=== PATIENT | female | born 1935 | race Caucasian/White ===

== ENCOUNTER → 2016-11-04 | Outpatient (CLI) | payer OTHER, BC ==
[~2016-11-04] MED LIST: ACET-749 PO; ACET325T96 PO; ASCO250T4 PO; ASTN NAE; CALC250T8 PO; CALC500T83 PO; CHOL1000 PO; CHOL20007 PO; CHOLTAB3 PO; DIPH-437 PO; DIPH25CA65 PO; EPP3 IM; EPP3/2 IM; FLUT0.15 NAE; GLUCTAB7 PO; HYDR12.56 PO; KETOCONAZOLE SHAMPOO TOP; LORA10CA2 PO; NYSTCRE11 TOP; OXYC-57 PO; POLY335019 PO; PRED20TA PO; PSYL48.59 PO; PSYL55.43 PO; TIMO0.05 OPB; VERA1CAP5 PO; VERA1TAB PO; WARF2TAB PO; [UNRECOGNIZED DRUG - CODE] TOP; [UNRECOGNIZED DRUG - OTHER] OPB
--- NOTE | 2016-11-04 12:58 | DIAGNOSTIC IMAGING REPORT ---
LUMBAR SPINE 5 VIEWS HISTORY: Pain M16.10 Hip muscxxtqsA60.0 [id number] Lower back [id number] COMPARISON: None. FINDINGS: There is no fracture. No subluxation. Moderate degenerative disc changes throughout. Mild to moderate osteopenia. IMPRESSION: Degenerative change. Osteopenia. No acute process. Electronically signed by: John Villanueva M.D. 11/04/2016 12:56 PM Dictated Date/Time: 11/04/2016 12:56 PM
--- NOTE | 2016-11-04 13:02 | DIAGNOSTIC IMAGING REPORT ---
PELVIS/BILATERAL HIP 2 VIEWS CLINICAL HISTORY: ARTHRITIS, HIP ARTHRITIS pain COMPARISON STUDY: None FINDINGS: Severe degenerative change of both hips. No evidence for acetabular protrusion. Sclerosis and subchondral cyst formation of the hips bilaterally. IMPRESSION: Severe degenerative change of both hips Electronically signed by: John Villanueva M.D. 11/04/2016 1:01 PM Dictated Date/Time: 11/04/2016 1:00 PM
[2016-11-04 13:35] LABS: BLOOD UREA NITROGEN 10 mg/dl (7-18); BUN/CREATININE RATIO 13.1 (10-20); CALCIUM 9.7 mg/dl (8.5-10.1); CARBON DIOXIDE 29 mmol/L (21-32); CHLORIDE 95 mmol/L (98-107); CREATININE 0.78 mg/dl (0.60-1.20); GLUCOSE 90 mg/dl (70-99); POTASSIUM 4.3 mmol/L (3.5-5.1); SODIUM 133 mmol/L (136-145)
== END | disposition home or self-care (01) ==
LOC: C.RADBC 11:49
PROVIDERS: ATTEND Internal Medicine
DX: Z00.00 Encounter for general adult medical examination without abnormal findings (principal); M16.10 Unilateral primary osteoarthritis, unspecified hip; M81.0 Age-related osteoporosis without current pathological fracture; M54.5 Low back pain

== ENCOUNTER → 2016-12-27 | Outpatient (CLI) | payer OTHER, BC ==
[~2016-12-27] MED LIST changes: +CLOT1CRE20 TOP; +CLR10 PO; +GUAI1TAB55 PO; +KETO2SHA TOP; +LPR25 PO; +PSEU30TA64 PO; +TRMO115 TOP; +VERA180T PO; +VITACAP26 PO; +WHEACHW PO; +[UNRECOGNIZED DRUG - CODE] OPB
--- NOTE | 2016-12-27 13:17 | MAMMOGRAPHY REPORT ---
BILATERAL DIGITAL SCREENING MAMMOGRAM TOMOSYNTHESIS WITH CAD: 12/27/2016 CLINICAL HISTORY: Asymptomatic. Personal history of breast cancer. TECHNIQUE: Breast tomosynthesis in addition to standard 2D mammography was performed. Current study was also evaluated with a Computer Aided Detection (CAD) system. COMPARISON: Comparison is made to exams dated: 10/20/2015 mammogram, 12/18/2014 mammogram, 10/27/2014 ma mmogram, 10/29/2013 mammogram, 02/12/2013 mammogram, and 02/20/2012 mammogram - [facility] nter. BREAST COMPOSITION: There are scattered areas of fibroglandular density in both breasts. FINDINGS: No suspicious masses, calcifications, or areas of architectural distortion are noted in e ither breast. There has been no significant interval change compared to prior exams. There are stab le postsurgical changes in the left upper outer quadrant from prior lumpectomy, including stable den sity, architectural distortion, and surgical clips at the lumpectomy bed. A linear scar marker melo jose angel a scar on the left upper outer breast. Scattered bilateral benign-appearing calcifications are not significantly changed. IMPRESSION: ACR BI-RADS CATEGORY 2: BENIGN There is no mammographic evidence of malignancy. A 1 year screening mammogram is recommended. The p atient will receive written notification of the results. Approximately 10% of breast cancers are not detected with mammography. A negative mammographic repor t should not delay biopsy if a clinically suggestive mass is present. Ida Sheehan M.D. /:12/27/2016 12:31:34 Attending Technologist: Poonam Suh RT(R)(M), [facility] Pot Runner: Briana Card RT(R)(M), [facility] letter sent: Normal 1/2 BI-RADS Code: ACR BI-RADS Category 2: Benign
== END | disposition home or self-care (01) ==
LOC: C.MAMM 11:16
PROVIDERS: ATTEND Surgery
DX: Z12.31 Encounter for screening mammogram for malignant neoplasm of breast (principal); Z85.3 Personal history of malignant neoplasm of breast

== ENCOUNTER → 2017-01-25 | Outpatient (CLI) | payer OTHER, BC | END | disposition home or self-care (01) | LOC: C.LAB1850 10:48 | PROVIDERS: ATTEND Internal Medicine | DX: M81.0 Age-related osteoporosis without current pathological fracture (principal) ==

== ENCOUNTER 2017-02-15 01:12 | Emergency (ER) | payer OTHER, BC ==
[~2017-02-15] VITALS: Ht 167.6 cm; Wt 76.0 kg
[~2017-02-15 01:12] MED LIST changes: -ACET-749 PO; -ACET325T96 PO; -ASTN NAE; -CALC250T8 PO; -CALC500T83 PO; -CHOL1000 PO; -CHOL20007 PO; -CLOT1CRE20 TOP; -CLR10 PO; -DIPH25CA65 PO; -EPP3/2 IM; -FLUT0.15 NAE; -GLUCTAB7 PO; -GUAI1TAB55 PO; -HYDR12.56 PO; -KETO2SHA TOP; -KETOCONAZOLE SHAMPOO TOP; -LORA10CA2 PO; -LPR25 PO; -NYSTCRE11 TOP; -OXYC-57 PO; -POLY335019 PO; -PRED20TA PO; -PSEU30TA64 PO; -PSYL48.59 PO; -TIMO0.05 OPB; -TRMO115 TOP; -VERA180T PO; -VERA1CAP5 PO; -VITACAP26 PO; -WARF2TAB PO; -WHEACHW PO; -[UNRECOGNIZED DRUG - CODE] OPB; -[UNRECOGNIZED DRUG - CODE] TOP; -[UNRECOGNIZED DRUG - OTHER] OPB
[2017-02-15 01:16] VITALS: BP 144/85; TEMP 36.8; O2SAT 99; Ht 167.6 cm; Wt 76.0 kg
[2017-02-15] MEDS ORDERED: PRED20TA PO (01:52)
--- NOTE | 2017-02-15 21:21 | EMERGENCY ROOM VISIT NOTE ---
History First contact with patient: 01:36 Chief Complaint: ALLERGIC REACTION Stated Complaint: ALLERGIC REACTION Nursing Triage Summary: patient states prior to arrival her lower lip became swollen and numb and believed she was having an allergic reaction. patient states she had already taken children's benadryl as a part of her normal nighttime medication and patient states symptoms resolved priro to arrival. denies any respiratoy complaints at this time and respirations wnl . 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 History of Present Illness The patient is a 82 year old female who presents to the Emergency Room with complaints of lip swelling that has now resolved. She had a sudden onset of symptoms prior to arrival then took benadryl. The patient noted using an oral moisturizer just prior to the event. She has had allergic reactions and angioedema in the past for the 30 yrs. She is currently feeling better only noting minimal left lower lip edema. She denies pain. Pt denies LOC, headache , fevers, chills, diaphoresis, visual changes, neck pain, chest pain, breathing difficulties, nausea, vomiting, abdominal pain, back pain, melena, hematochezia , urinary symptoms, numbness, weakness, lymphadenopathy, rash, or other complaints. Review of Systems See HPI for pertinent positives and negatives. A total of ten systems were reviewed and were otherwise negative. 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 (5) Sleep apnea Social History Smoking Status: Never Smoker Marital Status: single Housing Status: lives alone Current/Historical Medications Scheduled Acetaminophen/Diphenhydramine (Tylenol Pm), 2 TABS PO HS Ascorbic Acid (Vitamin C), 250 MG PO DAILY Epinephrine (Epipen *), 0.3 MG IM UD Ergocalciferol (Vitamin D), 1 CAP PO DAILY Hydrochlorothiazide (Hctz), 12.5 MG PO DAILY Loratadine (Claritin), 10 MG PO DAILY Prednisone (Prednisone), 40 MG PO DAILY Psyllium (Metamucil Powder), 1 PACK PO PRN UD Verapamil (Calan), 80 MG PO TID PRN Scheduled PRN Acetaminophen Tab (Tylenol), 650 MG PO TID PRN Allergies Coded Allergies: Aspirin (Verified Allergy, Severe, TONGUE AND THROAT SWELLS, 06/14/16) Cephalexin (Verified Allergy, Severe, swelling tongue and throat, 06/14/16 ) Magnesium Salicylate (Verified Allergy, Severe, ANAPHYLAXIS, 06/14/16) Omeprazole (Verified Allergy, Severe, ANAPHYLAXIS, 06/14/16) Tramadol (Verified Allergy, Severe, ANAPHYLAXIS, 06/14/16) Erythromycin (Verified Allergy, Unknown, SWELLING AND RASH, 06/14/16) Oxycodone (Verified Allergy, Unknown, UNKNOWN, 06/14/16) Tetracycline (Verified Allergy, Unknown, SWELLING AND RASH, 06/14/16) Alendronate (Verified Adverse Reaction, Unknown, very upset stomach, 06/14) Uncoded Allergies: perfumes (Allergy, Unknown, can't breathe, 05/20/12) Physical Exam Vital Signs Date Time Temp Pulse Resp B/P (MAP) Pulse Ox O2 Delivery O2 Flow Rate FiO2 02/15/17 01:16 Room Air 02/15/17 01:16 36.8 20 144/85 99 Room Air Physical Exam GENERAL: Awake, alert, well-appearing, in no distress HENT: Normocephalic, atraumatic. Oropharynx unremarkable. No edema or swelling. Voice normal. EYES: Normal conjunctiva. Sclera non-icteric. NECK: Supple. No nuchal rigidity. FROM. No JVD. No stridor. RESPIRATORY: Clear to auscultation. CARDIAC: Regular rate, normal rhythm. Extremities warm and well perfused. Pulses equal. ABDOMEN: Soft, non-distended. No tenderness to palpation. No rebound or guarding. No masses. RECTAL: Deferred. MUSCULOSKELETAL: Chest examination reveals no tenderness. The back is symmetrical on inspection without obvious abnormality. There is no CVA tenderness to palpation. No joint edema. LOWER EXTREMITIES: Calves are equal size bilaterally and non-tender. No edema. No discoloration. NEURO: Normal sensorium. No sensory or motor deficits noted. SKIN: No rash or jaundice noted. Medical Decision & Procedures Medications Administered Medications (Trade) Dose Ordered Sig/Foster Route Start Time Stop Time Status Last Admin Dose Admin Prednisone (PredniSONE TAB) 40 mg NOW STAT PO 02/15/17 01:43 02/15/17 01:45 DC 02/15/17 01:49 40 MG Medical Decision Prior records/ancillary studies reviewed. Triage Nursing notes reviewed and agree them. The patient's history was concerning for possible allergic reaction. Differential diagnosis: Etiologies such as allergic reaction, anaphylaxis, urticaria, Martinez-Dank syndrome, toxic epidermal necrolysis, angioedema, cellulitis, as well as others were entertained. Physical examination: As above. ER treatment provided: Continuous cardiac monitoring Oral prednisone On reassessment the patient felt normal. Diagnostic interpretation by me: None ordered It appears the patient had a Very mild allergic reaction. The above treatment did well. After prolonged monitoring and frequent reassessments the patient did very well and symptoms did not return. By the evaluation outlined above emergent etiologies such as airway compromise, Martinez-Dank syndrome, toxic epidermal necrolysis, erythema multiforme, cellulitis, as well as others were deemed relatively unlikely. The patient was informed about the findings as listed above. All questions were answered and she was pleased with the treatment. Return instructions were outlined and the patient was discharged in stable condition. Outpatient prescription management: The patient has an EpiPen prednisone Referral: The patient was referred back to her primary care physician for follow-up in 2- 3 days for a recheck of the current condition. Impression Primary Impression: Allergic reaction Departure Information Dispostion Home / Self-Care Prescriptions Prednisone (Prednisone) 20 Mg Tab 40 MG PO DAILY for 2 Days, #4 TAB Prov: David Lauren MD 02/15/17 Referrals Julio Springer M.D. (PCP) Patient Instructions My [facility]
[2017-03-16] MEDS ORDERED: ACET325T96 PO (13:45)
[2017-03-16] MEDS ORDERED: HYDR12.56 PO (13:54)
[2017-03-16] MEDS ORDERED: LORA10CA2 PO (13:54)
[2017-04-02] MEDS ORDERED: TIMO0.05 OPB (14:35)
[2017-04-02] MEDS ORDERED: PSYL48.59 PO (14:35)
[2017-04-02] MEDS ORDERED: VERA1CAP5 PO (14:35)
[2017-04-02] MEDS ORDERED: NYSTCRE11 TOP (14:35)
[2017-04-02] MEDS ORDERED: FLUT0.15 NAE (14:35)
[2017-04-02] MEDS ORDERED: KETOCONAZOLE SHAMPOO TOP (14:35)
[2017-04-02] MEDS ORDERED: VERA1TAB PO (14:35)
[2017-04-02] MEDS ORDERED: POLY335019 PO (14:35)
[2017-04-02] MEDS ORDERED: CHOL1000 PO (14:35)
[2017-04-02] MEDS ORDERED: CALC250T8 PO (14:35)
[2017-04-02] MEDS ORDERED: DIPH-437 PO (14:35)
[2017-04-02] MEDS ORDERED: DIPH25CA65 PO (14:35)
[2017-04-02] MEDS ORDERED: [UNRECOGNIZED DRUG - CODE] TOP (14:56)
== END 2017-02-15 02:30 | disposition home or self-care (01) ==
LOC: EDBD 01:12 → C.EDA 01:14
DX: T78.40XA Allergy, unspecified, initial encounter (principal); X58.XXXA Exposure to other specified factors, initial encounter; I10 Essential (primary) hypertension; Z85.3 Personal history of malignant neoplasm of breast; G47.30 Sleep apnea, unspecified; Z96.659 Presence of unspecified artificial knee joint

== ENCOUNTER 2017-03-16 20:46 | Inpatient (IN) | payer OTHER, BC ==
[~2017-03-16] VITALS: Ht 167.6 cm; Wt 77.1 kg
[~2017-03-16 20:46] MED LIST changes: +ACET325T96 PO; +HYDR12.56 PO; +LORA10CA2 PO
[2017-03-16 21:23] LABS: BASO % 0.3 %; BASO ABS # 0.02 K/uL (0-0.2); COMPLETE YES; EOS % 1.5 %; HEMATOCRIT 38.6 % (37-47); IG% 0.2 %; LYMPH % 36.9 %; LYMPH ABS # 2.26 K/uL (1.2-3.4); MEAN CELL VOLUME 90.6 fL (80-100); MEAN CORPUSCULAR HEMOGLOBIN 31.7 pg (25-34); MEAN PLATELET VOLUME 9.1 fL (7.4-10.4); MONO % 9.1 %; PLATELET COUNT 272 K/uL (130-400); RED BLOOD COUNT 4.26 M/uL (4.2-5.4); WHITE BLOOD COUNT 6.13 K/uL (4.8-10.8)
--- NOTE | 2017-03-16 21:31 | DIAGNOSTIC IMAGING REPORT ---
CHEST ONE VIEW PORTABLE CLINICAL HISTORY: Stroke mental status change COMPARISON STUDY: 06/30/2012 FINDINGS: The bones soft tissues and hemidiaphragms are normal. The cardiomediastinal silhouette is normal. The lungs are clear. The pulmonary vasculature is normal. IMPRESSION: Negative chest. The above report was generated using voice recognition software. It may contain grammatical, syntax or spelling errors. Electronically signed by: John Villanueva M.D. 03/16/2017 9:30 PM Dictated Date/Time: 03/16/2017 9:30 PM
[2017-03-16 21:32] LABS: ALT/SGPT 16 U/L (12-78); BLOOD UREA NITROGEN 12 mg/dl (7-18); BUN/CREATININE RATIO 13.8 (10-20); CALCIUM 9.2 mg/dl (8.5-10.1); CARBON DIOXIDE 28 mmol/L (21-32); CHLORIDE 94 mmol/L (98-107); CREATININE 0.86 mg/dl (0.60-1.20); GLUCOSE 114 mg/dl (70-99); POTASSIUM 4.1 mmol/L (3.5-5.1); SODIUM 130 mmol/L (136-145)
[2017-03-16 21:34] LABS: PARTIAL THROMBOPLASTIN RATIO 1.3; PROTHROMBIN TIME (PATIENT) 10.7 SECONDS (9.0-12.0)
[2017-03-16] MEDS: SODIUM CHLORIDE 0.9% 1000ML 1,000 ML IV SCH (21:34)
[2017-03-16 21:38] LABS: ALKALINE PHOSPHATASE 94 U/L (45-117); AST/SGOT 13 U/L (15-37); CKMB/CK RATIO 2.3 (0-3.0)
[2017-03-16] MEDS ORDERED: [UNRECOGNIZED DRUG - OTHER] OPB (21:46)
[2017-03-16] MEDS ORDERED: ASTN NAE (21:46)
[2017-03-16] MEDS ORDERED: EPP3/2 IM (21:46)
[2017-03-16] MEDS ORDERED: CALC500T83 PO (21:46)
[2017-03-16] MEDS ORDERED: GLUCTAB7 PO (21:46)
[2017-03-16] MEDS ORDERED: CHOL20007 PO (21:46)
--- NOTE | 2017-03-16 21:55 | DIAGNOSTIC IMAGING REPORT ---
HEAD WITHOUT CONTRAST (CT) CT DOSE: 638.56 mGycm HISTORY: Mental status change Stroke TECHNIQUE: Multiaxial CT images of the head were performed without the use of intravenous contrast. A dose lowering technique was utilized adhering to the principles of ALARA. Comparison: None. Findings: The paranasal sinuses and mastoid air cells are clear. Mild chronic small vessel change of aging. Ventricular system is midline. No evidence for acute intracranial hemorrhage. Impression: Age-related change. No acute process. The above report was generated using voice recognition software. It may contain grammatical, syntax or spelling errors. Electronically signed by: John Villanueva M.D. 03/16/2017 9:54 PM Dictated Date/Time: 03/16/2017 9:52 PM
[2017-03-16 22:20] LABS: URINE APPEARANCE CLEAR (CLEAR); URINE BILIRUBIN NEG (NEG); URINE COLOR YELLOW; URINE NITRITE NEG (NEG); URINE PH 8.5 (4.5-7.5); UROBILINOGEN NEG (NEG); ZZUR CULT IF INDIC CLEAN CATCH NO
[2017-03-16 22:21] LABS: MANUAL MICROSCOPIC REQUIRED? NO; REVIEW REQ? NO
--- NOTE | 2017-03-16 22:51 | EMERGENCY ROOM VISIT NOTE ---
History Report prepared by Jade: Evelyn Ward Under the Supervision of: Dr. Richie Ding D.O. First contact with patient: 21:03 Chief Complaint: TIA Stated Complaint: TIA SYMPTOMS History of Present Illness The patient is an 82 year old female who presents to the Emergency Room with complaints of improving left sided weakness which started at 1900 today. The patient started having difficulty walking at 1900. Her left leg seemed to be dragging behind her. She waited to see if the symptoms would resolve, but they did not so she called EMS. Her symptoms had begun to improve by the time EMS arrived. She reports some stiffness in her left hand, numbness in her left lip, dizziness, lightheadedness, and headache. She reports feeling "fuzzy" in the head. She always has some pain in her left leg because of her knee replacement. She denies any swelling in her legs. She has difficulty with her right hip and will have a hip replacement in the future. She has a history of aortic aneurysm , high cholesterol, and sleep apnea. She denies any history of stroke. She wore a heart monitor a couple months ago which was normal. She is not on any blood thinners. Source of History: patient Onset: 1900 today Position: other (left sided) Quality: other (weakness) Timing: other (improving) Associated Symptoms: + numbness (left lip) Note: Pt reports trouble walking, left leg dragging, stiffness in left hand, dizziness , lightheadedness, fuzzy in the head. Pt denies leg swelling. Review of Systems See HPI for pertinent positives & negatives. A total of 10 systems reviewed and were otherwise negative. 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 Social History Smoking Status: Former Smoker Marital Status: Housing Status: lives alone Current/Historical Medications Scheduled Azelastine Hcl (Astelin Nasal [place]), 2 SPRAYS CASSIA BID Calcium (Calcium), 1 TAB PO DAILY Cholecalciferol (Vitamin D3), 2,000 INTER.UNIT PO DAILY Fctffpzjgmn-Ywrdmfquusm-Vjx C- (Glucosamine Chondroitin), 1 TAB PO DAILY Hydrochlorothiazide (Hctz), 12.5 MG PO DAILY Loratadine (Claritin), 10 MG PO DAILY Timolol Maleate (Timolol Maleate), 1 DROP OPB QAM Scheduled PRN Acetaminophen Tab (Tylenol), 650 MG PO TID PRN for Pain Epinephrine (Epipen), 0.3 MG IM UD PRN for ALLERGIC REACTION Allergies Coded Allergies: Aspirin (Verified Allergy, Severe, TONGUE AND THROAT SWELLS, 06/14/16) Cephalexin (Verified Allergy, Severe, swelling tongue and throat, 06/14/16 ) Magnesium Salicylate (Verified Allergy, Severe, ANAPHYLAXIS, 06/14/16) Omeprazole (Verified Allergy, Severe, ANAPHYLAXIS, 06/14/16) Tramadol (Verified Allergy, Severe, ANAPHYLAXIS, 06/14/16) Erythromycin (Verified Allergy, Unknown, SWELLING AND RASH, 06/14/16) Oxycodone (Verified Allergy, Unknown, UNKNOWN, 06/14/16) Tetracycline (Verified Allergy, Unknown, SWELLING AND RASH, 06/14/16) Alendronate (Verified Adverse Reaction, Unknown, very upset stomach, 06/14) Uncoded Allergies: perfumes (Allergy, Unknown, can't breathe, 05/20/12) Physical Exam Vital Signs Date Time Temp Pulse Resp B/P (MAP) Pulse Ox O2 Delivery O2 Flow Rate FiO2 03/16/17 22:56 64 20 171/89 98 Room Air 03/16/17 21:21 Room Air 03/16/17 20:55 86 03/16/17 20:48 37.1 65 18 149/71 97 Room Air Physical Exam GENERAL: Patient is awake, alert, and in no acute distress. Patient is resting comfortably and showing no signs of anxiety EYES: The conjunctivae are clear. The pupils are round and reactive. EARS, NOSE, MOUTH AND THROAT: The nose is without any evidence of any deformity. Mucous membranes are moist tongue is midline NECK: The neck is nontender and supple. RESPIRATORY: Normal respiratory effort is noted there is no evidence of wheezing rhonchi or rales CARDIOVASCULAR: Regular rate and rhythm noted there no murmurs rubs or gallops normal S1 normal S2 GASTROINTESTINAL: The abdomen is soft. Bowel sounds are present in all quadrants. Abdomen is nontender MUSCULOSKELETAL/EXTREMITIES: There is no evidence of gross deformity full range of motion is noted in the hips and shoulders SKIN: There is pedal edema bilaterally. 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 Medical Decision & Procedures ER Provider Diagnostic Interpretation: X-ray results as stated below per interpretation by me and the radiologist. Radiology results as stated below per my review and radiologist interpretation: CHEST ONE VIEW PORTABLE CLINICAL HISTORY: Stroke mental status change COMPARISON STUDY: 06/30/2012 FINDINGS: The bones soft tissues and hemidiaphragms are normal. The cardiomediastinal silhouette is normal. The lungs are clear. The pulmonary vasculature is normal. IMPRESSION: Negative chest. The above report was generated using voice recognition software. It may contain grammatical, syntax or spelling errors. Electronically signed by: John Villanueva M.D. 03/16/2017 9:30 PM Dictated Date/Time: 03/16/2017 9:30 PM HEAD WITHOUT CONTRAST (CT) CT DOSE: 638.56 mGycm HISTORY: Mental status change Stroke TECHNIQUE: Multiaxial CT images of the head were performed without the use of intravenous contrast. A dose lowering technique was utilized adhering to the principles of ALARA. Comparison: None. Findings: The paranasal sinuses and mastoid air cells are clear. Mild chronic small vessel change of aging. Ventricular system is midline. No evidence for acute intracranial hemorrhage. Impression: Age-related change. No acute process. The above report was generated using voice recognition software. It may contain grammatical, syntax or spelling errors. Electronically signed by: John Villanueva M.D. 03/16/2017 9:54 PM Dictated Date/Time: 03/16/2017 9:52 PM Laboratory Results Test 03/16/17 20:45 03/16/17 21:34 03/16/17 22:00 Prothrombin Time 10.7 SECONDS (9.0-12.0) Prothromb Time International Ratio 1.0 (0.9-1.1) Activated Partial Thromboplast Time 32.5 SECONDS (21.0-31.0) Partial Thromboplastin Ratio 1.3 Estimated Average Glucose 114 mg/dl Hemoglobin A1c 5.6 % (4.5-5.6) Total Bilirubin 0.6 mg/dl (0.2-1) Direct Bilirubin 0.1 mg/dl (0-0.2) Aspartate Amino Transf (AST/SGOT) 13 U/L (15-37) Alanine Aminotransferase (ALT/SGPT) 16 U/L (12-78) Alkaline Phosphatase 94 U/L (45-117) Total Protein 7.5 gm/dl (6.4-8.2) Albumin 3.7 gm/dl (3.4-5.0) Bedside Prothrombin Time INR 1.0 (0.9-1.1) Urine Color YELLOW Urine Appearance CLEAR (CLEAR) Urine pH 8.5 (4.5-7.5) Urine Specific [place] 1.010 (1.000-1.030) Urine Protein NEG (NEG) Urine Glucose (UA) NEG (NEG) Urine Ketones NEG (NEG) Urine Occult Blood NEG (NEG) Urine Nitrite NEG (NEG) Urine Bilirubin NEG (NEG) Urine Urobilinogen NEG (NEG) Urine Leukocyte Esterase SMALL (NEG) Urine WBC (Auto) 1-5 /hpf (0-5) Urine RBC (Auto) 0-4 /hpf (0-4) Urine Hyaline Casts (Auto) 0 /lpf (0-5) Urine Epithelial Cells (Auto) 10-20 /lpf (0-5) Urine Bacteria (Auto) NEG (NEG) Laboratory results per my review. Medications Administered Medications (Trade) Dose Ordered Sig/Foster Route Start Time Stop Time Status Last Admin Dose Admin Sodium Chloride 1,000 ml @ 50 mls/hr Q20H IV 03/16/17 21:14 03/17/17 18:13 DC 03/17/17 17:42 50 MLS/HR ECG Indication: weakness Rate (beats per minute): 70 Rhythm: normal sinus Findings: no ectopy, other (no acute ST segment abnormalities) Comparison ECG Date: 02-Jul-2012 Change: no significant change ED Course 2112: The patient was evaluated in room A11B. A complete history and physical examination were performed. 2113: NSS 1000 ml @ 50 mls/hr IV. 2213: Upon reevaluation, the patient is resting comfortably. I discussed results and treatment plan with her. She verbalizes agreement and understanding. The patient will be evaluated for further management and care. 2242: I discussed the patient's case with Dr. Kline, [facility] hospitalist. The patient will be evaluated for further management. Medical Decision Prior records/ancillary studies reviewed and summarized above. Nursing notes reviewed. The patient's history was concerning for weakness. Differential diagnosis: Etiologies such as metabolic, infection, hypo/hyperglycemia, electrolyte abnormalities, cardiac sources, intracerebral event, toxicologic, neurologic, as well as others were entertained. The patient is an 82-year-old female who presented to the emergency department for an evaluation of left-sided weakness. The patient had significant improvement of her symptoms. I discussed the patient's laboratory and radiographic studies with her. The patient does not appear to be a candidate for TPA at this time. I discussed the patient's condition with the on-call [facility] hospitalist group. She may require further evaluation as an inpatient to determine the cause of her symptoms. The patient was agreeable to this plan. Medication Reconcilliation Current Medication List: was personally reviewed by me Blood Pressure Screening Patient's blood pressure: Elevated blood pressure Blood pressure disposition: Elevated BP felt to be situational Consults Time Called: [phone] Consulting Physician: Dr. Kline, [facility] hospitalist Returned Call: [phone] I discussed the patient's case with him. The patient will be evaluated for further management. Impression Primary Impression: Left-sided weakness Additional Impression: Hyponatremia Scribe Attestation The scribe's documentation has been prepared under my direction and personally reviewed by me in its entirety. I confirm that the note above accurately reflects all work, treatment, procedures, and medical decision making performed by me. Departure Information Dispostion Being Evaluated By Hospitalist Referrals Julio Springer M.D. (PCP) Patient Instructions My [facility] Problem Qualifiers
[2017-03-16] MEDS ORDERED: PHARMACIST DISCHARGE MED REC CONSULT PRN (23:45)
[2017-03-17] VITALS (10 sets, daily range): BP systolic 117–185; BP diastolic 57–95; PULSE 54–77; TEMP 36.4–36.9; O2SAT 96–98; Ht 167.6 cm; Wt 77.1 kg
[2017-03-17] MEDS: ACETAMINOPHEN 325 MG TAB PO PRN ×5 (02:04→20:35)
--- NOTE | 2017-03-17 02:44 | History and Physical ---
History & Physical Date & Time of Service: Mar 17, 2017 at 02:32. The patient was examined on 03/16/2017. Chief Complaint: Hyponatremia, Left Sided Weakness Primary Care Physician: Julio Springer M.D. History of Present Illness Source: patient The patient is an 82-year-old female who presents to the emergency department with complaint of left-sided weakness that began at 1900 hrs. today, where her left leg felt heavy and was dragging behind her, and left arm felt weak. She called EMS after symptoms did not resolve, and was brought to the emergency department for assessment. She also reports that her head felt fuzzy, and had some numbness in her left lip, dizziness, lightheadedness and a headache. While in the emergency department, her symptoms did significantly improve, but did have persistent left leg heaviness. She is scheduled to undergo a right hip arthroplasty at the end of March. She has not had any history of stroke, but does have a history of an aortic aneurysm, hypercholesterolemia and sleep apnea. She reports having worn a heart monitor a few months ago due to palpitations which was normal. She does not take aspirin due to sensitivity or related products. She has not had any recent travel or sick exposures Past Medical/Surgical History Medical Problems: (1) Benign hypertension Status: Chronic (2) breast cancer Status: Chronic (3) idiopathic angioedema Status: Chronic (4) Replacement of total knee joint Status: Resolved (5) Sleep apnea Status: Chronic Family History Noncontributory Social History Smoking Status: Former Smoker Smokeless Tobacco Use: No Alcohol Use: none Drug Use: none Marital Status: Housing status: lives alone Occupational Status: retired Immunizations History of Influenza Vaccine: Yes History of Tetanus Vaccine?: Unknown History of Pneumococcal: Yes History of Hepatitis B Vaccine: Unknown Multi-Drug Resistant Organisms History of MDRO: No Allergies Coded Allergies: Aspirin (Verified Allergy, Severe, TONGUE AND THROAT SWELLS, 06/14/16) Cephalexin (Verified Allergy, Severe, swelling tongue and throat, 06/14/16 ) Magnesium Salicylate (Verified Allergy, Severe, ANAPHYLAXIS, 06/14/16) Omeprazole (Verified Allergy, Severe, ANAPHYLAXIS, 06/14/16) Tramadol (Verified Allergy, Severe, ANAPHYLAXIS, 06/14/16) Erythromycin (Verified Allergy, Unknown, SWELLING AND RASH, 06/14/16) Oxycodone (Verified Allergy, Unknown, UNKNOWN, 06/14/16) Tetracycline (Verified Allergy, Unknown, SWELLING AND RASH, 06/14/16) Alendronate (Verified Adverse Reaction, Unknown, very upset stomach, 06/14) Uncoded Allergies: perfumes (Allergy, Unknown, can't breathe, 05/20/12) Home Medications Scheduled Azelastine Hcl (Astelin Nasal [place]), 2 SPRAYS CASSIA BID Calcium (Calcium), 1 TAB PO DAILY Cholecalciferol (Vitamin D3), 2,000 INTER.UNIT PO DAILY Puqbxlkqzdl-Yeolpsqjuae-Wvv C- (Glucosamine Chondroitin), 1 TAB PO DAILY Hydrochlorothiazide (Hctz), 12.5 MG PO DAILY Loratadine (Claritin), 10 MG PO DAILY Timolol Maleate (Timolol Maleate), 1 DROP OPB QAM Scheduled PRN Acetaminophen Tab (Tylenol), 650 MG PO TID PRN for Pain Epinephrine (Epipen), 0.3 MG IM UD PRN for ALLERGIC REACTION Review of Systems The patient denies chest pain, palpitations, shortness of breath, cough, lower extremity swelling, vision change, hearing change, sore throat, fevers, chills, sweats, weight change, fatigue, nausea, vomiting, abdominal pain, pelvic pain, blood in urine or stool, dysuria, urinary frequency or urgency, memory loss, rash, abnormal bruising or bleeding, generalized weakness, arthralgias or myalgias, back or neck pain, night sweats, or allergy symptoms. The review of systems is otherwise negative other than for that already noted above, and at least 10 systems have been reviewed. Physical Exam Vital Signs Date Time Temp Pulse Resp B/P (MAP) Pulse Ox O2 Delivery O2 Flow Rate FiO2 03/17/17 01:40 36.7 72 20 185/95 97 Room Air 03/16/17 23:57 70 18 152/92 97 Room Air 03/16/17 22:56 64 20 171/89 98 Room Air 03/16/17 21:21 Room Air 03/16/17 20:55 86 03/16/17 20:48 37.1 65 18 149/71 97 Room Air The patient is awake, well-developed and adequately nourished, alert and oriented 3, normocephalic and atraumatic, lying in bed and in no acute distress. HEENT--PERRL, EOMI, mucous membranes and oropharynx dry. Neck--supple, no JVD or bruits, thyroid normal, trachea midline, no adenopathy. Heart--normal S1 and S2, no extra beats, no murmurs, rubs or gallops. Lungs--clear bilaterally with good air movement, no respiratory distress, no accessory muscle use. Abdomen--normal bowel sounds and soft, nontender and nondistended, no hernias or masses, no organomegaly. Extremities--no cyanosis, clubbing or edema. There are good distal pulses b/l. Dermatologic--normal skin turgor, normal color, warm and dry, no abnormal lymph nodes, no rash. Neurologic--cranial nerves II through XII grossly intact. Left upper extremity 4+/5 strength, left lower extremity with 4/5 strength. Right upper lobe extremity strength normal. Sensation normal bilaterally upper and lower extremities. Rheumatologic--limited exam due to weak left side. Psychiatric--normal affect. Diagnostics Laboratory Results Results Past 24 Hours Test 03/16/17 20:45 03/16/17 21:34 03/16/17 22:00 Range/Units White Blood Count 6.13 4.8-10.8 K/uL Red Blood Count 4.26 4.2-5.4 M/uL Hemoglobin 13.5 12.0-16.0 g/dL Hematocrit 38.6 37-47 % Mean Corpuscular Volume 90.6 80-100 fL Mean Corpuscular Hemoglobin 31.7 25-34 pg Mean Corpuscular Hemoglobin Concent 35.0 32-36 g/dl Platelet Count 272 130-400 K/uL Mean Platelet Volume 9.1 7.4-10.4 fL Neutrophils (%) (Auto) 52.0 % Lymphocytes (%) (Auto) 36.9 % Monocytes (%) (Auto) 9.1 % Eosinophils (%) (Auto) 1.5 % Basophils (%) (Auto) 0.3 % Neutrophils # (Auto) 3.19 1.4-6.5 K/uL Lymphocytes # (Auto) 2.26 1.2-3.4 K/uL Monocytes # (Auto) 0.56 0.11-0.59 K/uL Eosinophils # (Auto) 0.09 0-0.5 K/uL Basophils # (Auto) 0.02 0-0.2 K/uL RDW Standard Deviation 42.2 36.4-46.3 fL RDW Coefficient of Variation 12.7 11.5-14.5 % Immature Granulocyte % (Auto) 0.2 % Immature Granulocyte # (Auto) 0.01 0.00-0.02 K/uL Prothrombin Time 10.7 9.0-12.0 SECONDS Prothromb Time International Ratio 1.0 0.9-1.1 Activated Partial Thromboplast Time 32.5 21.0-31.0 SECONDS Partial Thromboplastin Ratio 1.3 Sodium Level 130 136-145 mmol/L Potassium Level 4.1 3.5-5.1 mmol/L Chloride Level 94 98-107 mmol/L Carbon Dioxide Level 28 21-32 mmol/L Anion Gap 8.0 3-11 mmol/L Blood Urea Nitrogen 12 7-18 mg/dl Creatinine 0.86 0.60-1.20 mg/dl Est Creatinine Clear Calc Drug Dose 55.3 ml/min Estimated GFR () 73.4 Estimated GFR (Non- 63.4 BUN/Creatinine Ratio 13.8 10-20 Random Glucose 114 70-99 mg/dl Calcium Level 9.2 8.5-10.1 mg/dl Total Bilirubin 0.6 0.2-1 mg/dl Direct Bilirubin 0.1 0-0.2 mg/dl Aspartate Amino Transf (AST/SGOT) 13 15-37 U/L Alanine Aminotransferase (ALT/SGPT) 16 12-78 U/L Alkaline Phosphatase 94 45-117 U/L Total Creatine Kinase 52 26-192 U/L Creatine Kinase MB 1.2 0.5-3.6 ng/ml Creatine Kinase MB Ratio 2.3 0-3.0 Troponin I < 0.015 0-0.045 ng/ml Total Protein 7.5 6.4-8.2 gm/dl Albumin 3.7 3.4-5.0 gm/dl Bedside Prothrombin Time INR 1.0 0.9-1.1 Urine Color YELLOW Urine Appearance CLEAR CLEAR Urine pH 8.5 4.5-7.5 Urine Specific [place] 1.010 1.000-1.030 Urine Protein NEG NEG Urine Glucose (UA) NEG NEG Urine Ketones NEG NEG Urine Occult Blood NEG NEG Urine Nitrite NEG NEG Urine Bilirubin NEG NEG Urine Urobilinogen NEG NEG Urine Leukocyte Esterase SMALL NEG Urine WBC (Auto) 1-5 0-5 /hpf Urine RBC (Auto) 0-4 0-4 /hpf Urine Hyaline Casts (Auto) 0 0-5 /lpf Urine Epithelial Cells (Auto) 10-20 0-5 /lpf Urine Bacteria (Auto) NEG NEG Diagnostic Radiology Patient Name: MACK SCHMIDT Unit Number: [id number] Dictated: 03/16/172151 Transcribed: 03/16/172151 MS Printed Date/Time: [~ rep prt dt]/[~ rep prt tm] [~ rep ct labl] - [~ rep ct ivnm] [facility] Radiology Department [place] [id number] Dictated: 03/16/172151 Transcribed: 03/16/172151 MS Printed Date/Time: [~ rep prt dt]/[~ rep prt tm] [~ rep ct labl] - [~ rep ct ivnm] HEAD WITHOUT CONTRAST (CT) CT DOSE: 638.56 mGycm HISTORY: Mental status change Stroke TECHNIQUE: Multiaxial CT images of the head were performed without the use of intravenous contrast. A dose lowering technique was utilized adhering to the principles of ALARA. Comparison: None. Findings: The paranasal sinuses and mastoid air cells are clear. Mild chronic small vessel change of aging. Ventricular system is midline. No evidence for acute intracranial hemorrhage. Impression: Age-related change. No acute process. The above report was generated using voice recognition software. It may contain grammatical, syntax or spelling errors. Electronically signed by: John Villanueva M.D. 03/16/2017 9:54 PM Dictated Date/Time: 03/16/2017 9:52 PM The status of this report is Signed. Draft = Not yet reviewed or approved by Radiologist. Signed = Reviewed and approved by Radiologist. <AttendingPhy></AttendingPhy> <FamilyPhy>Julio Springer M.D.</FamilyPhy> < PrimaryPhy>Julio Springer M.D.</PrimaryPhy> <UnitNumber>[id number]</UnitNumber> <VisitNumber>[id number]</VisitNumber> <PatientName>MACK SCHMIDT</ PatientName> <DateOfBirth>1935</DateOfBirth> <Location>[facility]</Location> < ServiceDate>03/16/17</ServiceDate> <MNE>ESINDI</MNE> <OrderingPhy>Richie Ding D.O.</OrderingPhy> <OrderingPhyMNE>f rep ord dr pennington</OrderingPhyMNE> <DictatingPhyMNE>f rep dict dr [place]</DictatingPhyMNE> <CCListMNE>f rep ct mne</ CCListMNE> <AdmittingPhyMNE>f pt admit dr pennington</AdmittingPhyMNE> <AttendingPhyMNE >f pt attend dr pennington</AttendingPhyMNE> <ConsultingPhyMNE>f pt consult dr pennington</ConsultingPhyMNE> <FamilyPhyMNE>f pt fam dr pennington</FamilyPhyMNE> <OtherPhyMNE>f pt other dr pennington</OtherPhyMNE> < PrimaryPhyMNE>f pt prim care dr pennington</PrimaryPhyMNE> <ReferringPhyMNE>f pt referring dr pennington</ReferringPhyMNE> Patient Name: MACK SCHMIDT Unit Number: [id number] Dictated: 03/16/172129 Transcribed: 03/16/172129 MS Printed Date/Time: [~ rep prt dt]/[~ rep prt tm] [~ rep ct labl] - [~ rep ct ivnm] [facility] [place] [address] Dictated: 03/16/172129 Transcribed: 03/16/172129 MS Printed Date/Time: [~ rep prt dt]/[~ rep prt tm] [~ rep ct labl] - [~ rep ct ivnm] [~ rep ct add3]] CHEST ONE VIEW PORTABLE CLINICAL HISTORY: Stroke mental status change COMPARISON STUDY: 06/30/2012 FINDINGS: The bones soft tissues and hemidiaphragms are normal. The cardiomediastinal silhouette is normal. The lungs are clear. The pulmonary vasculature is normal. IMPRESSION: Negative chest. The above report was generated using voice recognition software. It may contain grammatical, syntax or spelling errors. Electronically signed by: John Villanueva M.D. 03/16/2017 9:30 PM Dictated Date/Time: 03/16/2017 9:30 PM The status of this report is Signed. Draft = Not yet reviewed or approved by Radiologist. Signed = Reviewed and approved by Radiologist. <AttendingPhy></AttendingPhy> <FamilyPhy>Julio Springer M.D.</FamilyPhy> < PrimaryPhy>Julio Springer M.D.</PrimaryPhy> <UnitNumber>[id number]</UnitNumber> <VisitNumber>[id number]</VisitNumber> <PatientName>BRAYANMACK Drake</ PatientName> <DateOfBirth>1935</DateOfBirth> <Location>[facility]</Location> < ServiceDate>03/16/17</ServiceDate> <MNE>ESINDI</MNE> <OrderingPhy>Richie Ding D.O.</OrderingPhy> <OrderingPhyMNE>f rep ord dr pennington</OrderingPhyMNE> <DictatingPhyMNE>f rep dict dr pennington</DictatingPhyMNE> <CCListMNE>f rep ct mne</ CCListMNE> <AdmittingPhyMNE>f pt admit dr pennington</AdmittingPhyMNE> <AttendingPhyMNE >f pt attend dr pennington</AttendingPhyMNE> <ConsultingPhyMNE>f pt consult dr pennington</ConsultingPhyMNE> <FamilyPhyMNE>f pt fam dr pennington</FamilyPhyMNE> <OtherPhyMNE>f pt other dr pennington</OtherPhyMNE> < PrimaryPhyMNE>f pt prim care dr pennington</PrimaryPhyMNE> <ReferringPhyMNE>f pt referring dr pennington</ReferringPhyMNE> EKG EKG shows normal sinus rhythm at 70 bpm, no acute ST-T changes, and no change since 07/02/2012. Impression Assessment and Plan Left arm and left leg weakness persistent but improving/resolved headache, lightheadedness, dizziness--The patient will be admitted to telemetry for serial cardiac enzymes, cardiac rhythm monitoring and a 2-D echocardiogram with Dopplers. We will order an MRI of the brain combo, MRA of the neck combo, and MRA of head without contrast. Patient is unable to take aspirin. We'll check a fasting lipid profile and hemoglobin A1c. Hyponatremia/hypertension/migraine--hold HCTZ 12.5 mg by mouth daily. Continue verapamil 80 mg by mouth 3 times a day when necessary headache. Gen. allergy--continue loratadine 10 mg by mouth daily. Insomnia--continue acetaminophen/diphenhydramine 2 tablets by mouth at bedtime when necessary. Level of Care Telemetry Advanced Directives Existing Advance Directive: No Existing Living Will: No Existing Power of Pleater Hand: No Resuscitation Status FULL RESUSCITATION VTE Prophylaxis VTE Risk Assessment Done? Y/N: Yes Risk Level: Moderate Given or contraindicated: SCD's
[2017-03-17] MEDS ORDERED: COUGH DROP (SUGAR FREE) LOZ 24 LOZ/1 BOX ONE (04:35)
[2017-03-17 05:41] LABS: BASO % 0.4 %; BASO ABS # 0.02 K/uL (0-0.2); COMPLETE YES; EOS % 1.7 %; HEMATOCRIT 39.4 % (37-47); IG% 0.2 %; LYMPH % 34.3 %; LYMPH ABS # 1.87 K/uL (1.2-3.4); MEAN CELL VOLUME 90.8 fL (80-100); MEAN CORPUSCULAR HEMOGLOBIN 31.1 pg (25-34); MEAN CORPUSCULAR HGB CONC 34.3 g/dl (32-36); MONO % 9.5 %; NEUT % 53.9 %; PLATELET COUNT 232 K/uL (130-400); RED BLOOD COUNT 4.34 M/uL (4.2-5.4); WHITE BLOOD COUNT 5.45 K/uL (4.8-10.8)
[2017-03-17 06:11] LABS: BLOOD UREA NITROGEN 8 mg/dl (7-18); CALCIUM 9.3 mg/dl (8.5-10.1); CARBON DIOXIDE 32 mmol/L (21-32); CHLORIDE 102 mmol/L (98-107); CREATININE 0.72 mg/dl (0.60-1.20); GLUCOSE 98 mg/dl (70-99); POTASSIUM 3.8 mmol/L (3.5-5.1); SODIUM 137 mmol/L (136-145); TRIGLYCERIDES 149 mg/dl (0-150); VERY LOW DENSITY LIPOPROT CALC 30 mg/dl
[2017-03-17 06:16] LABS: ESTIMATED AVERAGE GLUCOSE 114 mg/dl; HA1C FLAG Normal (Normal)
[2017-03-17 06:25] LABS: CHOLESTEROL 234 mg/dl (0-200); CHOLESTEROL/HDL RATIO 4.5; CKMB/CK RATIO 2.5 (0-3.0); HDL CHOLESTEROL 52 mg/dl; LDL CHOLESTEROL CALCULATED 152 mg/dl
[2017-03-17] MEDS: CALCIUM 600MG + VIT D 400 IU TAB PO SCH ×2 (07:57→16:15)
[2017-03-17] MEDS: CHOLECALCIFEROL 1000 INTER.UNIT TAB PO SCH (07:58)
[2017-03-17] MEDS: LORATADINE 10 MG TAB PO SCH (07:58)
[2017-03-17] MEDS: TIMOLOL MALEATE 0.5% OP SOLN 5 ML BTL OPB SCH (07:58)
[2017-03-17] MEDS ORDERED: AZELASTINE HCL NAE SCH (09:00)
[2017-03-17] MEDS ORDERED: LIDODERM (LIDOCAINE) PATCH 5% TD SCH (09:00)
--- NOTE | 2017-03-17 09:04 | Neurology Consultation ---
Neurology Consultation Date of Consultation: Mar 17, 2017. Attending Physician: Danielito Santos M.D. Primary Care Physician: Julio Springer M.D. Reason for Consultation: Stroke History of Present Illness Source: patient, hospital records The patient is an 82 year old female with a chief complaint of left-sided weakness that began suddenly, about 2 hours prior to arrival in the emergency department. She reports that she had difficulty walking and noticed that her left leg was dragging. She reports a feeling of heaviness in the left leg and also had some mild weakness of the left hand. She reports a vague feeling of lightheadedness and mild headache as well although these particular symptoms have resolved. Her symptoms have markedly improved by the time she was evaluated in the emergency department although she was observed to have a subtle left upper extremity pronator drift at that time. The patient denies experiencing any associated disturbance of vision, hearing loss, vertigo, or change in speech. She does endorse a long-standing history of palpitations but denies chest pain or shortness of breath. He denies any recent falls or injuries although her past medical history is notable for degenerative joint disease, especially the hips and knees she is status post left total knee arthroplasty in the past and indicates that she will need a right hip arthroplasty in the near future. This patient's past medical history is also notable for aortic aneurysm, hyperlipidemia, hypertension, and sleep apnea. She is prescribed medications for her hypertension. She has refused statin therapy. She experienced an allergic reaction to aspirin in the past and is currently not prescribed any type of blood thinner. Although she has a history of palpitations she denies a history of atrial fibrillation. I reviewed the images and radiologist's interpretation of the CT of the head obtained upon presentation. The study is negative for hemorrhage or changes suggestive of acute or subacute infarct. There is evidence of chronic small vessel ischemic change related to age with patchy periventricular white matter ischemic disease. Electrocardiogram revealed a normal sinus rhythm with a heart rate of 70 bpm. A CBC was unremarkable. A comprehensive metabolic panel revealed mild hyponatremia with a sodium of 130. A lipid panel revealed a mildly elevated total cholesterol of 234. Past Medical/Surgical History Medical Problems: (1) Hyponatremia Status: Acute (2) Left-sided weakness Status: Acute Family History There is no pertinent family history that would affect this patient's management in light of her advanced age and nature of her present illness. Social History Smoking Status: Former smoker Smokeless Tobacco Use: No Alcohol Use: none Drug Use: none Marital Status: Housing Status: lives alone Occupation Status: retired Allergies Coded Allergies: Aspirin (Verified Allergy, Severe, TONGUE AND THROAT SWELLS, 06/14/16) Cephalexin (Verified Allergy, Severe, swelling tongue and throat, 06/14/16 ) Magnesium Salicylate (Verified Allergy, Severe, ANAPHYLAXIS, 06/14/16) Omeprazole (Verified Allergy, Severe, ANAPHYLAXIS, 06/14/16) Tramadol (Verified Allergy, Severe, ANAPHYLAXIS, 06/14/16) Erythromycin (Verified Allergy, Unknown, SWELLING AND RASH, 06/14/16) Oxycodone (Verified Allergy, Unknown, UNKNOWN, 06/14/16) Tetracycline (Verified Allergy, Unknown, SWELLING AND RASH, 06/14/16) Alendronate (Verified Adverse Reaction, Unknown, very upset stomach, 06/14) Uncoded Allergies: perfumes (Allergy, Unknown, can't breathe, 05/20/12) Current Inpatient Medications Current Inpatient Medications Medications (Trade) Dose Ordered Sig/Foster Route Start Time Stop Time Status Last Admin Dose Admin Sodium Chloride 1,000 ml @ 50 mls/hr Q20H IV 03/16/17 21:14 04/15/17 21:13 03/16/17 21:34 50 MLS/HR Miscellaneous Information (Pharmacist Discharge Med Rec Consult) 1 ea UD PRN N/A 03/16/17 23:45 04/15/17 23:44 Loratadine (Claritin Tab) 10 mg DAILY PO 03/17/17 09:00 04/16/17 08:59 03/17/17 07:58 10 MG Timolol Maleate (Timoptic 0.5% Oph Soln) 1 drops QAM OPB 03/17/17 09:00 04/16/17 08:59 03/17/17 07:58 1 DROPS Calcium/Vitamin D (Caltrate Plus Tab) 1 tab BIDM PO 03/17/17 07:30 04/16/17 07:59 03/17/17 07:57 1 TAB Cholecalciferol (Vitamin D Tab) 2,000 inter.unit QAM PO 03/17/17 09:00 04/16/17 08:59 03/17/17 07:58 2,000 INTER.UNIT Miscellaneous Information (Order Awaiting Action) 1 ea QS N/A 03/17/17 08:00 04/16/17 07:59 Acetaminophen (Tylenol Tab) 650 mg Q4H PRN PO 03/17/17 01:30 04/16/17 01:29 03/17/17 06:26 650 MG Diphenhydramine HCl (Benadryl Cap) 25 mg HSZ PRN PO 03/17/17 04:15 04/16/17 04:14 03/17/17 04:39 25 MG Lidocaine (Lidoderm Patch 5%) 1 patch QAM TD 03/17/17 09:00 04/16/17 08:59 03/17/17 07:57 1 PATCH Miscellaneous (Remove Lidoderm Patch) 1 ea DAILY@21 N/A 03/17/17 21:00 04/16/17 20:59 Review of Systems A full 10 point review of systems was obtained from this patient with pertinent positives and negatives described in the history of present illness. All other systems reviewed and are negative. Physical Exam Vital Signs (Past 24 Hrs): Date Time Temp Pulse Resp B/P (MAP) Pulse Ox O2 Delivery O2 Flow Rate FiO2 03/17/17 07:50 36.9 58 18 143/86 (105) 96 Room Air 03/17/17 04:00 98 Room Air 03/17/17 03:34 36.6 64 18 117/77 (90) 98 Room Air 03/17/17 01:40 36.7 72 20 185/95 97 Room Air 03/16/17 23:57 70 18 152/92 97 Room Air 03/16/17 22:56 64 20 171/89 98 Room Air 03/16/17 21:21 Room Air 03/16/17 20:55 86 03/16/17 20:48 37.1 65 18 149/71 97 Room Air The patient is a well-developed, well-nourished elderly female, no acute distress. She is alert and oriented to person place and time. Recent and remote memory intact. She is attentive with normal concentration. Patient exhibits a normal spontaneous speech pattern as well as an age-appropriate fund of knowledge and normal vocabulary. Visual mederos full to confrontation. Visual acuity normal. Pupils equal round reactive to light and accommodation. Eye movements normal. Facial sensation intact. There is no facial droop. Normal facial symmetry and strength. Hearing intact. Palate elevates to midline. Shoulder shrug intact. Tongue protrudes to midline. Sensation intact to light touch, temperature, vibration, and proprioception for all 4 limbs. Deep tendon reflexes are 1+ for the upper and lower limbs bilaterally. The left plantar responses upgoing. The right plantar response is downgoing. There is slight dysmetria with finger to nose and heel to lorenzo on the left. However, lower extremity movements are confounded by bilateral hip pain. Ophthalmoscopic examination reveals normal-appearing optic disks and posterior segments, no papilledema or hemorrhages. Cardiovascular assessment reveals normal carotid pulses bilaterally, no bruits. Gait and station not tested due to safety concerns. Muscle strength appears to be normal for all 4 limbs although there is a subtle left upper extremity pronator drift. Muscle tone normal throughout. No atrophy. No abnormal movements appreciated. Laboratory Results Past 24 Hours: 03/17/17 05:31 Red Blood Count 4.34, Mean Corpuscular Volume 90.8, Mean Corpuscular Hemoglobin 31.1, Mean Corpuscular Hemoglobin Concent 34.3, Mean Platelet Volume 9.0, Neutrophils (%) (Auto) 53.9, Lymphocytes (%) (Auto) 34.3, Monocytes (%) (Auto) 9.5, Eosinophils (%) (Auto) 1.7, Basophils (%) (Auto) 0.4, Neutrophils # (Auto) 2.94, Lymphocytes # (Auto) 1.87, Monocytes # (Auto) 0.52, Eosinophils # (Auto) 0.09, Basophils # (Auto) 0.02 03/17/17 05:31 Test 03/16/17 20:45 03/16/17 21:34 03/16/17 22:00 03/17/17 05:31 Prothrombin Time 10.7 SECONDS (9.0-12.0) Prothromb Time International Ratio 1.0 (0.9-1.1) Activated Partial Thromboplast Time 32.5 SECONDS (21.0-31.0) Partial Thromboplastin Ratio 1.3 Estimated Average Glucose 114 mg/dl Hemoglobin A1c 5.6 % (4.5-5.6) Total Bilirubin 0.6 mg/dl (0.2-1) Direct Bilirubin 0.1 mg/dl (0-0.2) Aspartate Amino Transf (AST/SGOT) 13 U/L (15-37) Alanine Aminotransferase (ALT/SGPT) 16 U/L (12-78) Alkaline Phosphatase 94 U/L (45-117) Total Protein 7.5 gm/dl (6.4-8.2) Albumin 3.7 gm/dl (3.4-5.0) Bedside Prothrombin Time INR 1.0 (0.9-1.1) Urine Color YELLOW Urine Appearance CLEAR (CLEAR) Urine pH 8.5 (4.5-7.5) Urine Specific [place] 1.010 (1.000-1.030) Urine Protein NEG (NEG) Urine Glucose (UA) NEG (NEG) Urine Ketones NEG (NEG) Urine Occult Blood NEG (NEG) Urine Nitrite NEG (NEG) Urine Bilirubin NEG (NEG) Urine Urobilinogen NEG (NEG) Urine Leukocyte Esterase SMALL (NEG) Urine WBC (Auto) 1-5 /hpf (0-5) Urine RBC (Auto) 0-4 /hpf (0-4) Urine Hyaline Casts (Auto) 0 /lpf (0-5) Urine Epithelial Cells (Auto) 10-20 /lpf (0-5) Urine Bacteria (Auto) NEG (NEG) White Blood Count 5.45 K/uL (4.8-10.8) Red Blood Count 4.34 M/uL (4.2-5.4) Hemoglobin 13.5 g/dL (12.0-16.0) Hematocrit 39.4 % (37-47) Mean Corpuscular Volume 90.8 fL (80-100) Mean Corpuscular Hemoglobin 31.1 pg (25-34) Mean Corpuscular Hemoglobin Concent 34.3 g/dl (32-36) Platelet Count 232 K/uL (130-400) Mean Platelet Volume 9.0 fL (7.4-10.4) Neutrophils (%) (Auto) 53.9 % Lymphocytes (%) (Auto) 34.3 % Monocytes (%) (Auto) 9.5 % Eosinophils (%) (Auto) 1.7 % Basophils (%) (Auto) 0.4 % Neutrophils # (Auto) 2.94 K/uL (1.4-6.5) Lymphocytes # (Auto) 1.87 K/uL (1.2-3.4) Monocytes # (Auto) 0.52 K/uL (0.11-0.59) Eosinophils # (Auto) 0.09 K/uL (0-0.5) Basophils # (Auto) 0.02 K/uL (0-0.2) RDW Standard Deviation 42.2 fL (36.4-46.3) RDW Coefficient of Variation 12.5 % (11.5-14.5) Immature Granulocyte % (Auto) 0.2 % Immature Granulocyte # (Auto) 0.01 K/uL (0.00-0.02) Anion Gap 3.0 mmol/L (3-11) Est Creatinine Clear Calc Drug Dose 64.6 ml/min Estimated GFR () 91.0 Estimated GFR (Non- 78.5 BUN/Creatinine Ratio 11.0 (10-20) Calcium Level 9.3 mg/dl (8.5-10.1) Total Creatine Kinase 51 U/L (26-192) Creatine Kinase MB 1.3 ng/ml (0.5-3.6) Creatine Kinase MB Ratio 2.5 (0-3.0) Troponin I < 0.015 ng/ml (0-0.045) Triglycerides Level 149 mg/dl (0-150) Cholesterol Level 234 mg/dl (0-200) HDL Cholesterol 52 mg/dl LDL Cholesterol, Calculated 152 mg/dl VLDL Cholesterol, Calculated 30 mg/dl Cholesterol/HDL Ratio 4.5 Imaging I personally reviewed the recently completed CT head images as described in the history of present illness. Impression I suspect this patient has experienced a small, right hemispheric stroke potentially localizing to either the right anterior cerebral artery territory or possibly the right MCA. Her neurological examination this morning reveals only minimal left-sided weakness with an associated left Babinski response. This patient's CT of the head does reveal chronic small vessel ischemic change which could also explain her current examination findings. Therefore, a TIA localizing to the right cerebral hemisphere is also possible. A specific stroke or TIA etiology has not been determined although considerations would include stenosis of the right internal carotid artery, small vessel thromboischemic disease, or atrial fibrillation. Plan Agree with obtaining MRI of the brain as well as MRA of the head and neck as ordered. I also agree with obtaining a carotid ultrasound to potentially corroborate any angiography findings. Transthoracic echocardiogram as ordered. As this patient has an allergy to aspirin I would recommend that she start taking Plavix 75 mg per day. Continue to monitor patient's blood pressure. A systolic blood pressure of 140- 160 mmHg is appropriate at this time. If the above imaging reveals evidence of significant stenosis of either internal carotid artery then a consultation with vascular surgery should be obtained. If this patient is found to have atrial fibrillation then anticoagulation should be recommended with the choice of medication to be made at the discretion of the attending hospitalist physician. Consultation with rehabilitation services including physical therapy, occupational therapy, and speech therapy as ordered. Please contact me if I may be of further assistance.
--- NOTE | 2017-03-17 10:43 | DIAGNOSTIC IMAGING REPORT ---
CAROTID ARTERY ULTRASOUND CLINICAL HISTORY: Transient ischemic attack. COMPARISON STUDY: None. TECHNIQUE: Real-time, grayscale, and color Doppler sonography of the carotid and vertebral arteries was performed. Images were viewed in the transverse and longitudinal planes. FINDINGS: There is moderate atherosclerotic plaque. Velocity measurements are listed below. COMMON CAROTID PEAK SYSTOLIC VELOCITY (CM/S): RIGHT 68 LEFT 61 ICA PEAK SYSTOLIC VELOCITY (CM/S): RIGHT 94 LEFT 62 The systolic ratios between the internal to common carotid arteries were normal. Antegrade flow is seen in the vertebral arteries. The external carotid arteries are patent. IMPRESSION: Moderate atherosclerotic plaque without evidence of a hemodynamically significant stenosis. Electronically signed by: David Brady M.D. 03/17/2017 10:42 AM Dictated Date/Time: 03/17/2017 10:40 AM
[2017-03-17 14:44] LABS: CKMB/CK RATIO 1.9 (0-3.0)
--- NOTE | 2017-03-17 15:31 | ECHOCARDIOGRAM REPORT ---
*NOTICE TO RECEIVING LIBERTARIAN AGENCY This information is strictly Confidential and protected under [place] law. [place] law prohibits you from making any further disclosure of this information unless further disclosure is expressly permitted by the written consent of the person to whom it pertains or is authorized by law. A general authorization for the release of medical or other information is not sufficient for this purpose. Hospital accepts no responsibility if the information is made available to any other person, INCLUDING THE PATIENT. Interpretation Summary * Name: MACK SCHMIDT Study Date: 03/17/2017 01:40 PM BP: 117/77 mmHg * Patient Location: 216 HR: 61 * : 1935 (M/d/yyyy) Gender: Female Height: 66 in * Age: 82 yrs Ethnicity: [place] Weight: 180 lb * Ordering Physician: Danielito Santos * Referring Physician: Self, Referred * Performed By: Perico Parisi RDCS * * Reason For Study: Cerebral ischemia/Embolus? * BSA: 1.9 m2 * -- Conclusions -- * Left ventricular systolic function is normal. * Grade I diastolic dysfunction, (abnormal relaxation pattern). 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 Procedure Details * A complete two-dimensional transthoracic echocardiogram was performed (2D, M-mode, Doppler and color flow Doppler). * The study was technically adequate. Left Ventricle * The left ventricle is normal in size. * There is no thrombus. * There is normal left ventricular wall thickness. * Left ventricular systolic function is normal. * Grade I diastolic dysfunction, (abnormal relaxation pattern). Right Ventricle * The right ventricle is normal in size and function. Atria * The left atrial size is normal. * Right atrial size is normal. Mitral Valve * The mitral valve anatomy is normal. * There is no mitral regurgitation noted. Tricuspid Valve * The tricuspid valve is not well visualized, but is grossly normal. * Significant tricuspid regurgitation is absent. 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 * No aortic regurgitation is present. Great Vessels * The aortic root is normal size. Pericardium/Pleural * There is no pericardial effusion. MMode 2D Measurements and Calculations IVSd 0.85 cm IVSs 1.4 cm LVIDd 4.6 cm LVIDs 2.9 cm LVPWd 0.83 cm LVPWs 1.3 cm IVS/LVPW 1.0 FS 36.6 % EDV(Teich) 97.6 ml ESV(Teich) 32.8 ml EF(Teich) 66.4 % EDV(cubed) 97.7 ml ESV(cubed) 24.9 ml EF(cubed) 74.5 % % IVS thick 60.9 % % LVPW thick 56.8 % LV mass(C)d 126.3 grams LV mass(C)dI 66.0 grams/m\S\2 LV mass(C)s 125.6 grams LV mass(C)sI 65.7 grams/m\S\2 SV(Teich) 64.9 ml SI(Teich) 33.9 ml/m\S\2 SV(cubed) 72.8 ml SI(cubed) 38.1 ml/m\S\2 Ao root diam 2.9 cm Ao root area 6.8 cm\S\2 ACS 1.8 cm LA dimension 3.5 cm asc Aorta Diam 3.5 cm LA/Ao 1.2 LVOT diam 2.0 cm LVOT area 3.1 cm\S\2 LVAd ap4 21.8 cm\S\2 LVLd ap4 6.7 cm EDV(MOD-sp4) 56.9 ml LVAs ap4 10.6 cm\S\2 LVLs ap4 5.4 cm ESV(MOD-sp4) 18.4 ml EF(MOD-sp4) 67.7 % LVAd ap2 19.2 cm\S\2 LVLd ap2 6.7 cm EDV(MOD-sp2) 45.6 ml LVAs ap2 9.2 cm\S\2 LVLs ap2 5.2 cm ESV(MOD-sp2) 14.8 ml EF(MOD-sp2) 67.5 % SV(MOD-sp4) 38.5 ml SI(MOD-sp4) 20.1 ml/m\S\2 SV(MOD-sp2) 30.8 ml SI(MOD-sp2) 16.1 ml/m\S\2 Doppler Measurements and Calculations MV E max chapin 67.9 cm/sec MV A max chapin 96.7 cm/sec MV E/A 0.70 MV dec time 0.41 sec Ao V2 max 221.0 cm/sec Ao max PG 19.5 mmHg Ao max PG (full) 13.7 mmHg Ao V2 mean 141.3 cm/sec Ao mean PG 9.3 mmHg Ao mean PG (full) 6.6 mmHg Ao V2 VTI 44.6 cm THOMAS(I,A) 1.8 cm\S\2 THOMAS(I,D) 1.8 cm\S\2 THOMAS(V,A) 1.7 cm\S\2 THOMAS(V,D) 1.7 cm\S\2 LV V1 max PG 5.8 mmHg LV V1 mean PG 2.7 mmHg LV V1 max 120.4 cm/sec LV V1 mean 75.7 cm/sec LV V1 VTI 25.6 cm SV(Ao) 302.5 ml SI(Ao) 158.1 ml/m\S\2 SV(LVOT) 78.6 ml SI(LVOT) 41.1 ml/m\S\2 PA V2 max 118.1 cm/sec PA max PG 5.6 mmHg
[2017-03-17] MEDS: SODIUM CHLORIDE 0.9% 1000ML 1,000 ML IV SCH (17:42)
--- NOTE | 2017-03-17 18:08 | Progress Note ---
Subjective Date of Service: Mar 17, 2017. Subjective Pt evaluation today including: conversation w/ patient, physical exam, chart review, lab review, review of inpatient medication list feeling better. notes no other new numbness/weakness. notes shes pretty sure it was her hip all along - notes hip pain then foot/leg dragging, then thinks the trouble typingwasn't from weakness/numbness, just from anxiety about what might be going on. lip tingling b/l but no unilateral numbness. discussed at length discusssed lipids, +/- statin, discussed possible TIA vs hip issues followed by anxiety and +/- plavix (since asa allergy) awaiting MRI Problem List Medical Problems: (1) Hyponatremia Status: Acute (2) Left-sided weakness Status: Acute Review of Systems all other ROS otherwise negative except for as above Objective Vital Signs Date Time Temp Pulse Resp B/P (MAP) Pulse Ox O2 Delivery O2 Flow Rate FiO2 03/17/17 14:50 36.8 58 20 144/57 (86) 97 Room Air 03/17/17 11:53 36.4 54 19 122/69 (86) 97 Room Air 03/17/17 07:50 36.9 58 18 143/86 (105) 96 Room Air 03/17/17 04:00 98 Room Air 03/17/17 03:34 36.6 64 18 117/77 (90) 98 Room Air 03/17/17 01:40 36.7 72 20 185/95 97 Room Air 03/16/17 23:57 70 18 152/92 97 Room Air 03/16/17 22:56 64 20 171/89 98 Room Air 03/16/17 21:21 Room Air 03/16/17 20:55 86 03/16/17 20:48 37.1 65 18 149/71 97 Room Air Physical Exam General Appearance: no apparent distress Eyes: EOMI ENT: hearing grossly normal Neck: trachea midline Respiratory/Chest: no respiratory distress, no accessory muscle use Neurologic/Psychiatric: manager storage II-XII nml as tested, no motor/sensory deficits, alert, normal mood/affect Skin: normal color, warm/dry Laboratory Results Last 24 Hours Test 03/16/17 20:45 03/16/17 21:34 03/16/17 22:00 03/17/17 05:31 White Blood Count 6.13 K/uL 5.45 K/uL Red Blood Count 4.26 M/uL 4.34 M/uL Hemoglobin 13.5 g/dL 13.5 g/dL Hematocrit 38.6 % 39.4 % Mean Corpuscular Volume 90.6 fL 90.8 fL Mean Corpuscular Hemoglobin 31.7 pg 31.1 pg Mean Corpuscular Hemoglobin Concent 35.0 g/dl 34.3 g/dl Platelet Count 272 K/uL 232 K/uL Mean Platelet Volume 9.1 fL 9.0 fL Neutrophils (%) (Auto) 52.0 % 53.9 % Lymphocytes (%) (Auto) 36.9 % 34.3 % Monocytes (%) (Auto) 9.1 % 9.5 % Eosinophils (%) (Auto) 1.5 % 1.7 % Basophils (%) (Auto) 0.3 % 0.4 % Neutrophils # (Auto) 3.19 K/uL 2.94 K/uL Lymphocytes # (Auto) 2.26 K/uL 1.87 K/uL Monocytes # (Auto) 0.56 K/uL 0.52 K/uL Eosinophils # (Auto) 0.09 K/uL 0.09 K/uL Basophils # (Auto) 0.02 K/uL 0.02 K/uL RDW Standard Deviation 42.2 fL 42.2 fL RDW Coefficient of Variation 12.7 % 12.5 % Immature Granulocyte % (Auto) 0.2 % 0.2 % Immature Granulocyte # (Auto) 0.01 K/uL 0.01 K/uL Prothrombin Time 10.7 SECONDS Prothromb Time International Ratio 1.0 Activated Partial Thromboplast Time 32.5 SECONDS Partial Thromboplastin Ratio 1.3 Sodium Level 130 mmol/L 137 mmol/L Potassium Level 4.1 mmol/L 3.8 mmol/L Chloride Level 94 mmol/L 102 mmol/L Carbon Dioxide Level 28 mmol/L 32 mmol/L Anion Gap 8.0 mmol/L 3.0 mmol/L Blood Urea Nitrogen 12 mg/dl 8 mg/dl Creatinine 0.86 mg/dl 0.72 mg/dl Est Creatinine Clear Calc Drug Dose 55.3 ml/min 64.6 ml/min Estimated GFR () 73.4 91.0 Estimated GFR (Non- 63.4 78.5 BUN/Creatinine Ratio 13.8 11.0 Random Glucose 114 mg/dl 98 mg/dl Estimated Average Glucose 114 mg/dl Hemoglobin A1c 5.6 % Calcium Level 9.2 mg/dl 9.3 mg/dl Total Bilirubin 0.6 mg/dl Direct Bilirubin 0.1 mg/dl Aspartate Amino Transf (AST/SGOT) 13 U/L Alanine Aminotransferase (ALT/SGPT) 16 U/L Alkaline Phosphatase 94 U/L Total Creatine Kinase 52 U/L 51 U/L Creatine Kinase MB 1.2 ng/ml 1.3 ng/ml Creatine Kinase MB Ratio 2.3 2.5 Troponin I < 0.015 ng/ml < 0.015 ng/ml Total Protein 7.5 gm/dl Albumin 3.7 gm/dl Bedside Prothrombin Time INR 1.0 Urine Color YELLOW Urine Appearance CLEAR Urine pH 8.5 Urine Specific [place] 1.010 Urine Protein NEG Urine Glucose (UA) NEG Urine Ketones NEG Urine Occult Blood NEG Urine Nitrite NEG Urine Bilirubin NEG Urine Urobilinogen NEG Urine Leukocyte Esterase SMALL Urine WBC (Auto) 1-5 /hpf Urine RBC (Auto) 0-4 /hpf Urine Hyaline Casts (Auto) 0 /lpf Urine Epithelial Cells (Auto) 10-20 /lpf Urine Bacteria (Auto) NEG Triglycerides Level 149 mg/dl Cholesterol Level 234 mg/dl HDL Cholesterol 52 mg/dl LDL Cholesterol, Calculated 152 mg/dl VLDL Cholesterol, Calculated 30 mg/dl Cholesterol/HDL Ratio 4.5 Test 03/17/17 14:04 Total Creatine Kinase 43 U/L Creatine Kinase MB 0.8 ng/ml Creatine Kinase MB Ratio 1.9 Troponin I < 0.015 ng/ml Assessment and Plan unilateral weakness -TIA vs hip pain and anxiety -she's reticent to start statin or plavix at this time -if MRI (+) will start meds, if negative she wishes to wait to discuss w PCP hyperlipidemia -as above HTN -continue home meds -outpatient follow up to titrate to goal//outpatient monitoring hip pain / DJD -for BALJIT soon DVT proph -heparin SQ
[2017-03-17] MEDS: HEPARIN SOD 5000 UNIT/0.5 ML CARP SQ SCH (21:00)
--- NOTE | 2017-03-17 21:26 | DIAGNOSTIC IMAGING REPORT ---
MRI OF THE BRAIN WITHOUT CONTRAST CLINICAL HISTORY: Stroke. COMPARISON STUDY: Head CT March 16, 2017. TECHNIQUE: Utilizing a 1.5 Nasreen magnet and dedicated coil, multiplanar, multiecho imaging of the brain was performed without IV contrast. FINDINGS: There are no areas of restricted diffusion. No acute intracranial hemorrhage, midline shift or mass effect is present. There is mild atrophy. Ventricular system is unremarkable for age. The basilar cisterns are patent. There are no extra-axial collections. Flow-voids for the major intracranial vessels are present. Numerous subcortical and periventricular white matter T2 hyperintense foci suggest small vessel disease. No intracranial masses are identified on this unenhanced exam. Orbits and sinuses are unremarkable. There is no fluid within the mastoid air cells. IMPRESSION: 1. No acute intracranial findings. 2. Moderate atrophy and small vessel disease. Electronically signed by: David Brady M.D. 03/17/2017 9:25 PM Dictated Date/Time: 03/17/2017 9:22 PM
[2017-03-18] MEDS: ACETAMINOPHEN 325 MG TAB PO PRN ×3 (00:15→09:20)
[2017-03-18 02:38] VITALS: BP 150/80; PULSE 67; TEMP 36.6; O2SAT 97
[2017-03-18 06:04] LABS: BASO % 0.5 %; BASO ABS # 0.03 K/uL (0-0.2); COMPLETE YES; EOS % 1.6 %; HEMATOCRIT 37.8 % (37-47); IG% 0.2 %; LYMPH % 32.6 %; LYMPH ABS # 2.01 K/uL (1.2-3.4); MEAN CELL VOLUME 91.5 fL (80-100); MEAN CORPUSCULAR HGB CONC 33.9 g/dl (32-36); MONO % 10.2 %; NEUT % 54.9 %; PLATELET COUNT 228 K/uL (130-400); RED BLOOD COUNT 4.13 M/uL (4.2-5.4); WHITE BLOOD COUNT 6.17 K/uL (4.8-10.8)
[2017-03-18 06:40] LABS: BUN/CREATININE RATIO 20.3 (10-20); CREATININE 0.77 mg/dl (0.60-1.20); POTASSIUM 3.8 mmol/L (3.5-5.1)
[2017-03-18 07:35] VITALS: BP 127/86; PULSE 58; TEMP 36.3; O2SAT 95
[2017-03-18] MEDS: LORATADINE 10 MG TAB PO SCH (09:05)
[2017-03-18] MEDS: CALCIUM 600MG + VIT D 400 IU TAB PO SCH (09:05)
[2017-03-18] MEDS: CHOLECALCIFEROL 1000 INTER.UNIT TAB PO SCH (09:05)
[2017-03-18] MEDS: TIMOLOL MALEATE 0.5% OP SOLN 5 ML BTL OPB SCH (09:06)
[2017-03-18] MEDS: HEPARIN SOD 5000 UNIT/0.5 ML CARP SQ SCH (09:18)
--- NOTE | 2017-03-18 10:02 | Discharge Instructions ---
Discharge Instructions Date of Service Mar 18, 2017. Admission Reason for Admission: Hyponatremia, Left Sided Weakness Discharge Discharge Diagnosis / Problem: weakness most likely from hip, can't definitively rule out TIA (see below) Discharge Goals Goal(s): Diagnostic testing Activity Recommendations Activity Limitations: resume your previous activity . Instructions / Follow-Up Instructions / Follow-Up as we discussed, since the weakness was predominantly leg (and was leg first) and then the upper body symptoms were far less specific (and not really just left sided) - it's more likely that this was hip mediated problems followed by anxiety (as you suspected) - but it's nearly impossible to truly rule out a TIA given the overall situation. your risk factors (age + hypertension + cholesterol) does make you risky for a vascular endpoint (heart attack or stroke ) regardless - so talking primary prevention (the mindset that this wasn't a TIA but you're at risk) would favor starting a statin and plavix, talking secondary prevention (the less likely event that this was a TIA) would pretty much mandate a statin and plavix. discuss further with Dr Springer since there' s not an emergent nature to your particular situation, but also keep in mind that typically med related side effects for statins and antiplatelets almost always reverse with cessation of the meds, and vascular endpoints (heart attacks /strokes) almost always leave you with /damaged tissue that we can't fix. -talk more with Dr Springer about this in follow up Risk Factors for Stroke: You can reduce your chances of stroke by working with your medical provider to adopt a healthy lifestyle. Some specific ways to lower your chance of stroke are: * If you are a smoker, now is the time to stop smoking cigarettes * If you are diabetic, improve the control of your blood sugars * Avoid excessive amounts of alcohol * Control high blood pressure * Lose weight if you are overweight * Be sure to lead an active lifestyle * Eat a healthy diet low in salt, cholesterol and fat You should know about other risk factors for stroke that you are unable to control. These include: * Age 55 years or older * Male gender * Certain racial groups: , or / * Family History of Stroke, Mini stroke or Heart Attack * Sickle Cell Disease Follow Up: It is important for you to keep your follow up appointments with your medical provider. Current Hospital Diet Patient's current hospital diet: AHA Diet (Heart Healthy) Discharge Diet Recommended Diet: AHA Diet (Heart Healthy) Pending Studies Studies pending at discharge: no Laboratory Results Hemoglobin A1c Test 03/16/17 20:45 Range/Units Estimated Average Glucose 114 mg/dl Hemoglobin A1c 5.6 4.5-5.6 % Lipid Panel Test 03/17/17 05:31 Range/Units Triglycerides Level 149 0-150 mg/dl Cholesterol Level 234 H 0-200 mg/dl HDL Cholesterol 52 mg/dl Cholesterol/HDL Ratio 4.5 LDL Cholesterol, Calculated 152 mg/dl Medical Emergencies . Who to Call and When: Medical Emergencies: Call 911 immediately if you experience any of the following warning signs and symptoms of Stroke: * Sudden numbness or weakness of the face, arm or leg, especially on one side of the body * Sudden confusion, trouble speaking or understanding * Sudden trouble seeing in one or both eyes * Sudden trouble walking, dizziness, loss of balance or coordination * Sudden severe headache with no cause Do not delay calling 911 if you experience any warning signs or symptoms of a stroke. Delay in seeking medical attention may affect what treatments can be given to you. . Non-Emergent Contact Non-Emergency issues call your: Primary Care Provider . . "Provider Documentation" section prepared by Ced An. . Stroke Core Measures Reason no t-PA for Stroke: Treatment provided - N/A Reason no antithrom by day 2: Treatment not indicated (see above, see discharge summary - debatable situation) Reason no antithrom at D/C: Treatment not indicated (see above) Reason no statin at D/C: Treatment not indicated (see above) Reason no anticoag w/a fib: Treatment not indicated (see above) VTE Core Measure Inpt VTE Proph given/why not?: SCD's
[2017-03-18 11:37] VITALS: BP 155/83; PULSE 52; TEMP 36.4; O2SAT 97
--- NOTE | 2017-03-18 16:35 | Discharge Summary ---
Discharge Summary Date of Service Mar 18, 2017. Discharge Summary Admission Date: Mar 16, 2017 at 23:49 Discharge Date: Mar 18, 2017 Principal Diagnosis: hip/leg heaviness, possible TIA Immunizations: Have You Had Influenza Vaccine: Yes History of Tetanus Vaccine?: Unknown History of Pneumococcal: Yes History of Hepatitis B Vaccine: Unknown Procedures: echo: Interpretation Summary Name: MACK SCHMIDT Study Date: 03/17/2017 01:40 PM BP: 117/77 mmHg Patient Location: 216 HR: 61 : 1935 (M/d/yyyy) Gender: Female Height: 66 in Age: 82 yrs Ethnicity: [place] Weight: 180 lb Ordering Physician: Danielito Santos Referring Physician: Self, Referred Performed By: Perico Parisi RDCS Reason For Study: Cerebral ischemia/Embolus? BSA: 1.9 m2 -- Conclusions -- Left ventricular systolic function is normal. Grade I diastolic dysfunction, (abnormal relaxation pattern). 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 Procedure Details A complete two-dimensional transthoracic echocardiogram was performed (2D, M- mode, Doppler and color flow Doppler). The study was technically adequate. Left Ventricle The left ventricle is normal in size. There is no thrombus. There is normal left ventricular wall thickness. Left ventricular systolic function is normal. Grade I diastolic dysfunction, (abnormal relaxation pattern). Right Ventricle The right ventricle is normal in size and function. Atria The left atrial size is normal. Right atrial size is normal. Mitral Valve The mitral valve anatomy is normal. There is no mitral regurgitation noted. Tricuspid Valve The tricuspid valve is not well visualized, but is grossly normal. Significant tricuspid regurgitation is absent. 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 No aortic regurgitation is present. Great Vessels The aortic root is normal size. Pericardium/Pleural There is no pericardial effusion. MRI BRAIN: [~ rep ct add3]] MRI OF THE BRAIN WITHOUT CONTRAST CLINICAL HISTORY: Stroke. COMPARISON STUDY: Head CT March 16, 2017. TECHNIQUE: Utilizing a 1.5 Nasreen magnet and dedicated coil, multiplanar, multiecho imaging of the brain was performed without IV contrast. FINDINGS: There are no areas of restricted diffusion. No acute intracranial hemorrhage, midline shift or mass effect is present. There is mild atrophy. Ventricular system is unremarkable for age. The basilar cisterns are patent. There are no extra-axial collections. Flow-voids for the major intracranial vessels are present. Numerous subcortical and periventricular white matter T2 hyperintense foci suggest small vessel disease. No intracranial masses are identified on this unenhanced exam. Orbits and sinuses are unremarkable. There is no fluid within the mastoid air cells. IMPRESSION: 1. No acute intracranial findings. 2. Moderate atrophy and small vessel disease. Electronically signed by: David Brady M.D. 03/17/2017 9:25 PM CAROTID US: CAROTID ARTERY ULTRASOUND CLINICAL HISTORY: Transient ischemic attack. COMPARISON STUDY: None. TECHNIQUE: Real-time, grayscale, and color Doppler sonography of the carotid and vertebral arteries was performed. Images were viewed in the transverse and longitudinal planes. FINDINGS: There is moderate atherosclerotic plaque. Velocity measurements are listed below. COMMON CAROTID PEAK SYSTOLIC VELOCITY (CM/S): RIGHT 68 LEFT 61 ICA PEAK SYSTOLIC VELOCITY (CM/S): RIGHT 94 LEFT 62 The systolic ratios between the internal to common carotid arteries were normal. Antegrade flow is seen in the vertebral arteries. The external carotid arteries are patent. IMPRESSION: Moderate atherosclerotic plaque without evidence of a hemodynamically significant stenosis. Electronically signed by: David Brady M.D. 03/17/2017 10:42 AM Dictated Date/Time: 03/17/2017 10:[address] HEAD: [~ rep ct add3]] HEAD WITHOUT CONTRAST (CT) CT DOSE: 638.56 mGycm HISTORY: Mental status change Stroke TECHNIQUE: Multiaxial CT images of the head were performed without the use of intravenous contrast. A dose lowering technique was utilized adhering to the principles of ALARA. Comparison: None. Findings: The paranasal sinuses and mastoid air cells are clear. Mild chronic small vessel change of aging. Ventricular system is midline. No evidence for acute intracranial hemorrhage. Impression: Age-related change. No acute process. The above report was generated using voice recognition software. It may contain grammatical, syntax or spelling errors. Electronically signed by: John Villanueva M.D. 03/16/2017 9:54 PM Dictated Date/Time: 03/16/2017 9:52 PM CXR: CHEST ONE VIEW PORTABLE CLINICAL HISTORY: Stroke mental status change COMPARISON STUDY: 06/30/2012 FINDINGS: The bones soft tissues and hemidiaphragms are normal. The cardiomediastinal silhouette is normal. The lungs are clear. The pulmonary vasculature is normal. IMPRESSION: Negative chest. The above report was generated using voice recognition software. It may contain grammatical, syntax or spelling errors. Electronically signed by: John Villanueva M.D. 03/16/2017 9:30 PM Dictated Date/Time: 03/16/2017 9:30 PM Last 24 Hours Test 03/18/17 05:47 White Blood Count 6.17 K/uL Red Blood Count 4.13 M/uL Hemoglobin 12.8 g/dL Hematocrit 37.8 % Mean Corpuscular Volume 91.5 fL Mean Corpuscular Hemoglobin 31.0 pg Mean Corpuscular Hemoglobin Concent 33.9 g/dl Platelet Count 228 K/uL Mean Platelet Volume 9.0 fL Neutrophils (%) (Auto) 54.9 % Lymphocytes (%) (Auto) 32.6 % Monocytes (%) (Auto) 10.2 % Eosinophils (%) (Auto) 1.6 % Basophils (%) (Auto) 0.5 % Neutrophils # (Auto) 3.39 K/uL Lymphocytes # (Auto) 2.01 K/uL Monocytes # (Auto) 0.63 K/uL Eosinophils # (Auto) 0.10 K/uL Basophils # (Auto) 0.03 K/uL RDW Standard Deviation 42.7 fL RDW Coefficient of Variation 12.8 % Immature Granulocyte % (Auto) 0.2 % Immature Granulocyte # (Auto) 0.01 K/uL Sodium Level 135 mmol/L Potassium Level 3.8 mmol/L Chloride Level 101 mmol/L Carbon Dioxide Level 31 mmol/L Anion Gap 3.0 mmol/L Blood Urea Nitrogen 16 mg/dl Creatinine 0.77 mg/dl Est Creatinine Clear Calc Drug Dose 60.1 ml/min Estimated GFR () 83.9 Estimated GFR (Non- 72.4 BUN/Creatinine Ratio 20.3 Random Glucose 108 mg/dl Calcium Level 9.0 mg/dl Hemoglobin A1c Test 03/16/17 20:45 Range/Units Estimated Average Glucose 114 mg/dl Hemoglobin A1c 5.6 4.5-5.6 % Lipid Panel Test 03/17/17 05:31 Range/Units Triglycerides Level 149 0-150 mg/dl Cholesterol Level 234 H 0-200 mg/dl HDL Cholesterol 52 mg/dl Cholesterol/HDL Ratio 4.5 LDL Cholesterol, Calculated 152 mg/dl Consultations: neurology Medication Reconciliation Continued Medications: Acetaminophen Tab (Tylenol) 325 Mg Tab 650 MG PO TID PRN for Pain, TAB Azelastine Hcl (Astelin Nasal [place]) 200 Sprays/30 Ml [place] 2 SPRAYS CASSIA BID, BTL Calcium (Calcium) Unknown Strength Tab 1 TAB PO DAILY Cholecalciferol (Vitamin D3) 2,000 Unit Tab 2000 INTER.UNIT PO DAILY, TAB Epinephrine (Epipen) 0.3 Mg/0.3 Ml Inj 0.3 MG IM UD PRN for ALLERGIC REACTION, BOX Yaqcjjmkjpa-Vusobsiovqa-Chl C- (Glucosamine Chondroitin) 1 Tab Tab 1 TAB PO DAILY Hydrochlorothiazide (Hctz) 12.5 Mg Cap 12.5 MG PO DAILY, TAB Loratadine (Claritin) 10 Mg Cap 10 MG PO DAILY, CAP Timolol Maleate (Timolol Maleate) 0.5 % Kimi 1 DROP OPB QAM Discharge Exam Physical Exam: General Appearance: no apparent distress Eyes: EOMI ENT: hearing grossly normal Neck: trachea midline Respiratory/Chest: no respiratory distress, no accessory muscle use Extremities: normal inspection 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, no motor/sensory deficits , alert, normal mood/affect Skin: normal color, warm/dry Hospital Course unilateral weakness -TIA vs hip pain and anxiety -MRI negative for stroke, clinical progression of leg heaviness then what she recalls as b/l nonspecific UE sx and b/l lip tingling makes hip pain/anxiety more likely; however, hx as gleaned by other providers earlier in the course of her stay was more concerning for possible TIA -d/w pt can't definitively rule out TIA, but with no afib, no carotid disease , main management would be BP control, lipid control, antiplatelet -discussed that with her age it can be debatable w lipid management but with her high likelihood of ongoing longevity, statin for primary prevention would be indicated, further statin for secondary prevention if this actually was a TIA would be quite beneficial -similarly discussed that if primary prevention, her risks (age, HTN, hyperlipidemia) would give plausible benefit to antiplatelet, and that if this was a TIA, definite benefit from secondary prevention -she expressed understanding and appreciation of this, was likely to start meds, but wanted to discuss w PCP further first -- seeing in very near future, so safe to proceed as she desires. safe/stable for home hyperlipidemia -as above HTN -continue home meds -outpatient follow up to titrate to goal//outpatient monitoring hip pain / DJD -for BALJIT soon DVT proph -heparin SQ utilized while here Total Time Spent: Greater than 30 minutes This includes examination of the patient, discharge planning, medication reconciliation, and communication with other providers. Discharge Instructions Please refer to the electronic Patient Visit Report (Discharge Instructions) for additional information. Additional Copies To Julio Springer M.D.
[2017-04-02] MEDS ORDERED: CHOL1000 PO (14:35)
[2017-04-02] MEDS ORDERED: DIPH-437 PO (14:35)
[2017-04-02] MEDS ORDERED: PSYL48.59 PO (14:35)
[2017-04-02] MEDS ORDERED: VERA1TAB PO (14:35)
[2017-04-02] MEDS ORDERED: VERA1CAP5 PO (14:35)
[2017-04-02] MEDS ORDERED: CALC250T8 PO (14:35)
[2017-04-02] MEDS ORDERED: TIMO0.05 OPB (14:35)
[2017-04-02] MEDS ORDERED: KETOCONAZOLE SHAMPOO TOP (14:35)
[2017-04-02] MEDS ORDERED: NYSTCRE11 TOP (14:35)
[2017-04-02] MEDS ORDERED: POLY335019 PO (14:35)
[2017-04-02] MEDS ORDERED: FLUT0.15 NAE (14:35)
[2017-04-02] MEDS ORDERED: DIPH25CA65 PO (14:35)
[2017-04-02] MEDS ORDERED: [UNRECOGNIZED DRUG - CODE] TOP (14:56)
== END 2017-03-18 14:59 | disposition home or self-care (01) | DRG 69 ==
LOC: EDBD 20:46 → C.EDA 20:47 → C.2T 23:49 → ENRESERV 23:52
PROVIDERS: ADMIT Hospitalist; ATTEND Family Medicine
DX: G45.9 Transient cerebral ischemic attack, unspecified (principal); F41.9 Anxiety disorder, unspecified; E87.5 Hyperkalemia; I10 Essential (primary) hypertension; M16.11 Unilateral primary osteoarthritis, right hip; Z87.891 Personal history of nicotine dependence; G47.00 Insomnia, unspecified; E78.5 Hyperlipidemia, unspecified

== ENCOUNTER 2017-03-30 19:49 | Emergency (ER) | payer OTHER, BC ==
[~2017-03-30] VITALS: Ht 167.6 cm; Wt 83.7 kg
[~2017-03-30 19:49] MED LIST changes: -ASCO250T4 PO; +ASTN NAE; +CALC500T83 PO; +CHOL20007 PO; -CHOLTAB3 PO; -DIPH-437 PO; -EPP3 IM; +EPP3/2 IM; +GLUCTAB7 PO; -PSYL55.43 PO; -VERA1TAB PO; +[UNRECOGNIZED DRUG - OTHER] OPB
[2017-03-30 19:50] VITALS: TEMP 36.8; O2SAT 94; Ht 167.6 cm; Wt 83.7 kg
[2017-03-30] MEDS ORDERED: SODIUM CHLORIDE 0.9% 1000ML 1,000 ML IV STA (20:40)
[2017-03-30] MEDS ORDERED: SODIUM CHLORIDE 0.9% 1000ML 1,000 ML IV ONE (20:40)
--- NOTE | 2017-03-30 21:13 | DIAGNOSTIC IMAGING REPORT ---
CHEST ONE VIEW PORTABLE CLINICAL HISTORY: Chest pain. COMPARISON STUDY: Chest radiograph March 16, 2017. FINDINGS: The patient is rotated. No pneumothorax or pleural effusion is identified. There is no evidence of pulmonary edema. Cardiac size is within normal limits. No consolidation is identified. IMPRESSION: No acute cardiopulmonary findings. Electronically signed by: David Brady M.D. 03/30/2017 9:12 PM Dictated Date/Time: 03/30/2017 9:11 PM
[2017-03-30 21:16] LABS: BASO % 0.3 %; BASO ABS # 0.02 K/uL (0-0.2); COMPLETE YES; HEMATOCRIT 38.3 % (37-47); IG% 0.2 %; LYMPH % 29.7 %; LYMPH ABS # 1.94 K/uL (1.2-3.4); MEAN CELL VOLUME 92.1 fL (80-100); MEAN CORPUSCULAR HEMOGLOBIN 31.7 pg (25-34); MEAN CORPUSCULAR HGB CONC 34.5 g/dl (32-36); MEAN PLATELET VOLUME 9.5 fL (7.4-10.4); MONO % 6.9 %; NEUT % 60.9 %; PLATELET COUNT 246 K/uL (130-400); RED BLOOD COUNT 4.16 M/uL (4.2-5.4); WHITE BLOOD COUNT 6.53 K/uL (4.8-10.8)
[2017-03-30 21:19] LABS: BUN/CREATININE RATIO 18.5 (10-20); CALCIUM 9.1 mg/dl (8.5-10.1); CREATININE 0.88 mg/dl (0.60-1.20); POTASSIUM 4.5 mmol/L (3.5-5.1)
[2017-03-30] MEDS ORDERED: ACET-749 PO (21:29)
[2017-03-30 21:53] LABS: URINE APPEARANCE CLEAR (CLEAR); URINE BILIRUBIN NEG (NEG); URINE COLOR YELLOW; URINE NITRITE NEG (NEG); URINE PH 7.5 (4.5-7.5); URINE SPECIFIC GRAVITY 1.009 (1.000-1.030); UROBILINOGEN NEG (NEG)
[2017-03-30 21:54] LABS: MANUAL MICROSCOPIC REQUIRED? NO; REVIEW REQ? NO
--- NOTE | 2017-03-31 00:03 | EMERGENCY ROOM VISIT NOTE ---
History Report prepared by Jade: Evelyn Ward Under the Supervision of: Dr. Chidi Motley M.D. First contact with patient: 20:25 Chief Complaint: WEAKNESS Stated Complaint: WEAKNESS Nursing Triage Summary: Patient presents to [facility] via BLS from her home. Patient states "I am due to have a bilateral hip replacement soon. I use a cane and/or walker for ambulation at home. I am in a lot of pain with my hips and I also have a bad right shoulder. Yesterday, I developed a sore throat that persisted into today. I have developed some generalized weakness and I just feel sick. I am very sleepy. I can't really get around too well." Patient reports a cough with yellow sputum production that started today. Lung sounds anteriorly are clear with expiratory rubs. All right lung mederos posteriorly have expiratory rubs. Left lung mederos posteriorly are clear. History of Present Illness The patient is an 82 year old female who presents to the Emergency Room with complaints of persistent weakness starting earlier today. Yesterday she started having a sore throat. She did a warm saltwater gargle and drank soup and hot tea. Today her sore throat seemed to improve, but she started to feel weak. She is having difficulty walking without leaning on furniture. She states that she is constipated, "woozy", and coughing. She notes that she has had some incontinence today which she has had before. She denies any vomiting, diarrhea, dizziness, room spinning, fever, headache, abdominal pain, or urinary symptoms. She believes she is keeping up with her fluids. She had similar symptoms 3 years ago with bronchitis and was sent home after being given Levaquin. She was here 2 weeks ago and had an MRI and US of the neck which was normal and revealed no stroke. She was sent to [facility] to strengthen up for her upcoming hip replacement. She was sent home 2 days ago. She lives alone. Source of History: patient Onset: earlier today Position: other (global) Quality: other (weakness) Timing: other (persistent) Associated Symptoms: + sorethroat, + cough, No fevers, No headache, No vomiting, No abdominal pain, No diarrhea, No urinary symptoms Note: Pt reports constipation, woozy, incontinence. Pt denies dizziness, room spinning. Review of Systems See HPI for pertinent positives & negatives. A total of 10 systems reviewed and were otherwise negative. 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 Nurse's notes were reviewed and I agree with. Family History Noncontributory secondary to age. Social History Smoking Status: Never Smoker Drug Use: none Marital Status: Housing Status: lives alone Occupation Status: retired Current/Historical Medications Scheduled Azelastine Hcl (Astelin Nasal [place]), 2 SPRAYS CASSIA BID Calcium (Calcium), 1 TAB PO DAILY Cholecalciferol (Vitamin D3), 2,000 INTER.UNIT PO DAILY Aafvcjhypsa-Xrldatnwyby-Tgg C- (Glucosamine Chondroitin), 1 TAB PO DAILY Hydrochlorothiazide (Hctz), 12.5 MG PO DAILY Loratadine (Claritin), 10 MG PO DAILY Timolol Maleate (Timolol Maleate), 1 DROP OPB QAM Scheduled PRN Acetaminophen Tab (Tylenol), 650 MG PO TID PRN for Pain Acetaminophen/Codeine (Tylenol W/Codeine #3), 1 TAB PO Q6 PRN for Pain Epinephrine (Epipen), 0.3 MG IM UD PRN for ALLERGIC REACTION Allergies Coded Allergies: Aspirin (Verified Allergy, Severe, TONGUE AND THROAT SWELLS, 03/30/17) Cephalexin (Verified Allergy, Severe, swelling tongue and throat, 03/30/17) Magnesium Salicylate (Verified Allergy, Severe, ANAPHYLAXIS, 03/30/17) Omeprazole (Verified Allergy, Severe, ANAPHYLAXIS, 03/30/17) Tramadol (Verified Allergy, Severe, ANAPHYLAXIS, 03/30/17) Erythromycin (Verified Allergy, Unknown, SWELLING AND RASH, 03/30/17) Oxycodone (Verified Allergy, Unknown, UNKNOWN, 03/30/17) Tetracycline (Verified Allergy, Unknown, SWELLING AND RASH, 03/30/17) Alendronate (Verified Adverse Reaction, Unknown, very upset stomach, ) Uncoded Allergies: perfumes (Allergy, Unknown, can't breathe, 05/20/12) Physical Exam Vital Signs Date Time Temp Pulse Resp B/P (MAP) Pulse Ox O2 Delivery O2 Flow Rate FiO2 03/31/17 00:00 69 03/30/17 22:33 71 18 139/85 97 Room Air 03/30/17 21:04 64 97 03/30/17 20:42 149/77 03/30/17 20:34 66 14 98 03/30/17 20:19 65 17 97 03/30/17 20:04 64 28 96 03/30/17 19:58 66 03/30/17 19:56 161/74 03/30/17 19:50 36.8 65 16 161/74 96 Room Air 03/30/17 19:50 94 Room Air Physical Exam General: Non ill appearing older female in no acute distress. Well developed well nourished, breathing comfortably on room air. Normal speech HEENT: Normal cephalic atraumatic. Pupils are equal round and reactive to light. Extraocular movements are intact. Oropharynx is pink with moist mucous membranes. No swelling of the mouth lips or tongue. Neck: Supple with a midline trachea. No meningeal signs or stiffness, no JVD or bruits. No Stridor. Chest: Clear to auscultation bilaterally. No wheezes or rhonchi. No increased work of breathing. Heart: regular rate and rhythm. Abdomen: Soft nontender, nondistended without rebound guarding or rigidity. Extremities: No cyanosis clubbing or edema. No calf tenderness or assymetry. Bilateral hip pain with movement which is chronic. Spine/Back. Non tender to palpation. No CVA tenderness Skin: Good turgor without rashes. Neurologic exam: Cranial nerves two through 12 are intact. Motor and sensation are intact and symmetrical throughout. Medical Decision & Procedures ER Provider Diagnostic Interpretation: X-ray results as stated below per interpretation by me and the radiologist: CHEST ONE VIEW PORTABLE CLINICAL HISTORY: Chest pain. COMPARISON STUDY: Chest radiograph March 16, 2017. FINDINGS: The patient is rotated. No pneumothorax or pleural effusion is identified. There is no evidence of pulmonary edema. Cardiac size is within normal limits. No consolidation is identified. IMPRESSION: No acute cardiopulmonary findings. Electronically signed by: David Brady M.D. 03/30/2017 9:12 PM Dictated Date/Time: 03/30/2017 9:11 PM Laboratory Results 03/30/17 20:25 Red Blood Count 4.16, Mean Corpuscular Volume 92.1, Mean Corpuscular Hemoglobin 31.7, Mean Corpuscular Hemoglobin Concent 34.5, Mean Platelet Volume 9.5, Neutrophils (%) (Auto) 60.9, Lymphocytes (%) (Auto) 29.7, Monocytes (%) (Auto) 6.9, Eosinophils (%) (Auto) 2.0, Basophils (%) (Auto) 0.3, Neutrophils # (Auto) 3.98, Lymphocytes # (Auto) 1.94, Monocytes # (Auto) 0.45, Eosinophils # (Auto) 0.13, Basophils # (Auto) 0.02 03/30/17 20:25 Test 03/30/17 20:25 03/30/17 20:55 03/30/17 21:00 White Blood Count 6.53 K/uL (4.8-10.8) Red Blood Count 4.16 M/uL (4.2-5.4) Hemoglobin 13.2 g/dL (12.0-16.0) Hematocrit 38.3 % (37-47) Mean Corpuscular Volume 92.1 fL (80-100) Mean Corpuscular Hemoglobin 31.7 pg (25-34) Mean Corpuscular Hemoglobin Concent 34.5 g/dl (32-36) Platelet Count 246 K/uL (130-400) Mean Platelet Volume 9.5 fL (7.4-10.4) Neutrophils (%) (Auto) 60.9 % Lymphocytes (%) (Auto) 29.7 % Monocytes (%) (Auto) 6.9 % Eosinophils (%) (Auto) 2.0 % Basophils (%) (Auto) 0.3 % Neutrophils # (Auto) 3.98 K/uL (1.4-6.5) Lymphocytes # (Auto) 1.94 K/uL (1.2-3.4) Monocytes # (Auto) 0.45 K/uL (0.11-0.59) Eosinophils # (Auto) 0.13 K/uL (0-0.5) Basophils # (Auto) 0.02 K/uL (0-0.2) RDW Standard Deviation 43.3 fL (36.4-46.3) RDW Coefficient of Variation 12.8 % (11.5-14.5) Immature Granulocyte % (Auto) 0.2 % Immature Granulocyte # (Auto) 0.01 K/uL (0.00-0.02) Anion Gap 12.0 mmol/L (3-11) Est Creatinine Clear Calc Drug Dose 54.6 ml/min Estimated GFR () 71.4 Estimated GFR (Non- 61.6 BUN/Creatinine Ratio 18.5 (10-20) Calcium Level 9.1 mg/dl (8.5-10.1) Total Bilirubin 0.5 mg/dl (0.2-1) Direct Bilirubin 0.1 mg/dl (0-0.2) Aspartate Amino Transf (AST/SGOT) 16 U/L (15-37) Alanine Aminotransferase (ALT/SGPT) 18 U/L (12-78) Alkaline Phosphatase 92 U/L (45-117) Total Protein 7.3 gm/dl (6.4-8.2) Albumin 3.6 gm/dl (3.4-5.0) Lipase 152 U/L (73-393) Bedside Troponin I < 0.030 ng/ml (0-0.045) Urine Color YELLOW Urine Appearance CLEAR (CLEAR) Urine pH 7.5 (4.5-7.5) Urine Specific [place] 1.009 (1.000-1.030) Urine Protein NEG (NEG) Urine Glucose (UA) NEG (NEG) Urine Ketones NEG (NEG) Urine Occult Blood NEG (NEG) Urine Nitrite NEG (NEG) Urine Bilirubin NEG (NEG) Urine Urobilinogen NEG (NEG) Urine Leukocyte Esterase TRACE (NEG) Urine WBC (Auto) 1-5 /hpf (0-5) Urine RBC (Auto) 0-4 /hpf (0-4) Urine Hyaline Casts (Auto) 0 /lpf (0-5) Urine Epithelial Cells (Auto) 5-10 /lpf (0-5) Urine Bacteria (Auto) NEG (NEG) Laboratory studies as stated above per my review. Medications Administered Medications (Trade) Dose Ordered Sig/Foster Route Start Time Stop Time Status Last Admin Dose Admin Sodium Chloride 1,000 ml @ 999 mls/hr Q1H1M STAT IV 03/30/17 20:40 03/30/17 21:40 DC 03/30/17 21:09 999 MLS/HR Sodium Chloride 1,000 ml @ 150 mls/hr Q6H40M ONCE IV 03/30/17 20:40 03/31/17 03:19 03/30/17 21:10 150 MLS/HR ECG Indication: weakness Rate (beats per minute): 62 Rhythm: normal sinus Findings: no acute ischemic change, no ectopy Comparison ECG Date: no prior available ED Course 2030: Past medical records reviewed. The patient was evaluated in room B12B, and a complete history and physical examination were performed. 2039: NSS 1000 ml @ 150 mls/hr IV, NSS 1000 ml @ 999 mls/hr IV. 2256: I reevaluated the patient. She will have an ambulatory trial. She lives alone and her family is out of town. She states that she is comfortable going home. 2330: The patient had difficulty with her ambulatory trial. I have contacted the case filler to try and set up outpatient management. 3: I reevaluated the patient. I updated her on the results and plan. Medical Decision Differentials include, but are not limited to; infection, pneumonia, arrhythmia , anemia, electrolyte or metabolic abnormality. This patient comes in as described above. She was placed in room B12. She felt sick earlier she had a sore throat yesterday just felt generally weak. Today she's been having a hard time getting around with pain in both her hip s. He just recently admitted to the hospital for similar spell and had an MRI and carotid ultrasound which was unremarkable. She lives by herself and her family members are all out-of-town as are the neighbor. She's been on a hard time getting around she's had no fall. EKG does not show anything to suggest acute coronary syndrome or arrhythmia. She's had no acute electrode or metabolic abnormalities. She's had nothing to suggest infection. Her workup here was unremarkable however when I try to get her up to walk her she can only walk a short distance and is very unsteady on her feet and I am very concerned about her being a fall risk she does not feel safe going home either. I had our case filler evaluate her for possible referral for [facility] rehabilitation. after talking to 10. The patient said that she actually wants to go home and forgot that she has home instead coming to her house from 9 -5 tomorrow a neighbor is going to help her tomorrow evening , home instead is going to come in on Sunday morning. Her daughter return home Sunday evening to help her Sunday evening. She does have a lineup of people to help her in the house. The only exception to this is this evening. It is 12:30 and we will let her sleep here until the morning and home instead can pick her up here this is the game plan at this point. The patient was signed out to Dr. Ramirez and will be sleeping in the emergency department with the plan to go home with home instead the morning when she has some help at home. Medication Reconcilliation Current Medication List: was personally reviewed by me Blood Pressure Screening Patient's blood pressure: Elevated blood pressure Blood pressure disposition: Referred to PCP Impression Primary Impression: Weakness Additional Impression: Bilateral hip pain Scribe Attestation The scribe's documentation has been prepared under my direction and personally reviewed by me in its entirety. I confirm that the note above accurately reflects all work, treatment, procedures, and medical decision making performed by me. Departure Information Referrals Julio Springer M.D. (PCP) Patient Instructions My [facility] Problem Qualifiers
--- NOTE | 2017-03-31 00:36 | EMERGENCY ROOM VISIT NOTE ---
ED Visit Note Received sign out from Dr Motley. H&P verified by me. Pt bunking in ED tonight until she can receive ride home in the morning. Problem List Medical Problems: (1) Benign hypertension Status: Chronic (2) breast cancer Status: Chronic (3) idiopathic angioedema Status: Chronic (4) Replacement of total knee joint Status: Resolved (5) Sleep apnea Status: Chronic Current/Historical Medications Scheduled Azelastine Hcl (Astelin Nasal [place]), 2 SPRAYS CASSIA BID Calcium (Calcium), 1 TAB PO DAILY Cholecalciferol (Vitamin D3), 2,000 INTER.UNIT PO DAILY Kckydsvdvjg-Kerimapiuwz-Chd C- (Glucosamine Chondroitin), 1 TAB PO DAILY Hydrochlorothiazide (Hctz), 12.5 MG PO DAILY Loratadine (Claritin), 10 MG PO DAILY Timolol Maleate (Timolol Maleate), 1 DROP OPB QAM Scheduled PRN Acetaminophen Tab (Tylenol), 650 MG PO TID PRN for Pain Acetaminophen/Codeine (Tylenol W/Codeine #3), 1 TAB PO Q6 PRN for Pain Epinephrine (Epipen), 0.3 MG IM UD PRN for ALLERGIC REACTION Allergies Coded Allergies: Aspirin (Verified Allergy, Severe, TONGUE AND THROAT SWELLS, 03/30/17) Cephalexin (Verified Allergy, Severe, swelling tongue and throat, 03/30/17) Magnesium Salicylate (Verified Allergy, Severe, ANAPHYLAXIS, 03/30/17) Omeprazole (Verified Allergy, Severe, ANAPHYLAXIS, 03/30/17) Tramadol (Verified Allergy, Severe, ANAPHYLAXIS, 03/30/17) Erythromycin (Verified Allergy, Unknown, SWELLING AND RASH, 03/30/17) Oxycodone (Verified Allergy, Unknown, UNKNOWN, 03/30/17) Tetracycline (Verified Allergy, Unknown, SWELLING AND RASH, 03/30/17) Alendronate (Verified Adverse Reaction, Unknown, very upset stomach, ) Uncoded Allergies: perfumes (Allergy, Unknown, can't breathe, 05/20/12) Vital Signs Date Time Temp Pulse Resp B/P (MAP) Pulse Ox O2 Delivery O2 Flow Rate FiO2 03/31/17 00:00 69 03/30/17 22:33 71 18 139/85 97 Room Air 03/30/17 21:04 64 97 03/30/17 20:42 149/77 8/11/17 20:34 66 14 98 03/30/17 20:19 65 17 97 03/30/17 20:04 64 28 96 03/30/17 19:58 66 03/30/17 19:56 161/74 03/30/17 19:50 36.8 65 16 161/74 96 Room Air 03/30/17 19:50 94 Room Air Laboratory Results 03/30/17 20:25 Red Blood Count 4.16, Mean Corpuscular Volume 92.1, Mean Corpuscular Hemoglobin 31.7, Mean Corpuscular Hemoglobin Concent 34.5, Mean Platelet Volume 9.5, Neutrophils (%) (Auto) 60.9, Lymphocytes (%) (Auto) 29.7, Monocytes (%) (Auto) 6.9, Eosinophils (%) (Auto) 2.0, Basophils (%) (Auto) 0.3, Neutrophils # (Auto) 3.98, Lymphocytes # (Auto) 1.94, Monocytes # (Auto) 0.45, Eosinophils # (Auto) 0.13, Basophils # (Auto) 0.02 03/30/17 20:25 Test 03/30/17 20:25 03/30/17 20:55 03/30/17 21:00 White Blood Count 6.53 K/uL (4.8-10.8) Red Blood Count 4.16 M/uL (4.2-5.4) Hemoglobin 13.2 g/dL (12.0-16.0) Hematocrit 38.3 % (37-47) Mean Corpuscular Volume 92.1 fL (80-100) Mean Corpuscular Hemoglobin 31.7 pg (25-34) Mean Corpuscular Hemoglobin Concent 34.5 g/dl (32-36) Platelet Count 246 K/uL (130-400) Mean Platelet Volume 9.5 fL (7.4-10.4) Neutrophils (%) (Auto) 60.9 % Lymphocytes (%) (Auto) 29.7 % Monocytes (%) (Auto) 6.9 % Eosinophils (%) (Auto) 2.0 % Basophils (%) (Auto) 0.3 % Neutrophils # (Auto) 3.98 K/uL (1.4-6.5) Lymphocytes # (Auto) 1.94 K/uL (1.2-3.4) Monocytes # (Auto) 0.45 K/uL (0.11-0.59) Eosinophils # (Auto) 0.13 K/uL (0-0.5) Basophils # (Auto) 0.02 K/uL (0-0.2) RDW Standard Deviation 43.3 fL (36.4-46.3) RDW Coefficient of Variation 12.8 % (11.5-14.5) Immature Granulocyte % (Auto) 0.2 % Immature Granulocyte # (Auto) 0.01 K/uL (0.00-0.02) Anion Gap 12.0 mmol/L (3-11) Est Creatinine Clear Calc Drug Dose 54.6 ml/min Estimated GFR () 71.4 Estimated GFR (Non- 61.6 BUN/Creatinine Ratio 18.5 (10-20) Calcium Level 9.1 mg/dl (8.5-10.1) Total Bilirubin 0.5 mg/dl (0.2-1) Direct Bilirubin 0.1 mg/dl (0-0.2) Aspartate Amino Transf (AST/SGOT) 16 U/L (15-37) Alanine Aminotransferase (ALT/SGPT) 18 U/L (12-78) Alkaline Phosphatase 92 U/L (45-117) Total Protein 7.3 gm/dl (6.4-8.2) Albumin 3.6 gm/dl (3.4-5.0) Lipase 152 U/L (73-393) Bedside Troponin I < 0.030 ng/ml (0-0.045) Urine Color YELLOW Urine Appearance CLEAR (CLEAR) Urine pH 7.5 (4.5-7.5) Urine Specific [place] 1.009 (1.000-1.030) Urine Protein NEG (NEG) Urine Glucose (UA) NEG (NEG) Urine Ketones NEG (NEG) Urine Occult Blood NEG (NEG) Urine Nitrite NEG (NEG) Urine Bilirubin NEG (NEG) Urine Urobilinogen NEG (NEG) Urine Leukocyte Esterase TRACE (NEG) Urine WBC (Auto) 1-5 /hpf (0-5) Urine RBC (Auto) 0-4 /hpf (0-4) Urine Hyaline Casts (Auto) 0 /lpf (0-5) Urine Epithelial Cells (Auto) 5-10 /lpf (0-5) Urine Bacteria (Auto) NEG (NEG) Medications Administered Medications (Trade) Dose Ordered Sig/Foster Route Start Time Stop Time Status Last Admin Dose Admin Sodium Chloride 1,000 ml @ 999 mls/hr Q1H1M STAT IV 03/30/17 20:40 03/30/17 21:40 DC 03/30/17 21:09 999 MLS/HR Sodium Chloride 1,000 ml @ 150 mls/hr Q6H40M ONCE IV 03/30/17 20:40 03/31/17 03:19 03/30/17 21:10 150 MLS/HR Departure Information Impression Primary Impression: Weakness Additional Impression: Bilateral hip pain Referrals Julio Springer M.D. (PCP) Forms HOME CARE DOCUMENTATION FORM, IMPORTANT VISIT INFORMATION Patient Instructions My [facility] Additional Instructions Rest. Drink plenty of fluids. Be careful and getting up and down Return if: fever or chills, worsening of symptoms, any new problems or concerns Follow-up with your doctor Sunday for recheck Problem Qualifiers
[2017-03-31 08:51] VITALS: BP 137/65; PULSE 69; O2SAT 97
[2017-04-02] MEDS ORDERED: DIPH-437 PO (14:35)
[2017-04-02] MEDS ORDERED: DIPH25CA65 PO (14:35)
[2017-04-02] MEDS ORDERED: CHOL1000 PO (14:35)
[2017-04-02] MEDS ORDERED: VERA1TAB PO (14:35)
[2017-04-02] MEDS ORDERED: VERA1CAP5 PO (14:35)
[2017-04-02] MEDS ORDERED: PSYL48.59 PO (14:35)
[2017-04-02] MEDS ORDERED: FLUT0.15 NAE (14:35)
[2017-04-02] MEDS ORDERED: CALC250T8 PO (14:35)
[2017-04-02] MEDS ORDERED: POLY335019 PO (14:35)
[2017-04-02] MEDS ORDERED: TIMO0.05 OPB (14:35)
[2017-04-02] MEDS ORDERED: KETOCONAZOLE SHAMPOO TOP (14:35)
[2017-04-02] MEDS ORDERED: NYSTCRE11 TOP (14:35)
[2017-04-02] MEDS ORDERED: [UNRECOGNIZED DRUG - CODE] TOP (14:56)
== END 2017-03-31 09:00 | disposition home or self-care (01) ==
LOC: EDBD 19:49 → C.EDB 19:50
DX: R53.1 Weakness (principal); M25.551 Pain in right hip; M25.552 Pain in left hip; I10 Essential (primary) hypertension; Z85.3 Personal history of malignant neoplasm of breast; Z96.659 Presence of unspecified artificial knee joint; G47.30 Sleep apnea, unspecified; Z79.899 Other long term (current) drug therapy

== ENCOUNTER → 2017-04-13 | Outpatient (CLI) | payer OTHER, BC ==
[~2017-04-13] MED LIST changes: +ACET-749 PO; +CALC250T8 PO; -CALC500T83 PO; +CHOL1000 PO; -CHOL20007 PO; +DIPH-437 PO; +DIPH25CA65 PO; +FLUT0.15 NAE; -GLUCTAB7 PO; +KETOCONAZOLE SHAMPOO TOP; -LORA10CA2 PO; +NYSTCRE11 TOP; +OXYC-57 PO; +POLY335019 PO; +PSYL48.59 PO; +TIMO0.05 OPB; +VERA1CAP5 PO; +VERA1TAB PO; +WARF2TAB PO; +[UNRECOGNIZED DRUG - CODE] TOP; -[UNRECOGNIZED DRUG - OTHER] OPB
--- NOTE | 2017-04-13 16:02 | DIAGNOSTIC IMAGING REPORT ---
[facility] CLINICAL HISTORY: 82 years-old Female presenting with constipation due to opioids. TECHNIQUE: Single supine view of the abdomen was obtained. COMPARISON: 11/04/2016. FINDINGS: Marked stool burden throughout the colon most prominently in the right colon not dissimilar in appearance to prior pelvic radiograph from October 2016. No bowel obstruction. No gross pneumoperitoneum. Degenerative changes of the spine. Severe degenerative changes of bilateral hips. Atherosclerosis. IMPRESSION: 1. Marked stool burden consistent with constipation. 2. Severe degenerative changes of the bilateral hips. Electronically signed by: Julio Falcon M.D. 04/13/2017 4:00 PM Dictated Date/Time: 04/13/2017 3:58 PM
== END | disposition home or self-care (01) ==
LOC: C.RAD 15:10
PROVIDERS: ATTEND Internal Medicine
DX: K59.03 Drug induced constipation (principal)

== ENCOUNTER 2017-04-18 05:08 | Inpatient (IN) | payer OTHER, BC ==
[2017-04-02 14:35] VITALS: BMI 28.0
--- NOTE | 2017-04-02 14:59 | PAT Medication Instructions ---
"Service Date Apr 02, 2017. Current Home Medication List Acetaminophen Tab (Tylenol), 650 MG PO TID PRN for Pain Acetaminophen/Codeine (Tylenol W/Codeine #3), 1 TAB PO Q6 PRN for Pain Acetaminophen/Diphenhydramine (Tylenol Pm), 1 TAB PO HS PRN for Insomnia Azelastine Hcl (Astelin Nasal [place]), 2 SPRAYS CASSIA BID Calcium Citrate (Calcium Citrate), 1 TAB PO QPM Cholecalciferol (Vitamin D3), 1 TAB PO QAM Diphenhydramine Hcl (Benadryl Allergy), 1 CAP PO DAILY PRN for prn Epinephrine (Epipen), 0.3 MG IM UD PRN for ALLERGIC REACTION Fluticasone Propionate (Nasal) (Flonase Allergy Relief), 1 SPRAY CASSIA DAILY Hydrochlorothiazide (Hctz), 12.5 MG PO QAM Lidocaine HCl (Lidocaine HCl), 1 DOSE TOP UD PRN for Pain Nystatin/Triamcinolone (Mycogen || ), 1 DOSE TOP PRN Polyethylene Glycol 3350 (Miralax), 17 GM PO QPM Psyllium (Metamucil), 1 DOSE PO QPM Timolol Maleate (Ophth) (Timoptic 0.25% Oph), 1 DROP OPB QAM Verapamil (Calan), 80 MG PO UD Verapamil (Verelan Pm), 100 MG PO UD [Ketoconazole Shampoo], 1 DOSE TOP UD Medication Instructions For Your Scheduled Surgery - Hold the following medications 24 hours prior to surgery: [Ketoconazole Shampoo], 1 DOSE TOP UD Lidocaine HCl (Lidocaine HCl), 1 DOSE TOP UD PRN for Pain Nystatin/Triamcinolone (Mycogen || ), 1 DOSE TOP PRN - Hold the following medications the morning of surgery: Hydrochlorothiazide (Hctz), 12.5 MG PO QAM Diphenhydramine Hcl (Benadryl Allergy), 1 CAP PO DAILY PRN for prn Cholecalciferol (Vitamin D3), 1 TAB PO QAM - Take the following medications the morning of surgery with a sip of water: Acetaminophen Tab (Tylenol), 650 MG PO TID PRN for Pain (if needed) Acetaminophen/Codeine (Tylenol W/Codeine #3), 1 TAB PO Q6 PRN for Pain (okay to take up to 4 hours prior to surgery if needed) Azelastine Hcl (Astelin Nasal [place]), 2 SPRAYS CASSIA BID Epinephrine (Epipen), 0.3 MG IM UD PRN for ALLERGIC REACTION (if needed) Fluticasone Propionate (Nasal) (Flonase Allergy Relief), 1 SPRAY CASSIA DAILY Timolol Maleate (Ophth) (Timoptic 0.25% Oph), 1 DROP OPB QAM Verapamil (Calan), 80 MG PO UD - Take the following medications as scheduled the night before surgery: Verapamil (Verelan Pm), 100 MG PO UD Polyethylene Glycol 3350 (Miralax), 17 GM PO QPM Psyllium (Metamucil), 1 DOSE PO QPM Epinephrine (Epipen), 0.3 MG IM UD PRN for ALLERGIC REACTION (if needed) Calcium Citrate (Calcium Citrate), 1 TAB PO QPM Acetaminophen/Diphenhydramine (Tylenol Pm), 1 TAB PO HS PRN for Insomnia (if needed) Azelastine Hcl (Astelin Nasal [place]), 2 SPRAYS CASSIA BID If you have any questions please call us at [phone] or [phone] or [phone]"
--- NOTE | 2017-04-10 17:00 | HISTORY & PHYSICAL EXAMINATION ---
DATE OF ADMISSION: 04/18/2017 CHIEF COMPLAINT: Bilateral hip pain, left greater than right. HISTORY OF PRESENT ILLNESS: This 82-year-old white female presents to the office with complaints of bilateral hip pain, left greater than right that has been present for several years. It has become worse with time. Currently, her left hip is worse than the right. She is ambulatory using a walker. She is using chronic Tylenol No.3 for pain control until she can get her hips replaced. No specific injury. Pain is worse with weightbearing. It is affecting her ADLs. She has tried activity modification as well as oral pain medication without lasting relief. She cannot take NSAIDs due to allergy. She notes some loss of motion. No numbness or tingling. She elects to proceed with total hip arthroplasty in hopes of alleviating some pain. PAST MEDICAL HISTORY: Significant for elevated cholesterol, aortic aneurysm, irregular heartbeat, sleep apnea, use of BiPAP, osteoarthritis, dry mouth, history of skin and breast cancer, hypertension, and adult-situational stress disorder. PREVIOUS SURGERIES: Left total knee arthroplasty in 2011, breast lumpectomy in 2010, and knee arthrotomy with partial meniscectomy in 1993. ALLERGIES: KNOWN ALLERGY TO ASPIRIN, KEFLEX, ERYTHROMYCIN, FOSAMAX, NEXIUM, NYSTATIN, TETRACYCLINE. Specific allergic reaction to all of these is an unknown reaction. AUGMENTIN CAUSES HER NAUSEA. She takes amoxicillin without issue and has been tested. She has also been tested for titanium and nickel allergy and found to be nonreactive. CURRENT MEDICATIONS: Tylenol N.3 q.i.d. p.r.n., azelastine 137 mcg inhaler 2 sprays in each nostril b.i.d. p.r.n., Benadryl 25 mg p.o. t.i.d. p.r.n., calcium daily, EpiPen 0.3 mg IM p.r.n. for anaphylaxis, HCTZ 12.5 mg daily, and Tylenol p.o. daily p.r.n. FAMILY HISTORY: Noncontributory. Parents are . SOCIAL HISTORY: The patient is retired. . No tobacco use, rare ETOH use. REVIEW OF SYSTEMS: Significant for above-stated conditions, otherwise unremarkable. PHYSICAL EXAMINATION: GENERAL: Well-developed, frail, elderly white female in no acute distress. Sitting in a chair. Alert and oriented. SKIN: Warm and dry with fair turgor. No rashes or lesions. No ecchymosis or erythema. HEENT: Normocephalic, atraumatic. Eyes PERRLA, EOMI. Nares patent bilaterally without turbinate enlargement. Oropharynx without erythema or exudate. No lesions noted. Uvula midline. Oral mucosa moist. Fair dentition. HEART: Irregularly irregular. No murmurs, gallops or rubs. LUNGS: Clear to auscultation bilaterally. No crackles, rhonchi or wheezing. Good air movement. ABDOMEN: Mildly obese. Bowel sounds present x4, soft, nontender. No organomegaly. No masses. MUSCULOSKELETAL: Left hip has no obvious asymmetry or deformity. She has mild discomfort with palpation over the greater trochanter. No pain with palpation over the IT band. Limited range of motion of the hip secondary to discomfort. Flexion to just beyond 90 degrees, very limited internal and external rotation secondary to pain. No palpable crepitus. Significant difficulty with walking. NEUROLOGIC: Cranial nerves II through XII are intact. Gross sensation is intact across both lower extremities by soft touch. Peripheral pulses are 2+. DATA: Radiographic imaging previously obtained shows endstage DJD of both hips, left greater than right. She has loss of joint space, periarticular osteophytes, and subchondral sclerosis and cysts. IMPRESSION: Left hip end-stage degenerative joint disease. PLAN: Medical clearance and cardiology clearance requests have been placed. Continue with her Tylenol No.3 p.r.n. Postoperative prescriptions for Percocet and Coumadin will be provided at discharge from the hospital. Preoperative lab work, EKG, and chest x-ray have been ordered. Anticipate discharge to [facility] or a [facility] facility as she has no one available to help her at home. Informed written consent will be obtained by Dr. Ibarra on the morning of surgery. [facility]'S HOSPITALVioletta
[~2017-04-18] VITALS: Ht 167.6 cm; Wt 78.8 kg
[2017-04-18] VITALS (9 sets, daily range): BP systolic 108–162; BP diastolic 66–91; PULSE 58–87; TEMP 34.6–37.4; O2SAT 95–100; Ht 167.6 cm; Wt 78.8 kg
[~2017-04-18 05:08] MED LIST changes: -OXYC-57 PO; -WARF2TAB PO
[2017-04-18] MEDS: VANCOMYCIN INJ 1,200 MG in SODIUM CHLORIDE 0.9% 250ML 250 ML IV SCH ×2 (05:30→05:49)
[2017-04-18] MEDS ORDERED: ROPIVACAINE 5MG/ML 30 ML 150 MG, BUPIVACAINE/EPINEPHR 0.5% MPF 30 ML, DEXAMETHASONE INJ... INFIL SCH ×6 (06:00)
[2017-04-18] MEDS ORDERED: LACTATED RINGER'S 1000ML 500 ML IV ONE (06:00)
[2017-04-18] MEDS ORDERED: LACTATED RINGER'S 1000ML IV SCH (06:00)
[2017-04-18] MEDS ORDERED: LACTATED RINGER'S 1000ML 1,000 ML IV SCH (06:00)
[2017-04-18] MEDS ORDERED: TRANEXAMIC ACID INJ 1,000 MG in SODIUM CHLORIDE 0.9% 100ML 100 ML IV SCH (06:00)
[2017-04-18] MEDS ORDERED: BUPIVACAINE 0.5 % 5 MG/1 ML PF 10ML VIAL ONE (06:24)
--- NOTE | 2017-04-18 06:26 | History & Physical Bridge Note ---
H&P Re-Evaluation Bridge Note: I have examined the patient, reviewed the History & Physical and in the interval since the performance of the History & Physical I have noted the following changes of clinical significance:consent obtained and questions answered. sinus meds noted.
[2017-04-18] MEDS ORDERED: MIDAZOLAM HCL 1 MG/ML 2ML VIAL ONE ×2 (06:29→07:06)
[2017-04-18] MEDS ORDERED: ORTHO JOINT ANESTHETIC ONE (06:29)
[2017-04-18] MEDS ORDERED: PROPOFOL IV EMULSION 10 MG/ML 20 ML VIAL IV ONE ×2 (06:29→08:11)
[2017-04-18] MEDS ORDERED: LIDOCAINE HCL 2% 2 ML VIAL (20MG/ML) ONE (06:29)
[2017-04-18] MEDS ORDERED: POVIDONE-IODINE OP SOLN 30 ML BTL ONE (06:30)
[2017-04-18] MEDS ORDERED: EpHEDrine SULFATE INJ 50 MG/ML AMP ONE (07:29)
[2017-04-18] MEDS ORDERED: PHENYLEPHRINE 100MCG/ML 5ML SYR ONE (07:52)
--- NOTE | 2017-04-18 08:22 | [facility] Post Operative Brief Note ---
Immediate Operative Summary Operative Date Apr 18, 2017. Pre-Operative Diagnosis Left Hip degenerative Joint Disease Post-Operative Diagnosis Left Hip Degenerative Joint Disease Procedure(s) Performed Left Total Hip Arthroplasty Uncemented Surgeon Dr. Ibarra Car Supervisor Surgeon(s) Elliott Cruz PA-C Estimated Blood Loss 150 ml Findings severe djd Fluids (cc crystalloids) 1500cc Specimens A. Left Femoral Head Drains none Anesthesia spinal Complication(s) None Disposition Recovery Room / PACU
[2017-04-18] MEDS ORDERED: MAGNESIUM HYDROXIDE SUSP 30 ML UDC PO PRN (08:30)
[2017-04-18] MEDS ORDERED: MoRPHine SULFATE 2 MG/ML CARP IV PRN (08:30)
[2017-04-18] MEDS ORDERED: ONDANSETRON INJ 2 MG/ML 2 ML VIAL IV PRN ×2 (08:30→09:15)
[2017-04-18] MEDS ORDERED: METOCLOPRAMIDE HCL INJ 5 MG/ML 2 ML VIAL IV PRN (08:30)
[2017-04-18] MEDS ORDERED: ALUMINUM/MAGNESIUM/SIMETH (MAALOX MAX) 30 ML UDC PO PRN (08:30)
[2017-04-18] MEDS ORDERED: DiphenhydrAMINE HCL 50 MG/ML VIAL IV PRN (08:30)
[2017-04-18] MEDS ORDERED: NYSTATIN/TRIAMCINOLONE CR 15 GM TUBE EXT PRN (08:30)
[2017-04-18] MEDS ORDERED: EPINEPHRINE ADULT AUTO-INJECT 0.3 MG SYR IM PRN (08:30)
[2017-04-18] MEDS ORDERED: BISACODYL 10 MG SUPP PR PRN ×2 (08:30→13:45)
--- NOTE | 2017-04-18 08:36 | [facility] Operative Report ---
Operative Report Operative Date Apr 18, 2017. Pre-Operative Diagnosis Left Hip degenerative Joint Disease Post-Operative Diagnosis Left Hip Degenerative Joint Disease Procedure(s) Performed Left Total Hip Arthroplasty Uncemented Surgeon Dr. Ibarra Gate Clerk Surgeon(s) Elliott Cruz PA-C Estimated Blood Loss 150 ml Findings Left hip DJD Fluids 1500cc Specimens A. Left Femoral Head Drains none Anesthesia spinal Complication(s) None Disposition Recovery Room / PACU Indications This 82-year-old white female presented to the office with complaints of intractable left hip pain. She had tried conservative care measures without success. She elected to proceed with surgical intervention in hopes of alleviating her pain. Preoperative imaging was obtained. 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 She was prepped and draped in usual sterile fashion. Please see Dr. Ibarra's operative report for specifics of the procedure. I was present for the entire case from initial patient positioning through final wound closure. Assistance was provided in tissue retraction, hemostasis, trial implant placement, final implant placement, and final wound closure. Patient was taken to the recovery room in satisfactory condition. I attest to the content of the Intraoperative Record and any orders documented therein. Any exceptions are noted below.
--- NOTE | 2017-04-18 08:39 | OPERATIVE REPORT ---
DATE OF OPERATION: 04/18/2017 PREOPERATIVE DIAGNOSIS: Severe osteoarthritis, left hip. POSTOPERATIVE DIAGNOSIS: Same. OPERATION PERFORMED: Noncemented left total hip replacement. SURGEON: Dr. Ibarra. STEPDOWN NURSE: Elliott Cruz PA-C. No resident or fellow available. SUMMARY OF IMPLANTS: Size 50 cup acetabular shell sector hole eliminator 6.5 x 25 screw, acetabular liner neutral 32 internal diameter, 50 outer diameter, 7 high offset femoral stem, 32 mm head +5. ESTIMATED BLOOD LOSS: Estimated at 150. CRYSTALLOID: 1500. Deep venous thrombosis prophylaxis per protocol. PERIOPERATIVE SITUATION: Medically cleared female with intractable hip pain with x-rays revealing end-stage disease, significant joint space narrowing, subchondral cyst and periarticular osteophytes. OPERATION AND FINDINGS: PROCEDURE: The patient appropriately identified, site verified, consent verified, vancomycin confirmed as being given weight-based dosed. The left lower extremity was prepped and draped in usual routine fashion with the patient in right lateral decubitus position. A posterior approach to the hip was then made. Full thickness flaps raised. IT band identified. Gluteus rashad fascia identified and incised. Retractors placed. Care taken to protect the sciatic nerve. Short external rotators were identified were released. The capsule was then teed, the hip was then dislocated, the femoral neck was then resected. Excellent exposure was obtained. Serial reaming carried up to a 50 and a 50 cup impacted into appropriate anteversion and inclination. It was then secured with an additional 6.5 x 25 screw with excellent purchase. Trial liner was then seated. Some marginal osteophytes then resected. The femur was then flexed and internally rotated. The proximal femur prepared with a box printing machine operator, canal finder, lateralizing rasp, and serial reaming up to a size 7, size 7 high offset stem with a +5 neck length gave superb stability and leg lengths were within millimeters of equality. It should be mentioned that she was slightly long on the left to begin with, probably about 3-4 mm. The hip was then dislocated. All trial remaining implants were removed. Wound irrigated with a Betadine, Pulsavac, hole eliminator seated, permanent liner seated, permanent head and stem seated and then the hip reduced. It was stable in all planes. It was then irrigated with Betadine and Pulsavac and then the capsule closed with #2 Vicryl, the short external rotators with the same stitch, some deep fat with that and then superficial fat with 2-0 Vicryl and the skin was stainless clips. Appropriate dressing applied and the patient transferred to recovery room in satisfactory condition having tolerated the procedure well. I attest to the content of the Intraoperative Record and any orders documented therein. Any exception s are noted below.
[2017-04-18] MEDS: FLUTICASONE PROPIONATE NA SPR 16 GM BTL NAE SCH (09:00)
[2017-04-18] MEDS: HYDROCHLOROTHIAZIDE 25 MG TAB PO SCH (09:00)
[2017-04-18] MEDS: TIMOLOL MALEATE 0.25% OP SOLN 5 ML BTL OPB SCH (09:00)
--- NOTE | 2017-04-18 09:03 | DIAGNOSTIC IMAGING REPORT ---
PELVIS 1 OR 2 VIEW ROUTINE HISTORY: 82 years-old Female s/p Left hip total hip arthroplasty. Postoperative exam COMPARISON: Pelvis and hip radiographs 11/04/2016 TECHNIQUE: Single AP view of the pelvis FINDINGS: There has been interval left total hip arthroplasty surgery with skin zuleyka overlying the surgical site. Expected postsurgical swelling and soft tissue air is seen about the left hip. There is no periprosthetic fracture or malalignment. Vascular calcifications are noted. Severe right hip osteoarthritis is also noted with background osteopenia. IMPRESSION: Status post total left hip arthroplasty without complication. The above report was generated using voice recognition software. It may contain grammatical, syntax or spelling errors. Electronically signed by: [place] M.D. 04/18/2017 9:02 AM Dictated Date/Time: 04/18/2017 8:59 AM
[2017-04-18] MEDS ORDERED: HYDROmorphone INJ 2 MG/ML SYR/VIAL IV PRN (09:15)
[2017-04-18] MEDS ORDERED: PHENYLEPHRINE 100MCG/ML 5ML SYR IV PRN (09:15)
[2017-04-18] MEDS ORDERED: EpHEDrine SULFATE INJ 50 MG/ML AMP IV PRN (09:15)
[2017-04-18] MEDS ORDERED: ATROPINE SULFATE 0.1 MG/ML 5ML SYR IV PRN (09:15)
--- NOTE | 2017-04-18 09:37 | Anesthesiology Progress Note ---
Anesthesia Post Op Note Date & Time Apr 18, 2017 at 09:36 Vital Signs Pain Intensity: 0 Vital Signs Past 12 Hours Date Time Temp Pulse Resp B/P (MAP) Pulse Ox O2 Delivery O2 Flow Rate FiO2 04/18/17 09:27 62 16 100 04/18/17 09:27 62 16 04/18/17 09:26 137/73 04/18/17 09:22 36.7 04/18/17 09:22 63 20 04/18/17 09:22 63 20 99 04/18/17 09:21 142/77 04/18/17 09:18 61 19 99 04/18/17 09:18 62 19 04/18/17 09:17 120/73 04/18/17 09:13 61 14 100 04/18/17 09:13 60 14 04/18/17 09:12 120/81 04/18/17 09:08 62 22 100 04/18/17 09:08 61 22 04/18/17 09:07 62 25 04/18/17 09:07 63 25 129/71 100 04/18/17 09:02 57 14 99 04/18/17 09:02 59 14 04/18/17 09:01 125/63 04/18/17 08:59 62 16 100 04/18/17 08:59 61 16 04/18/17 08:57 111/62 04/18/17 08:54 65 22 04/18/17 08:54 65 22 100 04/18/17 08:53 59 17 04/18/17 08:53 61 17 100 04/18/17 08:52 115/67 04/18/17 08:48 63 17 04/18/17 08:48 62 17 99 04/18/17 08:47 97/66 04/18/17 08:43 63 16 100 04/18/17 08:43 63 16 04/18/17 08:42 67 22 100 04/18/17 08:42 65 22 04/18/17 08:41 123/59 04/18/17 08:37 66 25 99 04/18/17 08:37 66 25 04/18/17 08:36 123/63 04/18/17 08:33 118/57 04/18/17 08:32 66 19 04/18/17 08:32 66 19 100 04/18/17 08:27 64 11 04/18/17 08:27 72 11 99 04/18/17 08:26 118/67 04/18/17 08:25 87/47 04/18/17 08:23 88/45 04/18/17 08:22 36.0 70 16 88/45 98 Nasal Cannula 2 04/18/17 08:22 72 18 04/18/17 08:22 97 18 97 04/18/17 05:52 36.6 58 20 153/77 100 Room Air Notes Mental Status: alert / awake / arousable, participated in evaluation Pt Amnestic to Procedure: Yes Nausea / Vomiting: adequately controlled Pain: adequately controlled Airway Patency, RR, SpO2: stable & adequate BP & HR: stable & adequate Hydration State: stable & adequate Anesthetic Complications: no major complications apparent
[2017-04-18] MEDS ORDERED: D5W AND 1/2NSS + 20MEQ KCL 1,000 ML IV SCH (11:00)
[2017-04-18] MEDS ORDERED: MoRPHine SULFATE 4 MG/ML 1 ML CARP\\VIAL IV PRN (11:15)
[2017-04-18] MEDS ORDERED: OXYCODONE HCL IR 5 MG TAB (IMMEDIATE RELEASE) PO PRN (12:30)
[2017-04-18] MEDS: FERROUS GLUCONATE 324 MG TAB PO SCH ×2 (12:53→18:38)
[2017-04-18] MEDS: OXYCODONE HCL IR 5 MG TAB (IMMEDIATE RELEASE) PO PRN ×3 (13:02→22:07)
[2017-04-18] MEDS ORDERED: MoRPHine SULFATE 10 MG/ML CARP/VIAL IV PRN ×2 (13:30→14:15)
[2017-04-18] MEDS ORDERED: HYDROmorphone INJ 1 MG/ML SYR IV PRN (13:30)
[2017-04-18] MEDS ORDERED: HYDROmorphone INJ 0.5 MG/0.5 ML SYR IV PRN (13:30)
--- NOTE | 2017-04-18 13:39 | Medical Consult ---
Consultation Date of Consultation: Apr 18, 2017. Attending Physician: Molina Ibarra M.D. Reason for Consultation: Medical Management History of Present Illness This is 82 yo F with PMHx of AAA, HTN, HLD, arthritis, osteoporosis, sleep apnea , idiopathic angioedema, malignant breast neoplasm in 2010 s/p lumpectomy and 1 week of XRT, remote tobacco use who presents for a Left total hip arthroplasty by Dr. Alegre on 04/18/17. The patient is very dissatisfied with everything, angry, yelling, tearful at times due to pain when I initially walked into the room. She says pain is excruciating, and morphine at low doses is not working for breakthrough pain at all. She specifically has complaints of the computer system, meds not being available on the floor for immediate access, and the phone system where she is unable to get hold of who she wants. I sat and talked with her for a long time, calming her, and explaining the current medication regimen. She is awaiting a call back from our WEBMETHODS ARCHITECT, Reyna Schmidt. She typically takes tylenol #3 at home for pain, and is requesting to have this available to her. She is also cautious to take narcotics because of chronic constipation. She uses dulcolax and miralax on a daily basis at home. Past Medical/Surgical History Medical Problems: (1) Bilateral hip pain Status: Acute (2) Hyponatremia Status: Acute (3) Left-sided weakness Status: Acute (4) Weakness Status: Acute AAA Idiopathic Angioedema DORA on CPAP Hx of Malignant neoplasm of the breast Social History Smoking Status: Former Smoker Smokeless Tobacco Use: No Drug Use: none Marital Status: Housing Status: lives alone Occupation Status: retired Allergies Coded Allergies: Aspirin (Verified Allergy, Severe, TONGUE AND THROAT SWELLS, 04/02/17) Cephalexin (Verified Allergy, Severe, swelling tongue and throat, 04/02/17) Magnesium Salicylate (Verified Allergy, Severe, ANAPHYLAXIS, 04/02/17) Omeprazole (Verified Allergy, Severe, ANAPHYLAXIS, 04/02/17) Tramadol (Verified Allergy, Severe, ANAPHYLAXIS, 04/02/17) Erythromycin (Verified Allergy, Unknown, SWELLING AND RASH, 04/02/17) Oxycodone (Verified Allergy, Unknown, UNKNOWN, 04/02/17) Tetracycline (Verified Allergy, Unknown, SWELLING AND RASH, 04/02/17) Alendronate (Verified Adverse Reaction, Unknown, very upset stomach, ) Uncoded Allergies: perfumes (Allergy, Unknown, can't breathe, 05/20/12) Current Inpatient Medications Current Inpatient Medications Medications (Trade) Dose Ordered Sig/Foster Route Start Time Stop Time Status Last Admin Dose Admin Tranexamic Acid 1000 mg/Sodium Chloride 110 ml @ 660 mls/hr TODAY@0600 IV 04/18/17 06:00 04/18/17 18:00 04/18/17 06:34 660 MLS/HR Vancomycin HCl 1200 mg/Sodium Chloride 274 ml @ 125 mls/hr PREOP IV 04/18/17 06:00 04/18/17 18:00 04/18/17 05:30 125 MLS/HR Ropivacaine 150 mg/Bupivacaine HCl/Epinephrine Bitart 30 ml/ Dexamethasone Sodium Phosphate 4 mg/Ketamine HCl 10 mg/Clonidine 100 mcg/Sodium Chloride 30 ml/ Empty Bag 92.2 ml @ 0 mls/hr PREOP INFIL 04/18/17 06:00 04/18/17 18:00 04/18/17 08:05 73.2 MLS/HR Potassium Chloride/Dextrose/ Sod Cl 1,000 ml @ 100 mls/hr Q10H IV 04/18/17 11:00 04/19/17 08:21 04/18/17 12:08 100 MLS/HR Vancomycin HCl 1150 mg/Sodium Chloride 273 ml @ 125 mls/hr Q12H IV 04/18/17 18:00 04/18/17 20:12 Morphine Sulfate (MoRPHine SULFATE INJ) 2 mg Q1H PRN IV 04/18/17 08:30 05/02/17 08:29 04/18/17 12:05 2 MG Acetaminophen (Tylenol Tab) 650 mg Q6H PRN PO 04/19/17 14:00 05/19/17 13:59 Future Hold Magnesium Hydroxide (Milk Of Magnesia Susp) 30 ml Q6H PRN PO 04/18/17 08:30 05/18/17 08:29 Bisacodyl (Dulcolax Supp) 10 mg DAILY PRN NV 04/18/17 08:30 05/18/17 08:29 Docusate Sodium (coLACE CAP) 100 mg BID PO 04/18/17 21:00 05/18/17 20:59 Diphenhydramine HCl (Benadryl Inj) 25 mg Q8H PRN IV 04/18/17 08:30 05/18/17 08:29 Al Hydrox/Mg Hydrox/Simethicone (Maalox Max Susp) 15 ml Q4H PRN PO 04/18/17 08:30 05/18/17 08:29 Multivitamins (Multivitamin Tab) 1 tab QAM PO 04/19/17 09:00 05/19/17 08:59 Ondansetron HCl (Zofran Inj) 4 mg Q6H PRN IV 04/18/17 08:30 05/18/17 08:29 Metoclopramide HCl (Reglan Inj) 10 mg Q6H PRN IV 04/18/17 08:30 05/18/17 08:29 Ferrous Gluconate (Ferrous Gluconate Tab) 324 mg TIDM PO 04/18/17 12:30 05/18/17 12:29 04/18/17 12:53 324 MG Tranexamic Acid 1000 mg/Sodium Chloride 110 ml @ 660 mls/hr ONE ONCE IV 04/18/17 14:00 04/18/17 14:09 Dexamethasone Sodium Phosphate 10 mg/Syringe 2.5 ml @ 1 mls/min ONE ONCE IV 04/19/17 07:30 04/19/17 07:32 Epinephrine (Epipen) 0.3 mg UD PRN IM 04/18/17 08:30 05/18/17 08:29 Fluticasone Propionate (Flonase Nasal Fidelity) 1 sprays DAILY CASSIA 04/18/17 09:00 05/18/17 08:59 Hydrochlorothiazide (Hydrochlorothiazide Tab) 12.5 mg QAM PO 04/18/17 09:00 05/18/17 08:59 Nystatin/ Triamcinolone Acetonide (Mycogen II Crm) 1 appln DAILY PRN EXT 04/18/17 08:30 05/18/17 08:29 Timolol Maleate (Timoptic 0.25% Oph Soln) 1 drops QAM OPB 04/18/17 09:00 05/18/17 08:59 Miscellaneous Information (Order Awaiting Action) 1 ea QS N/A 04/18/17 16:00 05/18/17 15:59 Polyethylene (Miralax Powder Packet) 17 gm QPM PO 04/18/17 21:00 05/18/17 20:59 Psyllium Hydrophilic Mucilloid (Metamucil Powder) 1 pkt QPM PO 04/18/17 21:00 05/18/17 20:59 Miscellaneous Information (Order Awaiting Action) 1 ea QS N/A 04/18/17 16:00 05/18/17 15:59 Miscellaneous Information (Order Awaiting Action) 1 ea QS N/A 04/18/17 16:00 05/18/17 15:59 Miscellaneous Information (Order Awaiting Action) 1 ea QS N/A 04/18/17 16:00 05/18/17 15:59 Morphine Sulfate (MoRPHine SULFATE INJ) 4 mg Q1H PRN IV 04/18/17 11:15 05/02/17 11:14 Cholecalciferol (Vitamin D Tab) 1,000 inter.unit QAM PO 04/19/17 09:00 05/19/17 08:59 Acetaminophen/ Hydrocodone Bitart (Celoron 5/325 Tab) 1 TABLET FOR PAIN RATING... Q6H PRN PO 04/19/17 14:00 05/03/17 13:59 Calcium Citrate (Citracal Tab) 950 mg QPM PO 04/18/17 21:00 05/18/17 20:59 Acetaminophen (Tylenol Tab) 1,000 mg Q8H PO 04/18/17 16:00 05/18/17 15:59 Oxycodone HCl (Roxicodone Immediate Rel Tab) @ Q4H PRN PO 04/18/17 12:57 04/20/17 12:56 04/18/17 13:02 10 MG Review of Systems Constitutional: + fatigue, No fever, No chills, No sweats Eyes: + diplopia ENT: + trouble swallowing Respiratory: No cough, No shortness of breath, No dyspnea on exertion Cardiovascular: + palpitations, No chest pain, No edema Abdomen: No pain, No nausea, No vomiting, No diarrhea, No constipation Musculoskeletal: + joint pain (Left hip), No swelling, No calf pain Genitourinary - Female: No dysuria, No hematuria Neurologic: No paralysis, No weakness Endocrine: No fatigue Integumentary: No rash, No itch Physical Exam Date Time Temp Pulse Resp B/P (MAP) Pulse Ox O2 Delivery O2 Flow Rate FiO2 04/18/17 11:46 36.4 86 18 145/84 (104) 04/18/17 10:45 36.2 78 18 144/83 (103) 04/18/17 10:15 37.3 82 18 146/84 (104) 04/18/17 09:45 Nasal Cannula 2.0 04/18/17 09:45 34.6 65 18 144/71 (95) 100 Nasal Cannula 2.0 04/18/17 09:45 Nasal Cannula 2.0 04/18/17 09:27 62 16 100 04/18/17 09:27 62 16 04/18/17 09:26 137/73 04/18/17 09:22 36.7 04/18/17 09:22 63 20 04/18/17 09:22 63 20 99 04/18/17 09:21 142/77 04/18/17 09:18 61 19 99 04/18/17 09:18 62 19 04/18/17 09:17 120/73 04/18/17 09:13 61 14 100 04/18/17 09:13 60 14 04/18/17 09:12 120/81 04/18/17 09:08 62 22 100 04/18/17 09:08 61 22 04/18/17 09:07 62 25 04/18/17 09:07 63 25 129/71 100 04/18/17 09:02 57 14 99 04/18/17 09:02 59 14 04/18/17 09:01 125/63 04/18/17 08:59 62 16 100 04/18/17 08:59 61 16 04/18/17 08:57 111/62 04/18/17 08:54 65 22 04/18/17 08:54 65 22 100 04/18/17 08:53 59 17 04/18/17 08:53 61 17 100 04/18/17 08:52 115/67 04/18/17 08:48 63 17 04/18/17 08:48 62 17 99 04/18/17 08:47 97/66 04/18/17 08:43 63 16 100 04/18/17 08:43 63 16 04/18/17 08:42 67 22 100 04/18/17 08:42 65 22 04/18/17 08:41 123/59 04/18/17 08:37 66 25 99 04/18/17 08:37 66 25 04/18/17 08:36 123/63 04/18/17 08:33 118/57 04/18/17 08:32 66 19 04/18/17 08:32 66 19 100 04/18/17 08:27 64 11 04/18/17 08:27 72 11 99 04/18/17 08:26 118/67 04/18/17 08:25 87/47 04/18/17 08:23 88/45 04/18/17 08:22 36.0 70 16 88/45 98 Nasal Cannula 2 04/18/17 08:22 72 18 04/18/17 08:22 97 18 97 04/18/17 05:52 36.6 58 20 153/77 100 Room Air General Appearance: WD/WN, + moderate distress, + pertinent finding (severly aggitated) Eyes: PERRL, EOMI ENT: hearing grossly normal, pharynx normal Neck: supple, thyroid normal Respiratory/Chest: lungs clear, no respiratory distress, no accessory muscle use Cardiovascular: regular rate, rhythm, no murmur, normal peripheral pulses Abdomen/GI: non tender, soft, + pertinent finding (hypoactive bowel sounds) Back: normal inspection Extremities/Musculoskelatal: no calf tenderness, + pertinent finding (+ Left hip bandage C/D/I. ) Neurologic/Psych: alert, normal mood/affect, oriented x 3 Skin: normal color, warm/dry Assessment & Plan 82 yo F with PMHx of AAA, HTN, HLD, arthritis, osteoporosis, sleep apnea, idiopathic angioedema, malignant breast neoplasm in 2010 s/p lumpectomy and 1 week of XRT, remote tobacco use who presents for a Left total hip arthroplasty by Dr. Alegre on 04/18/17. Left Hip arthroplasty - Pain regimen changed as the patient takes Tylenol #3 at home - Morphine 2 and 4 mg not touching pain at all, so will change this to Dilaudid 0.5 mg Q1H and 1.0 mg Q2H. Added oxycodone 5-10 mg Q4H prn for next 2 days along with tylenol 1000mg PO Q8H scheduled. Celoron to start tomorrow prn. Pt can resume Tylenol #3 at time of discharge. - Bowel regimen with dulcolax BID schedule, miralax daily scheduled, and dulcolax suppository and MOM prn - DVT ppx per primary team - PT/OT on board Infrarenal AAA - Measures 4.6x4.7 cm, pt follows with [facility] vascular surgery every 6 months. She was most recently seen in December 2016 and aneurysm was unchanged from previously. No surgery currently indicated HTN - Continue HCTZ 12.5 mg QAM - Will order hydralazine prn - Follow with Dr. Springer as an outpatient HLD - Not currently on statin therapy Osteoporosis - resume supplementation with Vit D 1000 U daily QAM Sleep apnea - Does not wear O2 at baseline, may use her own CPAP machine here. Will ask respiratory to set up inhouse CPAP if her family cannot bring it in. CODE STATUS: FULL CODE Disposition: PT/OT, planning for [facility] tomorrow, CM to assist with discharge planning. Medical team will continue to follow along, thank you. PA Physician Supervision Note: I interviewed and examined the patient. Discussed with Hermelinda Mg PAC and agree with findings and plan as documented in the note. Any exceptions or clarifications are listed here: None Patient is status post left hip arthroplasty doing well postoperatively although having some initial problems with pain control, her pain is in good control, I visited her and she has no other complaints Vital signs are stable noted Her heart is regular her lungs are clear her abdomen is normoactive bowel sounds and soft Patient status post left hip arthroplasty, pain control is to be optimized we' ve made adjustments to her regime, the patient will use CPAP for sleep apnea, her hypertension is only requiring a mild dose of hydrochlorothiazide will evaluate in the morning given her fluid losses whether this will be continued or not hydralazine is ordered for backup given the fact that she is guided infrarenal abdominal aortic aneurysm this however has been stable of late Documented By: Johnson Conteh
[2017-04-18] MEDS ORDERED: TRANEXAMIC ACID INJ 1,000 MG in SODIUM CHLORIDE 0.9% 100ML 100 ML IV ONE (14:00)
--- NOTE | 2017-04-18 14:02 | PROGRESS NOTE ---
DATE: 04/18/2017 DATE: 04/18/2017 SUBJECTIVE: The patient had some concerns about pain medications not being available because of computer glitch. At this point in time, she feels that her pain is well managed. I asked her to refocus on getting better and not worried about the computers. OBJECTIVE: Vital signs are stable. She is afebrile. Neurovascular check femoral sciatic nerve is good. Wound dressing clean, dry and intact. Hip located. Postop X-rays of the left hip look excellent. ASSESSMENT: Doing well status post left total hip replacement and focus on positive. Her pain is well managed. At this point in time she seems to be having issues with pain medications in general, has multiple questions and multiple suggestions; however, we will stick to what has been tried in the past. She will be transferred to [facility] tentatively tomorrow if bed available. Coumadin 5 mg vero.
[2017-04-18] MEDS ORDERED: HydrALAZINE HCL 20 MG/ML VIAL IV. PRN (14:15)
[2017-04-18 15:13] LABS: HEMATOCRIT 37.5 % (37-47); MEAN CELL VOLUME 90.1 fL (80-100); MEAN CORPUSCULAR HEMOGLOBIN 31.7 pg (25-34); MEAN PLATELET VOLUME 9.2 fL (7.4-10.4); PLATELET COUNT 228 K/uL (130-400); RED BLOOD COUNT 4.16 M/uL (4.2-5.4); WHITE BLOOD COUNT 10.46 K/uL (4.8-10.8)
[2017-04-18 15:18] LABS: MEAN CORPUSCULAR HGB CONC 35.2 g/dl (32-36)
[2017-04-18 15:27] LABS: PROTHROMBIN TIME (PATIENT) 10.7 SECONDS (9.0-12.0)
[2017-04-18] MEDS: [UNRECOGNIZED DRUG - OTHER] SCH ×2 (15:57→23:03)
[2017-04-18] MEDS: ACETAMINOPHEN 500 MG TAB PO SCH ×2 (16:00→23:52)
[2017-04-18] MEDS ORDERED: ACETAMINOPHEN IV 1,000 MG in EMPTY BAG 0 ML IV SCH (16:00)
[2017-04-18] MEDS ORDERED: WARFARIN SOD 5 MG TAB PO SCH (16:00)
[2017-04-18] MEDS ORDERED: WARF2TAB PO (16:37)
[2017-04-18] MEDS ORDERED: VANCOMYCIN INJ 1,150 MG in SODIUM CHLORIDE 0.9% 250ML 250 ML IV SCH (18:00)
[2017-04-18] MEDS ORDERED: PSYLLIUM 58.6% PWD PACK S\\F PO SCH (21:00)
[2017-04-18] MEDS ORDERED: POLYETHYLENE (MIRALAX) 17 GM PACK PO SCH (21:00)
[2017-04-18] MEDS ORDERED: CALCIUM CITRATE 950 MG TAB PO SCH ×2 (21:00)
[2017-04-18] MEDS: DOCUSATE SODIUM 100 MG CAP PO SCH (22:00)
[2017-04-19 04:00] VITALS: BP 103/63; PULSE 71; TEMP 36.8; O2SAT 96
[2017-04-19 06:15] LABS: BASO % 0.1 %; BASO ABS # 0.01 K/uL (0-0.2); COMPLETE YES; EOS % 0.1 %; HEMATOCRIT 33.5 % (37-47); IG% 0.3 %; MEAN CELL VOLUME 91.5 fL (80-100); MEAN CORPUSCULAR HEMOGLOBIN 31.1 pg (25-34); MEAN PLATELET VOLUME 9.3 fL (7.4-10.4); MONO % 7.6 %; NEUT % 80.9 %; PLATELET COUNT 223 K/uL (130-400); RED BLOOD COUNT 3.66 M/uL (4.2-5.4); WHITE BLOOD COUNT 10.03 K/uL (4.8-10.8)
[2017-04-19 06:37] LABS: PROTHROMBIN TIME (PATIENT) 10.8 SECONDS (9.0-12.0)
[2017-04-19 06:55] LABS: BUN/CREATININE RATIO 14.8 (10-20); CALCIUM 8.2 mg/dl (8.5-10.1); CREATININE 0.85 mg/dl (0.60-1.20); POTASSIUM 3.7 mmol/L (3.5-5.1)
[2017-04-19 07:10] VITALS: BP 96/61; PULSE 63; TEMP 36.6; O2SAT 97
--- NOTE | 2017-04-19 07:21 | PROGRESS NOTE ---
DATE: 04/19/2017 Postop check. Postop day #1 status post left total hip replacement. The patient is doing well, is sitting up in the potty chair, is moving well. Pain is well managed. Denies chest pain, shortness of breath, fever, chills, nausea, vomiting or headache. Vital signs are stable. She is afebrile. Abdomen soft, nontender. Neurovascular check of both lower extremities within normal limits. Ambulates well. Hematocrit stable. Electrolytes are good. INR is 1.0. ASSESSMENT: Doing well. Continue with postop care pathway. Is stable enough for transfer today to [facility] if bed available, social services analyst to assess.
[2017-04-19] MEDS ORDERED: DEXAMETHASONE INJ 10 MG in SYRINGE 0 ML IV ONE (07:30)
--- NOTE | 2017-04-19 07:30 | DISCHARGE SUMMARY ---
DATE OF CONDITIONAL DISCHARGE: 04/19/2017 versus 04/20/2017. CHIEF COMPLAINT: Bilateral hip pain, left greater than right. 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 Just underwent left total hip replacement. She is still somewhat limited by her right hip and rehab is appropriate site for her. Pain is worse with weightbearing on the right. She now notes that the left is much more comfortable postop. Her postoperative course has been uneventful. PAST MEDICAL HISTORY: Remarkable for hypercholesterolemia, aortic aneurysm, irregular heartbeat, sleep apnea, BiPAP use, osteoarthritis, history of skin and breast cancer, hypertension, stress disorder. PAST SURGICAL HISTORY: Remarkable for total knee replacement in 2011, breast lumpectomy in 2010 and partial meniscectomy in 1993. ALLERGIES: LIST IS EXTENSIVE, INCLUDES ASPIRIN, KEFLEX, ERYTHROMYCIN, FOSAMAX, NEXIUM, NYSTATIN AND TETRACYCLINE. Reactions are not really clear. AUGMENTIN CAUSES NAUSEA. She takes amoxicillin without issue. She has been tested. She is nonreactive to titanium and nickel. PREADMISSION MEDICATIONS: Include Tylenol No. 3 p.r.n., azelastine 137 mcg inhaler 2 sprays in each nostril b.i.d., Benadryl 25 mg t.i.d. p.r.n., calcium supplements, EpiPen for anaphylaxis, hydrochlorothiazide 12.5 mg range , Tylenol p.r.n. She will be discharged on Coumadin, keep INR 1.8-2.2. FAMILY HISTORY: Noncontributory. Parents are . SOCIAL HISTORY: Reveals she is retired, . No tobacco or alcohol use. REVIEW OF SYSTEMS: Reveals no chest pain, shortness of breath, fever, chills, nausea, vomiting or headache. ASSESSMENT: Doing well status post left total hip replacement. PLAN: At this point in time is to discharge/transfer when bed available. Social service arrangements made. This can occur as soon as today. Discharge on 4 mg Coumadin daily. MTDD
[2017-04-19] MEDS: [UNRECOGNIZED DRUG - OTHER] SCH (08:00)
--- NOTE | 2017-04-19 08:26 | Orthopedic Progress Note ---
Orthopedic Progress Note Date of Service Apr 19, 2017. Subjective Post OP Day: 1 Reports: feeling well, complaints (of pain with leg movement), Denies: chest pain, SOB, nausea / vomiting, light headedness, calf pain Objective calves soft nontender, N/V intact, hip located, capillary refill less than 2 sec., dressing C/D/I, incision C/D/I, A&O x3, toes mobile, CMS intact minimal drainage on bandages, wound looks very good Date Time Temp Pulse Resp B/P (MAP) Pulse Ox O2 Delivery O2 Flow Rate FiO2 04/19/17 07:10 36.6 63 16 96/61 (73) 97 Room Air 04/19/17 04:00 36.8 71 18 103/63 (76) 96 Room Air 04/19/17 00:00 Room Air 04/18/17 23:59 36.9 75 16 108/66 (80) 97 Room Air 04/18/17 19:27 36.9 87 17 115/70 (85) 95 Room Air 04/18/17 15:40 Room Air 04/18/17 15:37 37.4 78 16 162/84 (110) 98 Room Air 04/18/17 12:45 83 18 160/91 (114) 96 Room Air 04/18/17 11:46 36.4 86 18 145/84 (104) 04/18/17 10:45 36.2 78 18 144/83 (103) 04/18/17 10:15 37.3 82 18 146/84 (104) 04/18/17 09:45 Nasal Cannula 2.0 04/18/17 09:45 34.6 65 18 144/71 (95) 100 Nasal Cannula 2.0 04/18/17 09:45 Nasal Cannula 2.0 04/18/17 09:27 62 16 100 04/18/17 09:27 62 16 04/18/17 09:26 137/73 04/18/17 09:22 36.7 04/18/17 09:22 63 20 04/18/17 09:22 63 20 99 04/18/17 09:21 142/77 04/18/17 09:18 61 19 99 04/18/17 09:18 62 19 04/18/17 09:17 120/73 04/18/17 09:13 61 14 100 04/18/17 09:13 60 14 04/18/17 09:12 120/81 04/18/17 09:08 62 22 100 04/18/17 09:08 61 22 04/18/17 09:07 62 25 04/18/17 09:07 63 25 129/71 100 04/18/17 09:02 57 14 99 04/18/17 09:02 59 14 04/18/17 09:01 125/63 04/18/17 08:59 62 16 100 04/18/17 08:59 61 16 04/18/17 08:57 111/62 04/18/17 08:54 65 22 04/18/17 08:54 65 22 100 04/18/17 08:53 59 17 04/18/17 08:53 61 17 100 04/18/17 08:52 115/67 04/18/17 08:48 63 17 04/18/17 08:48 62 17 99 04/18/17 08:47 97/66 04/18/17 08:43 63 16 100 04/18/17 08:43 63 16 04/18/17 08:42 67 22 100 04/18/17 08:42 65 22 04/18/17 08:41 123/59 04/18/17 08:37 66 25 99 04/18/17 08:37 66 25 04/18/17 08:36 123/63 04/18/17 08:33 118/57 04/18/17 08:32 66 19 04/18/17 08:32 66 19 100 04/18/17 08:27 64 11 04/18/17 08:27 72 11 99 04/18/17 08:26 118/67 04/18/17 08:25 87/47 04/18/17 08:23 88/45 Laboratory Results 24 Hours: Test 04/18/17 14:56 04/19/17 05:07 Hematocrit 37.5 % 33.5 % Hemoglobin 13.2 g/dL 11.4 g/dL Prothromb Time International Ratio 1.0 1.0 Prothrombin Time 10.7 SECONDS 10.8 SECONDS White Blood Count 10.03 K/uL Red Blood Count 3.66 M/uL Mean Corpuscular Volume 91.5 fL Mean Corpuscular Hemoglobin 31.1 pg Mean Corpuscular Hemoglobin Concent 34.0 g/dl Platelet Count 223 K/uL Mean Platelet Volume 9.3 fL Neutrophils (%) (Auto) 80.9 % Lymphocytes (%) (Auto) 11.0 % Monocytes (%) (Auto) 7.6 % Eosinophils (%) (Auto) 0.1 % Basophils (%) (Auto) 0.1 % Neutrophils # (Auto) 8.12 K/uL Lymphocytes # (Auto) 1.10 K/uL Monocytes # (Auto) 0.76 K/uL Eosinophils # (Auto) 0.01 K/uL Basophils # (Auto) 0.01 K/uL Assessment & Plan Assessment: Left hip 1 day post op total hip arthroplasty Plan: PT/OT today, WBAT coumadin per nomogram dressing changed by me, wound looks good denied HSNVR, awaiting placement at SNF continue total hip precautions Discharge Planning [facility] DVT Prophylaxis: TEDs, SCDs, Coumadin Therapy: Physical Therapy, Occupational Therapy
[2017-04-19] MEDS ORDERED: OXYC-57 PO (08:28)
[2017-04-19] MEDS: FLUTICASONE PROPIONATE NA SPR 16 GM BTL NAE SCH (08:31)
[2017-04-19] MEDS: ACETAMINOPHEN 500 MG TAB PO SCH (08:33)
[2017-04-19] MEDS: HYDROCHLOROTHIAZIDE 25 MG TAB PO SCH (08:34)
[2017-04-19] MEDS: FERROUS GLUCONATE 324 MG TAB PO SCH ×2 (08:34→12:30)
[2017-04-19] MEDS: DOCUSATE SODIUM 100 MG CAP PO SCH (08:35)
[2017-04-19] MEDS: TIMOLOL MALEATE 0.25% OP SOLN 5 ML BTL OPB SCH (08:35)
[2017-04-19] MEDS: OXYCODONE HCL IR 5 MG TAB (IMMEDIATE RELEASE) PO PRN ×2 (08:38→13:09)
[2017-04-19] MEDS ORDERED: POLYETHYLENE (MIRALAX) 17 GM PACK PO SCH (09:00)
[2017-04-19] MEDS ORDERED: CHOLECALCIFEROL 1000 INTER.UNIT TAB PO SCH (09:00)
[2017-04-19] MEDS ORDERED: MULTIVITAMIN TAB PO SCH (09:00)
[2017-04-19] MEDS ORDERED: PSEUDOEPHEDRINE HCL 30 MG TAB PO PRN (11:45)
[2017-04-19] MEDS ORDERED: GUAIFENESIN 600 MG TABCR PO SCH (11:45)
--- NOTE | 2017-04-19 12:04 | Hospitalist Progress Note ---
Hospitalist Progress Note Date of Service Apr 19, 2017. Subjective Pt evaluation today including: conversation w/ patient, physical exam, chart review, lab review, review of studies Pain: L hip, mild PO Intake: Good Voiding: no voiding problems The patient was seen and examined this morning. She is in better spirits today. Overnight had some issues with nursing staff and felt she was being mistreated /abused. She fears at this time she has been "black-listed" and wont be allowed back into the hospital due to her outrageous behavior, anger, and accusatory nature overnight. She admits to being overreactive and is hoping that she can come here for future surgical procedures as she states needs her R hip and R knee. She reports her pain is better controlled today. She was up with PT walking today and walked the halls. She notes had an episode of gagging on overcooked gamino and is asking for mucinex. Constitutional: No fever, No chills, No sweats Eyes: No redness, No diplopia ENT: No nasal symptoms, No trouble swallowing Respiratory: No cough, No shortness of breath Cardiovascular: No chest pain, No palpitations Abdomen: No pain, No nausea, No vomiting, No diarrhea, No constipation Musculoskeletal: + joint pain (L hip), No muscle pain Female : No dysuria Endo: No fatigue Skin: No rash, No itch Objective Vital Signs Date Time Temp Pulse Resp B/P (MAP) Pulse Ox O2 Delivery O2 Flow Rate FiO2 04/19/17 07:10 36.6 63 16 96/61 (73) 97 Room Air 04/19/17 04:00 36.8 71 18 103/63 (76) 96 Room Air 04/19/17 00:00 Room Air 04/18/17 23:59 36.9 75 16 108/66 (80) 97 Room Air 04/18/17 19:27 36.9 87 17 115/70 (85) 95 Room Air 04/18/17 15:40 Room Air 04/18/17 15:37 37.4 78 16 162/84 (110) 98 Room Air 04/18/17 12:45 83 18 160/91 (114) 96 Room Air Physical Exam General Appearance: WD/WN, no apparent distress Eyes: PERRL, EOMI ENT: hearing grossly normal, pharynx normal Neck: supple, no JVD Respiratory/Chest: lungs clear, no respiratory distress, no accessory muscle use Cardiovascular: regular rate, rhythm, no murmur Abdomen: normal bowel sounds, non tender, soft Extremities: non-tender, no pedal edema, + pertinent finding (Left hip bandage is C/D/I, adonay bandage in place, ice pack on) Neurologic/Psychiatric: alert, oriented x 3 Skin: normal color, warm/dry Laboratory Results Last 24 Hours Test 04/18/17 14:56 04/19/17 05:07 White Blood Count 10.46 K/uL 10.03 K/uL Red Blood Count 4.16 M/uL 3.66 M/uL Hemoglobin 13.2 g/dL 11.4 g/dL Hematocrit 37.5 % 33.5 % Mean Corpuscular Volume 90.1 fL 91.5 fL Mean Corpuscular Hemoglobin 31.7 pg 31.1 pg Mean Corpuscular Hemoglobin Concent 35.2 g/dl 34.0 g/dl RDW Standard Deviation 42.1 fL 43.3 fL RDW Coefficient of Variation 12.8 % 12.9 % Platelet Count 228 K/uL 223 K/uL Mean Platelet Volume 9.2 fL 9.3 fL Prothrombin Time 10.7 SECONDS 10.8 SECONDS Prothromb Time International Ratio 1.0 1.0 Neutrophils (%) (Auto) 80.9 % Lymphocytes (%) (Auto) 11.0 % Monocytes (%) (Auto) 7.6 % Eosinophils (%) (Auto) 0.1 % Basophils (%) (Auto) 0.1 % Neutrophils # (Auto) 8.12 K/uL Lymphocytes # (Auto) 1.10 K/uL Monocytes # (Auto) 0.76 K/uL Eosinophils # (Auto) 0.01 K/uL Basophils # (Auto) 0.01 K/uL Immature Granulocyte % (Auto) 0.3 % Immature Granulocyte # (Auto) 0.03 K/uL Sodium Level 132 mmol/L Potassium Level 3.7 mmol/L Chloride Level 99 mmol/L Carbon Dioxide Level 26 mmol/L Anion Gap 7.0 mmol/L Blood Urea Nitrogen 13 mg/dl Creatinine 0.85 mg/dl Est Creatinine Clear Calc Drug Dose 55.0 ml/min Estimated GFR () 74.5 Estimated GFR (Non- 64.3 BUN/Creatinine Ratio 14.8 Random Glucose 133 mg/dl Calcium Level 8.2 mg/dl Assessment and Plan 82 yo F with PMHx of AAA, HTN, HLD, arthritis, osteoporosis, sleep apnea, idiopathic angioedema, malignant breast neoplasm in 2010 s/p lumpectomy and 1 week of XRT, remote tobacco use who presents for a Left total hip arthroplasty by Dr. Alegre on 04/18/17. Left Hip arthroplasty - Ortho as the primary service - Continue Dilaudid 0.5 mg Q1H and 1.0 mg Q2H. Continue oxycodone 5-10 mg Q4H prn along with tylenol 1000mg PO Q8H scheduled. [place] to start today per ortho prn. Pt can resume Tylenol #3 at time of discharge. - Bowel regimen with dulcolax BID schedule, miralax daily scheduled, and dulcolax suppository and MOM prn - DVT ppx per primary team - PT/OT on board Infrarenal AAA - Measures 4.6x4.7 cm, pt follows with vascular surgery every 6 months. She was most recently seen in December 2016 and aneurysm was unchanged from previously. No surgery currently indicated Nasal Congestion - Will order mucinex Q12h, sudafed Q6H prn, and change flonase to QPM per pt request. HTN - Continue HCTZ 12.5 mg QAM - BP is stable HLD - Not currently on statin therapy Osteoporosis - resume supplementation with Vit D 1000 U daily QAM Sleep apnea - Does not wear O2 at baseline, may use her own CPAP machine here. Will ask respiratory to set up inhouse CPAP if her family cannot bring it in. CODE STATUS: FULL CODE Disposition: PT/OT, planning rehab vs SNF today, awaiting authorization, CM to assist with discharge planning. Medical team will continue to follow along, thank you.
[2017-04-19] MEDS ORDERED: HYDROCODONE/ACETAMOPHEN 5/325MG TAB PO PRN ×3 (12:17→14:00)
--- NOTE | 2017-04-19 12:55 | Anesthesiology Progress Note ---
Anesthesia Post Op Note Date & Time Apr 19, 2017 at 12:54 Vital Signs Pain Intensity: 5.0 Vital Signs Past 12 Hours Date Time Temp Pulse Resp B/P (MAP) Pulse Ox O2 Delivery O2 Flow Rate FiO2 04/19/17 08:10 Room Air 04/19/17 07:10 36.6 63 16 96/61 (73) 97 Room Air 04/19/17 04:00 36.8 71 18 103/63 (76) 96 Room Air Notes Mental Status: alert / awake / arousable, participated in evaluation Anesthetic Complications: no major complications apparent
[2017-04-19 13:39] VITALS: BP 96/61; PULSE 63; TEMP 36.6; O2SAT 97
--- NOTE | 2017-04-19 13:57 | Discharge Instructions ---
Discharge Instructions Date of Service Apr 18, 2017. Admission Reason for Admission: Left Hip Degenerative Joint Disease Discharge Discharge Diagnosis / Problem: Left hip s/p total hip replacement Discharge Goals Goal(s): Decrease discomfort, Improve function, Increase independence Activity Recommendations Activity Level: Up Ad Leeanna Therapies: Physical Therapy, Weight Bearing Status (as tolerated), Occupational Therapy Weightbearing Status: Left weightbearing (as tolerated) Lifting Limitations: gradually increase as tolerated Exercise/Sports Limitations: until after follow-up appointment Shower/Bathe: keep incision dry . Additional Information Patient informed of condition: Yes Advance Directives: Yes DNR: No Level of Care: Skilled Communicable Disease: No Prognosis: Stable Bro Catheter: No Instructions / Follow-Up Instructions / Follow-Up New Medicine: * You will likely be taking one or more of these medicines: 1. Percocet - Take, as directed, when you need it, every four to six hours to control your pain. 2. Coumadin - Thins your blood to lessen the chance of forming a blood clot. The dose of this is different for each person and is based on your blood tests that are done twice a week. * The most common side effects of pain medicine and iron are nausea and constipation. If nausea or constipation is too much of a problem or if you have any questions about your new medicines or doses, call [facility] at . We will try to help you manage these issues. VERY IMPORTANT TO READ AND REVIEW" Blood Clots and Blood Thinning Medicine: * You are given Coumadin during the immediate post-operative period to lessen the risk of blood clots forming in your legs and/or lungs. Coumadin is usually given for six weeks after surgery. * The prescription is for 2 mg tablets. At discharge, you should understand your dose and take it all at the same time every day, preferably after dinner. * You need to get your blood checked 1 - 2 times per week for six weeks, or as directed. * If your dose needs to change, we will call you. Do not take your medication on the day of the blood test until we call you. * If you don't hear from us after your blood draws, keep taking the same dose. Pain: * The immediate post-operative period after hip replacement surgery is often quite painful. * You are given a prescription for pain medicine. You should take it, as directed, when you need it, especially before physical therapy and before going to bed. Pain that interferes with sleep is very common and can last several months. * You will likely need pain medicine for the first two to four weeks. It will not stop all of the pain. The pain will lessen and as you feel better, you may change to milder pain medicine such as Tylenol. * The most common side effects of pain medicine are nausea and constipation, so don't take more than you need. Physical Therapy: * Follow the "Hip Precautions Instructions." * In some cases, the social work professor at the hospital will arrange to have a therapist come to your house for the first couple of weeks to help you learn these skills. * You need to practice on your own or with the help of a family member as needed. * When you learn these skills, most of the therapy can be done on your own. Home Exercise: * You were shown a series of exercises in the hospital. Do these exercises three to four times each day including the exercises you were shown in physical therapy. Walking: * Get up and walk several times each day. For the first four weeks, try not to stand or walk for more than one hour at a time. If you do stand or walk for more than one hour, you will not hurt anything, but your leg will likely swell. * As you feel comfortable, you may change from the walker or crutches to a cane and then to independent walking. SELF CARE INSTRUCTIONS AFTER TOTAL HIP REPLACEMENT Until the incision and soft tissues around your hip have healed, there is a possibility that the hip prosthesis could dislocate. A. Observe the following precautions to prevent dislocation: 1. Don't bend your hip greater than 90 degrees. 2. Avoid crossing your legs or ankles while standing or lying. 3. Sit with your feet placed 6 inches apart. 4. When sitting, keep your knees below your hips. Sit on a firm surface, avoid deep, soft chairs and couches. Use an elevated toilet seat in the bathroom. 5. Don't bend over at the waist. Use a long handled shoehorn and a sock aid to help you put on your shoes and socks. A metal painter can help you crab picker objects that are too high or too low to reach. 6. Keep car riding to a minimum for at least one month after surgery. B. Your balance may be shaky for a while. Use crutches or a walker until directed by your doctor. C. Use hand rails when walking on stairs. D. Wear low heeled shoes with non-slip soles. E. Be sure that your floors are free of things that could trip you - throw rugs , electrical cords, small objects. Avoid wet and waxed floors, especially with crutches and canes. F. Try to walk several times a day with rest periods between. G. Continue with all the exercises taught to you in the hospital. Again, make walking a part of your daily routine. VERY IMPORTANT TO READ AND REVIEW A. Take Coumadin, or Lovenox (blood thinning medications) as directed by your doctor. If you are on Coumadin, have a pro-time (blood test) drawn according to your doctor's instructions. This will tell the doctor how well the Coumadin is thinning your blood. B. There are a few signs you need to watch for after you are home. If you notice any of the followin. Increased severe hip pain. Some pain is expected especially when you exercise. 2. Increased swelling in your leg or knee; pain or swelling of the calf muscle in either lower leg. 3. Any fluid drainage from the incision. 4. Shortness of breath or chest pain. TEDs/Elastic Stockings: * The white elastic stockings help limit swelling and prevent blood clots from forming in your legs. The more you wear them, the more they work. * Wear them for six weeks. Prevention of Infection: * Take antibiotics one hour before any dental cleaning, dental work, urological procedure, gastrointestinal procedure or any invasive surgery in order to prevent your new joint from getting infected. * You may get the antibiotics from the doctor performing the procedure or we will call in a prescription to the pharmacy of your choice. Call the office for a prescription at least 2 days prior to your appointment. Things to Watch For: * Drainage from the incision site that occurs more than one week after your surgery. * Severely increased leg pain or swelling. * Increased redness at the incision site. * Fever above 101 degrees Fahrenheit. * Unusual chest pain or shortness of breath. * Unusual pain or burning with urination. Current Hospital Diet Patient's current hospital diet: Regular Diet Discharge Diet Recommended Diet: Regular Diet Procedures Procedures Performed: Left Total Hip Arthroplasty Uncemented Pending Studies Studies pending at discharge: no Physician Orders On Transfer Dressing Changes: as needed for soiling Vital Signs: per facility routine Weigh: per facility routine POLST Discussion: Not Applicable Laboratory Results Hemoglobin A1c Test 03/16/17 20:45 Range/Units Estimated Average Glucose 114 mg/dl Hemoglobin A1c 5.6 4.5-5.6 % Lipid Panel Test 03/17/17 05:31 Range/Units Triglycerides Level 149 0-150 mg/dl Cholesterol Level 234 H 0-200 mg/dl HDL Cholesterol 52 mg/dl Cholesterol/HDL Ratio 4.5 LDL Cholesterol, Calculated 152 mg/dl Medical Emergencies . Who to Call and When: Medical Emergencies: If at any time you feel your situation is an emergency, please call 911 immediately. . Non-Emergent Contact Non-Emergency issues call your: Primary Care Provider, Surgeon Call Non-Emergent contact if: temperature is above 101, wound has increased drainage, wound has increased redness, wound has increased pain, you have any medication questions . . "Provider Documentation" section prepared by Elliott Cruz PA-C. . Core Measure Problem Core Measures: None [place] Drug Monitoring Program Search Results: no issues identified
[2017-04-19] MEDS ORDERED: ACETAMINOPHEN 325 MG TAB PO PRN (14:00)
[2017-04-19] MEDS ORDERED: FLUTICASONE PROPIONATE NA SPR 16 GM BTL NAE SCH (21:00)
== END 2017-04-19 14:10 | DRG 470 ==
LOC: C.ACU 05:08 → C.3E 06:15 → ENRESERV 09:06
PROVIDERS: ADMIT Physical Medicine & Rehabilitation Sports Medicine; ATTEND Physical Medicine & Rehabilitation Sports Medicine
PROC: 0SRB0JA Replacement of Left Hip Joint with Synthetic Substitute, Uncemented, Open Approach (ICD-10-PCS; principal; 2017-04-18 07:00)
DX: M16.12 Unilateral primary osteoarthritis, left hip (principal); I71.4 Abdominal aortic aneurysm, without rupture; G47.33 Obstructive sleep apnea (adult) (pediatric); Q83.9 Congenital malformation of breast, unspecified; Z96.652 Presence of left artificial knee joint; Z87.891 Personal history of nicotine dependence; M81.0 Age-related osteoporosis without current pathological fracture; Z92.3 Personal history of irradiation; I10 Essential (primary) hypertension

== ENCOUNTER → 2017-04-20 | Outpatient (CLI) | payer OTHER, BC ==
[~2017-04-20] MED LIST changes: -DIPH-437 PO; +OXYC-57 PO; +WARF2TAB PO
[2017-04-20 10:37] LABS: PROTHROMBIN TIME (PATIENT) 10.9 SECONDS (9.0-12.0)
== END ==
LOC: C.LABVPSUA 10:00
PROVIDERS: ATTEND Internal Medicine Critical Care Medicine
DX: Z98.890 Other specified postprocedural states (principal)

== ENCOUNTER → 2017-04-24 | Outpatient (CLI) | payer OTHER, BC ==
[2017-04-24 09:43] LABS: INR 1.4 (0.9-1.1); PROTHROMBIN TIME (PATIENT) 14.7 SECONDS (9.0-12.0)
== END ==
LOC: C.LABVPSUA 09:12
PROVIDERS: ATTEND Internal Medicine Critical Care Medicine
DX: Z98.890 Other specified postprocedural states (principal)

== ENCOUNTER → 2017-04-26 | Outpatient (CLI) | payer OTHER, BC ==
[2017-04-26 09:41] LABS: INR 1.4 (0.9-1.1); PROTHROMBIN TIME (PATIENT) 15.7 SECONDS (9.0-12.0)
== END | disposition home or self-care (01) ==
LOC: C.LABVPSUA 09:22
PROVIDERS: ATTEND Internal Medicine Critical Care Medicine
DX: Z96.642 Presence of left artificial hip joint (principal)

== ENCOUNTER → 2017-04-30 | Outpatient (CLI) | payer OTHER, BC ==
[2017-04-30 09:54] LABS: PROTHROMBIN TIME (PATIENT) 22.5 SECONDS (9.0-12.0)
== END ==
LOC: C.LABVPSUA 09:11
PROVIDERS: ATTEND Internal Medicine Critical Care Medicine
DX: Z98.890 Other specified postprocedural states (principal)

== ENCOUNTER → 2017-05-07 | Outpatient (CLI) | payer OTHER, BC ==
[2017-05-07 10:58] LABS: INR 2.5 (0.9-1.1)
== END | disposition home or self-care (01) ==
LOC: C.LABVPSUA 10:11
PROVIDERS: ATTEND Internal Medicine Critical Care Medicine
DX: Z51.81 Encounter for therapeutic drug level monitoring (principal); Z79.01 Long term (current) use of anticoagulants

== ENCOUNTER → 2017-05-24 | Outpatient (CLI) | payer OTHER, BC ==
[2017-05-24 13:04] LABS: PROTHROMBIN TIME (PATIENT) 10.5 SECONDS (9.0-12.0)
--- NOTE | 2017-05-28 14:44 | CODING QUERY NO DIAGNOSIS ---
: 1935 PLEASE PROVIDE SIGNED PHYSICIAN ORDER WITH DIAGNOSES To promote full compliance with coding requirements relating to patient care, physician participation is requested in all cases of dough mixer uncertainty. Please assist us with providing a copy of the original, signed physician order including diagnoses for the following services that were rendered on 05/24/17: PROTHROMBIN TIME PROFILE If you are unable to provide a copy of the order please have Dr. Ibarra document the diagnosis on this letter and sign/date. [facility] you [facility] Information Management Once completed, please kindly fax back to [phone] For questions please call [phone]
== END | disposition home or self-care (01) ==
LOC: C.LABSPEC 12:18
PROVIDERS: ATTEND Physical Medicine & Rehabilitation Sports Medicine
DX: Z51.81 Encounter for therapeutic drug level monitoring (principal); Z79.01 Long term (current) use of anticoagulants

== ENCOUNTER → 2017-06-11 | Outpatient (CLI) | payer OTHER, BC | END | disposition home or self-care (01) | LOC: C.RDSM 11:14 | PROVIDERS: ATTEND Physical Medicine & Rehabilitation Sports Medicine | DX: Z96.642 Presence of left artificial hip joint (principal) ==

== ENCOUNTER → 2017-07-23 | Outpatient (CLI) | payer OTHER, BC ==
[~2017-07-23] MED LIST changes: -ACET325T96 PO; +CLOT1CRE20 TOP; +CLR10 PO; +GUAI1TAB55 PO; +KETO2SHA TOP; -KETOCONAZOLE SHAMPOO TOP; +LPR25 PO; -OXYC-57 PO; +PSEU30TA64 PO; +TRMO115 TOP; +VERA180T PO; -VERA1CAP5 PO; -VERA1TAB PO; +VITACAP26 PO; +WHEACHW PO; +[UNRECOGNIZED DRUG - CODE] OPB
--- NOTE | 2017-07-24 15:47 | CODING QUERY NO DIAGNOSIS ---
Valid Physician Order Needed A valid physician order must be submitted in order to properly bill for the service(s) provided, including date of service(s), valid diagnosis, and physician signature. If these tests are done on a recurring basis the original physican order must be submitted in order to code and bill for the service(s) provided. Please fax us the original, signed physician order so that we may expedite billing to [phone] DOS 07/23/17 * PT/INR Thank you [facility] Information Management
== END | disposition home or self-care (01) ==
LOC: C.LABSPEC 12:17
PROVIDERS: ATTEND Physical Medicine & Rehabilitation Sports Medicine
DX: E78.00 Pure hypercholesterolemia, unspecified (principal); K59.00 Constipation, unspecified; Z51.81 Encounter for therapeutic drug level monitoring; Z79.01 Long term (current) use of anticoagulants; Z96.642 Presence of left artificial hip joint

== ENCOUNTER → 2017-07-26 | Outpatient (CLI) | payer OTHER, BC ==
[2017-07-26 12:59] LABS: INR 1.2 (0.9-1.1); PROTHROMBIN TIME (PATIENT) 12.6 SECONDS (9.0-12.0)
== END | disposition home or self-care (01) ==
LOC: C.LABSPEC 12:24
PROVIDERS: ATTEND Physical Medicine & Rehabilitation Sports Medicine
DX: Z96.649 Presence of unspecified artificial hip joint (principal); Z79.01 Long term (current) use of anticoagulants

== ENCOUNTER → 2017-07-30 | Outpatient (CLI) | payer OTHER, BC ==
[2017-07-30 13:25] LABS: INR 1.5 (0.9-1.1); PROTHROMBIN TIME (PATIENT) 15.4 SECONDS (9.0-12.0)
== END | disposition home or self-care (01) ==
LOC: C.LAB1850 12:12
PROVIDERS: ATTEND Physical Medicine & Rehabilitation Sports Medicine
DX: M16.0 Bilateral primary osteoarthritis of hip (principal); Z96.649 Presence of unspecified artificial hip joint

== ENCOUNTER → 2017-08-02 | Outpatient (CLI) | payer OTHER, BC ==
[2017-08-02 15:14] LABS: INR 1.4 (0.9-1.1)
--- NOTE | 2017-09-25 06:05 | CODING QUERY NO DIAGNOSIS ---
Valid Physician Order Needed A valid physician order must be submitted in order to properly bill for the service(s) provided, including date of service(s), valid diagnosis, and physician signature. If these tests are done on a recurring basis the original physician order must be submitted in order to code and bill for the service(s) provided. Please fax us the original, signed physician order so that we may expedite billing to [phone] DOS 08/02/2017 * PROTHROMBIN TIME Thank you Ch[facility] Information Management
== END | disposition home or self-care (01) ==
LOC: C.LABSPEC 14:58
PROVIDERS: ATTEND Physical Medicine & Rehabilitation Sports Medicine
DX: Z47.1 Aftercare following joint replacement surgery (principal); Z96.641 Presence of right artificial hip joint; I10 Essential (primary) hypertension

== ENCOUNTER → 2017-08-03 | Outpatient (CLI) | payer OTHER, BC | END | disposition home or self-care (01) | LOC: C.LABSPEC 16:23 | PROVIDERS: ATTEND Internal Medicine | DX: R19.7 Diarrhea, unspecified (principal) ==

== ENCOUNTER → 2017-08-09 | Outpatient (CLI) | payer OTHER, BC ==
[~2017-08-09] MED LIST changes: -ACET-749 PO; +ACET300T3 PO; +ASCO-63 PO; +CALCIUM D PO; +CALCTAB7 PO; +CLOTRIMAZOLE 1% TOP; +LDDP5 TD; +MELA1TAB5 PO; +OXYC-57 PO; +SENN-61 PO; +SIME80CH PO; -TIMO0.05 OPB; +TIMO0.2518 OPB; +WARF5TAB7 PO; +WARF5TAB90 PO
[2017-08-09 12:58] LABS: INR 3.2 (0.9-1.1)
--- NOTE | 2017-08-27 08:11 | CODING QUERY NO DIAGNOSIS ---
: 1935 TREATMENT RENDERED WITHOUT A DIAGNOSIS To promote full compliance with coding requirements relating to patient care, physician participation is requested in all cases of wheel setter uncertainty. Please assist us with providing a diagnosis/symptom for the test(s) below: A diagnosis/symptom was not documented on your Order. A valid diagnosis/symptom is required to bill all insurances. Please remember that we are unable to code a diagnosis of rule out, probable, possible, questionable, or suspected. *Please provide original order with diagnosis and physician signature. Provider Signature: Date: Thank you Lizet [facility] Information Management Once completed, please kindly fax back to [phone] For questions please call [phone]
== END | disposition home or self-care (01) ==
LOC: C.LABSPEC 12:23
PROVIDERS: ATTEND Physical Medicine & Rehabilitation Sports Medicine
DX: Z51.81 Encounter for therapeutic drug level monitoring (principal); Z79.01 Long term (current) use of anticoagulants; Z96.649 Presence of unspecified artificial hip joint

== ENCOUNTER → 2017-08-27 | Outpatient (CLI) | payer OTHER, BC ==
[~2017-08-27] MED LIST changes: +ACET-749 PO; -ACET300T3 PO; -ASCO-63 PO; -CALCIUM D PO; -CALCTAB7 PO; -CLOTRIMAZOLE 1% TOP; -LDDP5 TD; -MELA1TAB5 PO; -OXYC-57 PO; -SENN-61 PO; -SIME80CH PO; +TIMO0.05 OPB; -TIMO0.2518 OPB; -WARF5TAB7 PO; -WARF5TAB90 PO
== END | disposition home or self-care (01) ==
LOC: C.RDSM 10:00
PROVIDERS: ATTEND Physical Medicine & Rehabilitation Sports Medicine
DX: M16.0 Bilateral primary osteoarthritis of hip (principal)

== ENCOUNTER → 2017-10-01 | Outpatient (CLI) | payer OTHER, BC ==
[2017-10-01 13:14] LABS: INR 1.3 (0.9-1.1)
[2017-10-01 13:48] LABS: BLOOD UREA NITROGEN 13 mg/dl (7-18); CREATININE 0.87 mg/dl (0.60-1.20)
== END | disposition home or self-care (01) ==
LOC: C.LAB 11:42
PROVIDERS: ATTEND Internal Medicine Cardiovascular Disease
DX: I71.4 Abdominal aortic aneurysm, without rupture (principal); I48.91 Unspecified atrial fibrillation

== ENCOUNTER → 2017-10-10 | Outpatient (CLI) | payer OTHER, BC ==
[~2017-10-10] MED LIST changes: +OPTIRAY 320 IV PRN
--- NOTE | 2017-10-10 09:51 | DIAGNOSTIC IMAGING REPORT ---
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 Claudication. 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 Origin of the celiac axis and renal arteries bilaterally shows minimal plaque formation. No significant stenosis is appreciated. Beginning immediately inferior to the insertion of the renal arteries is an aneurysm of the abdominal aorta. This is partially thrombus filled. It has a maximum diameter of 5.1 x 4.5 cm. True lumen is 2.6 cm. Aneurysm extends to a position slightly superior to the aortic bifurcation. There is no evidence for contrast extravasation. There is mild aneurysmal distention of the proximal iliac arteries. Moderate plaque formation is identified bilaterally. There is moderate narrowing of the deep iliac arteries with the primary iliac arteries showing no major stenotic process. Common femoral arteries demonstrate moderate plaque formation bilaterally. Superficial femoral arteries are similar. A major stenotic process is not seen. There is approximately a 50% narrowing of the right superficial femoral artery distally transaxial image 624. There are Findings of mild atherosclerotic change of the popliteal arteries with no significant stenotic process. Left popliteal artery is somewhat compromised in terms of evaluation due to artifact from the patient's left knee prosthetic. Evaluation of the lower legs shows three-vessel runoff bilaterally. Moderate scattered plaque formation is present although a high degree of stenosis is not felt to be present. There is moderate soft tissue edematous change of the lower extremities bilaterally. This primarily involves the subcutaneous fat regions. IMPRESSION: 1. 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 2. The aneurysm is partially thrombus filled. Maximum diameter is 5.1 cm with true luminal diameter of 2.6 cm. 3. Moderate atherosclerotic change of the arterial structures of the pelvis and legs with no evidence for high-grade stenotic process. The above report was generated using voice recognition software. It may contain grammatical, syntax or spelling errors. Electronically signed by: John Villanueva M.D. 10/10/2017 9:50 AM Dictated Date/Time: 10/10/2017 9:37 AM
== END | disposition home or self-care (01) ==
LOC: C.CTS 08:37
PROVIDERS: ATTEND Surgery Vascular Surgery
DX: I71.4 Abdominal aortic aneurysm, without rupture (principal); I70.203 Unspecified atherosclerosis of native arteries of extremities, bilateral legs

== ENCOUNTER 2017-11-14 09:20 | Emergency (ER) | payer OTHER, BC ==
[~2017-11-14] VITALS: Ht 167.6 cm; Wt 90.3 kg
[2017-11-14 09:20] VITALS: TEMP 36.8; Ht 167.6 cm; Wt 90.3 kg
[~2017-11-14 09:20] MED LIST changes: -OPTIRAY 320 IV PRN
--- NOTE | 2017-11-14 09:52 | EMERGENCY ROOM VISIT NOTE ---
History Report prepared by Jade: Thomas Song Under the Supervision of: Dr. Jasmin Horton D.O. First contact with patient: 09:41 Chief Complaint: KNEEPAIN Stated Complaint: FALL/KNEE PAIN History of Present Illness The patient is an 82 year old female with a history of hypertension and atrial fibrillation who presents to the Emergency Room with complaints of a sudden mechanical fall that occurred earlier this morning. She states that she was standing up, putting her slippers on, when she lost her balance and slowly fell to the ground. The patient says that she was able to catch herself with a piece of furniture on the fall, so she was able to slow her fall. She notes that she landed on her right buttock, but the only pain that she has had ever since the fall has been persistent right knee pain. The patient states that she thinks the knee may be a bit more swollen than normally as well. She adds that she was able to take a step after the fall, but the knee hurt "like bloody hell", and it reminds her of the feeling of when she had a torn meniscus. She says that the pain worsens with movement. The patient states that it did not feel like the knee was going to give out. She denies any other pain, including back pain or hip pain. She states that she did not hit her head on the fall. The patient adds that she felt completely fine before the fall. She adds that she had 2 recent hip replacements, and has also had a left knee replacement in the past. The patient takes HCTZ and Warfarin daily. Source of History: patient Onset: Earlier this morning Position: other (global) Symptom Intensity: slipped while putting slippers on, felt completely fine beforehand Quality: other (mechanical fall) Timing: other (sudden) Associated Symptoms: No LOC, No back pain Note: Associated symptoms: Right knee pain. Denies any other pain, including hip pain. Did not hit head. Review of Systems See HPI for pertinent positives & negatives. A total of 10 systems reviewed and were otherwise negative. 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 Social History Smoking Status: Former Smoker Drug Use: none Marital Status: Housing Status: lives alone Occupation Status: retired Current/Historical Medications Scheduled Ascorbic Acid (Vitamin C), 1 TAB PO DAILY Azelastine Hcl (Astelin Nasal [place]), 2 SPRAYS [place]ASS[place] DAILY Carboxymethylcellulose Sodium (Sterile Lubricant Drops), 1 DROP OPB PRN Cholecalciferol (Vitamin D3), 1 TAB PO QAM Diphenhydramine Hcl (Benadryl Allergy), 1 CAP PO BID Fluticasone Propionate (Nasal) (Flonase Allergy Relief), 1 SPRAY [place] DAILY Hydrochlorothiazide (Hctz), 12.5 MG PO QAM Loratadine (Claritin), 10 MG PO QAM Nystatin/Triamcinolone (Mycogen || ), 1 DOSE TOP PRN Polyethylene Glycol 3350 (Miralax), 17 GM PO QPM Psyllium (Metamucil), 1 DOSE PO QPM Timolol Maleate (Ophth) (Timoptic 0.25% Oph), 1 DROP OPB QAM Verapamil Hcl (Calan Sr Ext Rel), 180 MG PO UD Warfarin Sod (Jantoven), 5 MG PO DIRECTED Scheduled PRN Acetaminophen/Codeine (Tylenol W/Codeine #3), 1 TAB PO Q4 PRN for Pain Epinephrine (Epipen), 0.3 MG IM UD PRN for ALLERGIC REACTION Guaifenesin Ext Rel (Mucinex Ext Rel), 600 MG PO Q12 PRN for prn Pseudoephedrine Hcl (Sudafed), 30 MG PO UD PRN for prn Triamcinolone Acet (Triamcinolone Acetonide), 1 APPLN TOP BID PRN for prn Allergies Coded Allergies: Aspirin (Verified Allergy, Severe, TONGUE AND THROAT SWELLS, 11/16/17) Cephalexin (Verified Allergy, Severe, swelling tongue and throat, 11/16/17) Omeprazole (Verified Allergy, Severe, ANAPHYLAXIS, 11/16/17) Tramadol (Verified Allergy, Severe, ANAPHYLAXIS, 11/16/17) Amoxicillin (Unverified Allergy, Intermediate, VOMIT, 11/16/17) Clavulanic Acid (Unverified Allergy, Intermediate, VOMIT, 11/16/17) Monosodium Glutamate (Verified Allergy, Mild, throat swell, 11/16/17) Erythromycin (Verified Allergy, Unknown, SWELLING AND RASH, 11/16/17) Tetracycline (Verified Allergy, Unknown, SWELLING AND RASH, 11/16/17) Metoprolol (Unverified Adverse Reaction, Intermediate, DISORIENTED, ) Alendronate (Verified Adverse Reaction, Unknown, very upset stomach, ) Uncoded Allergies: perfumes (Allergy, Unknown, can't breathe, 05/20/12) Physical Exam Vital Signs Date Time Temp Pulse Resp B/P (MAP) Pulse Ox O2 Delivery O2 Flow Rate FiO2 11/14/17 11:15 86 18 157/79 97 Room Air 11/14/17 09:20 36.8 64 18 134/72 97 Room Air 11/14/17 09:20 36.8 64 18 134/72 97 Room Air Physical Exam GENERAL: alert, well appearing, well nourished, no distress, non-toxic EYE EXAM: normal conjunctiva, PERRL and EOM's grossly intact OROPHARYNX: no exudate, no erythema, lips, buccal mucosa, and tongue normal and mucous membranes are moist NECK: supple, no nuchal rigidity, no adenopathy, non-tender LUNGS: Clear to auscultation. Normal chest wall mechanics HEART: no murmurs, S1 normal and S2 normal ABDOMEN: abdomen soft, non-tender, normo-active bowel sounds, no masses, no rebound or guarding. BACK: Back is symmetrical on inspection and there is no deformity, no midline tenderness, no CVA tenderness. SKIN: no rashes and no bruising UPPER EXTREMITIES: upper extremities are grossly normal. LOWER EXTREMITIES: Pain with palpation of right lateral hip. Pain with palpation of right knee posteriorly and anteriorly, worse on the medial inferior aspect. No obvious deformity, no ecchymosis. Slight edema noted to opposite side. Slightly decreased range of motion of right leg. NEURO EXAM: Normal sensorium, cranial nerves II-XII grossly intact, normal speech, no gross weakness of arms, no gross weakness of legs. Medical Decision & Procedures ER Provider Diagnostic Interpretation: X-ray results have been interpreted by the radiologist and reviewed by me. RIGHT KNEE 3 VIEWS CLINICAL HISTORY: Fall with right knee pain. FINDINGS: AP, crosstable lateral, and sunrise views of the right knee are obtained. No prior studies are available for comparison at the time of dictation. The skeletal structures are osteopenic. There is no radiographic evidence of fracture. There is moderate tricompartmental joint joint space narrowing, greatest in the medial and patellofemoral compartments. There are large marginal osteophytes as well as patellar enthesophytes. A large joint effusion is identified. Atherosclerotic calcification is noted in the popliteal artery. Soft tissue edema is seen around the knee. IMPRESSION: Soft tissue swelling and large joint effusion with no radiographic evidence of right knee fracture. Electronically signed by: Mike Hamilton M.D. 11/14/2017 10:33 AM Dictated Date/Time: 11/14/2017 10:31 AM SINGLE VIEW PELVIS; 2 VIEWS RIGHT HIP CLINICAL HISTORY: Fall. Right hip pain. FINDINGS: An AP view of the pelvis with AP and frog-leg views of the right hip are compared to study dated 08/27/2017. The skeletal structures are osteopenic. There is no radiographic evidence of fracture involving the hips or bony pelvis. Bilateral hip arthroplasties are in near-anatomic alignment. No periprosthetic lucency is identified. The sacroiliac joints are normal. Sclerotic change is noted in the pubic symphysis. Lumbosacral spondylosis is partially visualized. The overlying soft tissues are within normal limits. Atherosclerotic calcification is seen in the femoral arteries. Phleboliths are noted in the pelvis. There is moderate colonic fecal retention. IMPRESSION: There is no radiographic evidence of fracture involving the hips or bony pelvis. Electronically signed by: Mike Hamilton M.D. 11/14/2017 10:31 AM Dictated Date/Time: 11/14/2017 10:29 AM Laboratory Results Test 11/14/17 11:48 Bedside Prothrombin Time INR 2.9 (0.9-1.1) Medications Administered Medications (Trade) Dose Ordered Sig/Foster Route Start Time Stop Time Status Last Admin Dose Admin Acetaminophen (Tylenol Tab) 650 mg NOW STAT PO 11/14/17 10:39 11/14/17 10:40 DC 11/14/17 11:11 650 MG ED Course 0943: The patient was evaluated in room A4B. A complete history and physical exam was performed. 1039: Tylenol Tab 650 mg PO. 1125: Upon reevaluation, the patient's pain is better. Pt able to ambulate here with a walker without difficulty. Pt has both cane and walker at home. Pt with a home health aid who comes in once a week. creative consultant to help pt arrange additional weekly aids. I discussed the findings and the treatment plan with the patient. She verbalizes agreement and understanding. She was discharged home. Medical Decision Differential diagnosis: Etiologies such as fracture, dislocation, neurovascular compromise, compartment syndrome, soft tissue injury, as well as others were entertained. Pt with no other complaints or evidence of trauma. Pt here well appearing and xrays negative. Did not feel pt required additional imaging. Pt able to ambulate here and would like to return home. Discussed with pt follow-up with family doctor as a precaution. Discussed sx to watch/return for, she verbalized understanding and was agreeable with plan. Doubt occult significant traumatic injury. Pt INR improved from last check and no longer supratherapeutic. Medication Reconcilliation Current Medication List: was personally reviewed by me Blood Pressure Screening Patient's blood pressure: Elevated blood pressure Blood pressure disposition: Elevated BP felt to be situational Impression Primary Impression: Knee pain Additional Impression: Fall Scribe Attestation The scribe's documentation has been prepared under my direction and personally reviewed by me in its entirety. I confirm that the note above accurately reflects all work, treatment, procedures, and medical decision making performed by me. Departure Information Dispostion Home / Self-Care Referrals Julio Springer M.D. (PCP) Patient Instructions My [facility] Additional Instructions Please call and follow-up with your family doctor to recheck your injury. Please use the walker to help prevent any recurrent falls. If you have persistent pain, your family doctor may send you for additional evaluation by orthopedics or for additional imaging. Please continue your regular medications as prescribed. If you develop worsening pain, increased swelling, bleeding from any source, are unable to walk, develop fevers, worsening leg swelling, numbness or tingling, or you have any other new concerns, please return the emergency room. Problem Qualifiers Primary Impression: Knee pain Chronicity: acute Laterality: right Qualified Codes: M25.561 - Pain in right knee Additional Impression: Fall Encounter type: initial encounter Qualified Codes: W19.XXXA - Unspecified fall, initial encounter
--- NOTE | 2017-11-14 10:32 | DIAGNOSTIC IMAGING REPORT ---
SINGLE VIEW PELVIS; 2 VIEWS RIGHT HIP CLINICAL HISTORY: Fall. Right hip pain. FINDINGS: An AP view of the pelvis with AP and frog-leg views of the right hip are compared to study dated 08/27/2017. The skeletal structures are osteopenic. There is no radiographic evidence of fracture involving the hips or bony pelvis. Bilateral hip arthroplasties are in near-anatomic alignment. No periprosthetic lucency is identified. The sacroiliac joints are normal. Sclerotic change is noted in the pubic symphysis. Lumbosacral spondylosis is partially visualized. The overlying soft tissues are within normal limits. Atherosclerotic calcification is seen in the femoral arteries. Phleboliths are noted in the pelvis. There is moderate colonic fecal retention. IMPRESSION: There is no radiographic evidence of fracture involving the hips or bony pelvis. Electronically signed by: Mike Hamilton M.D. 11/14/2017 10:31 AM Dictated Date/Time: 11/14/2017 10:29 AM
--- NOTE | 2017-11-14 10:35 | DIAGNOSTIC IMAGING REPORT ---
RIGHT KNEE 3 VIEWS CLINICAL HISTORY: Fall with right knee pain. FINDINGS: AP, crosstable lateral, and sunrise views of the right knee are obtained. No prior studies are available for comparison at the time of dictation. The skeletal structures are osteopenic. There is no radiographic evidence of fracture. There is moderate tricompartmental joint joint space narrowing, greatest in the medial and patellofemoral compartments. There are large marginal osteophytes as well as patellar enthesophytes. A large joint effusion is identified. Atherosclerotic calcification is noted in the popliteal artery. Soft tissue edema is seen around the knee. IMPRESSION: Soft tissue swelling and large joint effusion with no radiographic evidence of right knee fracture. Electronically signed by: Mike Hamilton M.D. 11/14/2017 10:33 AM Dictated Date/Time: 11/14/2017 10:31 AM
[2017-11-14] MEDS ORDERED: ACETAMINOPHEN 325 MG TAB PO STA (10:39)
[2017-11-14] MEDS ORDERED: WARF5TAB7 PO (10:49)
[2017-11-14] MEDS ORDERED: ASCO-63 PO (10:49)
[2017-11-14 11:15] VITALS: BP 157/79; PULSE 86; O2SAT 97
[2017-11-19] MEDS ORDERED: CLOTRIMAZOLE 1% TOP (11:09)
[2017-11-19] MEDS ORDERED: ACET-749 PO (11:09)
[2017-11-19] MEDS ORDERED: CALCIUM D PO (11:09)
== END 2017-11-14 12:18 | disposition home or self-care (01) ==
LOC: EDBD 09:20 → C.EDA 09:22
DX: M25.561 Pain in right knee (principal); W19.XXXA Unspecified fall, initial encounter; Y92.019 Unspecified place in single-family (private) house as the place of occurrence of the external cause; I10 Essential (primary) hypertension; Z85.3 Personal history of malignant neoplasm of breast; M16.10 Unilateral primary osteoarthritis, unspecified hip; G47.30 Sleep apnea, unspecified; Z87.891 Personal history of nicotine dependence; Z79.01 Long term (current) use of anticoagulants; Z79.899 Other long term (current) drug therapy; Z96.649 Presence of unspecified artificial hip joint; Z96.652 Presence of left artificial knee joint; Z88.1 Allergy status to other antibiotic agents; Z88.8 Allergy status to other drugs, medicaments and biological substances; Z88.5 Allergy status to narcotic agent; Z91.048 Other nonmedicinal substance allergy status

== ENCOUNTER 2017-11-16 15:08 | Emergency (ER) | payer OTHER, BC ==
[~2017-11-16] VITALS: Ht 167.6 cm; Wt 95.0 kg
[~2017-11-16 15:08] MED LIST changes: +ASCO-63 PO; -CALC250T8 PO; -CLOT1CRE20 TOP; -KETO2SHA TOP; -LPR25 PO; -VITACAP26 PO; -WARF2TAB PO; +WARF5TAB7 PO; -WHEACHW PO; -[UNRECOGNIZED DRUG - CODE] TOP
[2017-11-16 15:17] VITALS: Ht 167.6 cm; Wt 95.0 kg
--- NOTE | 2017-11-16 16:34 | EMERGENCY ROOM VISIT NOTE ---
"History First contact with patient: 16:06 Chief Complaint: KNEEPAIN Stated Complaint: HURT KNEE, SWOLLEN, INTERNAL BLEEDING History of Present Illness The patient is a 82 year old female who presents to the Emergency Room at the bequest of her PCP who practices at Dr. Springer's office. Pt was 25 min late to her appointment today which was meant to be a non-acute visit for her RUQ abdominal discomfort which she has had for several weeks now. Pt presented to the office, and nursing noticed her right knee was swollen and red. This is the knee for which she was seen on Sunday here in the ED after falling on it in her home, XR of which were negative for fracture. She notes it feels better today than yesterday and the day before, however it is swollen and darker in pink color when compared to the other. She has been icing it and taking percocet sparingly bc she says it makes her constipated. Anyway, her PCP told nursing to tell her to come the ED for ultrasound of her knee in case it was bleeding inside the joint, pt is on coumadin, but stopped it this morning at the request of her other doctor who prescribes her this. Pt's abdominal pain is stable today, although it is a persistent pain in her RUQ that is worse when she moves. Has been present for 4 weeks. A/w diarrhea and constipation. Denies fevers or chills or vomiting. Review of Systems ROS See HPI for pertinent positives and negatives. 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 (5) Replacement of total knee joint (6) Sleep apnea Social History Smoking Status: Never Smoker Drug Use: none Marital Status: Housing Status: lives alone Occupation Status: retired Current/Historical Medications Scheduled Ascorbic Acid (Vitamin C), 1 TAB PO DAILY Azelastine Hcl (Astelin Nasal [place]), 2 SPRAYS [place] DAILY Carboxymethylcellulose Sodium (Sterile Lubricant Drops), 1 DROP OPB PRN Cholecalciferol (Vitamin D3), 1 TAB PO QAM Diphenhydramine Hcl (Benadryl Allergy), 1 CAP PO BID Fluticasone Propionate (Nasal) (Flonase Allergy Relief), 1 SPRAY [place] DAILY Hydrochlorothiazide (Hctz), 12.5 MG PO QAM Loratadine (Claritin), 10 MG PO QAM Nystatin/Triamcinolone (Mycogen || ), 1 DOSE TOP PRN Polyethylene Glycol 3350 (Miralax), 17 GM PO QPM Psyllium (Metamucil), 1 DOSE PO QPM Timolol Maleate (Ophth) (Timoptic 0.25% Oph), 1 DROP OPB QAM Verapamil Hcl (Calan Sr Ext Rel), 180 MG PO UD Warfarin Sod (Jantoven), 5 MG PO DIRECTED Scheduled PRN Acetaminophen/Codeine (Tylenol W/Codeine #3), 1 TAB PO Q4 PRN for Pain Epinephrine (Epipen), 0.3 MG IM UD PRN for ALLERGIC REACTION Guaifenesin Ext Rel (Mucinex Ext Rel), 600 MG PO Q12 PRN for prn Pseudoephedrine Hcl (Sudafed), 30 MG PO UD PRN for prn Triamcinolone Acet (Triamcinolone Acetonide), 1 APPLN TOP BID PRN for prn Physical Exam Vital Signs Date Time Temp Pulse Resp B/P (MAP) Pulse Ox O2 Delivery O2 Flow Rate FiO2 11/16/17 18:20 80 18 123/88 95 Room Air 11/16/17 17:16 80 18 120/89 95 Room Air 11/16/17 15:17 36.5 119 18 145/98 95 Physical Exam GENERAL: Awake, alert, well-appearing, in no distress. In a wheelchair. HENT: Normocephalic, atraumatic. EYES: Normal conjunctiva. Sclera non-icteric. NECK: Supple. FROM. No JVD. RESPIRATORY: Clear to auscultation. CARDIAC: Regular rate, normal rhythm. Extremities warm and well perfused. Pulses equal. ABDOMEN: Soft, non-distended. Moderate tenderness to palpation in RUQ. No rebound or guarding. No masses. LOWER EXTREMITIES: Right knee shows moderate effusion, erythema. Neg for abrasion. Hurts to move it. Negative milind's sign bilaterally. NEURO: No motor deficits noted. SKIN: No rash or jaundice noted. Medical Decision & Procedures Laboratory Results 11/16/17 17:15 Red Blood Count 4.69, Mean Corpuscular Volume 88.3, Mean Corpuscular Hemoglobin 30.5, Mean Corpuscular Hemoglobin Concent 34.5, Mean Platelet Volume 9.3, Neutrophils (%) (Auto) 73.5, Lymphocytes (%) (Auto) 17.4, Monocytes (%) (Auto) 7.4, Eosinophils (%) (Auto) 1.2, Basophils (%) (Auto) 0.3, Neutrophils # (Auto) 7.00, Lymphocytes # (Auto) 1.66, Monocytes # (Auto) 0.70, Eosinophils # (Auto) 0.11, Basophils # (Auto) 0.03 11/16/17 17:15 Test 11/16/17 17:15 White Blood Count 9.52 K/uL (4.8-10.8) Red Blood Count 4.69 M/uL (4.2-5.4) Hemoglobin 14.3 g/dL (12.0-16.0) Hematocrit 41.4 % (37-47) Mean Corpuscular Volume 88.3 fL (80-100) Mean Corpuscular Hemoglobin 30.5 pg (25-34) Mean Corpuscular Hemoglobin Concent 34.5 g/dl (32-36) Platelet Count 187 K/uL (130-400) Mean Platelet Volume 9.3 fL (7.4-10.4) Neutrophils (%) (Auto) 73.5 % Lymphocytes (%) (Auto) 17.4 % Monocytes (%) (Auto) 7.4 % Eosinophils (%) (Auto) 1.2 % Basophils (%) (Auto) 0.3 % Neutrophils # (Auto) 7.00 K/uL (1.4-6.5) Lymphocytes # (Auto) 1.66 K/uL (1.2-3.4) Monocytes # (Auto) 0.70 K/uL (0.11-0.59) Eosinophils # (Auto) 0.11 K/uL (0-0.5) Basophils # (Auto) 0.03 K/uL (0-0.2) RDW Standard Deviation 49.6 fL (36.4-46.3) RDW Coefficient of Variation 15.4 % (11.5-14.5) Immature Granulocyte % (Auto) 0.2 % Immature Granulocyte # (Auto) 0.02 K/uL (0.00-0.02) Prothrombin Time 23.0 SECONDS (9.0-12.0) Prothromb Time International Ratio 2.2 (0.9-1.1) Activated Partial Thromboplast Time 38.5 SECONDS (21.0-31.0) Partial Thromboplastin Ratio 1.5 Urine Color YELLOW Urine Appearance CLEAR (CLEAR) Urine pH 5.0 (4.5-7.5) Urine Specific [place] 1.014 (1.000-1.030) Urine Protein NEG (NEG) Urine Glucose (UA) NEG (NEG) Urine Ketones NEG (NEG) Urine Occult Blood NEG (NEG) Urine Nitrite NEG (NEG) Urine Bilirubin NEG (NEG) Urine Urobilinogen NEG (NEG) Urine Leukocyte Esterase SMALL (NEG) Urine WBC (Auto) 5-10 /hpf (0-5) Urine RBC (Auto) 0-4 /hpf (0-4) Urine Hyaline Casts (Auto) 0 /lpf (0-5) Urine Epithelial Cells (Auto) 10-20 /lpf (0-5) Urine Bacteria (Auto) NEG (NEG) Anion Gap 9.0 mmol/L (3-11) Est Creatinine Clear Calc Drug Dose 52.8 ml/min Estimated GFR () 63.5 Estimated GFR (Non- 54.8 BUN/Creatinine Ratio 14.1 (10-20) Calcium Level 8.9 mg/dl (8.5-10.1) Total Bilirubin 1.1 mg/dl (0.2-1) Direct Bilirubin 0.2 mg/dl (0-0.2) Aspartate Amino Transf (AST/SGOT) 17 U/L (15-37) Alanine Aminotransferase (ALT/SGPT) 18 U/L (12-78) Alkaline Phosphatase 107 U/L (45-117) Troponin I < 0.015 ng/ml (0-0.045) Total Protein 7.6 gm/dl (6.4-8.2) Albumin 3.7 gm/dl (3.4-5.0) Lipase 120 U/L (73-393) Medications Administered Medications (Trade) Dose Ordered Sig/Foster Route Start Time Stop Time Status Last Admin Dose Admin Acetaminophen/ Codeine Phosphate (Tylenol w/ Codeine #3 Tab) 1 tab NOW ONCE PO 11/16/17 17:00 11/16/17 17:01 DC 11/16/17 17:06 1 TAB Procedure TWO VIEW CHEST CLINICAL HISTORY: Upper abdominal pain. FINDINGS: AP and lateral chest radiographs are compared to study dated 03/30/2017. The AP view is degraded by patient rotation. The heart is enlarged and there is atherosclerotic calcification of the thoracic aorta. The pulmonary vasculature is noncongested. Chronic interstitial thickening is similar to previous. There is mild bibasilar atelectasis. No airspace consolidation or large pleural effusion is seen. There is no pneumothorax. The skeletal structures are osteopenic. Advanced arthritic change is seen in the shoulders. Surgical clips are noted in the left breast. IMPRESSION: Cardiomegaly with no acute cardiopulmonary abnormality. Electronically signed by: Mike Hamilton M.D. 11/16/2017 5:56 PM Dictated Date/Time: 11/16/2017 5:54 PM ULTRASOUND RIGHT UPPER QUADRANT ABDOMEN CLINICAL HISTORY: Right upper quadrant abdominal pain. COMPARISON STUDY: Abdominal CT dated 10/10/2017. TECHNIQUE: Real-time, grayscale, and color flow sonography of the right upper quadrant of the abdomen was performed. Images are reviewed in the transverse and longitudinal planes. FINDINGS: Liver: The liver is mildly enlarged, measuring 19.2 cm in length. The liver demonstrates heterogeneously increased echotexture suggesting steatosis. There is no intrahepatic biliary ductal dilatation. The main portal vein is patent. Gallbladder: The gallbladder is normal in appearance. No gallstones are identified. There is no gallbladder wall thickening or pericholecystic fluid. A sonographic Iglesias's sign is reportedly absent. The common bile duct measures up to 0.7 cm in diameter. Pancreas: Visualized portions of the pancreatic head and body are normal in appearance. The splenic vein is patent. Right kidney: Survey images of the right kidney demonstrate mild cortical atrophy. There is no hydronephrosis. Ascites: None. IMPRESSION: 1. No acute sonographic abnormality is identified in the right upper quadrant. No gallstones are seen. 2. Hepatomegaly and mild hepatic steatosis. Electronically signed by: Mike Hamilton M.D. 11/16/2017 6:25 PM Dictated Date/Time: 11/16/2017 6:23 PM Medical Decision The patient is a 82 year old female who presents to the Emergency Room at the quest of her PCP who practices at Dr. Springer's office. Pt was 25 min late to her appointment today which was meant to be a non-acute visit for her RUQ abdominal discomfort which she has had for several weeks now. Pt presented to the office, and nursing noticed her right knee was swollen and red. This is the knee for which she was seen on Sunday here in the ED after falling on it in her home, XR of which were negative for fracture. She notes it feels better today than yesterday and the day before, however it is swollen and darker in pink color when compared to the other. She has been icing it and taking percocet sparingly bc she says it makes her constipated. Anyway, her PCP told nursing to tell her to come the ED for ultrasound of her knee in case it was bleeding inside the joint, pt is on coumadin, but stopped it this morning at the request of her other doctor who prescribes her this. Pt's abdominal pain is stable today, although it is a persistent pain in her RUQ that is worse when she moves. Has been present for 4 weeks. A/w diarrhea and constipation. Denies fevers or chills or vomiting. Diff dx: hemarthrosis, cholecystitis, appendicitis, pancreatitis Pt's labs and ultrasound and CXR are all benign. INR is 2.2, draining what is most likely a hemarthrosis would be not indicated at this time given that it will continue to bleed, and a tap would make her pain worse. Pt has a prescription for tylenol with codeine per PDMP, so will not be writing a script for this at this time. Knee will likely resorb on its own, continue ice and elevation. Pt agreeable to plan, verbalized agreement. Follow up with PCP for further clinical management of her abdominal pain. Impression Primary Impression: Hemarthrosis, right knee Departure Information Dispostion Home / Self-Care Condition GOOD Referrals Julio Springer M.D. (PCP) Patient Instructions My [facility] Resident Tracking Resident Involvement: Resident Care Provided Care Provided: Adult ED"
[2017-11-16] MEDS: ONDANSETRON INJ 2 MG/ML 2 ML VIAL IV STA ×2 (16:49→17:18)
[2017-11-16] MEDS ORDERED: ACETAMINOPHEN/CODEINE 300/30MG TAB PO ONE (17:00)
[2017-11-16 17:26] LABS: BASO % 0.3 %; BASO ABS # 0.03 K/uL (0-0.2); EOS % 1.2 %; EOS ABS # 0.11 K/uL (0-0.5); HEMATOCRIT 41.4 % (37-47); HEMOGLOBIN 14.3 g/dL (12.0-16.0); IG# 0.02 K/uL (0.00-0.02); LYMPH % 17.4 %; LYMPH ABS # 1.66 K/uL (1.2-3.4); MEAN CELL VOLUME 88.3 fL (80-100); MEAN CORPUSCULAR HEMOGLOBIN 30.5 pg (25-34); MEAN CORPUSCULAR HGB CONC 34.5 g/dl (32-36); MEAN PLATELET VOLUME 9.3 fL (7.4-10.4); MONO % 7.4 %; NEUT % 73.5 %; PLATELET COUNT 187 K/uL (130-400); RED CELL DISTRIBUTION WIDTH CV 15.4 % (11.5-14.5); RED CELL DISTRIBUTION WIDTH SD 49.6 fL (36.4-46.3); WHITE BLOOD COUNT 9.52 K/uL (4.8-10.8)
[2017-11-16 17:37] LABS: INR 2.2 (0.9-1.1); PTT PATIENT 38.5 SECONDS (21.0-31.0)
[2017-11-16 17:51] LABS: ALBUMIN 3.7 gm/dl (3.4-5.0); ALT/SGPT 18 U/L (12-78); BLOOD UREA NITROGEN 14 mg/dl (7-18); CALCIUM 8.9 mg/dl (8.5-10.1); CARBON DIOXIDE 26 mmol/L (21-32); CREATININE 0.97 mg/dl (0.60-1.20); GLUCOSE 111 mg/dl (70-99); LIPASE 120 U/L (73-393); POTASSIUM 3.6 mmol/L (3.5-5.1); SODIUM 133 mmol/L (136-145)
[2017-11-16 17:55] LABS: ALKALINE PHOSPHATASE 107 U/L (45-117); AST/SGOT 17 U/L (15-37); TOTAL PROTEIN 7.6 gm/dl (6.4-8.2)
--- NOTE | 2017-11-16 17:57 | DIAGNOSTIC IMAGING REPORT ---
TWO VIEW CHEST CLINICAL HISTORY: Upper abdominal pain. FINDINGS: AP and lateral chest radiographs are compared to study dated 03/30/2017. The AP view is degraded by patient rotation. The heart is enlarged and there is atherosclerotic calcification of the thoracic aorta. The pulmonary vasculature is noncongested. Chronic interstitial thickening is similar to previous. There is mild bibasilar atelectasis. No airspace consolidation or large pleural effusion is seen. There is no pneumothorax. The skeletal structures are osteopenic. Advanced arthritic change is seen in the shoulders. Surgical clips are noted in the left breast. IMPRESSION: Cardiomegaly with no acute cardiopulmonary abnormality. Electronically signed by: Mike Hamilton M.D. 11/16/2017 5:56 PM Dictated Date/Time: 11/16/2017 5:54 PM
--- NOTE | 2017-11-16 18:26 | DIAGNOSTIC IMAGING REPORT ---
ULTRASOUND RIGHT UPPER QUADRANT ABDOMEN CLINICAL HISTORY: Right upper quadrant abdominal pain. COMPARISON STUDY: Abdominal CT dated 10/10/2017. TECHNIQUE: Real-time, grayscale, and color flow sonography of the right upper quadrant of the abdomen was performed. Images are reviewed in the transverse and longitudinal planes. FINDINGS: Liver: The liver is mildly enlarged, measuring 19.2 cm in length. The liver demonstrates heterogeneously increased echotexture suggesting steatosis. There is no intrahepatic biliary ductal dilatation. The main portal vein is patent. Gallbladder: The gallbladder is normal in appearance. No gallstones are identified. There is no gallbladder wall thickening or pericholecystic fluid. A sonographic Iglesias's sign is reportedly absent. The common bile duct measures up to 0.7 cm in diameter. Pancreas: Visualized portions of the pancreatic head and body are normal in appearance. The splenic vein is patent. Right kidney: Survey images of the right kidney demonstrate mild cortical atrophy. There is no hydronephrosis. Ascites: None. IMPRESSION: 1. No acute sonographic abnormality is identified in the right upper quadrant. No gallstones are seen. 2. Hepatomegaly and mild hepatic steatosis. Electronically signed by: Mike Hamilton M.D. 11/16/2017 6:25 PM Dictated Date/Time: 11/16/2017 6:23 PM
--- NOTE | 2017-11-16 18:32 | EMERGENCY ROOM VISIT NOTE ---
"History Report prepared by Jade: Terence Woo Under the Supervision of: Dr. Johnson Tom M.D. First contact with patient: 16:05 Chief Complaint: KNEEPAIN Stated Complaint: HURT KNEE, SWOLLEN, INTERNAL BLEEDING History of Present Illness The patient is an 82 year old female who presents to the Emergency Room with complaints of persistent right knee pain with swelling for two days. She notes the pain is worsened with movement. She notes that she was seen at her PCP today for RUQ abdominal pain that she has had for four weeks. The patient was seen in the ED two days ago for a fall and right knee pain. While she was at her PCP's office, she notes her right knee was swollen and red. She states that she has been icing her knee and taking Percocet, with improved relief. She notes the Percocet makes her constipated, so she is only taking the medication sparingly. She was informed by the nursing staff at her PCP's office to come to the ED for evaluation of her right knee. The patient is currently on Coumadin, though she was informed to stop taking the blood thinner this morning by her teradata solution architect. She states when she fell she fell onto her buttock but her hip and buttock are not really hurting her. She does have some mild soreness there. She denies any fever or vomiting. She denies any chest pain or shortness of breath. She has no urinary symptoms. Source of History: patient Position: knee (right) Quality: other (swelling and red) Modifying Factors (Worsening): movement Associated Symptoms: + abdominal pain, No fevers, No chest pain, No SOB, No vomiting, No diarrhea, No urinary symptoms Note: She notes constipation. Review of Systems See HPI for pertinent positives & negatives. A total of 10 systems reviewed and were otherwise negative. 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 (6) Sleep apnea Family History No pertinent family history Social History Smoking Status: Never Smoker Drug Use: none Marital Status: Housing Status: lives alone Occupation Status: retired Current/Historical Medications Scheduled Ascorbic Acid (Vitamin C), 1 TAB PO DAILY Azelastine Hcl (Astelin Nasal [place]), 2 SPRAYS [place] DAILY Carboxymethylcellulose Sodium (Sterile Lubricant Drops), 1 DROP OPB PRN Cholecalciferol (Vitamin D3), 1 TAB PO QAM Diphenhydramine Hcl (Benadryl Allergy), 1 CAP PO BID Fluticasone Propionate (Nasal) (Flonase Allergy Relief), 1 SPRAY [place] DAILY Hydrochlorothiazide (Hctz), 12.5 MG PO QAM Loratadine (Claritin), 10 MG PO QAM Nystatin/Triamcinolone (Mycogen || ), 1 DOSE TOP PRN Polyethylene Glycol 3350 (Miralax), 17 GM PO QPM Psyllium (Metamucil), 1 DOSE PO QPM Timolol Maleate (Ophth) (Timoptic 0.25% Oph), 1 DROP OPB QAM Verapamil Hcl (Calan Sr Ext Rel), 180 MG PO UD Warfarin Sod (Jantoven), 5 MG PO DIRECTED Scheduled PRN Acetaminophen/Codeine (Tylenol W/Codeine #3), 1 TAB PO Q4 PRN for Pain Epinephrine (Epipen), 0.3 MG IM UD PRN for ALLERGIC REACTION Guaifenesin Ext Rel (Mucinex Ext Rel), 600 MG PO Q12 PRN for prn Pseudoephedrine Hcl (Sudafed), 30 MG PO UD PRN for prn Triamcinolone Acet (Triamcinolone Acetonide), 1 APPLN TOP BID PRN for prn Allergies Coded Allergies: Aspirin (Verified Allergy, Severe, TONGUE AND THROAT SWELLS, 11/16/17) Cephalexin (Verified Allergy, Severe, swelling tongue and throat, 11/16/17) Omeprazole (Verified Allergy, Severe, ANAPHYLAXIS, 11/16/17) Tramadol (Verified Allergy, Severe, ANAPHYLAXIS, 11/16/17) Amoxicillin (Unverified Allergy, Intermediate, VOMIT, 11/16/17) Clavulanic Acid (Unverified Allergy, Intermediate, VOMIT, 11/16/17) Monosodium Glutamate (Verified Allergy, Mild, throat swell, 11/16/17) Erythromycin (Verified Allergy, Unknown, SWELLING AND RASH, 11/16/17) Tetracycline (Verified Allergy, Unknown, SWELLING AND RASH, 11/16/17) Metoprolol (Unverified Adverse Reaction, Intermediate, DISORIENTED, ) Alendronate (Verified Adverse Reaction, Unknown, very upset stomach, ) Uncoded Allergies: perfumes (Allergy, Unknown, can't breathe, 05/20/12) Physical Exam Vital Signs Date Time Temp Pulse Resp B/P (MAP) Pulse Ox O2 Delivery O2 Flow Rate FiO2 11/16/17 17:16 80 18 120/89 95 Room Air 11/16/17 15:17 36.5 119 18 145/98 95 Physical Exam Constitutional: Vital signs reviewed. Eyes: Pupils are equal round reactive to light. Conjunctiva are noninjected. ENT: Pharynx is clear without erythema or exudate. Mucous membranes are moist. Neck supple without meningeal signs. Respiratory: Clear to auscultation bilaterally. Breath sounds are equal bilaterally. Cardiovascular: Regular rate and rhythm. No rubs or gallops. GI: Soft, nondistended with mild tenderness to the right upper quadrant. Negative Iglesias sign. Bowel sounds are present. Musculoskeletal: Soft tissue swelling with diffuse tenderness to the anterior right knee. There is no significant erythema except for below the knee under the tibial tuberosity. No significant increased warmth. No ecchymosis. Full range of motion of the knee. No tenderness to the right hip. Integumentary: No cyanosis. Neurological: The patient is awake and alert. No focal deficits. Psychiatric: Normal affect. Medical Decision & Procedures Laboratory Results 11/16/17 17:15 Red Blood Count 4.69, Mean Corpuscular Volume 88.3, Mean Corpuscular Hemoglobin 30.5, Mean Corpuscular Hemoglobin Concent 34.5, Mean Platelet Volume 9.3, Neutrophils (%) (Auto) 73.5, Lymphocytes (%) (Auto) 17.4, Monocytes (%) (Auto) 7.4, Eosinophils (%) (Auto) 1.2, Basophils (%) (Auto) 0.3, Neutrophils # (Auto) 7.00, Lymphocytes # (Auto) 1.66, Monocytes # (Auto) 0.70, Eosinophils # (Auto) 0.11, Basophils # (Auto) 0.03 11/16/17 17:15 Test 11/16/17 17:15 White Blood Count 9.52 K/uL (4.8-10.8) Red Blood Count 4.69 M/uL (4.2-5.4) Hemoglobin 14.3 g/dL (12.0-16.0) Hematocrit 41.4 % (37-47) Mean Corpuscular Volume 88.3 fL (80-100) Mean Corpuscular Hemoglobin 30.5 pg (25-34) Mean Corpuscular Hemoglobin Concent 34.5 g/dl (32-36) Platelet Count 187 K/uL (130-400) Mean Platelet Volume 9.3 fL (7.4-10.4) Neutrophils (%) (Auto) 73.5 % Lymphocytes (%) (Auto) 17.4 % Monocytes (%) (Auto) 7.4 % Eosinophils (%) (Auto) 1.2 % Basophils (%) (Auto) 0.3 % Neutrophils # (Auto) 7.00 K/uL (1.4-6.5) Lymphocytes # (Auto) 1.66 K/uL (1.2-3.4) Monocytes # (Auto) 0.70 K/uL (0.11-0.59) Eosinophils # (Auto) 0.11 K/uL (0-0.5) Basophils # (Auto) 0.03 K/uL (0-0.2) RDW Standard Deviation 49.6 fL (36.4-46.3) RDW Coefficient of Variation 15.4 % (11.5-14.5) Immature Granulocyte % (Auto) 0.2 % Immature Granulocyte # (Auto) 0.02 K/uL (0.00-0.02) Prothrombin Time 23.0 SECONDS (9.0-12.0) Prothromb Time International Ratio 2.2 (0.9-1.1) Activated Partial Thromboplast Time 38.5 SECONDS (21.0-31.0) Partial Thromboplastin Ratio 1.5 Urine Color YELLOW Urine Appearance CLEAR (CLEAR) Urine pH 5.0 (4.5-7.5) Urine Specific [place] 1.014 (1.000-1.030) Urine Protein NEG (NEG) Urine Glucose (UA) NEG (NEG) Urine Ketones NEG (NEG) Urine Occult Blood NEG (NEG) Urine Nitrite NEG (NEG) Urine Bilirubin NEG (NEG) Urine Urobilinogen NEG (NEG) Urine Leukocyte Esterase SMALL (NEG) Urine WBC (Auto) 5-10 /hpf (0-5) Urine RBC (Auto) 0-4 /hpf (0-4) Urine Hyaline Casts (Auto) 0 /lpf (0-5) Urine Epithelial Cells (Auto) 10-20 /lpf (0-5) Urine Bacteria (Auto) NEG (NEG) Anion Gap 9.0 mmol/L (3-11) Est Creatinine Clear Calc Drug Dose 52.8 ml/min Estimated GFR () 63.5 Estimated GFR (Non- 54.8 BUN/Creatinine Ratio 14.1 (10-20) Calcium Level 8.9 mg/dl (8.5-10.1) Total Bilirubin 1.1 mg/dl (0.2-1) Direct Bilirubin 0.2 mg/dl (0-0.2) Aspartate Amino Transf (AST/SGOT) 17 U/L (15-37) Alanine Aminotransferase (ALT/SGPT) 18 U/L (12-78) Alkaline Phosphatase 107 U/L (45-117) Troponin I < 0.015 ng/ml (0-0.045) Total Protein 7.6 gm/dl (6.4-8.2) Albumin 3.7 gm/dl (3.4-5.0) Lipase 120 U/L (73-393) Laboratory results as reviewed by me. Medications Administered Medications (Trade) Dose Ordered Sig/Foster Route Start Time Stop Time Status Last Admin Dose Admin Acetaminophen/ Codeine Phosphate (Tylenol w/ Codeine #3 Tab) 1 tab NOW ONCE PO 11/16/17 17:00 11/16/17 17:01 DC 11/16/17 17:06 1 TAB ECG Per My Interpretation Indication: abdominal pain Rate (beats per minute): 98 Rhythm: atrial fibrillation Findings: PVC, other (No ST elevation) ED Course 1640: The patient was evaluated in room C8. A complete history and physical exam was performed. 1649: Ordered Zofran 4 mg IV 1700: Ordered Acetaminophen/Codeine Phosphate 1 tab PO Medical Decision This is an 82-year-old female who presents with right knee pain and right upper quadrant abdominal pain. Differential diagnosis includes hemarthrosis, effusion , arthritis, cholelithiasis, cholecystitis, pink otitis, duodenitis. I did perform a limited focused review of portions of the patient's old chart on the electronic medical record. The patient was seen November 14, 2017 for right knee pain after a fall. She had an XR of her hip, knee and pelvis, which showed no fractures. I did evaluate the patient as noted above. The patient is presenting right knee pain. She does appear to have an effusion to her knee. I am concerned this may be hemarthrosis given her being on Coumadin. She does not appear to have a septic knee. She does have full range of motion of the knee. There is no significant increase in temperature or erythema to the joint. In any case she is on Coumadin and we could not perform arthrocentesis. She also complained of right upper quadrant abdominal pain which she has had for 4 weeks. IV access was established. The patient was placed on a continuous programming development project manager. I did order and personally review the patient's 12-lead EKG and chest x-ray as described above. I did order and review the patient's blood work as noted in the electronic medical record. Her INR is 2.2. LFTs and lipase are unremarkable. I did order an ultrasound of the right upper quadrant. I did review the images myself as well as the radiology report as described above. There is no evidence of gallstones or acute abnormality. The patient was informed of her test results. She was advised to follow-up with her doctor on Sunday. She did initially ask for a prescription for Tylenol with codeine. I did look her up in the state database and appears that she filled a prescription for Tylenol with codeine No. 3 on November 15 quantity 90 tablets. I did ask her about this and she stated that her caregiver probably picked it up and that she would not need any pain meds. She was discharged in good condition. Medication Reconcilliation Current Medication List: was personally reviewed by me Blood Pressure Screening Patient's blood pressure: Elevated blood pressure Blood pressure disposition: Referred to PCP Impression Primary Impression: Hemarthrosis, right knee Additional Impressions: Right upper quadrant abdominal pain Anticoagulated on Coumadin Scribe Attestation The scribe's documentation has been prepared under my direct and personally reviewed by me in its entirety. I confirm that the note above accurately reflects all work, treatment, procedures, and medical decision making performed by me. Departure Information Dispostion Home / Self-Care Referrals Julio Springer M.D. (PCP) Patient Instructions My [facility] Problem Qualifiers"
[2017-11-16 19:01] VITALS: BP 132/88; PULSE 77; TEMP 36.5; O2SAT 95
[2017-11-19] MEDS ORDERED: CLOTRIMAZOLE 1% TOP (11:09)
[2017-11-19] MEDS ORDERED: CALCIUM D PO (11:09)
[2017-11-19] MEDS ORDERED: ACET-749 PO (11:09)
== END 2017-11-16 19:04 | disposition home or self-care (01) ==
LOC: C.EDB 15:10 → C.EDC 19:04
DX: M25.061 Hemarthrosis, right knee (principal); R10.11 Right upper quadrant pain; Z79.01 Long term (current) use of anticoagulants; I10 Essential (primary) hypertension; Z85.3 Personal history of malignant neoplasm of breast; Z96.659 Presence of unspecified artificial knee joint; G47.30 Sleep apnea, unspecified; Z79.899 Other long term (current) drug therapy; Z79.82 Long term (current) use of aspirin; Z88.0 Allergy status to penicillin; Z91.048 Other nonmedicinal substance allergy status

== ENCOUNTER → 2017-11-19 | Outpatient (CLI) | payer OTHER, BC ==
[~2017-11-19] VITALS: Ht 167.6 cm; Wt 90.9 kg
[~2017-11-19] MED LIST changes: -ACET-749 PO; +ACET300T3 PO; +CALCIUM D PO; +CALCTAB7 PO; +CLINDAMYCIN 600 MG/54 ML D5W IV SCH; +CLOTRIMAZOLE 1% TOP; +LACTATED RINGER'S 1000ML 1,000 ML IV SCH; +LDDP5 TD; +OXYC-57 PO; +SENN-61 PO; +SIME80CH PO; +SODIUM CHLORIDE 0.9% 1000ML 1,000 ML IV SCH; -TIMO0.05 OPB; +TIMO0.2518 OPB; +WARF5TAB90 PO
[2017-11-19 11:10] VITALS: Ht 167.6 cm; Wt 90.9 kg
--- NOTE | 2017-11-19 11:55 | PAT Medication Instructions ---
Service Date Nov 19, 2017. Current Home Medication List Acetaminophen/Codeine (Tylenol W/Codeine #3), 1 TAB PO Q6H PRN for N Ascorbic Acid (Vitamin C), 1 TAB PO QAM Azelastine Hcl (Astelin Nasal [place]), 2 SPRAYS CASSIA DAILY Carboxymethylcellulose Sodium (Sterile Lubricant Drops), 1 DROP OPB PRN Cholecalciferol (Vitamin D3), 1 TAB PO QAM Diphenhydramine Hcl (Benadryl Allergy), 1 CAP PO HS Epinephrine (Epipen), 0.3 MG IM UD PRN for ALLERGIC REACTION Fluticasone Propionate (Nasal) (Flonase Allergy Relief), 1 SPRAY CASSIA DAILY Guaifenesin Ext Rel (Mucinex Ext Rel), 600 MG PO Q12 PRN for prn Hydrochlorothiazide (Hctz), 12.5 MG PO QAM Loratadine (Claritin), 10 MG PO QAM Polyethylene Glycol 3350 (Miralax), 17 GM PO QPM PRN for PRN Psyllium (Metamucil), 1 DOSE PO QPM PRN for PRN Timolol Maleate (Ophth) (Timoptic 0.25% Oph), 1 DROP OPB QAM Triamcinolone Acet (Triamcinolone Acetonide), 1 APPLN TOP BID PRN for prn Verapamil Hcl (Calan Sr Ext Rel), 180 MG PO UD Warfarin Sod (Jantoven), 5 MG PO DIRECTED [Calcium D], 1 TAB PO QAM [Clotrimazole 1%], 1 DOSE TOP BID Medication Instructions For Your Scheduled Surgery -Continue as directed: Epinephrine (Epipen), 0.3 MG IM UD PRN for ALLERGIC REACTION Verapamil Hcl (Calan Sr Ext Rel), 180 MG PO UD -Contact your surgeon and compounder for instructions for: Warfarin Sod (Jantoven), 5 MG PO DIRECTED - Hold the following medications 24 hours prior to surgery: Triamcinolone Acet (Triamcinolone Acetonide), 1 APPLN TOP BID PRN for prn [Clotrimazole 1%], 1 DOSE TOP BID - Hold the following medications the morning of surgery: Ascorbic Acid (Vitamin C), 1 TAB PO QAM Cholecalciferol (Vitamin D3), 1 TAB PO QAM Guaifenesin Ext Rel (Mucinex Ext Rel), 600 MG PO Q12 PRN for prn Hydrochlorothiazide (Hctz), 12.5 MG PO QAM Loratadine (Claritin), 10 MG PO QAM Polyethylene Glycol 3350 (Miralax), 17 GM PO QPM PRN for PRN Psyllium (Metamucil), 1 DOSE PO QPM PRN for PRN [Calcium D], 1 TAB PO QAM - Take the following medications the morning of surgery with a sip of water: Acetaminophen/Codeine (Tylenol W/Codeine #3), 1 TAB PO Q6H PRN (if needed, can be taken up to four hours before surgery) Azelastine Hcl (Astelin Nasal [place]), 2 SPRAYS CASSIA DAILY Carboxymethylcellulose Sodium (Sterile Lubricant Drops), 1 DROP OPB PRN (if needed, and bring with you to the hospital) Fluticasone Propionate (Nasal) (Flonase Allergy Relief), 1 SPRAY CASSIA DAILY Timolol Maleate (Ophth) (Timoptic 0.25% Oph), 1 DROP OPB QAM (bring these with you to the hospital) - Take the following medications as scheduled the night before surgery: Acetaminophen/Codeine (Tylenol W/Codeine #3), 1 TAB PO Q6H PRN (if needed) Azelastine Hcl (Astelin Nasal [place]), 2 SPRAYS CASSIA DAILY Carboxymethylcellulose Sodium (Sterile Lubricant Drops), 1 DROP OPB PRN (if needed) Diphenhydramine Hcl (Benadryl Allergy), 1 CAP PO HS Fluticasone Propionate (Nasal) (Flonase Allergy Relief), 1 SPRAY CASSIA DAILY Guaifenesin Ext Rel (Mucinex Ext Rel), 600 MG PO Q12 PRN for prn (if needed) Polyethylene Glycol 3350 (Miralax), 17 GM PO QPM PRN for PRN (if needed) Psyllium (Metamucil), 1 DOSE PO QPM PRN for PRN (if needed) If you have any questions please call us at [phone] or [phone] or [phone]
[2017-11-19 12:43] LABS: BASO % 0.2 %; BASO ABS # 0.01 K/uL (0-0.2); EOS % 2.5 %; EOS ABS # 0.14 K/uL (0-0.5); HEMATOCRIT 39.3 % (37-47); HEMOGLOBIN 13.2 g/dL (12.0-16.0); IG# 0.01 K/uL (0.00-0.02); LYMPH % 26.7 %; LYMPH ABS # 1.49 K/uL (1.2-3.4); MEAN CELL VOLUME 88.5 fL (80-100); MEAN CORPUSCULAR HEMOGLOBIN 29.7 pg (25-34); MEAN CORPUSCULAR HGB CONC 33.6 g/dl (32-36); MEAN PLATELET VOLUME 9.6 fL (7.4-10.4); MONO % 8.2 %; MONO ABS # 0.46 K/uL (0.11-0.59); NEUT % 62.2 %; NEUT ABS # 3.47 K/uL (1.4-6.5); PLATELET COUNT 211 K/uL (130-400); RED CELL DISTRIBUTION WIDTH CV 14.9 % (11.5-14.5); RED CELL DISTRIBUTION WIDTH SD 48.6 fL (36.4-46.3); WHITE BLOOD COUNT 5.58 K/uL (4.8-10.8)
[2017-11-19 12:52] LABS: INR 1.1 (0.9-1.1); PTT PATIENT 28.5 SECONDS (21.0-31.0)
[2017-11-19 14:24] LABS: CREATININE 0.81 mg/dl (0.60-1.20); POTASSIUM 4.1 mmol/L (3.5-5.1)
== END | disposition home or self-care (01) ==
LOC: C.LAB 08:00 → EDSTATUS 11-27 10:30
PROVIDERS: ATTEND Surgery Vascular Surgery
DX: I71.4 Abdominal aortic aneurysm, without rupture (principal)

== ENCOUNTER → 2017-11-23 | Outpatient (CLI) | payer OTHER, BC ==
[~2017-11-23] MED LIST changes: +ACET-749 PO; -ACET300T3 PO; -CALCTAB7 PO; -CLINDAMYCIN 600 MG/54 ML D5W IV SCH; -LACTATED RINGER'S 1000ML 1,000 ML IV SCH; -LDDP5 TD; -NYSTCRE11 TOP; -OXYC-57 PO; -PSEU30TA64 PO; -SENN-61 PO; -SIME80CH PO; -SODIUM CHLORIDE 0.9% 1000ML 1,000 ML IV SCH; +TIMO0.05 OPB; -TIMO0.2518 OPB; -WARF5TAB90 PO
--- NOTE | 2017-11-23 11:31 | DIAGNOSTIC IMAGING REPORT ---
RIGHT LOWER EXTREMITY VENOUS DOPPLER CLINICAL HISTORY: Right lower extremity pain. COMPARISON STUDY: No previous studies for comparison. TECHNIQUE: Sonography of the deep venous system of the right lower extremity was performed. Compression and augmentation were evaluated. FINDINGS: The common femoral, superficial femoral and popliteal veins were compressible. Augmentation was normal. Flow was shown within the deep calf vessels. IMPRESSION: No evidence of deep venous thrombus within the right lower extremity. Electronically signed by: David Brady M.D. 11/23/2017 11:30 AM Dictated Date/Time: 11/23/2017 11:28 AM
--- NOTE | 2017-11-23 13:11 | DIAGNOSTIC IMAGING REPORT ---
MRI OF THE RIGHT KNEE WITHOUT CONTRAST CLINICAL HISTORY: Persistent right knee pain and swelling following fall in November 14, 2017. COMPARISON STUDY: Right knee radiograph November 14, 2017. TECHNIQUE: Utilizing a 1.5 Nasreen magnet and dedicated coil, multiplanar, multiecho imaging of the right knee was performed without intravenous or intraarticular contrast. FINDINGS: Note is made of an acute nondisplaced fracture within the medial tibial plateau without significant depression or displacement. This fracture extends to the lateral aspect the medial tibial plateau. No additional acute fractures are present. This fracture was occult by radiography. There is a large right knee joint effusion which appears complex. This may contain a small amount of hemorrhage. The cruciate and collateral ligaments are intact. There is severe chondrosis within the medial compartment as well as moderate chondrosis within the patellofemoral compartment and mild chondrosis within the lateral compartment. The medial meniscus is diminutive. This suggests an old complex tear. There is an oblique tear of the body and posterior horn of the medial meniscus. No suspicious marrow replacement is present. Extensor mechanism is intact. There is extensive muscular edema involving the popliteus and gastrocnemius muscles. No associated hematoma is identified. IMPRESSION: 1. Acute nondisplaced medial tibial plateau fracture without depression. 2. Large right knee joint effusion which may contain a small amount of hemorrhage related to the fracture. 3. Extensive muscular edema predominantly involving the gastrocnemius and popliteus muscles which may reflect a muscle contusion. 4. Diminutive medial meniscus which favors an old complex tear. Previous partial meniscectomy could appear similar. Oblique tear of the body and posterior horn of the lateral meniscus. 5. 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 Electronically signed by: David Brady M.D. 11/23/2017 1:09 PM Dictated Date/Time: 11/23/2017 12:38 PM
== END | disposition home or self-care (01) ==
LOC: C.ULTRBC 08:40
PROVIDERS: ATTEND Nurse Practitioner Adult Health
DX: M25.561 Pain in right knee (principal); M25.461 Effusion, right knee; S82.291A Other fracture of shaft of right tibia, initial encounter for closed fracture; W19.XXXA Unspecified fall, initial encounter

== ENCOUNTER → 2017-12-14 | Outpatient (CLI) | payer OTHER, BC ==
[~2017-12-14] MED LIST changes: -TIMO0.05 OPB; +TIMO0.2518 OPB
--- NOTE | 2017-12-17 07:48 | MAMMOGRAPHY REPORT ---
BILATERAL DIGITAL SCREENING MAMMOGRAM TOMOSYNTHESIS WITH CAD: 12/14/2017 CLINICAL HISTORY: Asymptomatic. Personal history of breast cancer. TECHNIQUE: Breast tomosynthesis in addition to standard 2D mammography was performed. Current study was also evaluated with a Computer Aided Detection (CAD) system. COMPARISON: Comparison is made to exams dated: 12/27/2016 mammogram - [facility], mammogram, 12/18/2014 mammogram, 10/27/2014 mammogram, 10/29/2013 mammogram, and 02/12/2013 mammog ofelia - [facility]. BREAST COMPOSITION: There are scattered areas of fibroglandular density in both breasts. FINDINGS: No suspicious masses, calcifications, or areas of architectural distortion are noted in ei ther breast. There has been no significant interval change compared to prior exams. There are stable postsurgical changes in the left upper outer quadrant from prior lumpectomy, including stable densit y, architectural distortion, and surgical clips at the lumpectomy bed. A linear scar marker denotes a scar on the left upper outer breast. Scattered bilateral benign-appearing calcifications are not s ignificantly changed. IMPRESSION: ACR BI-RADS CATEGORY 2: BENIGN There is no mammographic evidence of malignancy. A 1 year screening mammogram is recommended. The pa tient will receive written notification of the results. Approximately 10% of breast cancers are not detected with mammography. A negative mammographic report should not delay biopsy if a clinically suggestive mass is present. Ida Sheehan M.D. /:12/14/2017 16:09:58 Attending Technologist: Poonam Suh RT(R)(M), [facility] Packer Dried Beef: Abdulkadir Martinez RT(R)(M), [facility] letter sent: Normal 1/2 BI-RADS Code: ACR BI-RADS Category 2: Benign
== END | disposition home or self-care (01) ==
LOC: C.MAMM 10:35
PROVIDERS: ATTEND Student in an Organized Health Care Education/Training Program
DX: Z12.31 Encounter for screening mammogram for malignant neoplasm of breast (principal); Z85.3 Personal history of malignant neoplasm of breast

== ENCOUNTER → 2017-12-24 | Outpatient (CLI) | payer OTHER, BC ==
[~2017-12-24] MED LIST changes: -ACET-749 PO; +ACET300T3 PO; +CALCTAB7 PO; +WARF5TAB90 PO
--- NOTE | 2017-12-24 11:46 | DIAGNOSTIC IMAGING REPORT ---
R KNEE 4 OR MORE CLINICAL HISTORY: 82 years-old Female presenting with RIGHT KNEE FX FOLLOW UP. TECHNIQUE: Frontal, sunrise, and lateral views of the right knee were obtained. COMPARISON: 12/03/2017. FINDINGS: Osteopenia. Severe joint space loss in the medial compartment with a [id number] or near [id number] appearance. Subchondral sclerosis. Osteophytosis evident in all 3 compartments. Allowing for osteopenia, no displaced fracture is evident. Previously noted radiolucency along the medial tibial plateau is not apparent. No large knee joint effusion. Atherosclerosis noted. IMPRESSION: 1. Previously noted medial tibial plateau fracture line is not apparent on the current radiograph. 2. Tricompartmental degenerative changes most severe in the medial compartment with a [id number] appearance. Electronically signed by: Julio Falcon M.D. 12/24/2017 11:45 AM Dictated Date/Time: 12/24/2017 11:43 AM
== END | disposition home or self-care (01) ==
LOC: C.RDSM 12:43
PROVIDERS: ATTEND Physician Assistant
DX: Z09 Encounter for follow-up examination after completed treatment for conditions other than malignant neoplasm (principal)

== ENCOUNTER 2017-12-30 20:23 | Inpatient (IN) | payer OTHER, BC ==
[~2017-12-30] VITALS: Ht 167.6 cm; Wt 98.4 kg
[~2017-12-30 20:23] MED LIST changes: -ASTN NAE; -CALCTAB7 PO; -EPP3/2 IM; -WARF5TAB90 PO
--- NOTE | 2017-12-30 20:38 | EMERGENCY ROOM VISIT NOTE ---
History Report prepared by Jade: Johnson Mantilla Under the Supervision of: Dr. Demetris Trejo M.D. First contact with patient: 20:30 Chief Complaint: ARM PAIN Stated Complaint: FALL/RT. ARM PAIN History of Present Illness The patient is a 82 year old female who presents to the Emergency Room via EMS due to a fall that occurred an hour and a half ago. Patient states that she tripped. She states that the pain is mostly in her right shoulder but states that it radiates down her whole arm. She describes the pain as severe. Patient states that she was unable to get up after the fall and was lying on the ground awaiting EMS to arrive. Patient denies hitting her head or getting knocked out from the fall. Patient was given pain medications in ambulance which did not relieve the symptoms. Patient states that she takes Tylenol for pain. She states that she does not take regular pain medications. Pertinent past surgical history includes a knee replacement and 2 hip replacements. Patient denies neck pain. Source of History: patient Onset: Hour and a half ago Position: shoulder (right), arm (right) Symptom Intensity: severe Modifying Factors (Relieving): other (None) Associated Symptoms: No neck pain Review of Systems See HPI for pertinent positives & negatives. A total of 10 systems reviewed and were otherwise negative. 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 (7) Sleep apnea Family History No pertinent family history Social History Smoking Status: Former Smoker Drug Use: none Marital Status: Housing Status: lives alone Occupation Status: retired Current/Historical Medications Scheduled Azelastine Hcl (Astelin Nasal Chloride), 2 SPRAYS [place] DAILY Calcium Carbonate-Vitamin D W/ (Caltrate 600 Plus), 1 TAB PO DAILY Carboxymethylcellulose Sodium (Sterile Lubricant Drops), 1 DROP OPB PRN Cholecalciferol (Vitamin D3), 2 TAB PO QAM Diphenhydramine Hcl (Benadryl Allergy), 1 CAP PO HS Fluticasone Propionate (Nasal) (Flonase Allergy Relief), 1 SPRAY [place] DAILY Hydrochlorothiazide (Hctz), 12.5 MG PO QAM Loratadine (Claritin), 10 MG PO QAM Timolol Maleate (Ophth) (Timoptic 0.25% Oph), 1 DROP OPB QAM Verapamil Hcl (Calan Sr Ext Rel), 180 MG PO UD Warfarin Sodium (Coumadin), 5 MG PO 4XWK Warfarin Sodium (Coumadin), 7.5 MG PO MWF [Clotrimazole 1%], 1 DOSE TOP BID Scheduled PRN Acetaminophen/Codeine (Tylenol W/Codeine #3), 1 TAB PO Q6H PRN for N Ascorbic Acid (Vitamin C), 1 TAB PO QAM PRN for Epinephrine (Epipen), 0.3 MG IM UD PRN for ALLERGIC REACTION Guaifenesin Ext Rel (Mucinex Ext Rel), 600 MG PO Q12 PRN for prn Polyethylene Glycol 3350 (Miralax), 17 GM PO QPM PRN for PRN Psyllium (Metamucil), 1 DOSE PO QPM PRN for PRN Triamcinolone Acet (Triamcinolone Acetonide), 1 APPLN TOP BID PRN for prn Allergies Coded Allergies: Aspirin (Verified Allergy, Severe, TONGUE AND THROAT SWELLS, 11/19/17) Tramadol (Verified Allergy, Severe, ANAPHYLAXIS, 11/19/17) Monosodium Glutamate (Verified Allergy, Mild, throat swell, 11/19/17) Aromatic Oils (Verified Allergy, Unknown, PERFUMES CAN'T BREATHE, 11/19/17) Erythromycin (Verified Allergy, Unknown, SWELLING THROAT AND RASH, 11/19/17) Tetracycline (Verified Allergy, Unknown, SWELLING AND RASH, 11/19/17) Cephalexin (Verified Adverse Reaction, Severe, VOMITING, 11/22/17) Omeprazole (Verified Adverse Reaction, Severe, G I UPSET, 11/22/17) Amoxicillin (Verified Adverse Reaction, Intermediate, VOMIT, 11/22/17) Clavulanic Acid (Verified Adverse Reaction, Intermediate, VOMIT, 11/22/17) Metoprolol (Verified Adverse Reaction, Intermediate, DISORIENTED, 11/22/17) Alendronate (Verified Adverse Reaction, Unknown, very upset stomach, ) Esomeprazole (Verified Adverse Reaction, Unknown, G I UPSET, 11/22/17) Nystatin (Verified Adverse Reaction, Unknown, GI UPSET, 11/22/17) Physical Exam Vital Signs Date Time Temp Pulse Resp B/P (MAP) Pulse Ox O2 Delivery O2 Flow Rate FiO2 12/30/17 21:55 74 22 180/89 96 Nasal Cannula 2.0 12/30/17 20:33 36.5 78 24 171/113 94 Room Air Physical Exam GENERAL: Patient is very uncomfortable appearing and in moderate/severe distress. EYES: No scleral icterus, unremarkable pupils. ENT: Mucous membranes moist, no nasal congestion. NECK: No masses appreciated, no meningismus, trachea is midline. RESPIRATORY: No dyspnea. Clear to auscultation and equal bilaterally. No wheeze , no rhonchi. CARDIOVASCULAR: Regular rate and rhythm. No murmurs, rubs, gallops appreciated. GASTROINTESTINAL: Abdomen soft, nontender, no peritonitis. Bowel sounds positive. No masses appreciated. BACK: No midline tenderness, no CVA tenderness EXTREMITIES: Patient is splinting right arm, distally NV intact; tenderness to palpitation of entire right shoulder, mid humerus, mid forearm; lack of range of motion of arm or shoulder due to amount of pain otherwise normal motion all extremities, no cyanosis, no edema. NEUROLOGIC: Alert and oriented, no acute motor or sensory deficits, no focal weakness, cranial nerves grossly intact. SKIN: No rash, no jaundice, no diaphoresis. Medical Decision & Procedures ER Provider Diagnostic Interpretation: Radiology results and stated below per my review and radiologist interpretation: R HUMERUS MIN 2 VIEWS ROUTINE, R FOREARM 2 VIEWS ROUTINE CLINICAL HISTORY: trip fall right shoulder pain COMPARISON STUDY: None. FINDINGS: There is an impacted right humeral neck fracture. There is mild medial displacement of the humeral head in relation to the humeral shaft. No dislocation within the right shoulder. The distal humerus, radius, and ulna are intact. Mild soft tissue swelling within the forearm. The bones are osteopenic. IMPRESSION: 1. An impacted right humeral neck fracture. 2. No fractures within the right radius or ulna. Electronically signed by: Nick Morgan M.D. 12/30/2017 9:37 PM CHEST ONE VIEW PORTABLE HISTORY: trip and fall COMPARISON: Chest 11/16/2017. FINDINGS: No pneumothorax. No pleural effusions. The heart remains enlarged. There is mild central pulmonary vascular congestion. No focal lung consolidations to suggest pneumonia. A few linear density at the left lung base favor subsegmental atelectasis. The patient is rotated on this study. There is an impacted right humeral neck fracture. IMPRESSION: 1. Impacted right humeral neck fracture. 2. Cardiomegaly and mild pulmonary vascular congestion. Electronically signed by: Nick Morgan M.D. 12/30/2017 9:34 PM Laboratory Results 12/30/17 21:00 Red Blood Count 4.81, Mean Corpuscular Volume 87.7, Mean Corpuscular Hemoglobin 30.6, Mean Corpuscular Hemoglobin Concent 34.8, Mean Platelet Volume 9.1, Neutrophils (%) (Auto) 76.3, Lymphocytes (%) (Auto) 16.0, Monocytes (%) (Auto) 5.6, Eosinophils (%) (Auto) 1.7, Basophils (%) (Auto) 0.2, Neutrophils # (Auto) 6.63, Lymphocytes # (Auto) 1.39, Monocytes # (Auto) 0.49, Eosinophils # (Auto) 0.15, Basophils # (Auto) 0.02 12/30/17 21:00 Test 12/30/17 21:00 12/30/17 21:35 White Blood Count 8.70 K/uL (4.8-10.8) Red Blood Count 4.81 M/uL (4.2-5.4) Hemoglobin 14.7 g/dL (12.0-16.0) Hematocrit 42.2 % (37-47) Mean Corpuscular Volume 87.7 fL (80-100) Mean Corpuscular Hemoglobin 30.6 pg (25-34) Mean Corpuscular Hemoglobin Concent 34.8 g/dl (32-36) Platelet Count 211 K/uL (130-400) Mean Platelet Volume 9.1 fL (7.4-10.4) Neutrophils (%) (Auto) 76.3 % Lymphocytes (%) (Auto) 16.0 % Monocytes (%) (Auto) 5.6 % Eosinophils (%) (Auto) 1.7 % Basophils (%) (Auto) 0.2 % Neutrophils # (Auto) 6.63 K/uL (1.4-6.5) Lymphocytes # (Auto) 1.39 K/uL (1.2-3.4) Monocytes # (Auto) 0.49 K/uL (0.11-0.59) Eosinophils # (Auto) 0.15 K/uL (0-0.5) Basophils # (Auto) 0.02 K/uL (0-0.2) RDW Standard Deviation 45.1 fL (36.4-46.3) RDW Coefficient of Variation 14.0 % (11.5-14.5) Immature Granulocyte % (Auto) 0.2 % Immature Granulocyte # (Auto) 0.02 K/uL (0.00-0.02) Anion Gap 8.0 mmol/L (3-11) Est Creatinine Clear Calc Drug Dose 57.3 ml/min Estimated GFR () 68.6 Estimated GFR (Non- 59.2 BUN/Creatinine Ratio 16.8 (10-20) Calcium Level 8.6 mg/dl (8.5-10.1) Magnesium Level 2.1 mg/dl (1.8-2.4) Activated Partial Thromboplast Time 35.6 SECONDS (21.0-31.0) Partial Thromboplastin Ratio 1.4 Laboratory results as reviewed by me. Medications Administered Medications (Trade) Dose Ordered Sig/Foster Route Start Time Stop Time Status Last Admin Dose Admin Fentanyl Citrate (Fentanyl Inj) 100 mcg NOW STAT IV 12/30/17 20:41 12/30/17 20:42 DC 12/30/17 20:50 100 MCG Sodium Chloride 1,000 ml @ 75 mls/hr [id number] STAT IV 12/30/17 20:42 12/30/17 23:07 DC 12/30/17 20:50 75 MLS/HR Hydromorphone HCl (Dilaudid Inj) 2 mg NOW STAT IV 12/30/17 21:28 12/30/17 21:29 DC 12/30/17 21:32 2 MG Morphine Sulfate (MoRPHine SULFATE INJ) 1 mg Q2HWA PRN IV 12/30/17 22:15 01/13/18 22:14 12/31/17 16:37 1 MG ED Course 2032: The patient was evaluated in room A10. A complete history and physical exam was performed. 2127: Patient has contractile pain. She is requesting further narcotics. 2154: Patient notes her pain is better. She is still unable to move or sit up in bed without severe pain. I paged Pam [place]. 2205: I spoke with Dr. Morgan of the [facility] about the patient's radiology findings. 2315: Upon reevaluation, the patient will be further evaluated. Discussed results and treatment plan with the patient. She verbalized understanding and agreement with the treatment plan. The patient will be evaluated for further management. Medical Decision Differential: Fracture, Dislocation, Cellulitis, Septic Joint, Ligamentous Injury, Effusion, DVT, amongst other pathologies entertained. 82 yr old female with mechanical trip and fall landing on right arm resulting in xray confirmed proximal humerus fracture with impaction. No TTP of cervical spine, no headache and denies hitting head/neck. She is on Coumadin but given she has normal neuro exam and without ICH symptoms at this time will hold on CT given she is being brought in for further management. Labs unremarkable. CXR looks OK other than fracture. She has required massive doses of narcotics to control pain, though I see no evidence compartment syndrome at this time. Given amount of pain she is having and likelihood I suspect she will need rehab placement, I have consulted hospitalist for further management of patient. Head Trauma GCS Score: 15 Medication Reconcilliation Current Medication List: was personally reviewed by me Blood Pressure Screening Patient's blood pressure: Elevated blood pressure Blood pressure disposition: Elevated BP felt to be situational Consults Time Called: 2250 Consulting Physician: Dr. Guerrero - DUNG Returned Call: [phone] Discussed the patient's case. The patient will be evaluated for further treatment and disposition. Impression Primary Impression: Fracture of right humerus Scribe Attestation The scribe's documentation has been prepared under my direction and personally reviewed by me in its entirety. I confirm that the note above accurately reflects all work, treatment, procedures, and medical decision making performed by me. Departure Information Dispostion Being Evaluated By Hospitalist Referrals Julio Springer M.D. (PCP) Forms HOME CARE DOCUMENTATION FORM, IMPORTANT VISIT INFORMATION Patient Instructions My [facility]
[2017-12-30] MEDS ORDERED: FENTANYL CITRATE INJ 50 MCG/1 ML 2 ML VIAL IV STA (20:41)
[2017-12-30] MEDS ORDERED: SODIUM CHLORIDE 0.9% 1000ML 1,000 ML IV STA (20:42)
[2017-12-30 21:10] LABS: BASO % 0.2 %; BASO ABS # 0.02 K/uL (0-0.2); EOS % 1.7 %; EOS ABS # 0.15 K/uL (0-0.5); HEMATOCRIT 42.2 % (37-47); HEMOGLOBIN 14.7 g/dL (12.0-16.0); IG# 0.02 K/uL (0.00-0.02); LYMPH ABS # 1.39 K/uL (1.2-3.4); MEAN CELL VOLUME 87.7 fL (80-100); MEAN CORPUSCULAR HEMOGLOBIN 30.6 pg (25-34); MEAN CORPUSCULAR HGB CONC 34.8 g/dl (32-36); MEAN PLATELET VOLUME 9.1 fL (7.4-10.4); MONO % 5.6 %; MONO ABS # 0.49 K/uL (0.11-0.59); NEUT % 76.3 %; NEUT ABS # 6.63 K/uL (1.4-6.5); PLATELET COUNT 211 K/uL (130-400); RED CELL DISTRIBUTION WIDTH SD 45.1 fL (36.4-46.3)
[2017-12-30] MEDS ORDERED: CALCTAB7 PO (21:13)
[2017-12-30] MEDS ORDERED: WARF5TAB90 PO ×2 (21:13)
[2017-12-30 21:26] LABS: CALCIUM 8.6 mg/dl (8.5-10.1); CREATININE 0.91 mg/dl (0.60-1.20); POTASSIUM 3.9 mmol/L (3.5-5.1)
[2017-12-30] MEDS ORDERED: HYDROmorphone INJ 2 MG/ML SYR/VIAL IV STA (21:28)
--- NOTE | 2017-12-30 21:35 | DIAGNOSTIC IMAGING REPORT ---
CHEST ONE VIEW PORTABLE HISTORY: trip and fall COMPARISON: Chest 11/16/2017. FINDINGS: No pneumothorax. No pleural effusions. The heart remains enlarged. There is mild central pulmonary vascular congestion. No focal lung consolidations to suggest pneumonia. A few linear density at the left lung base favor subsegmental atelectasis. The patient is rotated on this study. There is an impacted right humeral neck fracture. IMPRESSION: 1. Impacted right humeral neck fracture. 2. Cardiomegaly and mild pulmonary vascular congestion. Electronically signed by: Nick Morgan M.D. 12/30/2017 9:34 PM Dictated Date/Time: 12/30/2017 9:31 PM
--- NOTE | 2017-12-30 21:38 | DIAGNOSTIC IMAGING REPORT ---
R HUMERUS MIN 2 VIEWS ROUTINE, R FOREARM 2 VIEWS ROUTINE CLINICAL HISTORY: trip fall right shoulder pain COMPARISON STUDY: None. FINDINGS: There is an impacted right humeral neck fracture. There is mild medial displacement of the humeral head in relation to the humeral shaft. No dislocation within the right shoulder. The distal humerus, radius, and ulna are intact. Mild soft tissue swelling within the forearm. The bones are osteopenic. IMPRESSION: 1. An impacted right humeral neck fracture. 2. No fractures within the right radius or ulna. Electronically signed by: Nick Morgan M.D. 12/30/2017 9:37 PM Dictated Date/Time: 12/30/2017 9:34 PM
[2017-12-30] MEDS ORDERED: ASTN NAE (21:46)
[2017-12-30] MEDS ORDERED: EPP3/2 IM (21:46)
[2017-12-30 22:01] LABS: INR 2.4 (0.9-1.1); PTT PATIENT 35.6 SECONDS (21.0-31.0)
[2017-12-30] MEDS ORDERED: ONDANSETRON INJ 2 MG/ML 2 ML VIAL IV PRN (22:15)
[2017-12-30] MEDS ORDERED: POLYETHYLENE (MIRALAX) 17 GM PACK PO PRN (23:00)
--- NOTE | 2017-12-30 23:23 | History and Physical ---
History & Physical Date & Time of Service: December 30, 2017 at 22:52 Chief Complaint: Fall/Rt. Arm Pain Primary Care Physician: Derrell Eden M.D. History of Present Illness Source: patient 82yo female presenting after mechanical fall. Patient states that around 19:00 today she tripped on a rug at home leading to a fall on her right shoulder. She denies head trauma/LOC, denies CP/palpitations/SOB/dizziness, denies urinary /fecal incontinence or evidence of seizure activity. Patient was brought to the ER. X-ray revealed an impacted right humeral neck fracture with no fractures within the right radius or ulna. Patient requiring large doses of pain medications, Fentanyl 100mcg and Dilaudid 2mg. She is still experiencing severe arm pain 4-5/10 when sitting still and 10/10 with any movement or touch. ER Course: Dilaudid 2mg IV, NSS x 1 L, Fentanyl 100mcg, Zofran Past Medical/Surgical History Medical Problems: 1. Idiopathic angioedema 2. HTN 3. DORA 4. Breast CA 5. Osteoarthritis 6. Hyperlipidemia 7. Aortic aneurysm Past Surgical: 1. Left breast lumpectomy 2. Left hip 3. Left knee Family History No pertinent family history Social History Smoking Status: Unknown if Ever Smoked Alcohol Use: occasionally Drug Use: none Marital Status: Housing status: lives alone Occupational Status: retired Immunizations History of Influenza Vaccine: Yes History of Tetanus Vaccine?: Unknown History of Pneumococcal: Yes History of Hepatitis B Vaccine: Unknown Allergies Coded Allergies: Aspirin (Verified Allergy, Severe, TONGUE AND THROAT SWELLS, 11/19/17) Tramadol (Verified Allergy, Severe, ANAPHYLAXIS, 11/19/17) Monosodium Glutamate (Verified Allergy, Mild, throat swell, 11/19/17) Aromatic Oils (Verified Allergy, Unknown, PERFUMES CAN'T BREATHE, 11/19/17) Erythromycin (Verified Allergy, Unknown, SWELLING THROAT AND RASH, 11/19/17) Tetracycline (Verified Allergy, Unknown, SWELLING AND RASH, 11/19/17) Cephalexin (Verified Adverse Reaction, Severe, VOMITING, 11/22/17) Omeprazole (Verified Adverse Reaction, Severe, G I UPSET, 11/22/17) Amoxicillin (Verified Adverse Reaction, Intermediate, VOMIT, 11/22/17) Clavulanic Acid (Verified Adverse Reaction, Intermediate, VOMIT, 11/22/17) Metoprolol (Verified Adverse Reaction, Intermediate, DISORIENTED, 11/22/17) Alendronate (Verified Adverse Reaction, Unknown, very upset stomach, ) Esomeprazole (Verified Adverse Reaction, Unknown, G I UPSET, 11/22/17) Nystatin (Verified Adverse Reaction, Unknown, GI UPSET, 11/22/17) Home Medications Scheduled Azelastine Hcl (Astelin Nasal [place]), 2 SPRAYS CASSIA DAILY Calcium Carbonate-Vitamin D W/ (Caltrate 600 Plus), 1 TAB PO DAILY Carboxymethylcellulose Sodium (Sterile Lubricant Drops), 1 DROP OPB PRN Cholecalciferol (Vitamin D3), 2 TAB PO QAM Diphenhydramine Hcl (Benadryl Allergy), 1 CAP PO HS Fluticasone Propionate (Nasal) (Flonase Allergy Relief), 1 SPRAY CASSIA DAILY Hydrochlorothiazide (Hctz), 12.5 MG PO QAM Loratadine (Claritin), 10 MG PO QAM Timolol Maleate (Ophth) (Timoptic 0.25% Oph), 1 DROP OPB QAM Verapamil Hcl (Calan Sr Ext Rel), 180 MG PO UD Warfarin Sodium (Coumadin), 5 MG PO 4XWK Warfarin Sodium (Coumadin), 7.5 MG PO MWF [Clotrimazole 1%], 1 DOSE TOP BID Scheduled PRN Acetaminophen/Codeine (Tylenol W/Codeine #3), 1 TAB PO Q6H PRN for N Ascorbic Acid (Vitamin C), 1 TAB PO QAM PRN for Epinephrine (Epipen), 0.3 MG IM UD PRN for ALLERGIC REACTION Guaifenesin Ext Rel (Mucinex Ext Rel), 600 MG PO Q12 PRN for prn Polyethylene Glycol 3350 (Miralax), 17 GM PO QPM PRN for PRN Psyllium (Metamucil), 1 DOSE PO QPM PRN for PRN Triamcinolone Acet (Triamcinolone Acetonide), 1 APPLN TOP BID PRN for prn Review of Systems Constitutional: No fever, No chills, No fatigue Eyes: No worsening of vision, No diplopia ENT: No hearing loss, No sore throat, No trouble swallowing Respiratory: No cough, No sputum, No wheezing, No shortness of breath, No dyspnea on exertion Cardiovascular: No chest pain, No orthopnea, No edema, No palpitations Abdomen: No pain, No nausea, No vomiting, No diarrhea, No constipation Musculoskeletal: + joint pain, No muscle pain Genitourinary - Female: No dysuria, No urinary frequency, No urinary urgency Neurologic: No weakness Hematologic / Lymphatic: No abnormal bleeding/bruising, No clotting problems Integumentary: No rash, No itch Physical Exam Vital Signs Date Time Temp Pulse Resp B/P (MAP) Pulse Ox O2 Delivery O2 Flow Rate FiO2 12/30/17 21:55 74 22 180/89 96 Nasal Cannula 2.0 12/30/17 20:33 36.5 78 24 171/113 94 Room Air General Appearance: WD/WN, + pertinent finding (mild distress secondary to pain ) Head: normocephalic, atraumatic Eyes: normal inspection, PERRL, EOMI, sclerae normal ENT: normal ENT inspection, pharynx normal Neck: supple, no adenopathy, thyroid normal, no JVD, no carotid bruits, trachea midline Respiratory/Chest: chest non-tender, lungs clear, normal breath sounds, no respiratory distress, no accessory muscle use Cardiovascular: no edema, no gallop, no JVD, no murmur, normal peripheral pulses, + irregularly irregular Abdomen/GI: normal bowel sounds, non tender, soft Extremities/Musculoskelatal: + pertinent finding (right arm in sling, extremity is warm, palpable pulses, sensation intact) Neurologic/Psych: alert, oriented x 3 Skin: normal color, warm/dry, no rash Diagnostics Laboratory Results Results Past 24 Hours Test 12/30/17 21:00 12/30/17 21:35 Range/Units White Blood Count 8.70 4.8-10.8 K/uL Red Blood Count 4.81 4.2-5.4 M/uL Hemoglobin 14.7 12.0-16.0 g/dL Hematocrit 42.2 37-47 % Mean Corpuscular Volume 87.7 80-100 fL Mean Corpuscular Hemoglobin 30.6 25-34 pg Mean Corpuscular Hemoglobin Concent 34.8 32-36 g/dl Platelet Count 211 130-400 K/uL Mean Platelet Volume 9.1 7.4-10.4 fL Neutrophils (%) (Auto) 76.3 % Lymphocytes (%) (Auto) 16.0 % Monocytes (%) (Auto) 5.6 % Eosinophils (%) (Auto) 1.7 % Basophils (%) (Auto) 0.2 % Neutrophils # (Auto) 6.63 1.4-6.5 K/uL Lymphocytes # (Auto) 1.39 1.2-3.4 K/uL Monocytes # (Auto) 0.49 0.11-0.59 K/uL Eosinophils # (Auto) 0.15 0-0.5 K/uL Basophils # (Auto) 0.02 0-0.2 K/uL RDW Standard Deviation 45.1 36.4-46.3 fL RDW Coefficient of Variation 14.0 11.5-14.5 % Immature Granulocyte % (Auto) 0.2 % Immature Granulocyte # (Auto) 0.02 0.00-0.02 K/uL Sodium Level 132 136-145 mmol/L Potassium Level 3.9 3.5-5.1 mmol/L Chloride Level 98 98-107 mmol/L Carbon Dioxide Level 26 21-32 mmol/L Anion Gap 8.0 3-11 mmol/L Blood Urea Nitrogen 15 7-18 mg/dl Creatinine 0.91 0.60-1.20 mg/dl Est Creatinine Clear Calc Drug Dose 57.3 ml/min Estimated GFR () 68.6 Estimated GFR (Non- 59.2 BUN/Creatinine Ratio 16.8 10-20 Random Glucose 130 70-99 mg/dl Calcium Level 8.6 8.5-10.1 mg/dl Prothrombin Time 25.2 9.0-12.0 SECONDS Prothromb Time International Ratio 2.4 0.9-1.1 Activated Partial Thromboplast Time 35.6 21.0-31.0 SECONDS Partial Thromboplastin Ratio 1.4 Diagnostic Radiology CHEST ONE VIEW PORTABLE HISTORY: trip and fall COMPARISON: Chest 11/16/2017. FINDINGS: No pneumothorax. No pleural effusions. The heart remains enlarged. There is mild central pulmonary vascular congestion. No focal lung consolidations to suggest pneumonia. A few linear density at the left lung base favor subsegmental atelectasis. The patient is rotated on this study. There is an impacted right humeral neck fracture. IMPRESSION: 1. Impacted right humeral neck fracture. 2. Cardiomegaly and mild pulmonary vascular congestion. ################################################################################ ############# R HUMERUS MIN 2 VIEWS ROUTINE, R FOREARM 2 VIEWS ROUTINE CLINICAL HISTORY: trip fall right shoulder pain COMPARISON STUDY: None. FINDINGS: There is an impacted right humeral neck fracture. There is mild medial displacement of the humeral head in relation to the humeral shaft. No dislocation within the right shoulder. The distal humerus, radius, and ulna are intact. Mild soft tissue swelling within the forearm. The bones are osteopenic. IMPRESSION: 1. An impacted right humeral neck fracture. 2. No fractures within the right radius or ulna. ################################################################################ #### R HUMERUS MIN 2 VIEWS ROUTINE, R FOREARM 2 VIEWS ROUTINE CLINICAL HISTORY: trip fall right shoulder pain COMPARISON STUDY: None. FINDINGS: There is an impacted right humeral neck fracture. There is mild medial displacement of the humeral head in relation to the humeral shaft. No dislocation within the right shoulder. The distal humerus, radius, and ulna are intact. Mild soft tissue swelling within the forearm. The bones are osteopenic. IMPRESSION: 1. An impacted right humeral neck fracture. 2. No fractures within the right radius or ulna. EKG ordered Impression Assessment and Plan 82yo C female s/p mechanical fall with resultant right impacted humerus fracture. Patient requiring large doses of pain medication for comfort. 1. Humerus fracture - neurovascularly intact, pain not well controlled at present -Admit to general medical floor -Pain management with Morphine 1mg IV q 2 hours as needed, will adjust as necessary -Zofran PRN nausea -Colace and Miralax PRN -Arm to be immobilized in sling -Orthopedic consultation in AM 2. HTN - patient presently hypertensive, most likely secondary to pain from acute fracture. She reports adequate blood pressure control at home with HCTZ 12.5mg po daily -Resume HCTZ daily -Pain control as above 3. ODRA - stable respiratory status at present -Home BiPAP 4. Atrial fibrillation - rate controlled, patient taking Coumadin -INR pending -Resume home dosage Coumadin -INR daily 5. F/E/N - heplock. Na slightly low at 132, continue to monitor. Regular diet as tolerated 6. Ppx - patient on full dose anticoagulation with Coumadin for history of AF, continue 7. Code - Full per discussion with patient 8. Dispo - Observation to medical floor, IV pain medications and Ortho consult in AM Resuscitation Status VTE Prophylaxis Will order VTE Prophylaxis: Yes
[2017-12-30 23:30] VITALS: BP 166/95; TEMP 36.4; O2SAT 92
[2017-12-30] MEDS ORDERED: IV FLUIDS COMPLETED PRN (23:30)
[2017-12-31 00:38] VITALS: Ht 167.6 cm; Wt 98.4 kg
[2017-12-31] MEDS: MoRPHine SULFATE 4 MG/ML 1 ML CARP\\VIAL IV PRN ×8 (01:05→22:29)
[2017-12-31] MEDS ORDERED: COUGH DROP (SUGAR FREE) LOZ 24 LOZ/1 BOX LOZ PRN (01:15)
[2017-12-31] MEDS ORDERED: COUGH DROP (SUGAR FREE) LOZ 24 LOZ/1 BOX LOZ ONE (01:15)
[2017-12-31 03:45] VITALS: BP 104/71; PULSE 78; TEMP 36.4; O2SAT 96
[2017-12-31 05:46] LABS: INR 2.2 (0.9-1.1)
[2017-12-31 07:05] VITALS: BP 149/81; PULSE 61; TEMP 36.5; O2SAT 94
[2017-12-31] MEDS: LORATADINE 10 MG TAB PO SCH (09:06)
[2017-12-31] MEDS: HYDROCHLOROTHIAZIDE 25 MG TAB PO SCH (09:06)
[2017-12-31] MEDS: DOCUSATE SODIUM 100 MG CAP PO SCH ×2 (09:06→21:00)
[2017-12-31] MEDS: CHOLECALCIFEROL 1000 INTER.UNIT TAB PO SCH (09:07)
[2017-12-31] MEDS: CALCIUM 600MG + VIT D 400 IU TAB PO SCH (09:07)
[2017-12-31] MEDS: TIMOLOL MALEATE 0.25% OP SOLN 5 ML BTL OPB SCH (09:52)
--- NOTE | 2017-12-31 11:53 | CONSULTATION REPORT ---
DATE OF CONSULTATION: 12/31/2017 REASON FOR CONSULTATION: Impacted right humeral neck fracture. HISTORY OF PRESENT ILLNESS: This is a pleasant 82-year-old female that was referred to orthopedics secondary to a mechanical fall that occurred on 12/30/2017 where she tripped on a rug at home, landing directly on her right shoulder. She was transported to the Emergency Room via ambulance. X-rays were performed showing an impacted right humeral neck fracture. No other fractures were noted to her right upper extremity. The patient denied any head trauma, loss of consciousness, or pain other than her right shoulder. She was admitted through the Emergency Room to the medicine service and referred to orthopedic for consultation. The patient states that at rest her pain is controlled with medication, her right shoulder hurts when she tries to move. She denies any neck pain. She denies any right elbow pain, forearm, wrist, or finger pain. She denies any numbness, tingling, or radiation to her right upper extremity. PAST MEDICAL HISTORY: Idiopathic angioedema, hypertension, breast cancer, osteoarthritis, DORA, hyperlipidemia, aortic aneurysm. PAST SURGICAL HISTORY: Left breast lumpectomy, left total hip replacement, right total hip replacement, left knee replacement (replacements performed by Dr. Ibarra). FAMILY HISTORY: Noncontributory. SOCIAL HISTORY: The patient lives alone. She does have a daughter in the area. She is . She occasionally drinks. She denies use of recreational drugs. Currently not a smoker. REVIEW OF SYSTEMS: Denies fevers, chills, sweats, signs or symptoms of infection. Denies chest pain, shortness of breath, lightheadedness, dizziness, chest pain. Denies numbness, tingling, radiation, neck pain. Denies urinary or fecal incontinence or evidence of seizure activity. Otherwise, review of systems negative except right shoulder pain. ALLERGIES: ASPIRIN, TRAMADOL, MONOSODIUM GLUTAMATE, AROMATIC OILS, ERYTHROMYCIN, TETRACYCLINE, CEPHALEXIN, OMEPRAZOLE, AMOXICILLIN, CLAVULANIC ACID, METOPROLOL, ALENDRONATE, ESOMEPRAZOLE, NYSTATIN. HOME MEDICATIONS: Astelin nasal spray, Caltrate 600, carboxymethylcellulose sodium sterile lubricant drops for her eyes, vitamin D3, Benadryl Allergy, Flonase, hydrochlorothiazide, Claritin, Timoptic ophthalmic eyedrops, verapamil HCl, Coumadin, clotrimazole topical cream. P.r.n. meds include Tylenol with codeine, vitamin C, EpiPen, Mucinex, MiraLax, Metamucil, triamcinolone acetonide. PHYSICAL EXAMINATION: GENERAL: The patient is an 82-year-old female, alert and oriented x3. Normal mood and affect. Initially at the beginning of consultation, she was in mild distress as she needed assistance onto the bedside commode due to right shoulder pain, however, after which she was resting comfortably in bed. HEENT: Normocephalic, nontraumatic. NECK: Able to rotate neck without pain. Negative Spurling's. SKIN: Right upper extremity skin intact. No open sores, bruises, or abrasions. MUSCULOSKELETAL: Focussed right upper extremity exam reveals her right arm is in a sling. Difficult to examine her right shoulder due to the amount of pain. She was neurovascularly intact to the right upper extremity with intact motor and sensation. Elbow motion was functional, limited in extension due to inability to remove the sling due to pain, able to flex her elbow to her chin, able to make a full beverage inspection machine tender to her right hand. Strength testing again was limited due to pain. She had palpable radial pulse, good capillary refill. Sensation intact to light touch. Mild swelling noted to her right hand. DIAGNOSTIC TESTING: X-rays of the patient's right proximal humerus reveal an impacted right humeral neck fracture, nondisplaced. X-rays of the forearm also showed no fracture. ASSESSMENT: Right proximal humeral neck fracture, impacted, nondisplaced. PLAN: We will order an overhead trapeze while she is in-house. We will obtain 2 view right proximal humerus xrays, as she only has a humerus x-ray. We recommended RICE treatment, rest, ice, immobilization with a sling, elevate. She can remove sling at rest and do gentle elbow, wrist, finger motion. She was educated on proper donnning and doffing of sling. No lifting or weightbearing to right upper extremity. She should follow-up with our office in 1-2 weeks [facility] [phone]. She was appreciative of the consultation. I, Dr. Acevedo, saw and examined the patient and discussed the management with my PA. I reviewed my PAs note and agree with the documented findings and the plan of care I developed. YVROSE
--- NOTE | 2017-12-31 13:51 | DIAGNOSTIC IMAGING REPORT ---
R SHOULDER MIN 2 VIEWS ROUTINE CLINICAL HISTORY: right proximal humeral neck fracture COMPARISON: 12/30/2017 DISCUSSION: 2 views are provided for interpretation. The impacted humeral neck fracture remains unchanged in alignment. There is no dislocation. IMPRESSION: No change in the orientation of the age-indeterminate impacted humeral neck fracture with secondary arthritic change Electronically signed by: Claude Dean M.D. 12/31/2017 1:49 PM Dictated Date/Time: 12/31/2017 1:47 PM
[2017-12-31] MEDS ORDERED: ACETAMINOPHEN 500 MG TAB PO PRN (14:00)
--- NOTE | 2017-12-31 14:01 | Hospitalist Progress Note ---
Hospitalist Progress Note Date of Service December 31, 2017. Subjective Pt evaluation today including: conversation w/ patient, physical exam, chart review, lab review, review of studies, review of inpatient medication list Patient seen and evaluated. No acute events overnight. States she was having a lot of pain this AM and was grouchy and wanted to apologize to the therapists that saw her this morning. Did encourage her to participate in PT/OT as much as she can and she agreed. She said she is just upset as she was just recovering from her knee and then this happened. Wants a referral to [facility] as conservative measures is the plan. Constitutional: No fever, No chills Respiratory: No cough, No shortness of breath Cardiovascular: No chest pain Abdomen: + nausea (when she had pain but is resolved now), No pain, No vomiting, No diarrhea, No constipation Musculoskeletal: + joint pain (R shoulder), + swelling (chronic b/l lower extremity) Female : No dysuria Heme: No abnormal bleeding/bruising Skin: No rash Medications Current Inpatient Medications Medications (Trade) Dose Ordered Sig/Foster Route Start Time Stop Time Status Last Admin Dose Admin Polyethylene (Miralax Powder Packet) 17 gm DAILY PRN PO 12/30/17 23:00 01/29/18 22:59 Ondansetron HCl (Zofran Inj) 4 mg Q6H PRN IV 12/30/17 22:15 01/29/18 22:14 Docusate Sodium (coLACE CAP) 100 mg BID PO 12/31/17 09:00 01/30/18 08:59 12/31/17 09:06 100 MG Calcium/Vitamin D (Caltrate Plus Tab) 1 tab DAILY PO 12/31/17 09:00 01/30/18 08:59 12/31/17 09:07 1 TAB Cholecalciferol (Vitamin D Tab) 1,000 inter.unit QAM PO 12/31/17 09:00 01/30/18 08:59 12/31/17 09:07 1,000 INTER.UNIT Hydrochlorothiazide (Hydrochlorothiazide Tab) 12.5 mg QAM PO 12/31/17 09:00 01/30/18 08:59 12/31/17 09:06 12.5 MG Timolol Maleate (Timoptic 0.25% Oph Soln) 1 drops QAM OPB 12/31/17 09:00 01/30/18 08:59 12/31/17 09:52 1 DROPS Warfarin Sodium (Coumadin Tab) 5 mg SuTuThSa@1600 PO 01/01/18 16:00 01/31/18 15:59 Warfarin Sodium (Coumadin Tab) 7.5 mg MoWeFr@1600 PO 12/31/17 16:00 01/30/18 15:59 Loratadine (Claritin Tab) 10 mg QAM PO 12/31/17 09:00 01/30/18 08:59 12/31/17 09:06 10 MG Morphine Sulfate (MoRPHine SULFATE INJ) 1 mg Q2HWA PRN IV 12/30/17 22:15 01/13/18 22:14 12/31/17 13:15 1 MG Miscellaneous (Iv Fluids Completed) 1 ea PRN PRN N/A 12/30/17 23:30 12/30/18 23:29 Menthol (Nice Vivian) 1 vivian PRN PRN VIVIAN 12/31/17 01:15 01/30/18 01:14 Objective Vital Signs Date Time Temp Pulse Resp B/P (MAP) Pulse Ox O2 Delivery O2 Flow Rate FiO2 12/31/17 07:55 Room Air 12/31/17 07:05 36.5 61 18 149/81 (103) 94 Room Air 12/31/17 03:45 36.4 78 16 104/71 (82) 96 CPAP 12/31/17 00:38 Room Air 12/30/17 23:30 36.4 18 166/95 (118) 92 Room Air 12/30/17 23:30 BiPAP 12/30/17 23:09 72 20 159/90 95 Room Air 12/30/17 21:55 74 22 180/89 96 Nasal Cannula 2.0 12/30/17 20:33 36.5 78 24 171/113 94 Room Air Physical Exam General Appearance: WD/WN, no apparent distress Eyes: sclerae normal ENT: hearing grossly normal Neck: supple, no JVD, trachea midline Respiratory/Chest: lungs clear, normal breath sounds, no respiratory distress, no accessory muscle use Cardiovascular: regular rate, rhythm, no gallop, no murmur Abdomen: normal bowel sounds, non tender, soft Extremities: + swelling (b/l nonpitting of lower extremities - chronic), + pertinent finding (R arm in cling; movement to fingers, good cap refill) Neurologic/Psychiatric: alert, oriented x 3 Skin: normal color, warm/dry Laboratory Results Last 24 Hours Test 12/30/17 21:00 12/30/17 21:35 12/31/17 05:13 White Blood Count 8.70 K/uL Red Blood Count 4.81 M/uL Hemoglobin 14.7 g/dL Hematocrit 42.2 % Mean Corpuscular Volume 87.7 fL Mean Corpuscular Hemoglobin 30.6 pg Mean Corpuscular Hemoglobin Concent 34.8 g/dl Platelet Count 211 K/uL Mean Platelet Volume 9.1 fL Neutrophils (%) (Auto) 76.3 % Lymphocytes (%) (Auto) 16.0 % Monocytes (%) (Auto) 5.6 % Eosinophils (%) (Auto) 1.7 % Basophils (%) (Auto) 0.2 % Neutrophils # (Auto) 6.63 K/uL Lymphocytes # (Auto) 1.39 K/uL Monocytes # (Auto) 0.49 K/uL Eosinophils # (Auto) 0.15 K/uL Basophils # (Auto) 0.02 K/uL RDW Standard Deviation 45.1 fL RDW Coefficient of Variation 14.0 % Immature Granulocyte % (Auto) 0.2 % Immature Granulocyte # (Auto) 0.02 K/uL Sodium Level 132 mmol/L Potassium Level 3.9 mmol/L Chloride Level 98 mmol/L Carbon Dioxide Level 26 mmol/L Anion Gap 8.0 mmol/L Blood Urea Nitrogen 15 mg/dl Creatinine 0.91 mg/dl Est Creatinine Clear Calc Drug Dose 57.3 ml/min Estimated GFR () 68.6 Estimated GFR (Non- 59.2 BUN/Creatinine Ratio 16.8 Random Glucose 130 mg/dl Calcium Level 8.6 mg/dl Magnesium Level 2.1 mg/dl Prothrombin Time 25.2 SECONDS 22.6 SECONDS Prothromb Time International Ratio 2.4 2.2 Activated Partial Thromboplast Time 35.6 SECONDS Partial Thromboplastin Ratio 1.4 Assessment and Plan 82yo C female s/p mechanical fall with resultant right impacted humerus fracture. Patient requiring large doses of pain medication for comfort. R Humerus Fx: - Pain control is improving - will need to find good oral coverage - Will add Tylenol 1000 mg TID PRN and Oxycodone 5 mg Q4H PRN with Morphine IV PRN for breakthrough - Continue Sling but may remove when resting to allow for ROM exercises - Ortho following - plan on outpatient F/U - conservative measures at this time -- F/U outpatient in 1-[address] Acevedo HTN: Better Controlled: - HCTZ 12.5 mg daily DORA on BiPAP: May use own machine Persistent Atrial Fibrillation: Rate Controlled: - Warfarin daily - INR 2.2 and will trend - No rate control medication however has been controlled DVT Prophylaxis: Coumadin Code Status: FULL RESUSCITATION Disposition: Needs 3 midnight stay - tonight will be first midnight - Referral to [facility] Continued [facility] stay due to: inadequate oral pain control Discharge planning: halfway facility
[2017-12-31] MEDS ORDERED: LIDODERM (LIDOCAINE) PATCH 5% TD ONE (14:10)
[2017-12-31 15:10] VITALS: BP 108/68; PULSE 79; TEMP 37; O2SAT 95
[2017-12-31] MEDS: WARFARIN SOD 7.5 MG TAB PO SCH (16:07)
[2017-12-31] MEDS ORDERED: DiphenhydrAMINE INJ 25 MG in SYRINGE 0 ML IV SCH (21:00)
[2017-12-31] MEDS: DiphenhydrAMINE HCL 50 MG/ML VIAL IV SCH (21:00)
[2017-12-31 23:09] VITALS: BP 134/81; PULSE 85; TEMP 36.9; O2SAT 94
[2017-12-31] MEDS: OXYCODONE HCL IR 5 MG TAB (IMMEDIATE RELEASE) PO PRN (23:46)
[2018-01-01] MEDS: MoRPHine SULFATE 4 MG/ML 1 ML CARP\\VIAL IV PRN (03:12)
[2018-01-01] MEDS: OXYCODONE HCL IR 5 MG TAB (IMMEDIATE RELEASE) PO PRN ×5 (04:27→21:15)
[2018-01-01 06:09] LABS: HEMATOCRIT 36.4 % (37-47); HEMOGLOBIN 12.7 g/dL (12.0-16.0); MEAN CELL VOLUME 87.3 fL (80-100); MEAN CORPUSCULAR HEMOGLOBIN 30.5 pg (25-34); MEAN CORPUSCULAR HGB CONC 34.9 g/dl (32-36); MEAN PLATELET VOLUME 8.8 fL (7.4-10.4); PLATELET COUNT 176 K/uL (130-400); RED CELL DISTRIBUTION WIDTH CV 14.2 % (11.5-14.5); RED CELL DISTRIBUTION WIDTH SD 45.5 fL (36.4-46.3); WHITE BLOOD COUNT 7.39 K/uL (4.8-10.8)
[2018-01-01 06:34] LABS: CALCIUM 8.3 mg/dl (8.5-10.1); CREATININE 0.86 mg/dl (0.60-1.20); POTASSIUM 3.3 mmol/L (3.5-5.1)
[2018-01-01 07:12] VITALS: BP 134/87; PULSE 88; TEMP 36.8; O2SAT 95
--- NOTE | 2018-01-01 07:18 | Clinical Documentation Query ---
CLINICAL DOCUMENTATION QUERY Dr. CLARKE, In your clinical opinion is this patient being managed for: ( x ) Osteoporosis related fracture, R humerus ( ) Not Agree ( ) Other explanation of clinical findings (No explanation is considered a No Response) ( ) Unable to determine ( ) Need to Discuss (Phone CDS or qliq) (No discussion is considered a No Response) The medical record reflects the following clinical findings, treatment, and risk factors. Clinical Indicators: 82 yo female with ground level fall and subsequent R humerus fracture. Humerus xray indicates the bones are osteopenic. Treatment:chronic home meds include caltrate and vitamin D3, ortho consult, RICE treatment, pain control, sling Risk Factors: postmenopausal female Please clarify and document your clinical opinion in the progress notes and discharge summary. Terms such as "probable", "suspected", "likely", "questionable", "possible", or "still to be ruled out" are acceptable. IF IN AGREEMENT, YOU MUST DOCUMENT ABOVE DIAGNOSTIC STATEMENT IN DAILY PROGRESS NOTES AND DISCHARGE SUMMARY. This document is not part of the patient's record. Thank You, Shirley Cuba, RN [phone]
[2018-01-01] MEDS: CALCIUM 600MG + VIT D 400 IU TAB PO SCH (08:35)
[2018-01-01] MEDS: DOCUSATE SODIUM 100 MG CAP PO SCH ×2 (08:35→21:16)
[2018-01-01] MEDS: LORATADINE 10 MG TAB PO SCH (08:35)
[2018-01-01] MEDS: HYDROCHLOROTHIAZIDE 25 MG TAB PO SCH (08:35)
[2018-01-01] MEDS: CHOLECALCIFEROL 1000 INTER.UNIT TAB PO SCH (08:36)
[2018-01-01] MEDS: LIDODERM (LIDOCAINE) PATCH 5% TD SCH (08:36)
[2018-01-01] MEDS: TIMOLOL MALEATE 0.25% OP SOLN 5 ML BTL OPB SCH (08:36)
--- NOTE | 2018-01-01 09:01 | Orthopedic Progress Note ---
Orthopedic Progress Note Date of Service January 01, 2018. Subjective Post OP Day: HD #2 Additional Notes: feeling better. Objective N/V intact, A&O x3 Date Time Temp Pulse Resp B/P (MAP) Pulse Ox O2 Delivery O2 Flow Rate FiO2 01/01/18 07:12 36.8 88 16 134/87 (103) 95 Room Air 12/31/17 23:55 Room Air 12/31/17 23:09 36.9 85 19 134/81 (98) 94 CPAP 12/31/17 15:40 Room Air 12/31/17 15:10 37.0 79 18 108/68 (81) 95 Room Air Laboratory Results 24 Hours: Test 01/01/18 05:57 Hematocrit 36.4 % Hemoglobin 12.7 g/dL Additional Notes: R SHOULDER MIN 2 VIEWS ROUTINE CLINICAL HISTORY: right proximal humeral neck fracture COMPARISON: 12/30/2017 DISCUSSION: 2 views are provided for interpretation. The impacted humeral neck fracture remains unchanged in alignment. There is no dislocation. IMPRESSION: No change in the orientation of the age-indeterminate impacted humeral neck fracture with secondary arthritic change Assessment & Plan Assessment: HD #2, Right proximal humerus fracture, non-displaced. Plan: Continue with sling, ice. PT/OT: only work on ROM elbow to hand RUE. WBAT BLE. Continue pain control. Continue care per primary service. Please recall if any orthopaedic issues. F/U at [facility] in 1 -2 weeks. Call [phone] for appt.
[2018-01-01] MEDS: POTASSIUM CHLORIDE 20 MEQ TABCR PO SCH ×2 (09:28→21:23)
--- NOTE | 2018-01-01 09:29 | Orthopedic Progress Note ---
Orthopedic Progress Note Date of Service January 01, 2018. Subjective Post OP Day: Reports: feeling well, complaints (Right shoulder pain with motion), Denies: chest pain, SOB, nausea / vomiting, light headedness, calf pain Additional Notes: Has sling on. Nurse in room. Objective calves soft nontender, N/V intact, A&O x3, toes mobile, CMS intact Intact motion to R wrist and elbow. c/o R shoulder pain with minimal motion. Bilat knee exam is benign. Minor pain over her R medial tibia consistent with last week's exam. Bilat hip exam is also benign. Supple motion without pain. No suggestion of fracture or dislocation. Date Time Temp Pulse Resp B/P (MAP) Pulse Ox O2 Delivery O2 Flow Rate FiO2 01/01/18 07:12 36.8 88 16 134/87 (103) 95 Room Air 12/31/17 23:55 Room Air 12/31/17 23:09 36.9 85 19 134/81 (98) 94 CPAP 12/31/17 15:40 Room Air 12/31/17 15:10 37.0 79 18 108/68 (81) 95 Room Air Laboratory Results 24 Hours: Test 01/01/18 05:57 Hematocrit 36.4 % Hemoglobin 12.7 g/dL Assessment & Plan Assessment: HD #3, Right proximal humerus fracture, non-displaced. Plan: Continue with sling, ice. Sling re-adjusted. PT/OT: only work on ROM elbow to hand RUE. WBAT BLE. Continue pain control. Continue care per primary service. Please recall if any orthopaedic issues. F/U at [facility] in 1 -2 weeks. Discharge Planning Discharge Planning: uncertain Pain Management: Percocet DVT Prophylaxis: Ernestina
[2018-01-01] MEDS ORDERED: POLYETHYLENE (MIRALAX) 17 GM PACK PO PRN (12:30)
--- NOTE | 2018-01-01 14:28 | Hospitalist Progress Note ---
Hospitalist Progress Note Date of Service January 01, 2018. Subjective Pt evaluation today including: conversation w/ patient, physical exam, chart review, lab review, review of inpatient medication list Patient seen and evaluated. No acute events overnight. Having some difficulty controlling pain. She is very frustrated with her current situation. Feels she is making progress but also feels that she isn't able to do enough. Very emotional and feels that she needs to continue to push hard because she knows at her age if she doesn't its a step closer to . However she is having limitations due to pain. She is easily irritable and feels belittled because she knows what she needs to do but is struggling. Had a long conversation with patient as she is having a lot of different emotions at this time. Tried to discuss the need to push past the comfort zone but to also take it easy and to find a good balance of this. Patient is tearful during exam and gets easily confrontational but expresses that she feels that this is being done to her as well. At this point, hopefully with improved pain management she will be more comfortable and able to participate more in treatment. Did make adjustments to pain medications and will need to watch for oversedation. Also concerned as she hasn't had a bowel movement since Sunday. Will add Senna Additional Comments: ROS limited due to easily agitated with questions. Reports neck discomfort from the sling and R arm pain with intermittent numbness into fingers Medications Current Inpatient Medications Medications (Trade) Dose Ordered Sig/Foster Route Start Time Stop Time Status Last Admin Dose Admin Polyethylene (Miralax Powder Packet) 17 gm DAILY PRN PO 12/30/17 23:00 01/29/18 22:59 Ondansetron HCl (Zofran Inj) 4 mg Q6H PRN IV 12/30/17 22:15 01/29/18 22:14 Docusate Sodium (coLACE CAP) 100 mg BID PO 12/31/17 09:00 01/30/18 08:59 01/01/18 08:35 100 MG Calcium/Vitamin D (Caltrate Plus Tab) 1 tab DAILY PO 12/31/17 09:00 01/30/18 08:59 01/01/18 08:35 1 TAB Cholecalciferol (Vitamin D Tab) 1,000 inter.unit QAM PO 12/31/17 09:00 01/30/18 08:59 01/01/18 08:36 1,000 INTER.UNIT Hydrochlorothiazide (Hydrochlorothiazide Tab) 12.5 mg QAM PO 12/31/17 09:00 01/30/18 08:59 01/01/18 08:35 12.5 MG Timolol Maleate (Timoptic 0.25% Oph Soln) 1 drops QAM OPB 12/31/17 09:00 01/30/18 08:59 01/01/18 08:36 1 DROPS Warfarin Sodium (Coumadin Tab) 5 mg SuTuThSa@1600 PO 01/01/18 16:00 01/31/18 15:59 Warfarin Sodium (Coumadin Tab) 7.5 mg MoWeFr@1600 PO 12/31/17 16:00 01/30/18 15:59 12/31/17 16:07 7.5 MG Loratadine (Claritin Tab) 10 mg QAM PO 12/31/17 09:00 01/30/18 08:59 01/01/18 08:35 10 MG Morphine Sulfate (MoRPHine SULFATE INJ) 1 mg Q2HWA PRN IV 12/30/17 22:15 01/13/18 22:14 01/01/18 03:12 1 MG Miscellaneous (Iv Fluids Completed) 1 ea PRN PRN N/A 12/30/17 23:30 12/30/18 23:29 Menthol (Nice Vivian) 1 vivian PRN PRN VIVIAN 12/31/17 01:15 01/30/18 01:14 Acetaminophen (Tylenol Tab) 1,000 mg Q8 PRN PO 12/31/17 14:00 01/30/18 13:59 Lidocaine (Lidoderm Patch 5%) 1 patch QAM TD 01/01/18 09:00 01/31/18 08:59 01/01/18 08:36 1 PATCH Miscellaneous (Remove Lidoderm Patch) 1 ea DAILY@21 N/A 12/31/17 21:00 01/30/18 20:59 12/31/17 21:00 1 EA Diphenhydramine HCl (Benadryl Inj) 25 mg HS IV 12/31/17 21:00 01/30/18 20:59 Potassium Chloride (Klor-Con Tab) 20 meq BID PO 01/01/18 09:00 01/31/18 08:59 01/01/18 09:28 20 MEQ Oxycodone HCl (Roxicodone Immediate Rel Tab) one tablet for pain 1-5 ... Q4H PRN PO 01/01/18 12:45 01/14/18 13:59 01/01/18 12:45 5 MG Senna (Senokot Tab) 17.2 mg QAM PO 01/02/18 09:00 02/01/18 08:59 Objective Vital Signs Date Time Temp Pulse Resp B/P (MAP) Pulse Ox O2 Delivery O2 Flow Rate FiO2 01/01/18 07:45 Room Air 01/01/18 07:12 36.8 88 16 134/87 (103) 95 Room Air 12/31/17 23:55 Room Air 12/31/17 23:09 36.9 85 19 134/81 (98) 94 CPAP 12/31/17 15:40 Room Air 12/31/17 15:10 37.0 79 18 108/68 (81) 95 Room Air Physical Exam General Appearance: + mild distress (emotional distress) Eyes: sclerae normal ENT: hearing grossly normal Neurologic/Psychiatric: alert Skin: normal color, warm/dry Notes: Limited physical examination as patient was having a lot of pain and did not want her arm manipulated. Due to agitation was not able to do much of a hands on examination Laboratory Results Last 24 Hours Test 01/01/18 05:57 White Blood Count 7.39 K/uL Red Blood Count 4.17 M/uL Hemoglobin 12.7 g/dL Hematocrit 36.4 % Mean Corpuscular Volume 87.3 fL Mean Corpuscular Hemoglobin 30.5 pg Mean Corpuscular Hemoglobin Concent 34.9 g/dl RDW Standard Deviation 45.5 fL RDW Coefficient of Variation 14.2 % Platelet Count 176 K/uL Mean Platelet Volume 8.8 fL Sodium Level 132 mmol/L Potassium Level 3.3 mmol/L Chloride Level 95 mmol/L Carbon Dioxide Level 31 mmol/L Anion Gap 6.0 mmol/L Blood Urea Nitrogen 12 mg/dl Creatinine 0.86 mg/dl Est Creatinine Clear Calc Drug Dose 60.7 ml/min Estimated GFR () 73.4 Estimated GFR (Non- 63.4 BUN/Creatinine Ratio 14.4 Random Glucose 115 mg/dl Calcium Level 8.3 mg/dl Assessment and Plan 82yo C female s/p mechanical fall with resultant right impacted humerus fracture. Patient requiring large doses of pain medication for comfort. R Humerus Fx: - Pain control is not doing well today - did make some adjustments to medications - Will add Tylenol 1000 mg TID PRN and Oxycodone 5-10 mg Q4H PRN with Morphine IV PRN for breakthrough; Ice/Heat; Lidoderm - Continue Sling but may remove when resting to allow for ROM exercises - Bowel regimen with Miralax PRN and Senna - Ortho following - plan on outpatient F/U - conservative measures at this time -- F/U outpatient in 1-[address] Acevedo HTN: Better Controlled: - HCTZ 12.5 mg daily DORA on BiPAP: May use own machine Persistent Atrial Fibrillation: Rate Controlled: - Warfarin daily - INR 2.2 and will trend - No rate control medication however has been controlled DVT Prophylaxis: Coumadin Code Status: FULL RESUSCITATION Disposition: Needs 3 midnight stay - Referral to [facility] - PT/OT evaluations - hopefully with improved pain control cooperation will be better Continued [facility] stay due to: inadequate oral pain control Discharge planning: group home facility
[2018-01-01 15:59] VITALS: BP 140/88; PULSE 85; TEMP 36.8; O2SAT 95
[2018-01-01] MEDS: WARFARIN SOD 5 MG TAB PO SCH (17:23)
[2018-01-01] MEDS: DiphenhydrAMINE HCL 50 MG/ML VIAL IV SCH (21:16)
[2018-01-01 22:48] VITALS: BP 103/70; PULSE 88; TEMP 37; O2SAT 96
[2018-01-02] MEDS: OXYCODONE HCL IR 5 MG TAB (IMMEDIATE RELEASE) PO PRN (05:06)
[2018-01-02 06:04] LABS: HEMATOCRIT 37.1 % (37-47); HEMOGLOBIN 12.6 g/dL (12.0-16.0); MEAN CELL VOLUME 88.3 fL (80-100); MEAN PLATELET VOLUME 9.1 fL (7.4-10.4); PLATELET COUNT 197 K/uL (130-400); RED CELL DISTRIBUTION WIDTH CV 14.3 % (11.5-14.5); RED CELL DISTRIBUTION WIDTH SD 46.3 fL (36.4-46.3); WHITE BLOOD COUNT 9.23 K/uL (4.8-10.8)
[2018-01-02 06:34] LABS: CALCIUM 8.4 mg/dl (8.5-10.1); CREATININE 0.88 mg/dl (0.60-1.20); POTASSIUM 3.3 mmol/L (3.5-5.1)
[2018-01-02 07:58] VITALS: BP 118/80; PULSE 75; TEMP 37.2; O2SAT 93
[2018-01-02] MEDS ORDERED: POTASSIUM CHLORIDE 20 MEQ TABCR PO STA (08:19)
--- NOTE | 2018-01-02 08:51 | Orthopedic Progress Note ---
Orthopedic Progress Note Date of Service January 02, 2018. Subjective Reports: complaints (Right arm numbness, lower neck pain, fatigue), Denies: chest pain, SOB, nausea / vomiting, light headedness, calf pain Objective calves soft nontender, N/V intact, capillary refill less than 2 sec., A&O x3, CMS intact No pain at cervical spine with palpation. Full motion of cervical spine. Pain with palpation of the trapezius and rhomboid on the Right. No pain on the left. Intact motor function to the fingers, thumb, wrist, elbow. Any attempt at shoulder motion causes shoulder pain. She is able to flex and extend her wrist and elbow, and supinate/pronate without pain. Able to extend thumb, make a fist , and cross her fingers. Sensation is intact across all dermatomes by light touch. Date Time Temp Pulse Resp B/P (MAP) Pulse Ox O2 Delivery O2 Flow Rate FiO2 01/02/18 07:58 37.2 75 16 118/80 (93) 93 Room Air 01/01/18 23:36 Room Air 01/01/18 22:48 37.0 88 16 103/70 (81) 96 Room Air 01/01/18 16:00 Room Air 01/01/18 15:59 36.8 85 20 140/88 (105) 95 Room Air Laboratory Results 24 Hours: Test 01/02/18 05:21 Hematocrit 37.1 % Hemoglobin 12.6 g/dL Assessment & Plan Assessment: HD #4, Right proximal humerus fracture, non-displaced. Right posterior shoulder pain Plan: Continue with sling, ice. Sling removed for breakfast. PT/OT: only work on ROM elbow to hand RUE. Bed to chair Continue pain control. Continue care per primary service. Please recall if any orthopaedic issues. F/U at [facility] in 1 -2 weeks. Cervical spine xray ordered due to fall. Posterior shoulder symptoms likely related to fall Discharge Planning Discharge Planning: uncertain Pain Management: Percocet DVT Prophylaxis: TEDs
[2018-01-02] MEDS: POTASSIUM CHLORIDE 20 MEQ TABCR PO SCH ×2 (09:00→20:46)
[2018-01-02] MEDS: DOCUSATE SODIUM 100 MG CAP PO SCH ×2 (09:12→20:46)
[2018-01-02] MEDS: SENNA 8.6 MG TAB PO SCH (09:12)
[2018-01-02] MEDS: CALCIUM 600MG + VIT D 400 IU TAB PO SCH (09:12)
[2018-01-02] MEDS: LORATADINE 10 MG TAB PO SCH (09:12)
[2018-01-02] MEDS: HYDROCHLOROTHIAZIDE 25 MG TAB PO SCH (09:12)
[2018-01-02] MEDS: TIMOLOL MALEATE 0.25% OP SOLN 5 ML BTL OPB SCH (09:13)
[2018-01-02] MEDS: LIDODERM (LIDOCAINE) PATCH 5% TD SCH (09:13)
[2018-01-02] MEDS: CHOLECALCIFEROL 1000 INTER.UNIT TAB PO SCH (09:13)
--- NOTE | 2018-01-02 09:47 | DIAGNOSTIC IMAGING REPORT ---
C-SPINE ROUTINE 4 OR 5 VIEWS CLINICAL HISTORY: neck pain COMPARISON STUDY: No previous studies for comparison. FINDINGS: The prevertebral soft tissues are normal. There are multilevel degenerative changes with disc space narrowing most pronounced the C4-5 and C5-C6 levels. Although the oblique films are suboptimally positioned, there is suspected bilateral foraminal encroachment most pronounced at the C4-5 and C5-6 levels IMPRESSION: Degenerative changes most pronounced the C4-5 and C5-6 levels. Electronically signed by: Claude Dean M.D. 01/02/2018 9:46 AM Dictated Date/Time: 01/02/2018 9:45 AM
[2018-01-02] MEDS: OXYCODONE/ACETAMINOPHEN 5-325 TAB PO PRN ×3 (11:00→23:52)
--- NOTE | 2018-01-02 11:27 | Hospitalist Progress Note ---
Hospitalist Progress Note Date of Service January 02, 2018. Subjective Pt evaluation today including: conversation w/ patient, physical exam, chart review, lab review, review of inpatient medication list Patient seen and evaluated. Called the hack saw operator as she was concerned that a provider has not seen her while hospitalized. Stopped in the AM and she states she remembers me and was able to call me by my first name without introduction. Did again introduce our service for any clarification. Patient reporting pain is doing better but her biggest concern is numbness/ tingling in the hand. Orthopedics was in to evaluated. Patient with less emotionally labile today. Did change to Percocet to get some anti-inflammatory effects from Tylenol. Plan is still for rehab at [facility]. Did ask the patient if she would like me to update any family members and she stated it was not necessary as she didn't want to bother them. Constitutional: No fever, No chills Respiratory: No cough, No shortness of breath Cardiovascular: No chest pain Abdomen: No pain, No nausea, No vomiting, No diarrhea Musculoskeletal: + joint pain (improving RUE pain) Female : No dysuria Neurologic: + numbness/tingling (RUE) Heme: No abnormal bleeding/bruising Medications Current Inpatient Medications Medications (Trade) Dose Ordered Sig/Foster Route Start Time Stop Time Status Last Admin Dose Admin Polyethylene (Miralax Powder Packet) 17 gm DAILY PRN PO 12/30/17 23:00 01/29/18 22:59 01/02/18 08:10 17 GM Ondansetron HCl (Zofran Inj) 4 mg Q6H PRN IV 12/30/17 22:15 01/29/18 22:14 Docusate Sodium (coLACE CAP) 100 mg BID PO 12/31/17 09:00 01/30/18 08:59 01/02/18 09:12 100 MG Calcium/Vitamin D (Caltrate Plus Tab) 1 tab DAILY PO 12/31/17 09:00 01/30/18 08:59 01/02/18 09:12 1 TAB Cholecalciferol (Vitamin D Tab) 1,000 inter.unit QAM PO 12/31/17 09:00 01/30/18 08:59 01/02/18 09:13 1,000 INTER.UNIT Hydrochlorothiazide (Hydrochlorothiazide Tab) 12.5 mg QAM PO 12/31/17 09:00 01/30/18 08:59 01/02/18 09:12 12.5 MG Timolol Maleate (Timoptic 0.25% Oph Soln) 1 drops QAM OPB 12/31/17 09:00 01/30/18 08:59 01/02/18 09:13 1 DROPS Warfarin Sodium (Coumadin Tab) 5 mg SuTuThSa@1600 PO 01/01/18 16:00 01/31/18 15:59 01/01/18 17:23 5 MG Warfarin Sodium (Coumadin Tab) 7.5 mg MoWeFr@1600 PO 12/31/17 16:00 01/30/18 15:59 12/31/17 16:07 7.5 MG Loratadine (Claritin Tab) 10 mg QAM PO 12/31/17 09:00 01/30/18 08:59 01/02/18 09:12 10 MG Morphine Sulfate (MoRPHine SULFATE INJ) 1 mg Q2HWA PRN IV 12/30/17 22:15 01/13/18 22:14 01/01/18 03:12 1 MG Miscellaneous (Iv Fluids Completed) 1 ea PRN PRN N/A 12/30/17 23:30 12/30/18 23:29 Menthol (Nice Vivian) 1 vivian PRN PRN VIVIAN 12/31/17 01:15 01/30/18 01:14 Lidocaine (Lidoderm Patch 5%) 1 patch QAM TD 01/01/18 09:00 01/31/18 08:59 01/02/18 09:13 1 PATCH Miscellaneous (Remove Lidoderm Patch) 1 ea DAILY@21 N/A 12/31/17 21:00 01/30/18 20:59 01/01/18 21:16 1 EA Diphenhydramine HCl (Benadryl Inj) 25 mg HS IV 12/31/17 21:00 01/30/18 20:59 01/01/18 21:16 25 MG Potassium Chloride (Klor-Con Tab) 20 meq BID PO 01/01/18 09:00 01/31/18 08:59 01/01/18 21:23 20 MEQ Senna (Senokot Tab) 17.2 mg QAM PO 01/02/18 09:00 6/15/18 08:59 01/02/18 09:12 17.2 MG Oxycodone/ Acetaminophen (Percocet 5-325mg Tab) one tablet for pain 1-5 ... Q4H PRN PO 01/02/18 08:15 01/16/18 08:14 01/02/18 11:00 2 TAB Objective Vital Signs Date Time Temp Pulse Resp B/P (MAP) Pulse Ox O2 Delivery O2 Flow Rate FiO2 01/02/18 07:58 37.2 75 16 118/80 (93) 93 Room Air 01/02/18 07:45 Room Air 01/01/18 23:36 Room Air 01/01/18 22:48 37.0 88 16 103/70 (81) 96 Room Air 01/01/18 16:00 Room Air 01/01/18 15:59 36.8 85 20 140/88 (105) 95 Room Air Physical Exam General Appearance: WD/WN, no apparent distress Eyes: sclerae normal ENT: hearing grossly normal Neck: supple, no JVD, trachea midline Respiratory/Chest: lungs clear, normal breath sounds, no respiratory distress, no accessory muscle use Cardiovascular: + irregularly irregular Abdomen: normal bowel sounds, non tender, soft Extremities: no calf tenderness, + swelling (b/l lower extremity non-pitting edema), + pertinent finding (Movoment intact to elbow and wrist/fingers; + radial pulse; immediate cap refill) Neurologic/Psychiatric: alert, oriented x 3 Skin: normal color, warm/dry Laboratory Results Last 24 Hours Test 01/02/18 05:21 White Blood Count 9.23 K/uL Red Blood Count 4.20 M/uL Hemoglobin 12.6 g/dL Hematocrit 37.1 % Mean Corpuscular Volume 88.3 fL Mean Corpuscular Hemoglobin 30.0 pg Mean Corpuscular Hemoglobin Concent 34.0 g/dl RDW Standard Deviation 46.3 fL RDW Coefficient of Variation 14.3 % Platelet Count 197 K/uL Mean Platelet Volume 9.1 fL Sodium Level 131 mmol/L Potassium Level 3.3 mmol/L Chloride Level 94 mmol/L Carbon Dioxide Level 28 mmol/L Anion Gap 9.0 mmol/L Blood Urea Nitrogen 14 mg/dl Creatinine 0.88 mg/dl Est Creatinine Clear Calc Drug Dose 59.3 ml/min Estimated GFR () 71.4 Estimated GFR (Non- 61.6 BUN/Creatinine Ratio 16.0 Random Glucose 122 mg/dl Calcium Level 8.4 mg/dl Assessment and Plan 82yo C female s/p mechanical fall with resultant right impacted humerus fracture. Patient requiring large doses of pain medication for comfort. R Humerus Fx: STABLE - Pain is improving today and most complaint is of numbness/tingling - Cervical XR completed and reviewed - degenerative changes at level of C4-C5 and C5-C6; no soft tissue abnormalities - Change to Percocet to get the added anti-inflammatory effect of Tylenol; Continue Lidoderm; Ice/Heat - Continue Sling but may remove when resting to allow for ROM exercises; - Bowel regimen with Miralax PRN and Senna - Ortho following - plan on outpatient F/U - conservative measures at this time -- F/U outpatient in 1-[address] Acevedo HTN: Better Controlled: - HCTZ 12.5 mg daily DORA on BiPAP: May use own machine Persistent Atrial Fibrillation: Rate Controlled: - Warfarin daily - Continue to trend - No rate control medication however has been controlled DVT Prophylaxis: Coumadin Code Status: FULL RESUSCITATION Disposition: Needs 3 midnight stay - Referral to [facility] - possibly tomorrow pending bed availability - PT/OT evaluations - hopefully with improved pain control cooperation will be better Continued [facility] stay due to: inadequate oral pain control, ambulation difficulties Discharge planning: group home facility
[2018-01-02 15:03] VITALS: BP 94/60; PULSE 83; TEMP 37; O2SAT 96
[2018-01-02] MEDS: WARFARIN SOD 7.5 MG TAB PO SCH (15:44)
[2018-01-02] MEDS: DiphenhydrAMINE HCL 50 MG/ML VIAL IV SCH (20:47)
[2018-01-02 23:50] VITALS: BP 134/81; PULSE 73; TEMP 36.7; O2SAT 96
[2018-01-03] MEDS: OXYCODONE/ACETAMINOPHEN 5-325 TAB PO PRN ×2 (05:36→10:09)
[2018-01-03 07:17] LABS: HEMATOCRIT 36.8 % (37-47); HEMOGLOBIN 12.6 g/dL (12.0-16.0); MEAN CORPUSCULAR HEMOGLOBIN 30.1 pg (25-34); MEAN CORPUSCULAR HGB CONC 34.2 g/dl (32-36); MEAN PLATELET VOLUME 9.2 fL (7.4-10.4); PLATELET COUNT 206 K/uL (130-400); RED CELL DISTRIBUTION WIDTH CV 14.3 % (11.5-14.5); RED CELL DISTRIBUTION WIDTH SD 46.1 fL (36.4-46.3); WHITE BLOOD COUNT 8.13 K/uL (4.8-10.8)
[2018-01-03 07:27] LABS: INR 2.7 (0.9-1.1)
[2018-01-03 07:58] VITALS: BP 110/82; PULSE 87; TEMP 36.6; O2SAT 98
[2018-01-03 08:14] LABS: CALCIUM 8.8 mg/dl (8.5-10.1); CREATININE 0.89 mg/dl (0.60-1.20); POTASSIUM 3.7 mmol/L (3.5-5.1)
[2018-01-03] MEDS ORDERED: OXYC-57 PO (08:53)
[2018-01-03] MEDS ORDERED: SENN-61 PO (08:53)
[2018-01-03] MEDS ORDERED: LDDP5 TD (08:53)
--- NOTE | 2018-01-03 08:54 | Discharge Instructions ---
Discharge Instructions Date of Service January 03, 2018. Admission Reason for Admission: Humerus Fracture Discharge Discharge Diagnosis / Problem: Right Humerus Fracture Discharge Goals Goal(s): Decrease discomfort, Improve function, Increase independence Activity Recommendations Activity Level: Assistance Required Therapies: Physical Therapy, Occupational Therapy . Additional Information Patient informed of condition: Yes Advance Directives: Yes DNR: No Level of Care: Skilled Communicable Disease: No Prognosis: Stable Instructions / Follow-Up Instructions / Follow-Up 82yo female s/p mechanical fall with resultant right impacted humerus fracture. Patient requiring large doses of pain medication for comfort. R Humerus Fx - Conservative Treatment: STABLE - Pain control is improving and having some intermittent numbness/tingling into that arm; Improves with ICE to the neck - Cervical XR with no acute findings but does have some degenerative changes in C4-6 region - Continue Percocet 1-2 tabs PRN; Lidoderm patch; and Ice/Heat as necessary - Continue sling but may remove this for ROM exercise or when at rest - Continue bowel regimen with Miralax PRN and Senna daily; May need to schedule Miralax if constipation becomes bothersome - Needs to F/U with Dr. Acevedo (orthopedics) in 1-2 weeks -- Recommend ROM to elbow and hand of R extremity HTN: - HCTZ 12.5 mg daily - does have stable hyponatremia at 132. Can be monitored DORA on BiPAP: Has her own machine Persistent Atrial Fibrillation: Rate Controlled: - Warfarin daily - INR currently 2.7 and has been very stable during admission. Recommend repeat check in 2-3 days and adjustments as necessary - No rate control medication however has been controlled DVT Prophylaxis: Coumadin Code Status: FULL RESUSCITATION Disposition: - F/U with Dr. Acevedo in 1-2 weeks - F/U with PCP in next 7-10 days if possible Current Hospital Diet Patient's current hospital diet: Regular Diet Discharge Diet Recommended Diet: Regular Diet Pending Studies Studies pending at discharge: no Medical Emergencies . Who to Call and When: Medical Emergencies: If at any time you feel your situation is an emergency, please call 911 immediately. . Non-Emergent Contact Non-Emergency issues call your: Primary Care Provider Call Non-Emergent contact if: you have a fever, your pain is concerning you, you have any medication questions . . "Provider Documentation" section prepared by Selam Mullen. . Core Measure Problem Core Measures: None [place] Drug Monitoring Program Search Results: patient reviewed within database, no issues identified
[2018-01-03] MEDS: DOCUSATE SODIUM 100 MG CAP PO SCH (09:00)
[2018-01-03] MEDS: SENNA 8.6 MG TAB PO SCH (09:00)
[2018-01-03 09:03] VITALS: O2SAT 98
[2018-01-03] MEDS: LORATADINE 10 MG TAB PO SCH (09:20)
[2018-01-03] MEDS: POTASSIUM CHLORIDE 20 MEQ TABCR PO SCH (09:20)
[2018-01-03] MEDS: CALCIUM 600MG + VIT D 400 IU TAB PO SCH (09:21)
[2018-01-03] MEDS: HYDROCHLOROTHIAZIDE 25 MG TAB PO SCH (09:21)
[2018-01-03] MEDS: CHOLECALCIFEROL 1000 INTER.UNIT TAB PO SCH (09:22)
[2018-01-03] MEDS: TIMOLOL MALEATE 0.25% OP SOLN 5 ML BTL OPB SCH (09:22)
[2018-01-03] MEDS: LIDODERM (LIDOCAINE) PATCH 5% TD SCH (09:24)
[2018-01-03] MEDS ORDERED: SIMETHICONE 80 MG CHEW PO PRN (10:00)
[2018-01-03 12:00] VITALS: BP 112/82; PULSE 76; TEMP 36.7; O2SAT 94
--- NOTE | 2018-01-03 14:23 | Discharge Summary ---
Discharge Summary Date of Service January 03, 2018. Discharge Summary Admission Date: December 31, 2017 at 11:28 Discharge Date: January 03, 2018 Discharge Disposition: [facility] facility Principal Diagnosis: Right Humerus Fx 2/2 Mechanical Fall Problems/Secondary Diagnoses: Medical Problems: 1. Idiopathic Angioedema 2. HTN 3. DORA 4. Breast CA 5. Osteoarthritis 6. Hyperlipidemia 7. Aortic Aneurysm Past Surgical: 1. Left Breast Lumpectomy 2. Left Hip 3. Left Knee Immunizations: Have You Had Influenza Vaccine: Yes History of Tetanus Vaccine?: Unknown History of Pneumococcal: Yes History of Hepatitis B Vaccine: Unknown Procedures: R HUMERUS MIN 2 VIEWS ROUTINE, R FOREARM 2 VIEWS ROUTINE FINDINGS: There is an impacted right humeral neck fracture. There is mild medial displacement of the humeral head in relation to the humeral shaft. No dislocation within the right shoulder. The distal humerus, radius, and ulna are intact. Mild soft tissue swelling within the forearm. The bones are osteopenic. IMPRESSION: 1. An impacted right humeral neck fracture. 2. No fractures within the right radius or ulna. C-SPINE ROUTINE 4 OR 5 VIEWS FINDINGS: The prevertebral soft tissues are normal. There are multilevel degenerative changes with disc space narrowing most pronounced the C4-5 and C5-C6 levels. Although the oblique films are suboptimally positioned, there is suspected bilateral foraminal encroachment most pronounced at the C4-5 and C5-6 levels IMPRESSION: Degenerative changes most pronounced the C4-5 and C5-6 levels. Consultations: 1. Orthopedics 2. PT/OT Medication Reconciliation New Medications: Lidocaine (Lidocaine) 1 Patch Tdsy 1 PATCH TD QAM for 14 Days, #14 PATCH Oxycodone/Acetaminophen 5MG/325MG (Percocet 5MG/325MG) Tab 1-2 TAB PO Q4H PRN for Pain for 3 Days, #36 TAB PAIN Senna (Senokot) 8.6 Mg Tab 17.2 MG PO QAM for 30 Days, #60 TAB Continued Medications: Ascorbic Acid (Vitamin C) 500 Mg Tab 1 TAB PO QAM PRN for Azelastine Hcl (Astelin Nasal [place]) 200 Sprays/30 Ml [place] 2 SPRAYS CASSIA DAILY, BTL Calcium Carbonate-Vitamin D W/ (Caltrate 600 Plus) 1 Tab Tab 1 TAB PO DAILY, TAB Carboxymethylcellulose Sodium (Sterile Lubricant Drops) 0.7 % Gio 1 DROP OPB PRN PRESERVATIVE FREE Cholecalciferol (Vitamin D3) 1,000 Unit Tab 2 TAB PO QAM, TAB Diphenhydramine Hcl (Benadryl Allergy) 25 Mg Cap 1 CAP PO HS OCC BID IF NEEDED Epinephrine (Epipen) 0.3 Mg/0.3 Ml Inj 0.3 MG IM UD PRN for ALLERGIC REACTION, BOX Fluticasone Propionate (Nasal) (Flonase Allergy Relief) 50 Mcg/Act Spr 1 SPRAY CASS[place] DAILY Guaifenesin Ext Rel (Mucinex Ext Rel) 600 Mg Tab 600 MG PO Q12 PRN for prn, TAB Hydrochlorothiazide (Hctz) 12.5 Mg Cap 12.5 MG PO QAM, TAB Loratadine (Claritin) 10 Mg Tab 10 MG PO QAM, TAB Polyethylene Glycol 3350 (Miralax) 1 Pow Pow 17 GM PO QPM PRN for PRN, GM Psyllium (Metamucil) 48.57 % Pow 1 DOSE PO QPM PRN for PRN Timolol Maleate (Ophth) (Timoptic 0.25% Oph) 0.25 % Kimi 1 DROP OPB QAM, BTL Triamcinolone Acet (Triamcinolone Acetonide) 45 Appln/15 Gm Oint 1 APPLN TOP BID PRN for prn, TUBE Verapamil Hcl (Calan Sr Ext Rel) 180 Mg Tab 180 MG PO UD, TAB uses as needed for when uses epipen Warfarin Sodium (Coumadin) 5 Mg Tab 5 MG PO 4XWK, TAB take on tues, thur, sat, sun Warfarin Sodium (Coumadin) 5 Mg Tab 7.5 MG PO MWF, TAB [Clotrimazole 1%] () 1 DOSE TOP BID Discontinued Medications: Acetaminophen/Codeine (Tylenol W/Codeine #3) 300 Mg/30 Mg Tab 1 TAB PO Q6H PRN for N, TAB Discharge Exam ROS Constitutional: No fever, No chills Respiratory: No cough, No shortness of breath Cardiovascular: No chest pain Abdomen: No pain, No nausea, No vomiting, No diarrhea Musculoskeletal: + joint pain (improving RUE pain) Female : No dysuria Neurologic: + numbness/tingling - improving (RUE) Heme: No abnormal bleeding/bruising PHYSICAL EXAMINATION General Appearance: WD/WN, no apparent distress Eyes: sclerae normal ENT: hearing grossly normal Neck: supple, no JVD, trachea midline Respiratory/Chest: lungs clear, normal breath sounds, no respiratory distress, no accessory muscle use Cardiovascular: + irregularly irregular Abdomen: normal bowel sounds, non tender, soft Extremities: no calf tenderness, + swelling (b/l lower extremity non-pitting edema), + pertinent finding (Movoment intact to elbow and wrist/fingers; + radial pulse; immediate cap refill) Neurologic/Psychiatric: alert, oriented x 3 Skin: normal color, warm/dry Hospital Course ADMISSION: 82yo female presenting after mechanical fall. Patient states that around 19:00 today she tripped on a rug at home leading to a fall on her right shoulder. She denies head trauma/LOC, denies CP/palpitations/SOB/dizziness, denies urinary/fecal incontinence or evidence of seizure activity. Patient was brought to the ER. X-ray revealed an impacted right humeral neck fracture with no fractures within the right radius or ulna. Patient requiring large doses of pain medications, Fentanyl 100mcg and Dilaudid 2mg. She is still experiencing severe arm pain 4-5/10 when sitting still and 10/10 with any movement or touch. ER Course: Dilaudid 2mg IV, NSS x 1 L, Fentanyl 100mcg, Zofran HOSPITAL COURSE: R Humerus Fx - Conservative Treatment: STABLE - Pain control is improving and having some intermittent numbness/tingling into that arm; Improves with ice/heat to the neck - Continue Percocet 1-2 tabs PRN; Lidoderm patch; and Ice/Heat as necessary - Continue sling but may remove this for ROM exercise or when at rest - Continue bowel regimen with Miralax PRN and Senna daily; May need to schedule Miralax if constipation becomes bothersome - Needs to F/U with Dr. Acevedo (orthopedics) in 1-2 weeks -- Recommend ROM to elbow and hand of R extremity HTN: - HCTZ 12.5 mg daily - does have stable hyponatremia at 132. Can be monitored DORA on BiPAP: Has her own machine Persistent Atrial Fibrillation: Rate Controlled: - Warfarin daily - INR currently 2.7 and has been very stable during admission. Recommend repeat check in 2-3 days and adjustments as necessary - No rate control medication however has been controlled DVT Prophylaxis: Coumadin Code Status: FULL RESUSCITATION Disposition: - F/U with Dr. Acevedo in 1-2 weeks Total Time Spent: Greater than 30 minutes This includes examination of the patient, discharge planning, medication reconciliation, and communication with other providers. Discharge Instructions Please refer to the electronic Patient Visit Report (Discharge Instructions) for additional information. Additional Copies To Derrell Eden M.D.
[2018-01-03] MEDS ORDERED: SIME80CH PO (15:05)
[2018-01-03 15:19] VITALS: BP 112/82; PULSE 76; TEMP 36.7; O2SAT 94
[2018-01-03] MEDS: WARFARIN SOD 5 MG TAB PO SCH (15:22)
== END 2018-01-03 15:50 | DRG 543 ==
LOC: EDBD 20:23 → C.EDA 20:24 → C.MSW 22:47 → ENRESERV 23:06 → OBSVTOIN 12-31 11:28
PROVIDERS: ADMIT Internal Medicine; ATTEND Internal Medicine
DX: M84.421A Pathological fracture, right humerus, initial encounter for fracture (principal); I48.1 Persistent atrial fibrillation; I10 Essential (primary) hypertension; E78.5 Hyperlipidemia, unspecified; G47.33 Obstructive sleep apnea (adult) (pediatric); Z96.643 Presence of artificial hip joint, bilateral; Z96.652 Presence of left artificial knee joint; Z96.653 Presence of artificial knee joint, bilateral; Z79.01 Long term (current) use of anticoagulants; Z88.6 Allergy status to analgesic agent; Z85.3 Personal history of malignant neoplasm of breast; Z88.1 Allergy status to other antibiotic agents; Z87.891 Personal history of nicotine dependence

== ENCOUNTER → 2018-01-10 | Outpatient (CLI) | payer OTHER, BC ==
[~2018-01-10] MED LIST changes: -ACET300T3 PO; +ASTN NAE; -CALCIUM D PO; +CALCTAB7 PO; +EPP3/2 IM; +LDDP5 TD; +OXYC-57 PO; +SENN-61 PO; +SIME80CH PO; -WARF5TAB7 PO; +WARF5TAB90 PO
--- NOTE | 2018-01-10 12:13 | DIAGNOSTIC IMAGING REPORT ---
R HIP UNILATERAL MIN 2 VIEWS HISTORY: 82 years-old Female RIGHT HIP PAIN acute right hip pain COMPARISON: None available TECHNIQUE: 2 views of the right hip FINDINGS: Bones appear moderately demineralized. Right hip arthroplasty demonstrates satisfactory alignment. No periprosthetic fracture identified. No evidence of hardware loosening. The imaged pelvis appears intact. Degenerative changes are noted about the pubic symphysis and bilateral SI joints. Peripheral arterial calcifications are also noted. Probable phleboliths about the pelvis. IMPRESSION: 1. No acute fracture or dislocation. 2. Right hip arthroplasty without evidence of hardware complication. The above report was generated using voice recognition software. It may contain grammatical, syntax or spelling errors. Electronically signed by: [place] M.D. 01/10/2018 12:11 PM Dictated Date/Time: 01/10/2018 12:10 PM
--- NOTE | 2018-01-10 12:17 | DIAGNOSTIC IMAGING REPORT ---
R SHOULDER MIN 2 VIEWS HISTORY: 82 years-old Female RIGHT SHOULDER FX acute right shoulder pain COMPARISON: Right shoulder radiographs 12/31/2017 TECHNIQUE: 3 views of the right shoulder FINDINGS: Unchanged alignment and appearance of the age indeterminate impacted fracture about the right humeral anatomic neck and greater tuberosity. Moderate osteoarthritis of the glenohumeral joint. The bones appear moderately demineralized. Suggestion of mild soft tissue swelling about the right shoulder. Atherosclerosis of the aorta. IMPRESSION: 1. Unchanged appearance and alignment of the right humeral fracture as above. 2. Mild right shoulder soft tissue swelling. The above report was generated using voice recognition software. It may contain grammatical, syntax or spelling errors. Electronically signed by: [place] M.D. 01/10/2018 12:16 PM Dictated Date/Time: 01/10/2018 12:14 PM
--- NOTE | 2018-01-10 12:22 | DIAGNOSTIC IMAGING REPORT ---
CHEST PA ONLY HISTORY: 82 years-old Female RIGHT SIDED CHEST PAIN S/P FALL acute atypical chest pain status post fall. COMPARISON: Chest radiograph 12/30/2017 TECHNIQUE: PA view of the chest FINDINGS: Cardiac silhouette is mildly enlarged, unchanged. Patient is slightly rotated to the right. There is no pneumothorax, pleural effusion, focal airspace consolidation or overt pulmonary edema. Demineralized appearance of the bones. Impacted fracture about the proximal right humerus redemonstrated with mild soft tissue swelling. Possible loose body within the right subscapularis recess. No acute displaced rib fracture identified. Surgical clips project over the left breast. IMPRESSION: 1. No acute process of the chest. 2. No acute displaced rib fracture or pneumothorax. 2. Unchanged alignment of the impacted fracture about the proximal right humerus with mild soft tissue swelling. The above report was generated using voice recognition software. It may contain grammatical, syntax or spelling errors. Electronically signed by: [place] M.D. 01/10/2018 12:21 PM Dictated Date/Time: 01/10/2018 12:19 PM
== END | disposition home or self-care (01) ==
LOC: C.RDSM 11:50
PROVIDERS: ATTEND Physician Assistant
DX: R07.9 Chest pain, unspecified (principal); M25.551 Pain in right hip; S42.201D Unspecified fracture of upper end of right humerus, subsequent encounter for fracture with routine healing; X58.XXXD Exposure to other specified factors, subsequent encounter; Z96.641 Presence of right artificial hip joint

== ENCOUNTER → 2018-03-14 | Outpatient (CLI) | payer OTHER, BC ==
[~2018-03-14] MED LIST changes: +ACET300T3 PO; -ASCO-63 PO; -CALCTAB7 PO; -CHOL1000 PO; -DIPH25CA65 PO; -GUAI1TAB55 PO; -LDDP5 TD; +MELA1TAB5 PO; -OXYC-57 PO; -PSYL48.59 PO; -SENN-61 PO; -SIME80CH PO; -VERA180T PO
--- NOTE | 2018-03-14 15:31 | DIAGNOSTIC IMAGING REPORT ---
R SHOULDER MIN 2 VIEWS CLINICAL HISTORY: RIGHT PROXIMAL HUMERUS FX fracture COMPARISON: 02/14/2018 DISCUSSION: Impacted somewhat comminuted fracture of the right humeral neck as well as head is again noted. This is superimposed upon moderate generalized degenerative change. No evidence of dislocation. No significant interval healing compared to the prior study. There is no evidence for soft tissue swelling. IMPRESSION: Fracture humeral head and neck unchanged in appearance on the prior study. No significant interval healing. Alignment is stable. The above report was generated using voice recognition software. It may contain grammatical, syntax or spelling errors. Electronically signed by: John Villanueva M.D. 03/14/2018 3:30 PM Dictated Date/Time: 03/14/2018 3:28 PM
== END | disposition home or self-care (01) ==
LOC: C.RDSM 14:56
PROVIDERS: ATTEND Physician Assistant
DX: S42.291D Other displaced fracture of upper end of right humerus, subsequent encounter for fracture with routine healing (principal); X58.XXXD Exposure to other specified factors, subsequent encounter

== ENCOUNTER 2018-12-03 10:26 | Inpatient (IN) ==
--- NOTE | 2018-12-03 11:05 | XRay Report ---
XR chest 1V portable CLINICAL HISTORY: Dyspnea COMPARISON STUDY: November 21, 2018 FINDINGS: The heart is enlarged. There is radiographic evidence of congestive failure/fluid overload. There is chronic deformity the proximal right humerus. Hilar soft tissue prominence, likely relates to prominent central vessels.[ There is no lobar consolidation. IMPRESSION: Cardiomegaly and radiographic evidence of congestive failure/fluid overload. Electronically signed by: Claude Dena M.D. 12/03/2018 11:04 AM
[2018-12-03 11:24] LABS: Basophils # (auto) 0.01 K/uL (0-0.2); Basophils % (auto) 0.2 %; Eosinophils # (auto) 0.12 K/uL (0-0.5); Eosinophils % (auto) 1.9 %; Hematocrit (blood only) 31.3 % (37-47); Hemoglobin 10.6 g/dL (12.0-16.0); Immature Granulocytes # (auto) 0.03 K/uL (0.00-0.02); Immature Granulocytes % (auto) 0.5 %; Lymphocytes # (auto) 1.02 K/uL (1.2-3.4); Lymphocytes % (auto) 15.8 %; Mean Corpuscular Hgb Conc 33.9 g/dL (32-36); Mean Corpuscular Volume 93.4 fL (80-100); Mean Platelet Volume 9.3 fL (7.4-10.4); Monocytes % (auto) 10.9 %; Neutrophils # (auto) 4.57 K/uL (1.4-6.5); Neutrophils % (auto) 70.7 %; Platelet Count 180 K/uL (130-400); RDW Standard Deviation 48.5 fL (36.4-46.3); Red Blood Count 3.35 M/uL (4.2-5.4); White Blood Count 6.45 K/uL (4.8-10.8)
[2018-12-03 11:26] LABS: Base Excess VBG 3.4 mEq/L; HCO3 VBG 28 mmol/L; Oxygen Saturation VBG < 60.0 %; PCO2 VBG 44 mmHg (38-50); PO2 VBG 23 mmHg; pH VBG 7.43 (7.36-7.41)
[2018-12-03 11:27] LABS: iSTAT Creatinine 0.9 mg/dl (0.6-1.3); iSTAT Hemoglobin 9.9 g/dl (12.0-16.0); iSTAT Ionized Calcium 1.16 mmol/l (1.12-1.32); iSTAT Potassium 3.8 mEq/L (3.3-5.0)
[2018-12-03 11:35] LABS: INR 1.2 (0.9-1.1); Partial Thromboplastin Time 27.1 Seconds (21.0-31.0); Prothrombin Time 11.7 Seconds (9.0-12.0)
[2018-12-03 11:40] LABS: Alanine Aminotransferase 48 U/L (12-78); Albumin Level 2.9 gm/dl (3.4-5.0); Aspartate Aminotransferase 33 U/L (15-37); BUN Creatinine Ratio 11.1 (10-20); Blood Urea Nitrogen 10 mg/dl (7-18); Calcium 8.6 mg/dl (8.5-10.1); Carbon Dioxide 27 mmol/L (21-32); Chloride 102 mmol/L (98-107); Creatinine Clr Calc Pharmacy 59.5 ml/min; Est GFR (African American) 70.9; Est GFR (Non-African American) 61.2; Glucose 99 mg/dl (70-99); Magnesium 2.2 mg/dl (1.8-2.4); Potassium 3.8 mmol/L (3.5-5.1); Sodium 134 mmol/L (136-145)
[2018-12-03 11:45] LABS: Albumin Globulin Ratio 0.7 (0.9-2); Alkaline Phosphatase 78 U/L (45-117); Bilirubin,Total 1.1 mg/dl (0.2-1); NT Pro B Type Natriuretic Pept 2161 pg/ml (0-1800); Phosphorus 3.1 mg/dl (2.5-4.9); Total Protein 6.9 gm/dl (6.4-8.2); Troponin I < 0.015 ng/ml (0-0.045)
[2018-12-03] MEDS ORDERED: CHLOROTHIAZIDE SODIUM 500 MG in DEXTROSE 5% 50 ML IV STA (12:26)
--- NOTE | 2018-12-03 13:29 | History & Physical Report ---
Date of Service December 03, 2018 Assessment & Plan (1) Acute heart failure: unclear etiology, has h/o mild to mod , preserved EF just had AAA repair, could have had some volume overload from surgery? patient refuses Lasix due to concern about h/o angioedema will use Diuril 500mg IV since she tolerates HCTZ as outpatient daily weights, I/Os consult cardiology, Dr. Desir repeat echo tomorrow to make sure nothing has changed could be due to more frequent Afib with RVR (2) Paroxysmal atrial fibrillation: rates jump to 120-130 at rest when she goes into Afib order Diltiazem 30mg TID and give a dose of Diltiazem 5mg IV now on Coumadin but INR was low at 1.2, she held it prior to surgery for AAA (3) Volume overload: unclear etiology check Echo (4) History of aortic stenosis: moderate at best in the best, repeat echo (5) Post-op pain: mild pain in right groin at access site no abdominal pain (6) Dyspnea: due to heart failure (7) Anemia: drop by 4gm since surgery doubt she should have much blood loss since it was endovascular graft will repeat H/H in the morning no evidence of GI bleeding abdomen is soft, non tender if Hb drops further will need to get CT abdomen/pelvis History of Present Illness Chief Complaint: I feel short of breath Primary Care Provider: Akshat Bingham 83 yo female with history of AAA with recent endovascular repair at [facility] on 11/27. Just discharged [place] [facility] [place] ago. Prior to the procedure she had cardiac clearance, echocardiogram with EF of 60% and mild to moderate . She said she did not have any symptoms of shortness of breath prior to the procedure. She never had any abdominal pain from the AAA, it was being routinely monitored and reached size that required intervention. She says that she has been experiencing fatigue but more importantly dyspnea and DELONG. No chest pain or pressure. No cough, no fever or chills. She has some edema in her ankles but that is chronic ever since bilateral hip replacements. She came to the ED to determine why she was short of breath because nothing was improving her symptoms at home. She did not take her medications this morning. In the ED she had a CXR that showed signs of CHF with pulmonary congestion. Her Hb was down by four grams compared to pre op labs, it was 10gm, down from 14gm. BNP was elevated at 2100. Troponin negative. She was given a dose of Diuril and admission was requested. On the floor she started to experience intermittent tachycardia, appeared to be atrial fibrillation, ordered Diltiazem PO which she takes at home for when she feels she has an "arrhythmia." Allergies Allergy/AdvReac Type Severity Reaction Status Date / Time aspirin Allergy Severe TONGUE AND Verified 12/03/18 11:46 THROAT SWELLS tramadol Allergy Severe ANAPHYLAXIS Verified 12/03/18 11:46 monosodium glutamate Allergy Mild throat Verified 12/03/18 11:46 swell erythromycin base Allergy Unknown SWELLING Verified 12/03/18 11:46 THROAT AND RASH tetracycline Allergy Unknown SWELLING Verified 12/03/18 11:46 AND RASH cephalexin AdvReac Severe VOMITING Verified 12/03/18 11:46 omeprazole AdvReac Severe G I UPSET Verified 12/03/18 11:46 amoxicillin AdvReac Intermediate VOMIT Verified 12/03/18 11:46 clavulanic acid AdvReac Intermediate VOMIT Verified 12/03/18 11:46 metoprolol AdvReac Intermediate DISORIENTED Verified 12/03/18 11:46 alendronate sodium AdvReac Unknown very upset Verified 12/03/18 11:46 stomach esomeprazole AdvReac Unknown G I UPSET Verified 12/03/18 11:46 nystatin AdvReac Unknown GI UPSET Verified 12/03/18 11:46 Aromatic Oils Allergy Unknown PERFUMES Uncoded 12/03/18 11:46 CAN'T BREATHE Home Medications Home Medications Medication Instructions Recorded Confirmed Type azelastine 2 spray INTRANASAL Q12H PRN #0 btl 03/16/17 12/03/18 History epinephrine 0.3 mg IM Q3H PRN #0 box 03/16/17 12/03/18 History polyethylene glycol 3350 [Miralax] 17 g PO QPM PRN #0 g 04/02/17 12/03/18 History timolol 1 drp OPB BID #0 btl 04/02/17 12/03/18 History loratadine [Claritin] 10 mg PO QAM #0 tab 07/10/17 12/03/18 History acetaminophen-codeine 1 tab PO BID PRN 04/23/18 12/03/18 History [Tylenol-Codeine #3] ascorbic acid (vitamin C) [Vitamin 500 mg PO DAILY 04/23/18 12/03/18 History C] cholecalciferol (vitamin D3) 2,000 unit PO DAILY 04/23/18 12/03/18 History [Vitamin D3] menthol [Biofreeze (menthol)] 1 dose TOPICAL DIRECTED 04/23/18 12/03/18 History diltiazem HCl 30 mg PO UD 12/03/18 12/03/18 History ipratropium bromide 2 spray INTRANASAL TID PRN 12/03/18 12/03/18 History ketoconazole 1 applic TOPICAL UD 12/03/18 12/03/18 History warfarin 5 mg PO UD 12/03/18 12/03/18 History Past Med/Surg History Medical History Atrial fibrillation REASON FOR WARFARIN Cancer LEFT BREAST LUMPECTOMY WITH RADIATION Hyperlipidemia Hypertension Idiopathic angioedema Osteoarthritis Sleep apnea BIPAP FOR SLEEP APNEA Surgical History Abdominal mass LARGE POLYP REMOVED History of arthroscopy RT LNEE TENDON REPAIR History of cataract surgery History of colonoscopy History of tooth extraction History of total hip arthroplasty LEFT AND RT History of total knee replacement LEFT Hx of lumpectomy Family History Sister Family history of diabetes mellitus Other Family hx of colon cancer Social History Preferred Language: Pakistani Communication Ability: Effective Dinkey Engineer Required: No Beliefs That Will Affect Care: Holiness Current Living Situation: Alone Other Information That Helps Us Care for You: No Feels Safe at Home: Yes Safety Concerns: Feels Safe At This Time Smoking Status: Former smoker Hx Alcohol Use: No Hx Substance Use: No Review of Systems All systems reviewed & are unremarkable except as noted in HPI & below Constitutional: + fatigue, + malaise and + weakness; no fever, no sweats, no weight loss and no weight gain Eyes: no diplopia and no eye pain Respiratory: + dyspnea and + dyspnea on exertion; no cough, no chest congestion, no snoring, no sputum production and no wheezing Cardiovascular: + dyspnea, + dyspnea on exertion, + orthopnea and + edema; no chest pain, no chest pain at rest, no dyspnea at rest, no syncope and no calf pain Gastrointestinal: no abdominal pain, no nausea, no vomiting, no constipation, no diarrhea/loose stools, no blood in stools and no melena Genitourinary (Female): no dysuria, no urinary frequency, no urinary hesitancy and no urinary urgency Musculoskeletal: no back pain, no neck pain, no radicular pain, no joint pain, no limited range of motion and no myalgia Neurologic: no gait abnormality, no unsteadiness, no tingling, no tremor(s), no abnormal movements and no syncope Physical Exam Vital Signs (Past 24 Hours): Last Vital Signs Temp 36.6 C 12/03/18 10:35 Pulse 102 H 12/03/18 10:35 Resp 24 12/03/18 10:35 BP 108/80 12/03/18 10:35 Pulse Ox 95 12/03/18 11:13 Constitutional: WD/WN, vitals as above Eyes: PERRL, conjunctivae normal, anicteric sclerae ENMT: external ear and nose normal, oropharynx normal Neck: trachea midline, no thyromegaly Respiratory: normal respiratory effort and normal percussion; no respiratory distress, no labored breathing and no cough Auscultation: + rales (bibasilar); no diminished lung sounds, no rhonchi and no wheezes Cardiovascular: Rate/Rhythm: + tachycardic; + abnormal rhythm (irregular irregular) Heart Sounds: normal S1, normal S2 and + murmur (subtle, systolic) Vessels: no JVD Extremities: normal capillary refill and + pedal edema Gastrointestinal (Abdomen): normal bowel sounds, soft, nontender, no hepatosplenomegaly Musculoskeletal: no cyanosis or clubbing, extremities motor strength 5/5 Skin: no rashes, warm and dry Neurologic: patellar DTR's 2+ bilat, sensation intact and PERRL, EOMI, accommodation nl, no face palsy, no dysarthria Psychiatric: A+Ox3, euthymic affect Lymphatic: no cervical or axillary lymphadenopathy Results & Data Laboratory Results Laboratory Results - last 24 hr 12/03/18 12/03/18 12/03/18 11:02 11:02 11:02 WBC 6.45 RBC 3.35 L Hgb 10.6 L POC Hgb Hct 31.3 L POC Hct MCV 93.4 MCH 31.6 MCHC 33.9 RDW Std Deviation 48.5 H RDW Coeff of Randell 14.0 Plt Count 180 MPV 9.3 Immature Gran % (Auto) 0.5 Neut % (Auto) 70.7 Lymph % (Auto) 15.8 Bowie % (Auto) 10.9 Eos % (Auto) 1.9 Baso % (Auto) 0.2 Immature Gran # (Auto) 0.03 H Neut # (Auto) 4.57 Lymph # (Auto) 1.02 L Bowie # (Auto) 0.70 H Eos # (Auto) 0.12 Baso # (Auto) 0.01 PT 11.7 INR 1.2 H APTT 27.1 PTT Ratio 1.0 VBG pH VBG pCO2 VBG pO2 VBG HCO3 VBG O2 Saturation VBG Base Excess Barometric Pressure POC Sodium Sodium 134 L POC Potassium Potassium 3.8 POC Chloride Chloride 102 Carbon Dioxide 27 POC Total CO2 Anion Gap 5.0 POC Anion Gap POC BUN BUN 10 Creatinine 0.88 POC Creatinine Est Cr Clr Drug Dosing 59.5 Est GFR ( Amer) 70.9 Est GFR (Non-Af Amer) 61.2 BUN/Creatinine Ratio 11.1 Glucose 99 POC Glucose (other) Calcium 8.6 POC Ioniz Calcium Marizol Phosphorus 3.1 Magnesium 2.2 Total Bilirubin 1.1 H AST 33 ALT 48 Alkaline Phosphatase 78 Troponin I < 0.015 NT-Pro-B Natriuret Pep 2161 H Total Protein 6.9 Albumin 2.9 L Globulin 4.0 Albumin/Globulin Ratio 0.7 L 12/03/18 12/03/18 11:02 11:12 WBC RBC Hgb POC Hgb 9.9 L Hct POC Hct 29 L MCV MCH MCHC RDW Std Deviation RDW Coeff of Randell Plt Count MPV Immature Gran % (Auto) Neut % (Auto) Lymph % (Auto) Bowie % (Auto) Eos % (Auto) Baso % (Auto) Immature Gran # (Auto) Neut # (Auto) Lymph # (Auto) Bowie # (Auto) Eos # (Auto) Baso # (Auto) PT INR APTT PTT Ratio VBG pH 7.43 H VBG pCO2 44 VBG pO2 23 VBG HCO3 28 VBG O2 Saturation < 60.0 VBG Base Excess 3.4 Barometric Pressure 734.8 POC Sodium 135 Sodium POC Potassium 3.8 Potassium POC Chloride 98 L Chloride Carbon Dioxide POC Total CO2 26 Anion Gap POC Anion Gap 17.0 POC BUN 8 BUN Creatinine POC Creatinine 0.9 Est Cr Clr Drug Dosing Est GFR ( Amer) Est GFR (Non-Af Amer) BUN/Creatinine Ratio Glucose POC Glucose (other) 101 H Calcium POC Ioniz Calcium Marizol 1.16 Phosphorus Magnesium Total Bilirubin AST ALT Alkaline Phosphatase Troponin I NT-Pro-B Natriuret Pep Total Protein Albumin Globulin Albumin/Globulin Ratio Diagnostic Findings XR chest 1V portable CLINICAL HISTORY: Dyspnea COMPARISON STUDY: November 21, 2018 FINDINGS: The heart is enlarged. There is radiographic evidence of congestive failure/fluid overload. There is chronic deformity the proximal right humerus. Hilar soft tissue prominence, likely relates to prominent central vessels.[ There is no lobar consolidation. IMPRESSION: Cardiomegaly and radiographic evidence of congestive failure/fluid overload. Code Status & VTE Plan Code Status full code VTE Prophylaxis Plan VTE Prophylaxis will be ordered: Yes (1) Volume overload Hypervolemia type: unspecified Qualified Code(s): E87.70 - Fluid overload, unspecified
--- NOTE | 2018-12-03 15:08 | Emergency Department Note ---
Entered by Irene Yancey acting as a scribe for Catarino Martinez MD History of Present Illness General Chief complaint: Shortness of Breath/Dyspnea Time Seen by Provider: 12/03/18 10:29 Source: patient History of Present Illness Provider complaint: shortness of breath Onset (ago): day(s) 2 Location: chest Pain Consistency: + other (persistent) Maximum Pain Intensity: 6 Quality: + other (shortness of breath) Exacerbated By: + other (walking, laying flat) Associated symptoms: + other (leg swelling. Denies: cough, nausea, vomiting, fever, chills. ) The patient is an 83 year old white female w/ PMHx of sleep apnea, aortic stenosis, s/p AAA repair who presents to the ED w/ CC of persistent shortness of breath beginning 2 days ago. She reports walking and laying flat exacerbate her symptoms. The patient reports bilateral leg swelling. She denies cough, nausea, vomiting, fevers, or chills. The patient reports she has not had a bowel movement for 1 week. She states she quit smoking about 10 years, following a 40 year history of heavy smoking. The patient notes she takes Coumadin and recently began taking Plavix. She reports she was taken off hydrochlorothiazide weeks ago due to lightheadedness. The patient had a AAA repair due to size on 11/27/18 at [facility]. Home Medications Home Medications Medication Instructions Recorded Confirmed Type azelastine 2 spray INTRANASAL Q12H PRN #0 btl 03/16/17 12/03/18 History epinephrine 0.3 mg IM Q3H PRN #0 box 03/16/17 12/03/18 History polyethylene glycol 3350 [Miralax] 17 g PO QPM PRN #0 g 04/02/17 12/03/18 History timolol 1 drp OPB BID #0 btl 04/02/17 12/03/18 History loratadine [Claritin] 10 mg PO QAM #0 tab 07/10/17 12/03/18 History acetaminophen-codeine 1 tab PO BID PRN 04/23/18 12/03/18 History [Tylenol-Codeine #3] ascorbic acid (vitamin C) [Vitamin 500 mg PO DAILY 04/23/18 12/03/18 History C] cholecalciferol (vitamin D3) 2,000 unit PO DAILY 04/23/18 12/03/18 History [Vitamin D3] menthol [Biofreeze (menthol)] 1 dose TOPICAL DIRECTED 04/23/18 12/03/18 History diltiazem HCl 30 mg PO UD 12/03/18 12/03/18 History ipratropium bromide 2 spray INTRANASAL TID PRN 12/03/18 12/03/18 History ketoconazole 1 applic TOPICAL UD 12/03/18 12/03/18 History warfarin 5 mg PO UD 12/03/18 12/03/18 History Allergies Allergy/AdvReac Type Severity Reaction Status Date / Time aspirin Allergy Severe TONGUE AND Verified 12/03/18 11:46 THROAT SWELLS tramadol Allergy Severe ANAPHYLAXIS Verified 12/03/18 11:46 monosodium glutamate Allergy Mild throat Verified 12/03/18 11:46 swell erythromycin base Allergy Unknown SWELLING Verified 12/03/18 11:46 THROAT AND RASH tetracycline Allergy Unknown SWELLING Verified 12/03/18 11:46 AND RASH cephalexin AdvReac Severe VOMITING Verified 12/03/18 11:46 omeprazole AdvReac Severe G I UPSET Verified 12/03/18 11:46 amoxicillin AdvReac Intermediate VOMIT Verified 12/03/18 11:46 clavulanic acid AdvReac Intermediate VOMIT Verified 12/03/18 11:46 metoprolol AdvReac Intermediate DISORIENTED Verified 12/03/18 11:46 alendronate sodium AdvReac Unknown very upset Verified 12/03/18 11:46 stomach esomeprazole AdvReac Unknown G I UPSET Verified 12/03/18 11:46 nystatin AdvReac Unknown GI UPSET Verified 12/03/18 11:46 Aromatic Oils Allergy Unknown PERFUMES Uncoded 12/03/18 11:46 CAN'T BREATHE Past Med/Surg History Medical History Atrial fibrillation REASON FOR WARFARIN Cancer LEFT BREAST LUMPECTOMY WITH RADIATION Hyperlipidemia Hypertension Idiopathic angioedema Osteoarthritis Sleep apnea BIPAP FOR SLEEP APNEA Surgical History Abdominal mass LARGE POLYP REMOVED History of arthroscopy RT LNEE TENDON REPAIR History of cataract surgery History of colonoscopy History of tooth extraction History of total hip arthroplasty LEFT AND RT History of total knee replacement LEFT Hx of lumpectomy Family History Sister Family history of diabetes mellitus Other Family hx of colon cancer Social History Preferred Language: Moldovan Communication Ability: Effective Liability Claims Examiner Required: No Beliefs That Will Affect Care: Advent Current Living Situation: Alone Other Information That Helps Us Care for You: No Feels Safe at Home: Yes Safety Concerns: Feels Safe At This Time Smoking Status: Former smoker Hx Alcohol Use: No Hx Substance Use: No Review of Systems See HPI for pertinent positives & negatives. and A total of 10 systems reviewed and were otherwise negative Physical Exam Vital Signs Vital Signs - 24 hr 12/03/18 10:35 12/03/18 11:01 12/03/18 11:08 Temperature 36.6 C Temperature Source Oral Sepsis Recent Fever Within 48 Hours No Sepsis New/Unexplained Change in Mental Status No Sepsis Action Taken by Nursing No Action Required Pulse Rate 102 H 91 H Pulse Rate [Right Finger] Pulse Rate from SpO2 Sensor 83 Pulse Rhythm [Right Finger] Pulse Strength [Right Finger] Respiratory Rate 24 21 Respiratory Effort / Characteristics Respiratory Depth Respiratory Pattern Blood Pressure 108/80 141/67 H Blood Pressure [Left Arm] Blood Pressure Mean 89 91 Blood Pressure Mean [Left Arm] Blood Pressure Position [Left Arm] Pulse Oximetry 95 94 95 Oxygen Delivery Method Room Air Room Air Room Air 12/03/18 11:13 12/03/18 12:40 12/03/18 13:24 Temperature Temperature Source Sepsis Recent Fever Within 48 Hours Sepsis New/Unexplained Change in Mental Status Sepsis Action Taken by Nursing Pulse Rate 94 H Pulse Rate [Right Finger] Pulse Rate from SpO2 Sensor 90 Pulse Rhythm [Right Finger] Pulse Strength [Right Finger] Respiratory Rate 34 H Respiratory Effort / Characteristics Respiratory Depth Respiratory Pattern Blood Pressure 168/106 H Blood Pressure [Left Arm] Blood Pressure Mean 126 Blood Pressure Mean [Left Arm] Blood Pressure Position [Left Arm] Pulse Oximetry 95 93 Oxygen Delivery Method Room Air Room Air Room Air 12/03/18 14:01 12/03/18 14:32 12/03/18 15:00 Temperature Temperature Source Sepsis Recent Fever Within 48 Hours Sepsis New/Unexplained Change in Mental Status Sepsis Action Taken by Nursing Pulse Rate 140 H 129 H 124 H Pulse Rate [Right Finger] Pulse Rate from SpO2 Sensor 89 Pulse Rhythm [Right Finger] Pulse Strength [Right Finger] Respiratory Rate 30 H 50 H 26 H Respiratory Effort / Characteristics Respiratory Depth Respiratory Pattern Blood Pressure 147/88 H 160/89 H Blood Pressure [Left Arm] Blood Pressure Mean 107 112 Blood Pressure Mean [Left Arm] Blood Pressure Position [Left Arm] Pulse Oximetry 94 95 Oxygen Delivery Method Room Air Room Air 12/03/18 15:01 12/03/18 15:21 12/03/18 15:45 Temperature 36.9 C Temperature Source Oral Sepsis Recent Fever Within 48 Hours Sepsis New/Unexplained Change in Mental Status Sepsis Action Taken by Nursing Pulse Rate 127 H 127 H Pulse Rate [Right Finger] 78 Pulse Rate from SpO2 Sensor Pulse Rhythm [Right Finger] Irregular Pulse Strength [Right Finger] Normal Respiratory Rate 43 H 43 H 18 Respiratory Effort / Characteristics Non-Labored Respiratory Depth Normal Respiratory Pattern Regular Blood Pressure 120/107 H 120/107 H Blood Pressure [Left Arm] 161/88 H Blood Pressure Mean 111 Blood Pressure Mean [Left Arm] 112 Blood Pressure Position [Left Arm] Lying Pulse Oximetry 94 94 91 Oxygen Delivery Method Room Air Room Air Room Air 12/03/18 16:00 12/03/18 17:49 12/03/18 19:29 Temperature 36.8 C Temperature Source Oral Sepsis Recent Fever Within 48 Hours Sepsis New/Unexplained Change in Mental Status Sepsis Action Taken by Nursing Pulse Rate 123 H Pulse Rate [Right Finger] 120 H 83 Pulse Rate from SpO2 Sensor Pulse Rhythm [Right Finger] Irregular Regular Pulse Strength [Right Finger] Normal Normal Respiratory Rate 18 Respiratory Effort / Characteristics Non-Labored Non-Labored Respiratory Depth Normal Normal Respiratory Pattern Regular Blood Pressure Blood Pressure [Left Arm] 160/75 H 158/82 H Blood Pressure Mean Blood Pressure Mean [Left Arm] 103 107 Blood Pressure Position [Left Arm] Lying Lying Pulse Oximetry 96 Oxygen Delivery Method Room Air 12/03/18 23:30 12/04/18 00:00 12/04/18 03:25 Temperature 37.2 C 36.8 C Temperature Source Oral Oral Sepsis Recent Fever Within 48 Hours Sepsis New/Unexplained Change in Mental Status Sepsis Action Taken by Nursing Pulse Rate Pulse Rate [Right Finger] 101 H 76 Pulse Rate from SpO2 Sensor Pulse Rhythm [Right Finger] Pulse Strength [Right Finger] Respiratory Rate 18 18 Respiratory Effort / Characteristics Non-Labored Spontaneous Respiratory Depth Normal Respiratory Pattern Regular Blood Pressure Blood Pressure [Left Arm] 117/71 120/68 Blood Pressure Mean Blood Pressure Mean [Left Arm] 86 85 Blood Pressure Position [Left Arm] Pulse Oximetry 92 96 Oxygen Delivery Method Room Air Room Air Room Air GENERAL: Well appearing, well nourished, NAD, non-toxic. EYE EXAM: Normal conjunctiva. PERRL, no anisocoria and EOM's grossly intact w/o pain. OROPHARYNX: Moist MM. NECK: Supple, no nuchal rigidity, no adenopathy, non-tender. No signs of m eningismus. LUNGS: Bibasilar crackles. Normal chest wall mechanics. HEART: Irregularly irregular, no MRG. ABDOMEN: Abdomen soft, normo-active bowel sounds, no masses, no rebound or guarding. Mild mid abdominal discomfort. BACK: No CVA TTP. SKIN: No rashes and no bruising. UPPER EXTREMITIES: Upper extremities are grossly normal. LOWER EXTREMITIES: No calf pain. 1 to 2+ lower extremity edema, symmetric. Negative Homans. NEURO EXAM: A and O x3. GCS 15. Moves all 4 extremities on command w/o issue. Course 1032: Past medical records reviewed. The patient was evaluated in room B4B, and a complete history and physical examination were performed. 1145: I had a lengthy dicsussion with the patient, who does not want a CT scan at this time. 1222: Upon reevaluation, the patient is resting. I discussed test results. They verbalized agreement with the treatment plan. 1229: I reviewed the patient's case with Dr. Ornelas, [facility] hospitalist. He will evaluate the patient for further management. Consultations Consultation #1: Dr. Ornelas [facility] hospitalist. Time: 12:29 Administered Medications Acetaminophen (Tylenol) 650 mg PO Q4H PRN PRN Reason: Pain or Fever Stop: 01/02/19 15:51 Last Admin: 12/03/18 20:11 Dose: 650 mg Documented by: [id number] Acetaminophen/Codeine Phosphate (Tylenol W/Codeine #3) 1 tab PO BID PRN PRN Reason: Pain Stop: 01/02/19 15:51 Last Admin: 12/03/18 23:18 Dose: 1 tab Documented by: [id number] Diltiazem HCl (Cardizem) 30 mg PO TID [facility] Stop: 01/02/19 20:59 Last Admin: 12/03/18 20:09 Dose: 30 mg Documented by: [id number] Miscellaneous (Order Awaiting Action) 1 ea N/A [facility] Stop: 01/03/19 00:00 Last Admin: 12/03/18 23:19 Dose: Not Given Documented by: [id number] Jessyaneous (Order Awaiting Action) 1 ea N/A [facility] Stop: 01/03/19 00:00 Last Admin: 12/03/18 23:19 Dose: Not Given Documented by: [id number] Jessyaneous (Order Awaiting Action) 1 ea N/A [facility] Stop: 01/03/19 00:00 Last Admin: 12/03/18 23:19 Dose: Not Given Documented by: [id number] Warfarin Sodium (Coumadin) 5 mg PO DAILY@1600 [facility]; Protocol Stop: 01/02/19 15:51 Last Admin: 12/03/18 18:15 Dose: 5 mg Documented by: [id number] Admin: 12/03/18 18:04 Dose: 5 mg Documented by: [id number] Discontinued Medications Diltiazem HCl (Cardizem) 30 mg PO NOW ONE Stop: 12/03/18 15:56 Last Admin: 12/03/18 17:33 Dose: 30 mg Documented by: [id number] Diltiazem HCl (Cardizem) 5 mg IV NOW STA Stop: 12/03/18 17:31 Last Admin: 12/03/18 18:05 Dose: 5 mg Documented by: [id number] Cosigned by: [id number] Chlorothiazide Sodium 500 mg/ (Dextrose) 68 mls @ 200 mls/hr IV NOW STA Stop: 12/03/18 12:46 Last Infusion: 12/03/18 14:08 Dose: 0 mls/hr Documented by: [id number] Admin: 12/03/18 13:39 Dose: 200 mls/hr Documented by: [id number] Medical Decision Making Medical Records Attestation: I reviewed the patient's medical records. Home Medications Current Medication List: was personally reviewed by me Laboratory Data Attestation: I reviewed the patient's lab results. Result diagrams: 12/04/18 06:01 12/04/18 06:01 Lab Results 12/03/18 12/03/18 12/03/18 Range/Units 11:02 11:02 11:02 WBC 6.45 (4.8-10.8) K/uL RBC 3.35 L (4.2-5.4) M/uL Hgb 10.6 L (12.0-16.0) g/dL POC Hgb (12.0-16.0) g/dl Hct 31.3 L (37-47) % POC Hct (37-47) % MCV 93.4 (80-100) fL MCH 31.6 (25-34) pg MCHC 33.9 (32-36) g/dL RDW Std Deviation 48.5 H (36.4-46.3) fL RDW Coeff of Randell 14.0 (11.5-14.5) % Plt Count 180 (130-400) K/uL MPV 9.3 (7.4-10.4) fL Immature Gran % (Auto) 0.5 % Neut % (Auto) 70.7 % Lymph % (Auto) 15.8 % Lucas % (Auto) 10.9 % Eos % (Auto) 1.9 % Baso % (Auto) 0.2 % Immature Gran # (Auto) 0.03 H (0.00-0.02) K/uL Neut # (Auto) 4.57 (1.4-6.5) K/uL Lymph # (Auto) 1.02 L (1.2-3.4) K/uL Lucas # (Auto) 0.70 H (0.11-0.59) K/uL Eos # (Auto) 0.12 (0-0.5) K/uL Baso # (Auto) 0.01 (0-0.2) K/uL PT 11.7 (9.0-12.0) Seconds INR 1.2 H (0.9-1.1) APTT 27.1 (21.0-31.0) Seconds PTT Ratio 1.0 VBG pH (7.36-7.41) VBG pCO2 (38-50) mmHg VBG pO2 mmHg VBG HCO3 mmol/L VBG O2 Saturation % VBG Base Excess mEq/L Barometric Pressure mm/Hg POC Sodium (135-144) mEq/L Sodium 134 L (136-145) mmol/L POC Potassium (3.3-5.0) mEq/L Potassium 3.8 (3.5-5.1) mmol/L POC Chloride (101-112) mEq/L Chloride 102 (98-107) mmol/L Carbon Dioxide 27 (21-32) mmol/L POC Total CO2 (24-31) mEq/l Anion Gap 5.0 (3-11) POC Anion Gap (16-25) mmol/L POC BUN (7-18) mg/dl BUN 10 (7-18) mg/dl Creatinine 0.88 (0.6-1.2) mg/dl POC Creatinine (0.6-1.3) mg/dl Est Cr Clr Drug Dosing 59.5 ml/min Est GFR ( Amer) 70.9 Est GFR (Non-Af Amer) 61.2 BUN/Creatinine Ratio 11.1 (10-20) Glucose 99 (70-99) mg/dl POC Glucose (other) (70-99) mg/dl Calcium 8.6 (8.5-10.1) mg/dl POC Ioniz Calcium Marizol (1.12-1.32) mmol/l Phosphorus 3.1 (2.5-4.9) mg/dl Magnesium 2.2 (1.8-2.4) mg/dl Total Bilirubin 1.1 H (0.2-1) mg/dl AST 33 (15-37) U/L ALT 48 (12-78) U/L Alkaline Phosphatase 78 (45-117) U/L Troponin I < 0.015 (0-0.045) ng/ml NT-Pro-B Natriuret Pep 2161 H (0-1800) pg/ml Total Protein 6.9 (6.4-8.2) gm/dl Albumin 2.9 L (3.4-5.0) gm/dl Globulin 4.0 (2.5-4.0) gm/dl Albumin/Globulin Ratio 0.7 L (0.9-2) Urine Color Urine Appearance (Clear) Urine pH (4.5-7.5) Ur Specific [place] (1.000-1.030) Urine Protein (Negative) Urine Glucose (UA) (Negative) Urine Ketones (Negative) Urine Blood (Negative) Urine Nitrite (Negative) Urine Bilirubin (Negative) Urine Urobilinogen (Negative) Ur Leukocyte Esterase (Negative) 12/03/18 12/03/18 12/04/18 Range/Units 11:02 11:12 02:55 WBC (4.8-10.8) K/uL RBC (4.2-5.4) M/uL Hgb (12.0-16.0) g/dL POC Hgb 9.9 L (12.0-16.0) g/dl Hct (37-47) % POC Hct 29 L (37-47) % MCV (80-100) fL MCH (25-34) pg MCHC (32-36) g/dL RDW Std Deviation (36.4-46.3) fL RDW Coeff of Randell (11.5-14.5) % Plt Count (130-400) K/uL MPV (7.4-10.4) fL Immature Gran % (Auto) % Neut % (Auto) % Lymph % (Auto) % Lucas % (Auto) % Eos % (Auto) % Baso % (Auto) % Immature Gran # (Auto) (0.00-0.02) K/uL Neut # (Auto) (1.4-6.5) K/uL Lymph # (Auto) (1.2-3.4) K/uL Lucas # (Auto) (0.11-0.59) K/uL Eos # (Auto) (0-0.5) K/uL Baso # (Auto) (0-0.2) K/uL PT (9.0-12.0) Seconds INR (0.9-1.1) APTT (21.0-31.0) Seconds PTT Ratio VBG pH 7.43 H (7.36-7.41) VBG pCO2 44 (38-50) mmHg VBG pO2 23 mmHg VBG HCO3 28 mmol/L VBG O2 Saturation < 60.0 % VBG Base Excess 3.4 mEq/L Barometric Pressure 734.8 mm/Hg POC Sodium 135 (135-144) mEq/L Sodium (136-145) mmol/L POC Potassium 3.8 (3.3-5.0) mEq/L Potassium (3.5-5.1) mmol/L POC Chloride 98 L (101-112) mEq/L Chloride (98-107) mmol/L Carbon Dioxide (21-32) mmol/L POC Total CO2 26 (24-31) mEq/l Anion Gap (3-11) POC Anion Gap 17.0 (16-25) mmol/L POC BUN 8 (7-18) mg/dl BUN (7-18) mg/dl Creatinine (0.6-1.2) mg/dl POC Creatinine 0.9 (0.6-1.3) mg/dl Est Cr Clr Drug Dosing ml/min Est GFR ( Amer) Est GFR (Non-Af Amer) BUN/Creatinine Ratio (10-20) Glucose (70-99) mg/dl POC Glucose (other) 101 H (70-99) mg/dl Calcium (8.5-10.1) mg/dl POC Ioniz Calcium Marizol 1.16 (1.12-1.32) mmol/l Phosphorus (2.5-4.9) mg/dl Magnesium (1.8-2.4) mg/dl Total Bilirubin (0.2-1) mg/dl AST (15-37) U/L ALT (12-78) U/L Alkaline Phosphatase (45-117) U/L Troponin I (0-0.045) ng/ml NT-Pro-B Natriuret Pep (0-1800) pg/ml Total Protein (6.4-8.2) gm/dl Albumin (3.4-5.0) gm/dl Globulin (2.5-4.0) gm/dl Albumin/Globulin Ratio (0.9-2) Urine Color Yellow Urine Appearance Clear (Clear) Urine pH 7.5 (4.5-7.5) Ur Specific [place] 1.010 (1.000-1.030) Urine Protein Negative (Negative) Urine Glucose (UA) Negative (Negative) Urine Ketones Negative (Negative) Urine Blood Negative (Negative) Urine Nitrite Negative (Negative) Urine Bilirubin Negative (Negative) Urine Urobilinogen Negative (Negative) Ur Leukocyte Esterase Negative (Negative) 12/04/18 12/04/18 12/04/18 Range/Units 06:01 06:01 06:01 WBC 6.08 (4.8-10.8) K/uL RBC 3.48 L (4.2-5.4) M/uL Hgb 10.6 L (12.0-16.0) g/dL POC Hgb (12.0-16.0) g/dl Hct 31.9 L (37-47) % POC Hct (37-47) % MCV 91.7 (80-100) fL MCH 30.5 (25-34) pg MCHC 33.2 (32-36) g/dL RDW Std Deviation 46.6 H (36.4-46.3) fL RDW Coeff of Randell 14.0 (11.5-14.5) % Plt Count 206 (130-400) K/uL MPV 9.2 (7.4-10.4) fL Immature Gran % (Auto) % Neut % (Auto) % Lymph % (Auto) % Lucas % (Auto) % Eos % (Auto) % Baso % (Auto) % Immature Gran # (Auto) (0.00-0.02) K/uL Neut # (Auto) (1.4-6.5) K/uL Lymph # (Auto) (1.2-3.4) K/uL Lucas # (Auto) (0.11-0.59) K/uL Eos # (Auto) (0-0.5) K/uL Baso # (Auto) (0-0.2) K/uL PT 12.2 H (9.0-12.0) Seconds INR 1.2 H (0.9-1.1) APTT (21.0-31.0) Seconds PTT Ratio VBG pH (7.36-7.41) VBG pCO2 (38-50) mmHg VBG pO2 mmHg VBG HCO3 mmol/L VBG O2 Saturation % VBG Base Excess mEq/L Barometric Pressure mm/Hg POC Sodium (135-144) mEq/L Sodium 133 L (136-145) mmol/L POC Potassium (3.3-5.0) mEq/L Potassium 3.4 L (3.5-5.1) mmol/L POC Chloride (101-112) mEq/L Chloride 102 (98-107) mmol/L Carbon Dioxide 27 (21-32) mmol/L POC Total CO2 (24-31) mEq/l Anion Gap 4.0 (3-11) POC Anion Gap (16-25) mmol/L POC BUN (7-18) mg/dl BUN 11 (7-18) mg/dl Creatinine 0.88 (0.6-1.2) mg/dl POC Creatinine (0.6-1.3) mg/dl Est Cr Clr Drug Dosing 58.5 ml/min Est GFR ( Amer) 70.9 Est GFR (Non-Af Amer) 61.2 BUN/Creatinine Ratio 12.7 (10-20) Glucose 93 (70-99) mg/dl POC Glucose (other) (70-99) mg/dl Calcium 8.6 (8.5-10.1) mg/dl POC Ioniz Calcium Marizol (1.12-1.32) mmol/l Phosphorus (2.5-4.9) mg/dl Magnesium (1.8-2.4) mg/dl Total Bilirubin (0.2-1) mg/dl AST (15-37) U/L ALT (12-78) U/L Alkaline Phosphatase (45-117) U/L Troponin I (0-0.045) ng/ml NT-Pro-B Natriuret Pep (0-1800) pg/ml Total Protein (6.4-8.2) gm/dl Albumin (3.4-5.0) gm/dl Globulin (2.5-4.0) gm/dl Albumin/Globulin Ratio (0.9-2) Urine Color Urine Appearance (Clear) Urine pH (4.5-7.5) Ur Specific [place] (1.000-1.030) Urine Protein (Negative) Urine Glucose (UA) (Negative) Urine Ketones (Negative) Urine Blood (Negative) Urine Nitrite (Negative) Urine Bilirubin (Negative) Urine Urobilinogen (Negative) Ur Leukocyte Esterase (Negative) Imaging Data Radiologist's Impression: Radiology results as stated below per my review and the radiologist's interpretation: XR chest 1V portable CLINICAL HISTORY: Dyspnea COMPARISON STUDY: November 21, 2018 FINDINGS: The heart is enlarged. There is radiographic evidence of congestive failure/fluid overload. There is chronic deformity the proximal right humerus. Hilar soft tissue prominence, likely relates to prominent central vessels.[ There is no lobar consolidation. IMPRESSION: Cardiomegaly and radiographic evidence of congestive failure/fluid overload. Electronically signed by: Claude Dean M.D. 12/03/2018 11:04 AM ECG Data Attestation: I personally reviewed and interpreted this ECG as follows: Indication: SOB/dyspnea Rate (beats per minute): 103 Rhythm: atrial fibrillation Findings: + other (normal QRS. normal axis) and + PVC (occasional); no ST depression and no ST elevation Blood Pressure Blood Pressure Findings: Elevated blood pressure Blood Pressure Disposition: further management by hospitalist MDM Narrative The patient is an 83 year old white female w/ PMHx of sleep apnea, aortic stenosis, s/p AAA repair who presents to the ED w/ CC of persistent shortness of breath beginning 2 days ago. Etiologies such as infections, reactive airway disease, COPD, pneumonia, pleural effusion, pulmonary edema, ARDS, pneumothorax, CHF, cardiac ischemia, cardiac tamponade, dysrhythmia, anemia, pulmonary embolism, musculoskeletal, gastrointestinal process, as well as others were entertained. Patient presents with complaints of shortness of breath which is ongoing. The patient does have some mild lower extremity swelling. The patient is on Coumadin for history of A. fib and also does have a history of a recent AAA repair. Patient states that she is unable to get any CT scans. She became only states that this hospital needs to figure out who said that and why. Stated the patient typically is reserved for concerns about radiation future cancer risk as well as kidney function. Patient has normal kidney function. Patient did have a chest film completed with blood work and EKG. The patient is in A. fib. The patient of note does have a four-point drop in hemoglobin but she did have a fairly recent procedure. Her anemia may be somewhat contributory. Patient also states that she has not had a bowel movement approximate 7 days. Patient was given some diarrhea as the patient does explain that she has idiopathic angioedema is very sensitive to new medications and as she has not been taking her thiazide but has tried in the past will continue to use the same class of medication. I did discuss the case with the on-call hospitalist who agreed to further evaluate treat the patient. Patient was admitted to the medicine service. Impression & Plan Acute exacerbation of CHF (congestive heart failure), Volume overload, History of aortic stenosis Discharge Plan Visit Data *Final* Discharge Date/Time: 12/03/18 15:21 Chief Complaint: Shortness of Breath/Dyspnea ED Provider: Catarino Martinez Discharge Problem: Acute exacerbation of CHF (congestive heart failure), Volume overload, History of aortic stenosis Patient Disposition: Admitted As Inpatient Discharge Instructions Interventions: ED Discharge Assessment Last Done: 12/03/18 15:21 Discharge Problem: Acute exacerbation of CHF (congestive heart failure) Qualifiers: Heart failure type: unspecified Qualified Code(s): I50.9 - Heart failure, unspecified Volume overload Qualifiers: Hypervolemia type: unspecified Qualified Code(s): E87.70 - Fluid overload, unspecified The scribe's documentation has been prepared under my direction and personally reviewed by me in its entirety. I confirm that the note above accurately reflects all work, treatment, procedures, and medical decision making performed by me.
[2018-12-03] MEDS ORDERED: ONDANSETRON INJ 2 MG/ML 2 ML VIAL IV PRN (15:52)
[2018-12-03] MEDS ORDERED: ACETAMINOPHEN 325 MG TAB PO PRN (15:52)
[2018-12-03] MEDS: dilTIAZem HCL 30 MG TAB PO ONE ×2 (16:26→17:33)
[2018-12-03] MEDS ORDERED: dilTIAZem HCl 5 MG/ML 5 ML VIAL IV STA (17:30)
[2018-12-03] MEDS: WARFARIN SOD 5 MG TAB PO SCH ×2 (18:04→18:15)
[2018-12-03] MEDS: dilTIAZem HCL 30 MG TAB PO SCH (20:09)
[2018-12-03] MEDS: ACETAMINOPHEN W/CODEINE #3 1 TAB PO PRN (23:18)
[2018-12-04 03:02] LABS: Appearance Urine Clear (Clear); Bilirubin Urine Negative (Negative); Blood Urine Negative (Negative); Color Urine Yellow; Glucose Urine UA Negative (Negative); Ketones Urine Negative (Negative); Leukocyte Esterase Urine Negative (Negative); Nitrite Urine Negative (Negative); Protein Urine Negative (Negative); Urobilinogen Urine Negative (Negative); pH Urine 7.5 (4.5-7.5)
[2018-12-04 06:35] LABS: Hematocrit (blood only) 31.9 % (37-47); Hemoglobin 10.6 g/dL (12.0-16.0); Mean Corpuscular Hgb Conc 33.2 g/dL (32-36); Mean Corpuscular Volume 91.7 fL (80-100); Mean Platelet Volume 9.2 fL (7.4-10.4); Platelet Count 206 K/uL (130-400); RDW Standard Deviation 46.6 fL (36.4-46.3); Red Blood Count 3.48 M/uL (4.2-5.4); White Blood Count 6.08 K/uL (4.8-10.8)
[2018-12-04 06:42] LABS: INR 1.2 (0.9-1.1); Prothrombin Time 12.2 Seconds (9.0-12.0)
[2018-12-04 06:53] LABS: BUN Creatinine Ratio 12.7 (10-20); Calcium 8.6 mg/dl (8.5-10.1); Creatinine Clr Calc Pharmacy 58.5 ml/min; Est GFR (African American) 70.9; Est GFR (Non-African American) 61.2; Potassium 3.4 mmol/L (3.5-5.1)
[2018-12-04] MEDS ORDERED: PERFLUTREN LIPID MICROSPHERE (DEFINITY) IV ONE (07:08)
[2018-12-04] MEDS: ASCORBIC ACID 500 MG TAB PO SCH ×2 (08:23→09:00)
[2018-12-04] MEDS: dilTIAZem HCL 30 MG TAB PO SCH ×3 (08:23→21:04)
[2018-12-04] MEDS: CHOLECALCIFEROL 1,000 UNITS TAB PO SCH ×2 (08:23→09:01)
[2018-12-04] MEDS: LORATADINE 10 MG TAB PO SCH ×2 (08:23→08:59)
[2018-12-04] MEDS: ACETAMINOPHEN W/CODEINE #3 1 TAB PO PRN (08:47)
[2018-12-04] MEDS ORDERED: CHLOROTHIAZIDE SODIUM 500 MG in DEXTROSE 5% 50 ML IV SCH (09:00)
[2018-12-04] MEDS ORDERED: KETOCONAZOLE 2% SHAMPOO 120 ML BTL EXT SCH (09:00)
[2018-12-04] MEDS ORDERED: BISACODYL 10 MG SUPP PR PRN (09:17)
[2018-12-04] MEDS: POLYETHYLENE (MIRALAX) 17 GM PACK PO SCH ×2 (09:42→21:05)
[2018-12-04] MEDS: POTASSIUM CHLORIDE 20 MEQ TABCR PO SCH (09:42)
--- NOTE | 2018-12-04 12:36 | Cardiology Consultation ---
Date of Consultation December 04, 2018 Assessment & Plan (1) Acute exacerbation of CHF (congestive heart failure): The patient has evidence of acute on chronic diastolic CHF prompting this hospitalization. Suspect this may be iatrogenic as she received intravenous hydration during her hospitalization at [facility] earlier this month. She is diuresing well with intravenous chlorothiazide. Would continue intravenous diuretics for least another 24 hours. (2) Paroxysmal atrial fibrillation: The patient's atrial fibrillation is now felt to be at least persistent, if not permanent. Agree with the addition of diltiazem to better control her ventricular response. INR is currently subtherapeutic. (3) History of aortic stenosis: Valve area was calculated 1.1 cm2 on echocardiogram performed in September. Repeat study is pending at this time. (4) Peripheral vascular disease: She underwent endovascular repair of her abdominal aortic aneurysm at [facility] on November 27. History of Present Illness Attending Physician: El Ornelas DO History of Present Illness Mrs. Ledezma is an 83-year-old female admitted yesterday in decompensated diastolic CHF. This consultation was ordered to assist her cardiac management. Of note, the the patient is well known to me from the outpatient setting. The patient was in her usual state of health until just after her return home from an EVAR performed at [facility] on November 27, 2017. The patient began to notice progressive exertional dyspnea and lower extremity edema. She did not experience PND or orthopnea. She further denies exertional chest pain, syncope, presyncope, and claudication. The patient was diagnosed with atrial fibrillation during hospitalization in June 2017 for right hip replacement surgery. She developed atrial fibrillation with a rapid ventricular response following her surgery. The patient also carries a history of moderate aortic stenosis. A preoperative echocardiogram performed in September noted a valve area of 1.1 cm2. Left ventricular systolic function was normal at that time. Her medications reviewed in detail. Past medical and surgical history 1. Persistent atrial fibrillation-June 2017 2. Hypertension 3. Hypercholesterolemia 4. Diastolic dysfunction 5. Moderate aortic stenosis-1.1 cm2-September 2018 6. History of infrarenal abdominal aortic aneurysm-4.7 x 5.1 x 10.5 cm-August 2017 7. History of bilateral common iliac aneurysms-1.9 cm-August 2017 8. Endovascular abdominal aortic aneurysm repair-[place], November 27 2018 9. Obstructive sleep apnea 10. Hearing loss 11. DJD 12. Idiopathic angioedema 13. History of Gracia neuroma 14. Breast lumpectomy 15. Left TKR-2011 16. Left THR-March 2017 17. 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 Review of systems A 10 point review of systems was undertaken and negative except for that described above. Allergies Allergy/AdvReac Type Severity Reaction Status Date / Time aspirin Allergy Severe TONGUE AND Verified 12/03/18 11:46 THROAT SWELLS tramadol Allergy Severe ANAPHYLAXIS Verified 12/03/18 11:46 monosodium glutamate Allergy Mild throat Verified 12/03/18 11:46 swell erythromycin base Allergy Unknown SWELLING Verified 12/03/18 11:46 THROAT AND RASH tetracycline Allergy Unknown SWELLING Verified 12/03/18 11:46 AND RASH cephalexin AdvReac Severe VOMITING Verified 12/03/18 11:46 omeprazole AdvReac Severe G I UPSET Verified 12/03/18 11:46 amoxicillin AdvReac Intermediate VOMIT Verified 12/03/18 11:46 clavulanic acid AdvReac Intermediate VOMIT Verified 12/03/18 11:46 metoprolol AdvReac Intermediate DISORIENTED Verified 12/03/18 11:46 alendronate sodium AdvReac Unknown very upset Verified 12/03/18 11:46 stomach esomeprazole AdvReac Unknown G I UPSET Verified 12/03/18 11:46 nystatin AdvReac Unknown GI UPSET Verified 12/03/18 11:46 Aromatic Oils Allergy Unknown PERFUMES Uncoded 12/03/18 11:46 CAN'T BREATHE Home Medications Home Medications Medication Instructions Recorded Confirmed Type azelastine 2 spray INTRANASAL Q12H PRN #0 btl 03/16/17 12/03/18 History epinephrine 0.3 mg IM Q3H PRN #0 box 03/16/17 12/03/18 History polyethylene glycol 3350 [Miralax] 17 g PO QPM PRN #0 g 04/02/17 12/03/18 History timolol 1 drp OPB BID #0 btl 04/02/17 12/03/18 History loratadine [Claritin] 10 mg PO QAM #0 tab 07/10/17 12/03/18 History acetaminophen-codeine 1 tab PO BID PRN 04/23/18 12/03/18 History [Tylenol-Codeine #3] ascorbic acid (vitamin C) [Vitamin 500 mg PO DAILY 04/23/18 12/03/18 History C] cholecalciferol (vitamin D3) 2,000 unit PO DAILY 04/23/18 12/03/18 History [Vitamin D3] menthol [Biofreeze (menthol)] 1 dose TOPICAL DIRECTED 04/23/18 12/03/18 History diltiazem HCl 30 mg PO UD 12/03/18 12/03/18 History ipratropium bromide 2 spray INTRANASAL TID PRN 12/03/18 12/03/18 History ketoconazole 1 applic TOPICAL UD 12/03/18 12/03/18 History warfarin 5 mg PO UD 12/03/18 12/03/18 History Patient History Medical History Atrial fibrillation REASON FOR WARFARIN Cancer LEFT BREAST LUMPECTOMY WITH RADIATION Hyperlipidemia Hypertension Idiopathic angioedema Osteoarthritis Sleep apnea BIPAP FOR SLEEP APNEA Surgical History Abdominal mass LARGE POLYP REMOVED History of arthroscopy RT LNEE TENDON REPAIR History of cataract surgery History of colonoscopy History of tooth extraction History of total hip arthroplasty LEFT AND RT History of total knee replacement LEFT Hx of lumpectomy Family History Sister Family history of diabetes mellitus Other Family hx of colon cancer Social History Smoking Status: Former smoker second hand exposure: No substance use type: does not use Physical Exam Vital Signs (Past 24 Hours): Last Vital Signs Temp 36.5 C 12/04/18 11:35 Pulse 80 12/04/18 11:35 Resp 18 12/04/18 11:35 BP 121/66 12/04/18 11:35 Pulse Ox 95 12/04/18 11:35 Physical Exam: In general this is an obese white female lying in bed without complaints. HEENT exam is negative. Neck is supple with full carotid u pstrokes. There are no carotid bruits. Jugular venous pressure is 10 centimeters of water at 90 degrees. Cardiovascular exam reveals an irregularly irregular rhythm with distant heart sounds. A 2/6 crescendo decrescendo systolic murmur heard loudest at the base. S2 is audible at the apex. Lungs note bibasilar rales. Abdomen is obese without bruits extremities note 1+ pretibial edema bilaterally. Results & Data Laboratory Results CBC notes a hemoglobin of 10.6, hematocrit 31.9, white count 6.08, and platelet count of [id number]. Electrolytes notice sodium of 133, potassium 3.4, chloride 102, bicarb 27, BUN 11, creatinine 0.80, and a glucose of 93. Troponin I levels less than 0.015. BNP is elevated at 2161. INR is 1.2. Diagnostic Findings EKG notes atrial fibrillation with a rapid ventricular response. There is an old inferior myocardial infarction pattern. Chest x-ray notes cardiomegaly and evidence of pulmonary edema. (1) Acute exacerbation of CHF (congestive heart failure) Heart failure type: unspecified Qualified Code(s): I50.9 - Heart failure, unspecified
--- NOTE | 2018-12-04 15:29 | Hospitalist Progress Note ---
Date of Service December 04, 2018 Assessment & Plan (1) Acute heart failure: unclear etiology, has h/o mild to mod , preserved EF just had AAA repair, could have had some volume overload from surgery? echo shows preserved EF, has moderate mitral regurgitation regurgitation likely contributing no mention of diastolic dysfunction responded well to Diuril, -2200cc yesterday/last night will give additional Diuril 500mg IV today and follow response daily weights, I/Os consult cardiology, Dr. Desir (2) Paroxysmal atrial fibrillation: rates jump to 120-130 at rest when she goes into Afib order Diltiazem 30mg TID on Coumadin but INR was low at 1.2, she held it prior to surgery for AAA INR still low at 1.2, will continue Coumadin if not up tomorrow then consider Lovenox (3) Volume overload: unclear etiology echo shows mitral regurgitation (4) History of aortic stenosis: moderate at best in the past echo this admission does NOT show severe so not contributing to symptoms (5) Post-op pain: mild pain in right groin at access site no abdominal pain access site shows small bruise, no swelling appears as would be expected (6) Dyspnea: due to heart failure improved today after diuresis no hypoxia (7) Anemia: drop by 4gm since surgery doubt she should have much blood loss since it was endovascular graft repeat Hb today is also 10.6, thus it is stable no evidence of GI bleeding abdomen is soft, non tender, no bruising to suggest hematoma if Hb drops further will need to get CT abdomen/pelvis (8) Confusion: symptoms are mild, some forgetfulness about recent events but penitentiary memory intact she is oriented x 3 well aware of recent medical events d/w daughter who is concerned will get MRI brain to r/o stroke given her low INR with afib no signs of infection or electrolyte issues or renal failure if MRI brain normal then most likely just delirium with repeat hospitalizations Subjective patient's breathing is better this morning she diuresed 2.2 liters, getting another dose of Diuril this morning discussed with Dr. Desir, appreciate his recommendations repeat echo appears normal, just like prior echo discussed with patient's daughter, she is concerned about the patient's confusion she says it started after she came home from [place], even in car ride home she was forgetful symptoms come a go, no focal neurological deficits discussed that most likely explanation is some hospital delirium discussed that there were no signs of infection, no renal failure or electrolyte abnormalities will get MRI brain, patient agrees to test Review of Systems Constitutional: + fatigue, + malaise and + weakness; no fever, no sweats, no weight loss and no weight gain Respiratory: + dyspnea and + dyspnea on exertion; no cough, no chest congestion, no snoring, no sputum production and no wheezing Cardiovascular: + dyspnea, + dyspnea on exertion, + orthopnea and + edema; no chest pain, no chest pain at rest, no dyspnea at rest, no syncope and no calf pain Gastrointestinal: no abdominal pain, no nausea, no vomiting, no constipation and no diarrhea/loose stools Neurologic: + confusion (mild, patient is oriented x 3, just some increased forgetfulness) Physical Exam Constitutional: WD/WN, vitals as above Eyes: PERRL, conjunctivae normal, anicteric sclerae ENMT: external ear and nose normal, oropharynx normal Neck: trachea midline, no thyromegaly Respiratory: normal respiratory effort and normal percussion; no respiratory distress, no labored breathing and no cough Auscultation: + rales (bibasilar); no diminished lung sounds, no rhonchi and no wheezes Cardiovascular: Rate/Rhythm: regular rate and + irregularly irregular Heart Sounds: normal S1, normal S2 and + murmur (subtle, systolic) Vessels: no JVD Extremities: normal capillary refill and + pedal edema Gastrointestinal (Abdomen): normal bowel sounds, soft, nontender, no hepatosplenomegaly Musculoskeletal: no cyanosis or clubbing, extremities motor strength 5/5 Skin: no rashes, warm and dry Neurologic: patellar DTR's 2+ bilat, sensation intact and PERRL, EOMI, accommodation nl, no face palsy, no dysarthria Psychiatric: A+Ox3, euthymic affect Lymphatic: no cervical or axillary lymphadenopathy Results & Data Vital Signs (Past 12 Hours) Vital Signs Temp Pulse Resp BP Pulse Ox 12/04/18 11:35 36.5 C 80 18 121/66 95 12/04/18 07:43 36.5 C 82 16 132/77 94 12/04/18 03:25 36.8 C 76 18 120/68 96 Laboratory Results Laboratory Results - last 24 hr 12/04/18 12/04/1819 02:55 06:01 06:01 WBC 6.08 RBC 3.48 L Hgb 10.6 L Hct 31.9 L MCV 91.7 MCH 30.5 MCHC 33.2 RDW Std Deviation 46.6 H RDW Coeff of Randell 14.0 Plt Count 206 MPV 9.2 PT INR Sodium 133 L Potassium 3.4 L Chloride 102 Carbon Dioxide 27 Anion Gap 4.0 BUN 11 Creatinine 0.88 Est Cr Clr Drug Dosing 58.5 Est GFR ( Amer) 70.9 Est GFR (Non-Af Amer) 61.2 BUN/Creatinine Ratio 12.7 Glucose 93 Calcium 8.6 Urine Color Yellow Urine Appearance Clear Urine pH 7.5 Ur Specific Leroy 1.010 Urine Protein Negative Urine Glucose (UA) Negative Urine Ketones Negative Urine Blood Negative Urine Nitrite Negative Urine Bilirubin Negative Urine Urobilinogen Negative Ur Leukocyte Esterase Negative 12/04/18 06:01 WBC RBC Hgb Hct MCV MCH MCHC RDW Std Deviation RDW Coeff of Randell Plt Count MPV PT 12.2 H INR 1.2 H Sodium Potassium Chloride Carbon Dioxide Anion Gap BUN Creatinine Est Cr Clr Drug Dosing Est GFR ( Amer) Est GFR (Non-Af Amer) BUN/Creatinine Ratio Glucose Calcium Urine Color Urine Appearance Urine pH Ur Specific Leroy Urine Protein Urine Glucose (UA) Urine Ketones Urine Blood Urine Nitrite Urine Bilirubin Urine Urobilinogen Ur Leukocyte Esterase Medications Administered Current Inpatient Medications Acetaminophen (Tylenol) 650 mg PO Q4H PRN PRN Reason: Pain or Fever Stop: 01/02/19 15:51 Last Admin: 12/03/18 20:11 Dose: 650 mg Documented by: Acetaminophen/Codeine Phosphate (Tylenol W/Codeine #3) 1 tab PO BID PRN PRN Reason: Pain Stop: 01/02/19 15:51 Last Admin: 12/04/18 08:47 Dose: 1 tab Documented by: Ascorbic Acid (Vitamin C) 500 mg PO DAILY [facility] Stop: 01/03/19 08:59 Last Admin: 12/04/18 09:00 Dose: Not Given Documented by: Bisacodyl (Dulcolax) 10 mg WI DAILY PRN PRN Reason: Constipation Stop: 01/03/19 09:16 Diltiazem HCl (Cardizem) 30 mg PO TID [facility] Stop: 01/02/19 20:59 Last Admin: 12/04/18 12:48 Dose: 30 mg Documented by: Chlorothiazide Sodium 500 mg/ (Dextrose) 68 mls @ 200 mls/hr IV DAILY [facility] Stop: 01/03/19 08:59 Last Infusion: 12/04/18 09:43 Dose: Infused Documented by: Loratadine (Claritin) 10 mg PO QAM [facility] Stop: 01/03/19 08:59 Last Admin: 12/04/18 08:59 Dose: Not Given Documented by: Miscellaneous (Order Awaiting Action) 1 ea N/A QS [facility] Stop: 01/03/19 00:00 Last Admin: 12/04/18 08:19 Dose: Not Given Documented by: Miscellaneous (Order Awaiting Action) 1 ea N/A QS [facility] Stop: 01/03/19 00:00 Last Admin: 12/04/18 08:19 Dose: Not Given Documented by: Miscellaneous (Order Awaiting Action) 1 ea N/A QS [facility] Stop: 01/03/19 00:00 Last Admin: 12/04/18 08:19 Dose: Not Given Documented by: Miscellaneous (Order Awaiting Action) 1 ea N/A QS [facility] Stop: 01/03/19 15:59 Ondansetron HCl (Zofran) 4 mg IV Q6H PRN PRN Reason: Nausea Stop: 01/02/19 15:51 Polyethylene Glycol (Miralax Powder Packet) 17 gm PO BID [facility] Stop: 01/03/19 09:29 Last Admin: 12/04/18 09:42 Dose: 17 gm Documented by: Potassium Chloride (Klor-Con M20) 20 meq PO QAM [facility] Stop: 01/03/19 09:29 Last Admin: 12/04/18 09:42 Dose: 20 meq Documented by: Vitamin D (Vitamin D3) 2,000 units PO DAILY [facility] Stop: 01/03/19 08:59 Last Admin: 12/04/18 09:01 Dose: Not Given Documented by: Warfarin Sodium (Coumadin) 5 mg PO DAILY@1600 [facility]; Protocol Stop: 01/02/19 15:51 Last Admin: 12/03/18 18:15 Dose: 5 mg Documented by: (1) Volume overload Hypervolemia type: unspecified Qualified Code(s): E87.70 - Fluid overload, unspecified
[2018-12-04] MEDS ORDERED: GADOBUTROL 65ML VIAL IV PRN (16:17)
--- NOTE | 2018-12-04 16:33 | Magnetic Resonance Report ---
MRI OF THE BRAIN COMBO CLINICAL HISTORY: Change in mental status. COMPARISON STUDY: CT of the brain dated 07/28/2018. TECHNIQUE: MRI of the brain was performed utilizing various T1 and T2-weighted sequences in the axial , sagittal, and coronal planes. Contrast-enhanced sequences were acquired following the administratio n of 9 cc of Gadavist. FINDINGS: Brain parenchyma: There is age-related involutional change noting moderate subcortical and periventri cular microangiopathic disease. There is no hemorrhage or mass effect. There is no restricted diffusi on to suggest acute ischemia. No enhancing mass lesion is identified on the postcontrast images. Tristan -white matter differentiation is preserved. No extra-axial fluid collection is seen. The cerebellar t onsils are normal in configuration. Ventricles, sulci, and cisterns: Prominent second or to involutional change. Pituitary and sella: Unremarkable. Intracranial vasculature: Normal flow voids are maintained at the skull base. Orbits: The bony orbits are grossly intact. Orbital contents are normal in appearance, noting bilater al ocular lens implants. Sinuses and mastoids: Clear. Calvarium: Unremarkable. Cervical cord: Partially visualized cervical spinal cord is normal in morphology and signal intensity . IMPRESSION: Senescent changes as above with no acute intracranial abnormality. Electronically signed by: Mike Hamilton M.D. 12/04/2018 4:31 PM
[2018-12-04] MEDS: WARFARIN SOD 5 MG TAB PO SCH (16:56)
[2018-12-05 06:51] LABS: Hematocrit (blood only) 35.1 % (37-47); Hemoglobin 11.8 g/dL (12.0-16.0); Mean Corpuscular Hgb Conc 33.6 g/dL (32-36); Mean Corpuscular Volume 92.9 fL (80-100); Mean Platelet Volume 8.9 fL (7.4-10.4); Platelet Count 240 K/uL (130-400); RDW Standard Deviation 47.5 fL (36.4-46.3); Red Blood Count 3.78 M/uL (4.2-5.4); White Blood Count 7.47 K/uL (4.8-10.8)
[2018-12-05 06:57] LABS: INR 1.3 (0.9-1.1); Prothrombin Time 13.1 Seconds (9.0-12.0)
[2018-12-05 07:15] LABS: BUN Creatinine Ratio 15.9 (10-20); Calcium 9.1 mg/dl (8.5-10.1); Creatinine Clr Calc Pharmacy 61.3 ml/min; Est GFR (Non-African American) 64.7
[2018-12-05 07:40] VITALS: BP 155/89; PULSE 90; TEMP 99; O2SAT 92
[2018-12-05] MEDS: CHOLECALCIFEROL 1,000 UNITS TAB PO SCH (08:02)
[2018-12-05] MEDS: dilTIAZem HCL 30 MG TAB PO SCH (08:02)
[2018-12-05] MEDS: LORATADINE 10 MG TAB PO SCH (08:02)
[2018-12-05] MEDS: ASCORBIC ACID 500 MG TAB PO SCH (08:02)
[2018-12-05] MEDS: POTASSIUM CHLORIDE 20 MEQ TABCR PO SCH (08:03)
[2018-12-05] MEDS: POLYETHYLENE (MIRALAX) 17 GM PACK PO SCH (08:03)
--- NOTE | 2018-12-05 08:21 | Ultrasound Report ---
ULTRASOUND OF THE ABDOMINAL AORTA CLINICAL HISTORY: Abdominal aortic aneurysm status post repair. COMPARISON STUDY: Ultrasound of the abdominal aorta dated 09/19/2018. Abdominal CT dated 06/10/2018. TECHNIQUE: Multiple de la torre scale, color Doppler, and spectral Doppler sonograms of the abdominal aorta and iliac arteries are performed. Images are reviewed in the transverse and longitudinal planes. FINDINGS: There is advanced atherosclerotic calcification and irregularity noted throughout the abdominal aorta . An abdominal aortic stent graft is in place. The stent graft appears patent. The proximal abdominal aorta measures 2.3 x 2.0 cm (AP times transverse), the mid abdominal aorta measures 2.0 x 2.3 cm (pa tent lumen at the level of the stent graft). There is residual aneurysm sac in the mid abdominal riccardo ures 4.2 x 4.8 cm. No flow is shown within the aneurysm sac. The distal abdominal aorta and iliac art eries are not well visualized IMPRESSION: 1. There is advanced atherosclerotic plaque with an aortic stent graft in place. The stent graft is p atent. 2. The residual aneurysm sac measures 4.2 x 4.8 cm at the level of the mid abdominal aorta. No flow i s identified within the aneurysm sac. 3. The distal abdominal aorta and iliac arteries are not well visualized. Electronically signed by: Mike Hamilton M.D. 12/05/2018 8:20 AM
[2018-12-05] MEDS ORDERED: dilTIAZem HCL 120 MG CAPCR PO SCH (09:45)
--- NOTE | 2018-12-05 13:33 | Cardiology Progress Note ---
Date of Service December 05, 2018 Assessment & Plan (1) Acute exacerbation of CHF (congestive heart failure): Suspect this recent decompensation may be iatrogenic as she received intravenous hydration during her hospitalization at [facility] earlier this month. She is diuresed well with intravenous chlorothiazide. Stable for hospital discharge. (2) Paroxysmal atrial fibrillation: The patient's atrial fibrillation is now felt to be at least persistent, if not permanent. Suggest changing diltiazem to a long-acting preparation at 120 mg daily. (3) History of aortic stenosis: Valve area was calculated 1.1 cm2 on echocardiogram performed in September. (4) Peripheral vascular disease: She underwent endovascular repair of her AAA at [facility] on November 27, 2018. Subjective The patient is resting comfortably a without complaints of chest pain or dyspnea. She is anxious for hospital discharge. Physical Exam Physical Exam: In general this is an obese white female lying in bed without c omplaints. HEENT exam is negative. Neck is supple with full carotid upstrokes. There are no carotid bruits. Jugular venous pressure is 8 cm of water at 90 degrees. Cardiovascular exam reveals an irregularly irregular rhythm with distant heart sounds. A 2/6 crescendo decrescendo systolic murmur heard loudest at the base. S2 is audible at the apex. Lungs are clear. Abdomen is obese without bruits. Extremities note are trace pretibial edema bilaterally. Results & Data Vital Signs (Past 12 Hours) Vital Signs Temp Pulse Resp BP Pulse Ox 12/05/18 10:34 37.2 C 90 18 155/89 H 92 12/05/18 07:39 37.2 C 90 18 155/89 H 92 12/05/18 03:46 37.0 C 87 18 146/80 H 94 Diagnostic Findings traffic monitor specialist notes atrial fibrillation with ventricular response varying between 90-100 beats per minute. (1) Acute exacerbation of CHF (congestive heart failure) Heart failure type: unspecified Qualified Code(s): I50.9 - Heart failure, unspecified
--- NOTE | 2018-12-05 17:03 | Discharge Summary ---
Date of Service December 05, 2018 Admission HPI Per Admitting Provider 83 yo female with history of AAA with recent endovascular repair at [facility] on 11/27. Just discharged from [facility] a few days ago. Prior to the procedure she had cardiac clearance, echocardiogram with EF of 60% and mild to moderate . She said she did not have any symptoms of shortness of breath prior to the procedure. She never had any abdominal pain from the AAA, it was being routinely monitored and reached size that required intervention. She says that she has been experiencing fatigue but more importantly dyspnea and DELONG. No chest pain or pressure. No cough, no fever or chills. She has some edema in her ankles but that is chronic ever since bilateral hip replacements. She came to the ED to determine why she was short of breath because nothing was improving her symptoms at home. She did not take her medications this morning. In the ED she had a CXR that showed signs of CHF with pulmonary congestion. Her Hb was down by four grams compared to pre op labs, it was 10gm, down from 14gm. BNP was elevated at 2100. Troponin negative. She was given a dose of Diuril and admission was requested. On the floor she started to experience intermittent tachycardia, appeared to be atrial fibrillation, ordered Diltiazem PO which she takes at home for when she feels she has an "arrhythmia." Admission Exam Per Admitting Provider Constitutional: WD/WN, vitals as above Eyes: PERRL, conjunctivae normal, anicteric sclerae ENMT: external ear and nose normal, oropharynx normal Neck: trachea midline, no thyromegaly Respiratory: normal respiratory effort and normal percussion; no respiratory distress, no labored breathing and no cough Auscultation: + rales (bibasilar); no diminished lung sounds, no rhonchi and no wheezes Cardiovascular: Rate/Rhythm: + tachycardic; + abnormal rhythm (irregular irregular) Heart Sounds: normal S1, normal S2 and + murmur (subtle, systolic) Vessels: no JVD Extremities: normal capillary refill and + pedal edema Gastrointestinal (Abdomen): normal bowel sounds, soft, nontender, no hepatosplenomegaly Musculoskeletal: no cyanosis or clubbing, extremities motor strength 5/5 Skin: no rashes, warm and dry Neurologic: patellar DTR's 2+ bilat, sensation intact and PERRL, EOMI, accommodation nl, no face palsy, no dysarthria Psychiatric: A+Ox3, euthymic affect Lymphatic: no cervical or axillary lymphadenopathy Principal Diagnosis Acute on chronic diastolic heart failure Discharge Exam Constitutional WD/WN, vitals as above Eyes PERRL, conjunctivae normal, anicteric sclerae ENMT external ear and nose normal, oropharynx normal Neck trachea midline, no thyromegaly Respiratory normal respiratory effort and normal percussion; no respiratory distress, no labored breathing and no cough Auscultation: no diminished lung sounds, no rhonchi and no wheezes Cardiovascular Rate/Rhythm: regular rate Heart Sounds: normal S1, normal S2 and + murmur (subtle, systolic) Vessels: no JVD Extremities: normal capillary refill and + pedal edema Gastrointestinal (Abdomen) normal bowel sounds, soft, nontender, no hepatosplenomegaly Musculoskeletal no cyanosis or clubbing, extremities motor strength 5/5 Skin no rashes, warm and dry Neurologic patellar DTR's 2+ bilat, sensation intact and PERRL, EOMI, accommodation nl, no face palsy, no dysarthria Psychiatric A+Ox3, euthymic affect Lymphatic no cervical or axillary lymphadenopathy Discharge Data Allergies Allergy/AdvReac Type Severity Reaction Status Date / Time aspirin Allergy Severe TONGUE AND Verified 12/03/18 11:46 THROAT SWELLS tramadol Allergy Severe ANAPHYLAXIS Verified 12/03/18 11:46 monosodium glutamate Allergy Mild throat Verified 12/03/18 11:46 swell erythromycin base Allergy Unknown SWELLING Verified 12/03/18 11:46 THROAT AND RASH tetracycline Allergy Unknown SWELLING Verified 12/03/18 11:46 AND RASH cephalexin AdvReac Severe VOMITING Verified 12/03/18 11:46 omeprazole AdvReac Severe G I UPSET Verified 12/03/18 11:46 amoxicillin AdvReac Intermediate VOMIT Verified 12/03/18 11:46 clavulanic acid AdvReac Intermediate VOMIT Verified 12/03/18 11:46 metoprolol AdvReac Intermediate DISORIENTED Verified 12/03/18 11:46 alendronate sodium AdvReac Unknown very upset Verified 12/03/18 11:46 stomach esomeprazole AdvReac Unknown G I UPSET Verified 12/03/18 11:46 nystatin AdvReac Unknown GI UPSET Verified 12/03/18 11:46 Aromatic Oils Allergy Unknown PERFUMES Uncoded 12/03/18 11:46 CAN'T BREATHE Consultations 12/03/18 12:33 ED Decision to Admit Stat 12/03/18 15:52 Consult Cardiology Routine Ordered Studies 12/04/18 11:33 MR brain wo/w con Urgent 12/04/18 20:02 aorta duplex Urgent Hospital Course (1) Acute heart failure: unclear etiology, has h/o mild to mod , preserved EF just had AAA repair, could have had some volume overload from surgery? echo shows preserved EF, has moderate mitral regurgitation regurgitation likely contributing per cardiology this would represent acute on chronic diastolic heart failure responded well to Diuril, -3000cc for the admission weight down several pounds provided with details CHF discharge instructions, knows to weigh herself daily knows to call cardiology if weight up by 2-3 lbs will follow up with the heart failure clinic next week no Lasix prescribed as she refuses to take it with her history of throat swelling, she is not sure if it would cause this (2) Paroxysmal atrial fibrillation: rates jump to 120-130 at rest when she goes into Afib order Diltiazem 30mg TID on Coumadin but INR was low at 1.2, she held it prior to surgery for AAA rates better controlled on Diltiazem but not quite at goal Dr. Desir recommends long acting Diltiazem, 120mg daily, given dose prior to discharge continue Coumadin at prior dose, follow up with cardiology (3) Volume overload: unclear etiology echo shows mitral regurgitation could have been given too much IV fluids while at [facility] (4) History of aortic stenosis: moderate to severe, THOMAS is 1.1 (5) Post-op pain: mild pain in right groin at access site no abdominal pain access site shows small bruise, no swelling appears as would be expected (6) Dyspnea: due to heart failure improved today after diuresis no hypoxia dyspnea completely resolved at time of discharge (7) Anemia: drop by 4gm since surgery doubt she should have much blood loss since it was endovascular graft repeat Hb on 12/04 was also 10.6, thus it was stable no evidence of GI bleeding Hb on 12/05 was trending up to 11.8, drop could have been from dilution from volume overload (8) Confusion: symptoms are mild, some forgetfulness about recent events but [facility] memory intact she is oriented x 3 well aware of recent medical events d/w daughter who is concerned MRI brain negative for acute stroke or any other changes no signs of infection or electrolyte issues or renal failure most likely just delirium with repeat hospitalizations Total Time Total Time Spent Total Time Spent (In Minutes): 40 minutes Total Time Includes: Examination of the Patient, Discharge Planning, Medication Reconciliation and Communication With Other Providers (Michelle August) Discharge Plan Discharge Items Patient Disposition: Home - Home Health Services Reason For Visit: ACUTE DIASTOLIC HEART FAILURE Discharge Diagnosis: Acute on chronic diastolic heart failure Atrial fibrillation with occasional fast heart rate Condition: Good Discharge Goals: Improve disease control, Improve function and Increase independence Activity: Resume your previous activity Non-emergency contact: Primary Care Provider and Injection Molder Call non-emergency contact if: you have any medication questions, your symptoms worsen and you have a fever Follow-up/Referrals: Akshat Bingham [Primary Care Provider] - 12/13/18 12:50 pm (Please, follow up at Dr. Bingham's office with his associate, Dr. Chris Eden , on SundayDecember 13 at 12:50 pm. *If you need to change this appointment, call their office at [phone].) Michelle Wren PA-C [Physician Vice President And Portfolio Manager] - 12/10/18 2:00 pm (Please, follow up at [facility] Cardiology Office / CHF Clinic with Maria T Wren PA-C on SundayDecember 10 at 2:00 pm. *This office is located in [address] of [facility]. If you need to change this appointment, call the office at [phone].) Diet: Heart Healthy Fluids: 1800ml (7 cups) Addtl Provider Instructions: Medications: - DILTIAZEM: new prescription for 120mg daily, this replaces the 30mg tablets that you have at home this is a long acting Diltiazem that Dr. Desir would like you to take to help control your heart rates you received a dose this morning in the hospital, so next dose would be tomorrow morning Acute on chronic diastolic heart failure resolved with Diuril (intravenous diuretic), weight is down signficantly since you never had an issue with heart failure in the past, it is suspected that you received IV fluids at [facility] with your surgery for management, you should follow a low sodium diet (less than 2gm a day) and a fluid restriction of 1800mL a day (60 fluid oz) a day weigh yourself every morning to keep track of your weight if weight goes up by 2-[address] Desir's office for recommendations we will schedule you to follow up with heart failure clinic next week to make sure things are stable see instructions provided below for CHF Anemia: as we discussed, your hemoglobin was lower than normal on admission, it was 10.6 actually trending up to 11.8 today, no signs of bleeding or further anemia, this is stable Atrial fibrillation: as mentioned above, Diltiazem 120mg daily was started here in hospital, next dose is due tomorrow morning continue on Coumadin 5mg daily, follow up with INR next week with whoever follows your INR Prescriptions: New diltiazem HCl 120 mg Capsule,Extended Release 24hr 120 mg PO QAM 30 Days Qty: 30 RF: 1 Continued azelastine 137 mcg (0.1 %) Aerosol,[place] 2 spray INTRANASAL Q12H PRN (Reason: .) Qty: 0 RF: 0 epinephrine 0.3 mg/0.3 mL Auto-Injector 0.3 mg IM Q3H PRN (Reason: .) Qty: 0 RF: 0 polyethylene glycol 3350 [Miralax] 17 gram Powder In Packet 17 g PO QPM PRN (Reason: Constipation) Qty: 0 RF: 0 timolol 0.25 % Drops 1 drp OPB BID Qty: 0 RF: 0 loratadine [Claritin] 10 mg Tablet 10 mg PO QAM Qty: 0 RF: 0 ketoconazole 2 % shampoo 1 applic topical UD RF: 0 warfarin 5 mg tablet 5 mg PO UD RF: 0 ipratropium bromide 0.03 % spray,non-aerosol 2 spray intranasal TID PRN (Reason: Allergy Symptoms) RF: 0 ascorbic acid (vitamin C) [Vitamin C] 500 mg Tablet 500 mg PO DAILY RF: 0 cholecalciferol (vitamin D3) [Vitamin D3] 2,000 unit Capsule 2,000 unit PO DAILY RF: 0 Biofreeze (menthol) 4 % Gel 1 dose Topical DIRECTED RF: 0 acetaminophen-codeine [Tylenol-Codeine #3] 300-30 mg Tablet 1 tab PO BID PRN (Reason: Pain) RF: 0 Discontinued diltiazem HCl 30 mg tablet 30 mg PO UD RF: 0 Stand-Alone Forms: [facility] Discharge Orders: Discharge Order (Routine); Ordered 12/05/18 Ordered By: El Ornelas Admission Data Admit Date/Time: 12/03/18 13:20 Attending Provider: El Ornelas Admit Provider: El Ornelas Primary Care Provider: Akshat Bingham Other Providers: Richie Desir Service: Telemetry Other Interventions: Discharge Summary Assessment (RN) Last Done: 12/05/18 10:34 DC Date/Time DO NOT enter until pt leaves facility: 12/05/18 11:32
--- NOTE | 2018-12-06 11:39 | Coding Query ---
CODING QUERY To promote full compliance with coding requirements relating to patient care, provider participation is requested in all cases of remote medical coder uncertainty. Please assist us with the question(s) below: Coding Question(s): There is Paroxysmal Atrial Fibrillation documented on Discharge Summary with documentation of rates jump to 120-130 at rest when she goes into Afib order Diltiazem 30mg TID and documentation of rates better controlled on Diltiazem but not quite at goal Dr. Desir recommends long acting Diltiazem, 120mg daily, given dose prior to discharge and also with documentation on the Cardiology Consultation on 12/04 of, "The patient's atrial fibrillation is now felt to be at least persistent, if not permanent. Agree with the addition of diltiazem to better control her ventricular response." and documentation on the Cardiology PN on 12/05, "The patient's atrial fibrillation is now felt to be at least persistent, if not permanent. Suggest changing diltiazem to a long-acting preparation at 120 mg .". Please clarify below, in your clinical opinion, regarding the Atrial Fibrillation. (x ) atrial fibrillation is now felt to be at least persistent, if not permanent ( ) paroxysmal atrial fibrillation ( ) other: Please Specify Physician's Response(s): Thank you Radha Patel Principal Diagnosis: "that condition established after study, to be chiefly responsible for occasioning the admission of the patient to the hospital for care." Co-Existing Principal Diagnosis: "when two or more diagnoses equally meet the criteria for principal diagnosis as determined by the circumstances of admission, diagnostic work up, and/or therapy provided, and the Alphabetic Index, Tabular List, or another coding guideline does not provide sequencing direction, any one of the diagnoses may be sequenced first." "When the physician has documented what appears to be a current diagnosis in the body of the record, but has not included the diagnosis in the final diagnostic statement, the physician should be asked whether the diagnosis should be added." (Source Coding Clinic 2 QTR90. p3-4) YVROSE
== END 2018-12-05 11:32 | disposition home health service (06) | DRG 292 ==
LOC: ED 10:26 → 2E 13:20

== ENCOUNTER 2021-01-05 18:05 | Inpatient (IN) ==
--- NOTE | 2021-01-05 18:51 | Emergency Department Note ---
History of Present Illness General Chief complaint: Fall Time Seen by Provider: 01/05/21 18:34 Source: patient Mode of arrival: EMS History of Present Illness Provider complaint: Fall with shoulder and facial pain Onset (ago): hour(s) Location: face, upper extremity and right Pain Consistency: + constant Quality: + aching Exacerbated By: + movement Associated symptoms: no chest pain, no cough, no fever/chills, no headaches, no nausea/vomiting, no shortness of breath and no syncope This is an 85-year-old female who states that sometime this afternoon she fell at home and could not get up. She states that does not know how she fell. She does not remember tripping on anything. She just fell to the ground landing face first. She does have pain to the right side of her cheek as well as her right shoulder. She describes it as an aching pain. Is worse when she moves her arm. She had no LOC and denies any headache or neck pain. She is on a blo od thinner for atrial fibrillation. She denies any fever, cough or cold symptoms, vomiting, chest pain, shortness of breath, palpitations, diarrhea or urinary symptoms. She was given medication for a fast heart rate in the ambulance. Per nursing the patient received 100 mcg of fentanyl for pain as well as 10 mg of Cardizem for rapid A. fib. 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-gladys tablet timolol 0.25 % eye drops 1 drp OPB DAILY #0 btl 06/06/19 01/05/21 History ketoconazole 1 applic TOPICAL HS 07/28/19 01/05/21 History triamcinolone acetonide 1 applic TOPICAL HS 07/28/19 01/05/21 History clopidogrel 75 mg tablet 75 mg PO DAILY #90 tab 10/28/19 01/05/21 Rx diltiazem HCl 120 mg 120 mg PO DAILY #90 cap 06/03/20 01/05/21 Rx capsule,extended release 24 hr, controlled apixaban 5 mg tablet 5 mg PO BID #180 tab 09/24/20 01/05/21 Rx hydrochlorothiazide 25 mg PO DAILY 01/05/21 01/05/21 History Allergies Allergy/AdvReac Type Severity Reaction Status Date / Time aspirin Allergy Severe TONGUE AND Verified 01/05/21 21:53 THROAT SWELLS tramadol Allergy Severe ANAPHYLAXIS Verified 07/28/19 21:18 monosodium glutamate Allergy Mild throat Verified 07/28/19 21:18 swell erythromycin base Allergy Unknown SWELLING Verified 01/05/21 21:53 THROAT AND RASH tetracycline Allergy Unknown SWELLING Verified 01/05/21 21:53 AND RASH Tetracyclines Allergy Swelling Verified 01/05/21 21:55 of Lip/Tongue/Throat cephalexin AdvReac Severe VOMITING Verified 01/05/21 22:09 omeprazole AdvReac Severe G I UPSET Verified 01/05/21 21:53 amoxicillin AdvReac Intermediate VOMIT Verified 01/05/21 21:53 clavulanic acid AdvReac Intermediate VOMIT Verified 01/05/21 21:53 metoprolol AdvReac Intermediate DISORIENTED Verified 01/05/21 22:09 alendronate sodium AdvReac Unknown very upset Verified 01/05/21 21:53 stomach esomeprazole AdvReac Unknown G I UPSET Verified 01/05/21 22:09 nystatin AdvReac Unknown GI UPSET Verified 01/05/21 22:09 montelukast AdvReac Nausea Verified 01/05/21 21:55 Aromatic Oils Allergy Unknown PERFUMES Uncoded 06/13/19 10:19 CAN'T BREATHE Past Med/Surg History Medical History Acute heart failure Atrial fibrillation 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 History of aortic stenosis Humerus fracture Hyperlipidemia Hypertension Idiopathic angioedema Osteoarthritis Paroxysmal atrial fibrillation Peripheral vascular disease Sleep apnea BIPAP FOR SLEEP APNEA Surgical History Abdominal mass LARGE POLYP REMOVED History of arthroscopy RT LNEE TENDON REPAIR History of cataract surgery History of colonoscopy History of tooth extraction History of total hip arthroplasty LEFT AND RT History of total knee replacement LEFT Hx of lumpectomy Family History Sister Family history of diabetes mellitus Other Family hx of colon cancer Social History Smoking Status: Never smoker Second Hand Exposure: No; Hx Alcohol Use: No Hx Substance Use: No Preferred Language: Barbadian Communication Ability: Effective Hand Router Operator Required: No Beliefs That Will Affect Care: Baptist Baptist Beliefs: Jehovah'[employer] Witness Current Living Situation: Alone Feels Safe at Home: Yes Assistive Devices: Hearing Aid - Left Review of Systems See HPI for pertinent positives & negatives. and A total of 10 systems reviewed and were otherwise negative Physical Exam Vital Signs Vital Signs - 24 hr 01/05/21 18:11 01/05/21 18:46 01/05/21 18:57 Temperature 37.1 C Temperature Source Oral Pulse Rate 98 H 121 H 117 H Pulse Rate from SpO2 Sensor 105 H 106 H Pulse Rhythm Regular Pulse Strength Normal Respiratory Rate 22 27 H 16 Respiratory Effort / Characteristics Non-Labored Respiratory Depth Normal Respiratory Pattern Regular Blood Pressure 121/63 132/91 Blood Pressure Mean 82 104 Blood Pressure Position Lying Pulse Oximetry 88 L 96 92 Oxygen Delivery Method Room Air Nasal Cannula Nasal Cannula Oxygen Flow Rate 2 2 Sepsis Recent Fever Within 48 Hours No Sepsis New/Unexplained Change in Mental Status N/A Sepsis Action Taken by Nursing No Action Required 01/05/21 19:00 01/05/21 19:15 01/05/21 19:17 Temperature Temperature Source Pulse Rate 120 H 102 H 97 H Pulse Rate from SpO2 Sensor 113 H 114 H 100 H Pulse Rhythm Pulse Strength Respiratory Rate 26 H 29 H 26 H Respiratory Effort / Characteristics Respiratory Depth Respiratory Pattern Blood Pressure 137/86 Blood Pressure Mean 103 Blood Pressure Position Pulse Oximetry 93 95 96 Oxygen Delivery Method Nasal Cannula Nasal Cannula Nasal Cannula Oxygen Flow Rate 2 2 2 Sepsis Recent Fever Within 48 Hours Sepsis New/Unexplained Change in Mental Status Sepsis Action Taken by Nursing 01/05/21 19:18 01/05/21 19:30 01/05/21 19:31 Temperature Temperature Source Pulse Rate 96 H 113 H 105 H Pulse Rate from SpO2 Sensor 87 95 H 92 H Pulse Rhythm Pulse Strength Respiratory Rate 27 H 28 H 20 Respiratory Effort / Characteristics Respiratory Depth Respiratory Pattern Blood Pressure 138/82 Blood Pressure Mean 100 Blood Pressure Position Pulse Oximetry 95 95 93 Oxygen Delivery Method Oxygen Flow Rate Sepsis Recent Fever Within 48 Hours Sepsis New/Unexplained Change in Mental Status Sepsis Action Taken by Nursing 01/05/21 19:45 01/05/21 20:17 01/05/21 20:30 Temperature Temperature Source Pulse Rate 108 H 89 90 Pulse Rate from SpO2 Sensor 93 H 85 82 Pulse Rhythm Pulse Strength Respiratory Rate 25 H 16 21 Respiratory Effort / Characteristics Respiratory Depth Respiratory Pattern Blood Pressure 120/77 104/56 L Blood Pressure Mean 91 72 Blood Pressure Position Pulse Oximetry 90 95 94 Oxygen Delivery Method Oxygen Flow Rate Sepsis Recent Fever Within 48 Hours Sepsis New/Unexplained Change in Mental Status Sepsis Action Taken by Nursing 01/05/21 20:32 01/05/21 20:45 01/05/21 20:46 Temperature Temperature Source Pulse Rate 98 H Pulse Rate from SpO2 Sensor 79 77 84 Pulse Rhythm Pulse Strength Respiratory Rate 14 Respiratory Effort / Characteristics Respiratory Depth Respiratory Pattern Blood Pressure 122/44 L 120/54 L Blood Pressure Mean 70 76 Blood Pressure Position Pulse Oximetry 96 96 Oxygen Delivery Method Oxygen Flow Rate Sepsis Recent Fever Within 48 Hours Sepsis New/Unexplained Change in Mental Status Sepsis Action Taken by Nursing 01/05/21 21:00 01/05/21 21:01 01/05/21 21:15 Temperature Temperature Source Pulse Rate 100 H 100 H Pulse Rate from SpO2 Sensor 92 H 73 107 H Pulse Rhythm Pulse Strength Respiratory Rate Respiratory Effort / Characteristics Respiratory Depth Respiratory Pattern Blood Pressure 110/77 Blood Pressure Mean 88 Blood Pressure Position Pulse Oximetry 94 93 95 Oxygen Delivery Method Oxygen Flow Rate Sepsis Recent Fever Within 48 Hours Sepsis New/Unexplained Change in Mental Status Sepsis Action Taken by Nursing 01/05/21 21:17 01/05/21 21:18 01/05/21 21:30 Temperature Temperature Source Pulse Rate Pulse Rate from SpO2 Sensor 95 H 118 H 93 H Pulse Rhythm Pulse Strength Respiratory Rate Respiratory Effort / Characteristics Respiratory Depth Respiratory Pattern Blood Pressure 131/70 Blood Pressure Mean 90 Blood Pressure Position Pulse Oximetry 94 94 Oxygen Delivery Method Oxygen Flow Rate Sepsis Recent Fever Within 48 Hours Sepsis New/Unexplained Change in Mental Status Sepsis Action Taken by Nursing 01/05/21 21:31 01/05/21 21:45 Temperature Temperature Source Pulse Rate Pulse Rate from SpO2 Sensor 94 H 87 Pulse Rhythm Pulse Strength Respiratory Rate Respiratory Effort / Characteristics Respiratory Depth Respiratory Pattern Blood Pressure 129/84 107/72 Blood Pressure Mean 99 83 Blood Pressure Position Pulse Oximetry 97 95 Oxygen Delivery Method Oxygen Flow Rate Sepsis Recent Fever Within 48 Hours Sepsis New/Unexplained Change in Mental Status Sepsis Action Taken by Nursing Constitutional: Vital signs reviewed. Eyes: Pupils are equal round reactive to light. Conjunctiva are noninjected. ENT: Pharynx is clear without erythema or exudate. Mucous membranes are moist. Tenderness and bruising to the right maxillary sinus. No nasal tenderness or jaw tenderness. No midline tenderness to the cervical spine. Respiratory: Clear to auscultation bilaterally. Breath sounds are equal bilaterally. Cardiovascular: Irregularly irregular rhythm. Normal rate. GI: Soft, nondistended and nontender. Bowel sounds are present. Musculoskeletal: No hip tenderness. Bilateral lower extremity edema. Tenderness to the right anterior shoulder. Integumentary: No cyanosis. or jaundice. Neurologic: The patient is awake and alert. Cranial nerves II-XII are intact. Motor is 5 out of 5 in the upper extremities. Motor strength is 3 out of 5 in the lower extremities. Sensation is intact to light touch all extremities. Normal speech. Psychiatric: Normal affect. Not anxious appearing. Course Administered Medications Discontinued Medications Potassium Chloride (Potassium Chloride 10 Meq Tabcr) 40 meq PO NOW STA Stop: 01/05/21 19:59 Last Admin: 01/05/21 20:22 Dose: 40 meq Documented by: [id number] Medical Decision Making Differential Diagnosis Orthostasis, metabolic derangement, dysrhythmia, ACS, infection, ICH Medical Records Attestation: I reviewed the patient's medical records. I did perform a limited focused review of portions of the patient's old chart on the electronic medical record. The patient has had no recent pertinent visits to this hospital. Home Medications Current Medication List: was personally reviewed by me Laboratory Data Attestation: I reviewed the patient's lab results. Result diagrams: 01/05/21 Unknown 01/05/21 Unknown Lab Results 01/05/21 01/05/21 01/05/21 Range/Units 19:29 19:29 Unknown WBC (4.8-10.8) K/uL RBC (4.2-5.4) M/uL Hgb (12.0-16.0) g/dL Hct (37-47) % MCV (80-100) fL MCH (25-34) pg MCHC (32-36) g/dL RDW Std Deviation (36.4-46.3) fL RDW Coeff of Randell (11.5-14.5) % Plt Count (130-400) K/uL MPV (7.4-10.4) fL Immature Gran % (Auto) % Neut % (Auto) % Lymph % (Auto) % Greene % (Auto) % Eos % (Auto) % Baso % (Auto) % Neut # (Auto) (1.4-6.5) K/uL Lymph # (Auto) (1.2-3.4) K/uL Greene # (Auto) (0.11-0.59) K/uL Eos # (Auto) (0-0.5) K/uL Baso # (Auto) (0-0.2) K/uL Immature Gran # (Auto) (0.00-0.02) K/uL Sodium 133 L (136-145) mmol/L Potassium 3.2 L (3.5-5.1) mmol/L Chloride 97 L (98-107) mmol/L Carbon Dioxide 28 (21-32) mmol/L Anion Gap 8.0 (3-11) BUN 11 (7-18) mg/dl Creatinine 0.98 (0.6-1.2) mg/dl Est Cr Clr Drug Dosing 53.6 ml/min Est GFR ( Amer) 61.4 ml/min Est GFR (Non-Af Amer) 53.0 ml/min BUN/Creatinine Ratio 10.7 (10-20) Glucose 155 H (70-99) mg/dl Calcium 9.5 (8.5-10.1) mg/dl Magnesium 2.2 (1.8-2.4) mg/dl Total Bilirubin 1.4 H (0.2-1) mg/dl AST 16 (15-37) U/L ALT 16 (12-78) U/L Alkaline Phosphatase 80 (45-117) U/L Total Creatine Kinase 115 (26-192) U/L Troponin I < 0.015 (0-0.045) ng/ml Total Protein 7.6 (6.4-8.2) gm/dl Albumin 3.7 (3.4-5.0) gm/dl Globulin 3.9 (2.5-4.0) gm/dl Albumin/Globulin Ratio 1.0 (0.9-2) TSH 3.150 (0.300-4.500) uIu/ml COVID-19 Eval Order Covid19 at [facility] [place] SARS-CoV-2 (PCR) NEGATIVE (Negative) 01/05/21 Range/Units Unknown WBC 7.59 (4.8-10.8) K/uL RBC 4.67 (4.2-5.4) M/uL Hgb 14.7 (12.0-16.0) g/dL Hct 42.8 (37-47) % MCV 91.6 (80-100) fL MCH 31.5 (25-34) pg MCHC 34.3 (32-36) g/dL RDW Std Deviation 48.6 H (36.4-46.3) fL RDW Coeff of Randell 14.4 (11.5-14.5) % Plt Count 197 (130-400) K/uL MPV 9.8 (7.4-10.4) fL Immature Gran % (Auto) 0.3 % Neut % (Auto) 76.7 % Lymph % (Auto) 16.2 % Greene % (Auto) 5.1 % Eos % (Auto) 1.6 % Baso % (Auto) 0.1 % Neut # (Auto) 5.82 (1.4-6.5) K/uL Lymph # (Auto) 1.23 (1.2-3.4) K/uL Greene # (Auto) 0.39 (0.11-0.59) K/uL Eos # (Auto) 0.12 (0-0.5) K/uL Baso # (Auto) 0.01 (0-0.2) K/uL Immature Gran # (Auto) 0.02 (0.00-0.02) K/uL Sodium (136-145) mmol/L Potassium (3.5-5.1) mmol/L Chloride (98-107) mmol/L Carbon Dioxide (21-32) mmol/L Anion Gap (3-11) BUN (7-18) mg/dl Creatinine (0.6-1.2) mg/dl Est Cr Clr Drug Dosing ml/min Est GFR ( Amer) ml/min Est GFR (Non-Af Amer) ml/min BUN/Creatinine Ratio (10-20) Glucose (70-99) mg/dl Calcium (8.5-10.1) mg/dl Magnesium (1.8-2.4) mg/dl Total Bilirubin (0.2-1) mg/dl AST (15-37) U/L ALT (12-78) U/L Alkaline Phosphatase (45-117) U/L Total Creatine Kinase (26-192) U/L Troponin I (0-0.045) ng/ml Total Protein (6.4-8.2) gm/dl Albumin (3.4-5.0) gm/dl Globulin (2.5-4.0) gm/dl Albumin/Globulin Ratio (0.9-2) TSH (0.300-4.500) uIu/ml COVID-19 Eval Order SARS-CoV-2 (PCR) (Negative) Imaging Data Radiologist's Impression: Cervical Spine CT 01/05/21 18:43 CT OF THE CERVICAL SPINE WITHOUT CONTRAST CLINICAL HISTORY: fall eval for injury COMPARISON STUDY: Cervical spine CT July 13, 2019. TECHNIQUE: Helical axial images of the cervical spine were obtained without IV contrast. Sagittal and coronal reconstructions were viewed. Automated exposure control was utilized for the study. A dose lowering technique was utilized adhering to the principles of ALARA. FINDINGS: Alignment of the cervical spine is anatomic. Vertebral body heights are maintained. No acute cervical spine fracture or subluxation is present. There is no prevertebral edema. Facet joints are intact. Interlobular septal thickening is noted within visualized portions of the lung apices IMPRESSION: 1. No acute cervical spine fracture or subluxation. 2. Interstitial pulmonary edema within the lung apices. ACT 112: Negative or not required by law. Electronically signed by: David Brady M.D. 01/05/2021 8:[address] 01/05/21 18:[address] WITHOUT CONTRAST CLINICAL HISTORY: Fall. Evaluate for fracture. COMPARISON STUDY: Head CT July 13, 2019. TECHNIQUE: A maxillofacial CT was performed without IV contrast. Coronal and sagittal reformats were viewed. Automated exposure control was utilized for the study. A dose lowering technique was utilized adhering to the principles of ALARA. FINDINGS: Globes are intact. There is no retrobulbar hematoma. There is no acute facial fracture. Orbital floors are intact. No fractures are identified within visualized portions of the calvarium. There is no skull base fracture. No upper cervical spine fracture is identified. IMPRESSION: No acute facial fracture. ACT 112: Negative or not required by law. Electronically signed by: David Brady M.D. 01/05/2021 8:[address] 01/05/21 18:43 CT OF THE HEAD WITHOUT CONTRAST CLINICAL HISTORY: Fall. COMPARISON STUDY: Head CT July 13, 2019. TECHNIQUE: Helical axial images of the head were obtained without IV contrast. Automated exposure control was utilized for the study. A dose lowering technique was utilized adhering to the principles of ALARA. FINDINGS: No acute intracranial hemorrhage, midline shift or mass effect is present. The ventricular system is stable. White matter hypodensity suggests small vessel disease. The basal cisterns are patent. No extra-axial collections are present. There are no findings to suggest acute dural sinus thrombosis or acute territorial infarct. No significant calvarial abnormalities are present. Visualized portions of the sinuses and mastoid air cells are clear. IMPRESSION: 1. No acute intracranial findings. No change in appearance of the brain. 2. No calvarial fracture. ACT 112: Negative or not required by law. Electronically signed by: David Brady M.D. 01/05/2021 8:16 PM Pelvis X-Ray 01/05/21 18:43 XR pelvis 1-2V routine CLINICAL HISTORY: fall eval for injury COMPARISON: CTA of the abdomen and pelvis December 19, 2018. FINDINGS: Bifurcated aortoiliac stent graft is partially imaged. Alignment of the total bilateral hip arthroplasties is anatomic. There is no periprosthetic fracture or lucency. No acute fracture is identified on this exam. The sacroiliac joints and symphysis pubis are intact. IMPRESSION: 1. No acute fracture within the pelvis or hips. 2. Intact total bilateral hip arthroplasties. No periprosthetic fracture. ACT 112: Negative or not required by law. Electronically signed by: David Brady M.D. 01/05/2021 7:30 PM Shoulder X-Ray 01/05/21 18:43 XR shoulder RT min 2V routine CLINICAL HISTORY: fall eval for injury COMPARISON: Right shoulder radiographs March 14, 2018. FINDINGS: No acute fracture is identified on this exam. An old, healed proximal right humeral fracture is noted. Moderate degenerative changes of the right shoulder are present. Positioning on this exam was difficult. IMPRESSION: 1. No acute fracture or dislocation within the right shoulder. 2. Old, healed proximal right humeral fracture. 3. Right shoulder osteoarthritis. ACT 112: Negative or not required by law. Electronically signed by: David Brady M.D. 01/05/2021 7:32 PM Chest X-Ray 01/05/21 18:44 XR chest 1V portable CLINICAL HISTORY: fall COMPARISON STUDY: Chest radiograph July 13, 2019. FINDINGS: There is no pneumothorax or pleural effusion. Moderate cardiomegaly is unchanged. Bifurcated aortoiliac stent graft is partially imaged. There is no evidence for pulmonary edema. Mild left basilar opacity favors atelectasis. There is no lobar consolidation. IMPRESSION: No acute cardiopulmonary findings. No significant change in appearance of the chest. ACT 112: Negative or not required by law. Electronically signed by: David Brady M.D. 01/05/2021 7:36 PM ECG Data Attestation: I personally reviewed and interpreted this ECG as follows: Indication: + other (Fall) Rate (beats per minute): 87 ECG Findings: + PVCs and + Other (Low voltage QRS) Head Trauma GCS Score: 15 MDM Narrative I did evaluate the patient as noted above. The patient is presenting after falling today. She is not sure how she fell. She was unable to get up and when she came here by ambulance they noted her to be in A. fib with RVR. She was given Cardizem IV. She was also given fentanyl for diffuse body pain. She denies any headache but did fall and hit her face. She is on Eliquis. I did place an order for continuous cardiac monitoring. The monitor showed atrial fibrillation with a rate of 96 bpm. I did order and personally review the zay ent's 12-lead EKG as described above. I did order and personally reviewed the images of the patient's chest, right shoulder and pelvic x-rays as described above. She has no evidence of pneumonia. There is no fracture or dislocation of the pelvis, hips or right shoulder. I did order a urine analysis. I did order and review the patient's blood work as noted in the electronic medical record. CBC is unremarkable. Electrolytes demonstrate a sodium of 133, potassium of 3.2 and chloride of 97. She was given oral potassium. Troponin is negative. I did order a CT of the head, facial bones and cervical spine. I did review the images myself as well as the radiology report as described above. There is no evidence of acute intracranial hemorrhage. No fracture to the facial bones or cervical spine. I did discuss the test results with the patient. I did discuss the test results with the patient's daughter as well. She will be hospitalized as the patient cannot get up out of bed. She does live by herself. She was agreeable to hospitalization. I did discuss case with the hospitalist and case reviewer. Covid testing is negative. Impression & Plan Atrial fibrillation with rapid ventricular response, Fall, Anticoagulated, Generalized weakness, Ambulatory dysfunction, Acute hypokalemia, Hyponatremia Discharge Plan Visit Data Chief Complaint: Fall ED Provider: Johnson Tom Discharge Problem: Atrial fibrillation with rapid ventricular response, Fall, Anticoagulated, Generalized weakness, Ambulatory dysfunction, Acute hypokalemia, Hyponatremia Patient Disposition: Being Evaluated by Hospitalist Forms Stand Alone Forms: My [facility] [employer] Prescriptions Prescriptions: No Action epinephrine 0.3 mg/0.3 mL Auto-Injector 0.3 mg IM Q3H PRN (Reason: .) Qty: 0 RF: 0 Calcium Citrate Plus [id number] sw-ct-qokm-mg tablet 1 tab PO DAILY RF: 0 timolol 0.25 % drops 1 drp OPB DAILY Qty: 0 RF: 0 diltiazem HCl 120 mg capsule,ext.rel 24h degradable 120 mg PO DAILY Qty: 90 RF: 3 Eliquis 5 mg tablet 5 mg PO BID Qty: 180 RF: 1 clopidogrel [Plavix] 75 mg tablet 75 mg PO DAILY Qty: 90 RF: 3 triamcinolone acetonide 0.1 % cream 1 applic TOPICAL HS RF: 0 ketoconazole 2 % cream 1 applic TOPICAL HS RF: 0 hydrochlorothiazide 25 mg tablet 25 mg PO DAILY RF: 0 Referrals Referrals: John Escobar MD [Primary Care Provider] - Discharge Problem: Fall Qualifiers: Encounter type: initial encounter Qualified Code(s): W19.XXXA - Unspecified fall, initial encounter
[2021-01-05 18:52] LABS: Basophils # (auto) 0.01 K/uL (0-0.2); Basophils % (auto) 0.1 %; Eosinophils # (auto) 0.12 K/uL (0-0.5); Eosinophils % (auto) 1.6 %; Hematocrit (blood only) 42.8 % (37-47); Hemoglobin 14.7 g/dL (12.0-16.0); Immature Granulocytes # (auto) 0.02 K/uL (0.00-0.02); Immature Granulocytes % (auto) 0.3 %; Lymphocytes # (auto) 1.23 K/uL (1.2-3.4); Lymphocytes % (auto) 16.2 %; Mean Corpuscular Hemoglobin 31.5 pg (25-34); Mean Corpuscular Hgb Conc 34.3 g/dL (32-36); Mean Corpuscular Volume 91.6 fL (80-100); Mean Platelet Volume 9.8 fL (7.4-10.4); Monocytes # (auto) 0.39 K/uL (0.11-0.59); Monocytes % (auto) 5.1 %; Neutrophils # (auto) 5.82 K/uL (1.4-6.5); Neutrophils % (auto) 76.7 %; Platelet Count 197 K/uL (130-400); RDW Coefficient of Variation 14.4 % (11.5-14.5); RDW Standard Deviation 48.6 fL (36.4-46.3); Red Blood Count 4.67 M/uL (4.2-5.4); White Blood Count 7.59 K/uL (4.8-10.8)
[2021-01-05 19:00] LABS: Alanine Aminotransferase 16 U/L (12-78); Albumin Level 3.7 gm/dl (3.4-5.0); Aspartate Aminotransferase 16 U/L (15-37); BUN Creatinine Ratio 10.7 (10-20); Blood Urea Nitrogen 11 mg/dl (7-18); Calcium 9.5 mg/dl (8.5-10.1); Carbon Dioxide 28 mmol/L (21-32); Chloride 97 mmol/L (98-107); Creatinine Clr Calc Pharmacy 53.6 ml/min; Est GFR (African American) 61.4 ml/min; Glucose 155 mg/dl (70-99); Magnesium 2.2 mg/dl (1.8-2.4); Potassium 3.2 mmol/L (3.5-5.1); Sodium 133 mmol/L (136-145)
[2021-01-05 19:10] LABS: Alkaline Phosphatase 80 U/L (45-117); Bilirubin,Total 1.4 mg/dl (0.2-1); Creatine Kinase 115 U/L (26-192); Globulin 3.9 gm/dl (2.5-4.0); Total Protein 7.6 gm/dl (6.4-8.2); Troponin I < 0.015 ng/ml (0-0.045)
--- NOTE | 2021-01-05 19:32 | XRay Report ---
XR pelvis 1-2V routine CLINICAL HISTORY: fall eval for injury COMPARISON: CTA of the abdomen and pelvis December 19, 2018. FINDINGS: Bifurcated aortoiliac stent graft is partially imaged. Alignment of the total bilateral hi p arthroplasties is anatomic. There is no periprosthetic fracture or lucency. No acute fracture is id entified on this exam. The sacroiliac joints and symphysis pubis are intact. IMPRESSION: 1. No acute fracture within the pelvis or hips. 2. Intact total bilateral hip arthroplasties. No periprosthetic fracture. ACT 112: Negative or not required by law. Electronically signed by: David Brady M.D. 01/05/2021 7:30 PM
--- NOTE | 2021-01-05 19:33 | XRay Report ---
XR shoulder RT min 2V routine CLINICAL HISTORY: fall eval for injury COMPARISON: Right shoulder radiographs March 14, 2018. FINDINGS: No acute fracture is identified on this exam. An old, healed proximal right humeral fractu re is noted. Moderate degenerative changes of the right shoulder are present. Positioning on this exa m was difficult. IMPRESSION: 1. No acute fracture or dislocation within the right shoulder. 2. Old, healed proximal right humeral fracture. 3. Right shoulder osteoarthritis. ACT 112: Negative or not required by law. Electronically signed by: David Brady M.D. 01/05/2021 7:32 PM
--- NOTE | 2021-01-05 19:38 | XRay Report ---
XR chest 1V portable CLINICAL HISTORY: fall COMPARISON STUDY: Chest radiograph July 13, 2019. FINDINGS: There is no pneumothorax or pleural effusion. Moderate cardiomegaly is unchanged. Bifurcate d aortoiliac stent graft is partially imaged. There is no evidence for pulmonary edema. Mild left bas ilar opacity favors atelectasis. There is no lobar consolidation. IMPRESSION: No acute cardiopulmonary findings. No significant change in appearance of the chest. ACT 112: Negative or not required by law. Electronically signed by: David Brady M.D. 01/05/2021 7:36 PM
[2021-01-05] MEDS ORDERED: POTASSIUM CHLORIDE 10 MEQ TABCR PO STA (19:58)
--- NOTE | 2021-01-05 20:18 | CT Scan Report ---
CT OF THE HEAD WITHOUT CONTRAST CLINICAL HISTORY: Fall. COMPARISON STUDY: Head CT July 13, 2019. TECHNIQUE: Helical axial images of the head were obtained without IV contrast. Automated exposure con trol was utilized for the study. A dose lowering technique was utilized adhering to the principles o f ALARA. FINDINGS: No acute intracranial hemorrhage, midline shift or mass effect is present. The ventricular system is stable. White matter hypodensity suggests small vessel disease. The basal cisterns are pagan nt. No extra-axial collections are present. There are no findings to suggest acute dural sinus thromb osis or acute territorial infarct. No significant calvarial abnormalities are present. Visualized por tions of the sinuses and mastoid air cells are clear. IMPRESSION: 1. No acute intracranial findings. No change in appearance of the brain. 2. No calvarial fracture. ACT 112: Negative or not required by law. Electronically signed by: David Brady M.D. 01/05/2021 8:16 PM
--- NOTE | 2021-01-05 20:37 | CT Scan Report ---
CT OF THE CERVICAL SPINE WITHOUT CONTRAST CLINICAL HISTORY: fall eval for injury COMPARISON STUDY: Cervical spine CT July 13, 2019. TECHNIQUE: Helical axial images of the cervical spine were obtained without IV contrast. Sagittal a nd coronal reconstructions were viewed. Automated exposure control was utilized for the study. A do se lowering technique was utilized adhering to the principles of ALARA. FINDINGS: Alignment of the cervical spine is anatomic. Vertebral body heights are maintained. No acut e cervical spine fracture or subluxation is present. There is no prevertebral edema. Facet joints are intact. Interlobular septal thickening is noted within visualized portions of the lung apices IMPRESSION: 1. No acute cervical spine fracture or subluxation. 2. Interstitial pulmonary edema within the lung apices. ACT 112: Negative or not required by law. Electronically signed by: Davdi Brady M.D. 01/05/2021 8:36 PM
--- NOTE | 2021-01-05 20:42 | CT Scan Report ---
MAXILLOFACIAL CT WITHOUT CONTRAST CLINICAL HISTORY: Fall. Evaluate for fracture. COMPARISON STUDY: Head CT July 13, 2019. TECHNIQUE: A maxillofacial CT was performed without IV contrast. Coronal and sagittal reformats were viewed. Automated exposure control was utilized for the study. A dose lowering technique was utiliz ed adhering to the principles of ALARA. FINDINGS: Globes are intact. There is no retrobulbar hematoma. There is no acute facial fracture. Orb ital floors are intact. No fractures are identified within visualized portions of the calvarium. Ther e is no skull base fracture. No upper cervical spine fracture is identified. IMPRESSION: No acute facial fracture. ACT 112: Negative or not required by law. Electronically signed by: David Brady M.D. 01/05/2021 8:41 PM
--- NOTE | 2021-01-05 22:08 | History & Physical Report ---
Date of Service January 05, 2021 Assessment & Plan (1) Fall: 85yo female presenting after fall from home. Patient does not believe that she tripped or lost consciousness, she did strike her face on the floor and is on Apixaban anticoagulation. Patient lives alone, typically ambulates with a walker, however, was not using the walker at the time of the fall. She also complains of some ongoing pain in her right heel. CT head is unremarkable. No focal neurologic deficits noted on exam. -Fall precautions -Neuro checks with [facility] q 4 hours given fall on blood thinners -PT/OT evaluation -Check Orthostatic VS -X-ray right foot Present on Admission?: Yes (2) Hypertension: Blood pressure stable -Continue HCTZ 25mg po daily -Continue Diltiazem -Continue to monitor Present on Admission?: Yes (3) Permanent atrial fibrillation: Rate controlled. Anticoagulated on Apixaban -Continue Apixaban -Continue Diltiazem Present on Admission?: Yes (4) Memory impairment: Patient states that she has had decline in her memory over the last year. She has in-home help with personal care, shopping and cleaning 3 days/week. Left message with daughter to get more information regarding patient's functional baseline -Delirium prevention strategies Present on Admission?: Yes (5) Aortic stenosis: Patient with moderate aortic stenosis per echo in 2019. Patient does not believe that she had a syncopal event this evening. -Continue to monitor F/E/N- NSS at 80mL/hr x 1 liter, K repleted, Heart healthy diet as tolerated Ppx - On Apixaban Code - DNR/DNI per discussion with patient Dispo - Admit to medical History of Present Illness Chief Complaint: Fall Primary Care Provider: John Escobar Sulema Ledezma is a pleasant 85yo female with history of paroxysmal atrial fibrillation on Apixaban presenting after a fall at home. Patient lives alone, normally ambulates with a walker. She states she was walking across her home this evening when she fell forward, striking her face on the hard wood floor. She was unable to get up so she called 911. Patient states that she did not trip or lose consciousness. She did hit her face. She was walking barefoot across the floor, does not have throw rugs. She denies chest pain, palpitations, dizziness, numbness/tingling/weakness or incontinence preceding or following the fall. She does have some chronic pain in her right heel and thinks that this could have contributed to the fall. Presently with no complaints. Patient lives alone. She reports a decline in her memory for the last year. She has a daughter nearby that checks on her frequently. She gets Meals on Wheels and has in home help three days/week - personal care, housecleaning and shopping. Patient afebrile, HD stable, NAD. ER Course: Potassium 40meq Allergies Allergy/AdvReac Type Severity Reaction Status Date / Time aspirin Allergy Severe TONGUE AND Verified 01/05/21 21:53 THROAT SWELLS tramadol Allergy Severe ANAPHYLAXIS Verified 07/28/19 21:18 monosodium glutamate Allergy Mild throat Verified 07/28/19 21:18 swell erythromycin base Allergy Unknown SWELLING Verified 01/05/21 21:53 THROAT AND RASH tetracycline Allergy Unknown SWELLING Verified 01/05/21 21:53 AND RASH Tetracyclines Allergy Swelling Verified 01/05/21 21:55 of Lip/Tongue/Throat cephalexin AdvReac Severe VOMITING Verified 01/05/21 22:09 omeprazole AdvReac Severe G I UPSET Verified 01/05/21 21:53 amoxicillin AdvReac Intermediate VOMIT Verified 01/05/21 21:53 clavulanic acid AdvReac Intermediate VOMIT Verified 01/05/21 21:53 metoprolol AdvReac Intermediate DISORIENTED Verified 01/05/21 22:09 alendronate sodium AdvReac Unknown very upset Verified 01/05/21 21:53 stomach esomeprazole AdvReac Unknown G I UPSET Verified 01/05/21 22:09 nystatin AdvReac Unknown GI UPSET Verified 01/05/21 22:09 montelukast AdvReac Nausea Verified 01/05/21 21:55 Aromatic Oils Allergy Unknown PERFUMES Uncoded 06/13/19 10:19 CAN'T BREATHE Home Medications Medication Instructions Recorded Confirmed Type epinephrine 0.3 mg IM Q3H PRN #0 box 03/16/17 01/05/21 History calcium cit 250 mg-mag 40 mg-D3 1 tab PO DAILY tab 06/06/19 01/05/21 History 125 unit-zinc 3.75 mg-copyman-gladys tablet timolol 0.25 % eye drops 1 drp OPB DAILY #0 btl 06/06/19 01/05/21 History ketoconazole 1 applic TOPICAL HS 07/28/19 01/05/21 History triamcinolone acetonide 1 applic TOPICAL HS 07/28/19 01/05/21 History clopidogrel 75 mg tablet 75 mg PO DAILY #90 tab 10/28/19 01/05/21 Rx diltiazem HCl 120 mg 120 mg PO DAILY #90 cap 06/03/20 01/05/21 Rx capsule,extended release 24 hr, controlled apixaban 5 mg tablet 5 mg PO BID #180 tab 09/24/20 01/05/21 Rx hydrochlorothiazide 25 mg PO DAILY 01/05/21 01/05/21 History Past Med/Surg History Medical History Acute heart failure Atrial fibrillation 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 History of aortic stenosis Humerus fracture Hyperlipidemia Hypertension Idiopathic angioedema Osteoarthritis Paroxysmal atrial fibrillation Peripheral vascular disease Sleep apnea BIPAP FOR SLEEP APNEA Surgical History Abdominal mass LARGE POLYP REMOVED History of arthroscopy RT LNEE TENDON REPAIR History of cataract surgery History of colonoscopy History of tooth extraction History of total hip arthroplasty LEFT AND RT History of total knee replacement LEFT Hx of lumpectomy Family History Sister Family history of diabetes mellitus Other Family hx of colon cancer Social History Smoking Status: Never smoker Second Hand Exposure: No; Hx Alcohol Use: No Hx Substance Use: No Preferred Language: Khmer Communication Ability: Effective Instant Potato Processor Required: No Beliefs That Will Affect Care: Islam Islam Beliefs: Jehovah'S Witness Current Living Situation: Alone Feels Safe at Home: Yes Assistive Devices: Hearing Aid - Left Review of Systems Review of Systems: All systems reviewed & are unremarkable except as noted in HPI & below Physical Exam Physical Exam: General: patient resting comfortably, NAD, non-toxic in appearance, AA&O to person and place Skin: warm, dry, intact, chronic venous stasis changes of bilateral LE with stasis dermatitis HEENT: Bruising over right eye and cheek, PERRL, EOMI, anicteric sclera, conjunctiva without injection, external ear normal to inspection and nontender, nares patent, moist mucus membranes, dentition intact, no oropharyngeal lesions, neck supple, trachea midline, no LAD, no thyromegaly, no JVD Heart: +S1/S2, irregularly irregular, no m/r/g Lungs: equal air entry bilaterally, no rales/rhonchi/wheezes Abd: +BS, soft, NT/ND, no masses/organomegaly/ascites Ext: warm, 2+ pulses in UE/LE bilaterally, no clubbing/cyanosis/edema, chronic venous stasis changes of skin Neuro: nonfocal, patient AA&O to person and place, speech intact, no facial droop, moving all extremities on command with equal strength 5/5 Results & Data Results & Data ([facility]) Vital Signs (Past 12 Hours) Vital Signs Temp Pulse Resp BP Pulse Ox 01/05/21 21:45 107/72 95 01/05/21 21:31 129/84 97 01/05/21 21:18 94 01/05/21 21:17 131/70 94 01/05/21 21:15 95 01/05/21 21:01 100 H 93 01/05/21 21:00 100 H 110/77 94 01/05/21 20:46 120/54 L 96 01/05/21 20:32 98 H 14 122/44 L 96 01/05/21 20:30 90 21 94 01/05/21 20:17 89 16 104/56 L 95 01/05/21 19:45 108 H 25 H 120/77 90 01/05/21 19:31 105 H 20 93 01/05/21 19:30 113 H 28 H 138/82 95 01/05/21 19:18 96 H 27 H 95 01/05/21 19:17 97 H 26 H 137/86 96 01/05/21 19:15 102 H 29 H 95 01/05/21 19:00 120 H 26 H 93 01/05/21 18:57 117 H 16 92 01/05/21 18:46 121 H 27 H 132/91 96 01/05/21 18:11 37.1 C 98 H 22 121/63 88 L Laboratory Results Laboratory Results WBC 7.59 K/uL (4.8-10.8) 01/05/21 Unknown RBC 4.67 M/uL (4.2-5.4) 01/05/21 Unknown Hgb 14.7 g/dL (12.0-16.0) 01/05/21 Unknown Hct 42.8 % (37-47) 01/05/21 Unknown MCV 91.6 fL (80-100) 01/05/21 Unknown MCH 31.5 pg (25-34) 01/05/21 Unknown MCHC 34.3 g/dL (32-36) 01/05/21 Unknown RDW Std Deviation 48.6 fL (36.4-46.3) H 01/05/21 Unknown RDW Coeff of Randell 14.4 % (11.5-14.5) 01/05/21 Unknown Plt Count 197 K/uL (130-400) 01/05/21 Unknown MPV 9.8 fL (7.4-10.4) 01/05/21 Unknown Immature Gran % (Auto) 0.3 % 01/05/21 Unknown Neut % (Auto) 76.7 % 01/05/21 Unknown Lymph % (Auto) 16.2 % 01/05/21 Unknown [place] % (Auto) 5.1 % 01/05/21 Unknown Eos % (Auto) 1.6 % 01/05/21 Unknown Baso % (Auto) 0.1 % 01/05/21 Unknown Neut # (Auto) 5.82 K/uL (1.4-6.5) 01/05/21 Unknown Lymph # (Auto) 1.23 K/uL (1.2-3.4) 01/05/21 Unknown [place] # (Auto) 0.39 K/uL (0.11-0.59) 01/05/21 Unknown Eos # (Auto) 0.12 K/uL (0-0.5) 01/05/21 Unknown Baso # (Auto) 0.01 K/uL (0-0.2) 01/05/21 Unknown Immature Gran # (Auto) 0.02 K/uL (0.00-0.02) 01/05/21 Unknown Sodium 133 mmol/L (136-145) L 01/05/21 Unknown Potassium 3.2 mmol/L (3.5-5.1) L 01/05/21 Unknown Chloride 97 mmol/L (98-107) L 01/05/21 Unknown Carbon Dioxide 28 mmol/L (21-32) 01/05/21 Unknown Anion Gap 8.0 (3-11) 01/05/21 Unknown BUN 11 mg/dl (7-18) 01/05/21 Unknown Creatinine 0.98 mg/dl (0.6-1.2) 01/05/21 Unknown Est Cr Clr Drug Dosing 53.6 ml/min 01/05/21 Unknown Est GFR ( Amer) 61.4 ml/min 01/05/21 Unknown Est GFR (Non-Af Amer) 53.0 ml/min 01/05/21 Unknown BUN/Creatinine Ratio 10.7 (10-20) 01/05/21 Unknown Glucose 155 mg/dl (70-99) H 01/05/21 Unknown Calcium 9.5 mg/dl (8.5-10.1) 01/05/21 Unknown Magnesium 2.2 mg/dl (1.8-2.4) 01/05/21 Unknown Total Bilirubin 1.4 mg/dl (0.2-1) H 01/05/21 Unknown AST 16 U/L (15-37) 01/05/21 Unknown ALT 16 U/L (12-78) 01/05/21 Unknown Alkaline Phosphatase 80 U/L (45-117) 01/05/21 Unknown Total Creatine Kinase 115 U/L (26-192) 01/05/21 Unknown Troponin I < 0.015 ng/ml (0-0.045) 01/05/21 Unknown Total Protein 7.6 gm/dl (6.4-8.2) 01/05/21 Unknown Albumin 3.7 gm/dl (3.4-5.0) 01/05/21 Unknown Globulin 3.9 gm/dl (2.5-4.0) 01/05/21 Unknown Albumin/Globulin Ratio 1.0 (0.9-2) 01/05/21 Unknown TSH 3.150 uIu/ml (0.300-4.500) 01/05/21 Unknown COVID-19 Eval Order Covid19 at [facility] 01/05/21 19:29 SARS-CoV-2 (PCR) NEGATIVE (Negative) 01/05/21 19:[address] 01/05/21 18:43 CT OF THE CERVICAL SPINE WITHOUT CONTRAST CLINICAL HISTORY: fall eval for injury COMPARISON STUDY: Cervical spine CT July 13, 2019. TECHNIQUE: Helical axial images of the cervical spine were obtained without IV contrast. Sagittal and coronal reconstructions were viewed. Automated exposure control was utilized for the study. A dose lowering technique was utilized adhering to the principles of ALARA. FINDINGS: Alignment of the cervical spine is anatomic. Vertebral body heights a re maintained. No acute cervical spine fracture or subluxation is present. There is no prevertebral edema. Facet joints are intact. Interlobular septal thickening is noted within visualized portions of the lung apices IMPRESSION: 1. No acute cervical spine fracture or subluxation. 2. Interstitial pulmonary edema within the lung apices. ACT 112: Negative or not required by law. Electronically signed by: David Brady M.D. 01/05/2021 8:[address] 01/05/21 18:[address] WITHOUT CONTRAST CLINICAL HISTORY: Fall. Evaluate for fracture. COMPARISON STUDY: Head CT July 13, 2019. TECHNIQUE: A maxillofacial CT was performed without IV contrast. Coronal and sagittal reformats were viewed. Automated exposure control was utilized for the study. A dose lowering technique was utilized adhering to the principles of ALARA. FINDINGS: Globes are intact. There is no retrobulbar hematoma. There is no acute facial fracture. Orbital floors are intact. No fractures are identified within visualized portions of the calvarium. There is no skull base fracture. No upper cervical spine fracture is identified. IMPRESSION: No acute facial fracture. ACT 112: Negative or not required by law. Electronically signed by: David Brady M.D. 01/05/2021 8:[address] 01/05/21 18:43 CT OF THE HEAD WITHOUT CONTRAST CLINICAL HISTORY: Fall. COMPARISON STUDY: Head CT July 13, 2019. TECHNIQUE: Helical axial images of the head were obtained without IV contrast. Automated exposure control was utilized for the study. A dose lowering technique was utilized adhering to the principles of ALARA. FINDINGS: No acute intracranial hemorrhage, midline shift or mass effect is present. The ventricular system is stable. White matter hypodensity suggests small vessel disease. The basal cisterns are patent. No extra-axial collections are present. There are no findings to suggest acute dural sinus thrombosis or acute territorial infarct. No significant calvarial abnormalities are present. Visualized portions of the sinuses and mastoid air cells are clear. IMPRESSION: 1. No acute intracranial findings. No change in appearance of the brain. 2. No calvarial fracture. ACT 112: Negative or not required by law. Electronically signed by: David Brady M.D. 01/05/2021 8:16 PM Pelvis X-Ray 01/05/21 18:43 XR pelvis 1-2V routine CLINICAL HISTORY: fall eval for injury COMPARISON: CTA of the abdomen and pelvis December 19, 2018. FINDINGS: Bifurcated aortoiliac stent graft is partially imaged. Alignment of the total bilateral hip arthroplasties is anatomic. There is no periprosthetic fracture or lucency. No acute fracture is identified on this exam. The sacroiliac joints and symphysis pubis are intact. IMPRESSION: 1. No acute fracture within the pelvis or hips. 2. Intact total bilateral hip arthroplasties. No periprosthetic fracture. ACT 112: Negative or not required by law. Electronically signed by: David Brady M.D. 01/05/2021 7:30 PM Shoulder X-Ray 01/05/21 18:43 XR shoulder RT min 2V routine CLINICAL HISTORY: fall eval for injury COMPARISON: Right shoulder radiographs March 14, 2018. FINDINGS: No acute fracture is identified on this exam. An old, healed proximal right humeral fracture is noted. Moderate degenerative changes of the right shoulder are present. Positioning on this exam was difficult. IMPRESSION: 1. No acute fracture or dislocation within the right shoulder. 2. Old, healed proximal right humeral fracture. 3. Right shoulder osteoarthritis. ACT 112: Negative or not required by law. Electronically signed by: David Brady M.D. 01/05/2021 7:32 PM Chest X-Ray 01/05/21 18:44 XR chest 1V portable CLINICAL HISTORY: fall COMPARISON STUDY: Chest radiograph July 13, 2019. FINDINGS: There is no pneumothorax or pleural effusion. Moderate cardiomegaly is unchanged. Bifurcated aortoiliac stent graft is partially imaged. There is no evidence for pulmonary edema. Mild left basilar opacity favors atelectasis. There is no lobar consolidation. IMPRESSION: No acute cardiopulmonary findings. No significant change in appearance of the chest. ACT 112: Negative or not required by law. Electronically signed by: David Brady M.D. 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 PG Care Time/CCT Total # of Minutes Spent Total Time Spent with Patient: Total time spent is greater than 50% in coordination of care (as documented) at patient's floor/unit and/or counseling patient: Coding Level of Care Code 55877 Initial Inpt Care Lvl 3 Diagnoses Fall W19.XXXA Encounter type: initial encounter Hypertension I10 Hypertension type: essential hypertension Permanent atrial fibrillation I48.21 Memory impairment R41.3 Aortic stenosis I35.0 Cardiac valve disease etiology: etiology unspecified (1) Aortic stenosis Cardiac valve disease etiology: etiology unspecified Qualified Code(s): I35.0 - Nonrheumatic aortic (valve) stenosis (2) Hypertension Hypertension type: essential hypertension Qualified Code(s): I10 - Essential (primary) hypertension (3) Fall Encounter type: initial encounter Qualified Code(s): W19.XXXA - Unspecified fall, initial encounter
[2021-01-06] MEDS ORDERED: ONDANSETRON INJ 2 MG/ML 2 ML VIAL IV PRN (00:19)
[2021-01-06] MEDS ORDERED: SODIUM CHLORIDE 0.9% 1000ML 1,000 ML IV SCH (00:19)
--- NOTE | 2021-01-06 04:37 | Communication Note ---
Date of Service: January 06, 2021 Notified by nursing that patient's heart rate bouncing from 110's to 160's, mostly in 110's. EKG ordered -- Afib with RVR with some aberrantly conducted ventricular beats and PVCs. RVR rate closer to 300, but slowed down with aberrant beats to 99. Patient not currently on a monitored beds, no female beds currently available. Transfer orders placed for movement to a monitored bed. 500 cc NS bolus ordered as patient appeared dehydrated on admission.
[2021-01-06] MEDS ORDERED: SODIUM CHLORIDE 0.9% 500 ML IV SCH (04:45)
[2021-01-06 05:02] LABS: Appearance Urine Clear (Clear); Bacteria Urine Automated Negative (Negative); Bilirubin Urine Negative (Negative); Blood Urine Negative (Negative); Color Urine Yellow; Epithelial Cell Urine Auto >30 /lpf (0-5); Glucose Urine UA Negative (Negative); Ketones Urine Negative (Negative); Leukocyte Esterase Urine 2+ (Negative); Nitrite Urine Negative (Negative); Protein Urine Negative (Negative); RBC Urine Automated 0-4 /hpf (0-4); Specific Gravity Urine 1.006 (1.000-1.030); Urobilinogen Urine Negative (Negative)
[2021-01-06] MEDS: ACETAMINOPHEN 325 MG TAB PO PRN ×2 (05:05→21:18)
[2021-01-06 06:11] LABS: Basophils # (auto) 0.02 K/uL (0-0.2); Basophils % (auto) 0.3 %; Eosinophils # (auto) 0.11 K/uL (0-0.5); Eosinophils % (auto) 1.5 %; Hematocrit (blood only) 37.4 % (37-47); Hemoglobin 12.9 g/dL (12.0-16.0); Immature Granulocytes # (auto) 0.01 K/uL (0.00-0.02); Immature Granulocytes % (auto) 0.1 %; Lymphocytes # (auto) 1.19 K/uL (1.2-3.4); Lymphocytes % (auto) 15.8 %; Mean Corpuscular Hemoglobin 31.5 pg (25-34); Mean Corpuscular Hgb Conc 34.5 g/dL (32-36); Mean Corpuscular Volume 91.2 fL (80-100); Mean Platelet Volume 9.5 fL (7.4-10.4); Monocytes # (auto) 0.74 K/uL (0.11-0.59); Monocytes % (auto) 9.8 %; Neutrophils # (auto) 5.47 K/uL (1.4-6.5); Neutrophils % (auto) 72.5 %; Platelet Count 175 K/uL (130-400); RDW Coefficient of Variation 14.3 % (11.5-14.5); RDW Standard Deviation 48.3 fL (36.4-46.3); White Blood Count 7.54 K/uL (4.8-10.8)
[2021-01-06 06:46] LABS: BUN Creatinine Ratio 10.7 (10-20); Bilirubin Direct 0.3 mg/dl (0-0.2); Calcium 8.3 mg/dl (8.5-10.1); Creatinine Clr Calc Pharmacy 75.3 ml/min; Est GFR (African American) 82.2 ml/min; Est GFR (Non-African American) 70.9 ml/min; Potassium 3.8 mmol/L (3.5-5.1)
[2021-01-06 06:52] LABS: Bilirubin,Total 1.8 mg/dl (0.2-1)
[2021-01-06] MEDS: APIXABAN 5 MG TABLET PO SCH ×2 (08:31→20:21)
[2021-01-06] MEDS: TIMOLOL MALEATE 0.25% OP SOLN 5 ML BTL OP SCH (08:31)
[2021-01-06] MEDS: hydroCHLOROthiazide 25 MG TAB PO SCH (08:31)
[2021-01-06] MEDS: CLOPIDOGREL BISULFATE 75 MG TAB PO SCH (08:31)
[2021-01-06] MEDS: dilTIAZem ER 120 MG CAPCR PO SCH (08:31)
--- NOTE | 2021-01-06 12:06 | XRay Report ---
XR foot RT min 3V routine CLINICAL HISTORY: pain COMPARISON: None. DISCUSSION: The bones and joint spaces appear intact. There is no evidence of fracture, dislocation o r bony disease. Evaluation is limited due to diffuse osteopenia. Small plantar calcaneal spur is seen. Diffuse soft tissue edema is noted. IMPRESSION: No acute fracture or dislocation. Osteopenia. Severe soft tissue edema. ACT 112: Negative or not required by law. The above report was generated using voice recognition software. It may contain grammatical, syntax o r spelling errors. Electronically signed by: Julieta Patel DO 01/06/2021 12:04 PM
--- NOTE | 2021-01-06 16:20 | XCELERA ---
[id number]
--- NOTE | 2021-01-06 18:11 | Hospitalist Progress Note ---
Date of Service January 06, 2021 Assessment & Plan (1) Fall: 85yo female presenting after fall from home. Patient does not believe that she tripped or lost consciousness, she did strike her face on the floor and is on Apixaban anticoagulation. Patient lives alone, typically ambulates with a walker, however, was not using the walker at the time of the fall. She also complains of some ongoing pain in her right heel which is chronic. CT head is unremarkable. No focal neurologic deficits noted on exam. No other injuries except right facial contusion Do not suspect syncope but does have a h/o mod-severe --> check ECHO--> moderate , preserved EF No events significant on tele monitoring--> afib with rates in 160s in EMS and was given IV diltiazem, now rates improved Orthostatics negative. Was not hypotensive on arrival Fall likely from significant deconditioning as daughter reports pt mostly lays in bed all day. Also with significant LE edema contributing to ambulatory dysfunction -Fall precautions -Neuro checks with GCS q 4 hours given fall on blood thinners -PT/OT evaluation-both recommending SNF but pt declines this--> daughter to arrange for 12/03 care at home, home health (2) Permanent atrial fibrillation: rapid on admission as above to 160s as per EMS and given IV diltiazem Daughter reports pt forgets to take medications every other day on average, may have missed diltiazem dose Now Rate controlled after IV dilt, po home dilt, and approx 1L NS Anticoagulated on Apixaban -Continue Apixaban -Continue Diltiazem (3) Memory impairment: Patient states that she has had decline in her memory over the last year. She has in-home help with personal care, shopping and cleaning 3 days/week. Pt quite intelligent and does a good job of compensating for her mild-mod dementia, but does admit that she wants to get a watch that has the date on it as she forgets the date. Has short term memory issues but is aware of it -Delirium prevention strategies (4) Aortic stenosis: Patient with moderate aortic stenosis per echo in 2019. Patient does not believe that she had a syncopal event as noted above ECHO here again with mod , no real change Daughter reports pt would not be candidate for surgery and have chosen to stop following this with outpt ECHOs (5) Hyperbilirubinemia: TBili mildly elevated at 1.8 No abd pain, other LFTs ok Could be Gilbert's vs mild hepatic congestion from rapid afib? follow LFTs in AM (6) Facial contusion: secondary to fall no fractures on facial CT mild tenderness tylenol prn pain (7) Acute hypokalemia: K+ low on admission and replaced, now normal ok to continue HCTZ (8) Hyponatremia: mild on admission, now normalized after receiving IVFs NS dc IVFs now ok to continue HCTZ follow BMP (9) Lower extremity edema: chronic, likely venous stasis, dependent edema 2/2 central obesity Cardiology notes report she has not wanted to wear compression stockings in past -continue HCTZ (10) Ambulatory dysfunction: uses walker at home, generally weak PT/OT evals here recommend SNF but pt refuses--> plan for home with home health and 24/7 care (11) Hypertension: Blood pressure stable -Continue HCTZ 25mg po daily -Continue Diltiazem -Continue to monitor (12) History of AAA (abdominal aortic aneurysm) repair: h/o endovascular repair continue Plavix (13) Obesity: BMI 49.1 needs weight loss (14) DVT prophylaxis: Eliquis Dispo-continued stay but downgrade to med/surg; plan for home with and 24/7 care tomorrow Admission and Anticipated Discharge Date Admission Date: January 05, 2021 Subjective Pt anxious to get out of the hospital. Reports she feels fine. Denies headache or lightheadedness, denies CP or SOB. No nausea or abd pain. She is eating and drinking. She has not been out of bed and knows she will be weak but insists that she will not be going to a rehab facility. With her fall yesterday, she reports she does not know why she fell, she just tipped forward and did a face plant. She does not think she passed out. Tele here with A-fib with rates in the 90s-100s, some PVCs Discussed her care with her daughter on the phone as well as her PCP, Dr. Escobar. Daughter understands pt's resistance to going to rehab facility, but needs more time to be able to arrange for 24/7 care at home prior to discharge. Daughter also reports that pt misses her medications approximately every other day when daughter reviews the pills. Pt is agreeable to home visiting RN, but reports she does not need PT and "I don't believe in PT." Review of Systems Review of Systems: All systems reviewed & are unremarkable except as noted in HPI & below has chronic right foot pain Physical Exam Constitutional: WD/WN, vitals as above + morbidly obese Eyes: PERRL, conjunctivae normal, anicteric sclerae EOM intact bilaterally (without pain) ENMT: external ear and nose normal, oropharynx normal Ears: + hearing impairment right side of face with small area of ecchymosis over zygomatic arch with mild +TTP Neck: trachea midline, no thyromegaly Respiratory: normal respiratory effort, lungs clear to auscultation Cardiovascular: Rate/Rhythm: regular rate and + irregularly irregular Heart Sounds: + murmur (2/6 BISHOP at RUSB) Vessels: no JVD Extremities: + edema (chronic lymphedema bilat LEs ) Chest (Breasts): Chest: normal inspection of chest Gastrointestinal (Abdomen): normal bowel sounds, soft, nontender, no hepatos plenomegaly Musculoskeletal: Extremities: no cyanosis and no clubbing Skin: legs with chronic venous stasis changes, mild pink color, dry skin Neurologic: PERRL, EOMI, accommodation nl, no face palsy, no dysarthria CN's II-XI intact bilaterally, moves all extremities and awake; no focal motor deficits Motor/Sensory: no tremor Psychiatric: Orientation: alert, oriented to person, oriented to place and cooperative Speech: normal rate/rhythm/volume of speech Affect: euthymic affect Thought Process: goal directed thought process Cognition: recent memory grossly intact (except thought she was in the hospital for 2-3 days) and remote memory grossly intact Estimated Intelligence: + above average estimated intelligence Results & Data Results & Data ([facility]) Vital Signs (Past 12 Hours) Vital Signs Temp Pulse Resp BP Pulse Ox 01/06/21 15:07 36.3 C L 81 18 107/70 95 01/06/21 11:04 36.7 C 91 H 20 116/79 95 01/06/21 07:17 36.7 C 90 19 104/55 L 93 Laboratory Results 01/06/21 01/06/21 01/06/21 Range/Units 05:45 05:45 03:50 WBC 7.54 (4.8-10.8) K/uL RBC 4.10 L (4.2-5.4) M/uL Hgb 12.9 (12.0-16.0) g/dL Hct 37.4 (37-47) % MCV 91.2 (80-100) fL MCH 31.5 (25-34) pg MCHC 34.5 (32-36) g/dL RDW Std Deviation 48.3 H (36.4-46.3) fL RDW Coeff of Randell 14.3 (11.5-14.5) % Plt Count 175 (130-400) K/uL MPV 9.5 (7.4-10.4) fL Immature Gran % (Auto) 0.1 % Neut % (Auto) 72.5 % Lymph % (Auto) 15.8 % [place] % (Auto) 9.8 % Eos % (Auto) 1.5 % Baso % (Auto) 0.3 % Neut # (Auto) 5.47 (1.4-6.5) K/uL Lymph # (Auto) 1.19 L (1.2-3.4) K/uL [place] # (Auto) 0.74 H (0.11-0.59) K/uL Eos # (Auto) 0.11 (0-0.5) K/uL Baso # (Auto) 0.02 (0-0.2) K/uL Immature Gran # (Auto) 0.01 (0.00-0.02) K/uL Sodium 139 (136-145) mmol/L Potassium 3.8 D (3.5-5.1) mmol/L Chloride 106 (98-107) mmol/L Carbon Dioxide 27 (21-32) mmol/L Anion Gap 6.0 (3-11) BUN 8 (7-18) mg/dl Creatinine 0.77 (0.6-1.2) mg/dl Est Cr Clr Drug Dosing 75.3 ml/min Est GFR ( Amer) 82.2 ml/min Est GFR (Non-Af Amer) 70.9 ml/min BUN/Creatinine Ratio 10.7 (10-20) Glucose 107 H (70-99) mg/dl Calcium 8.3 L (8.5-10.1) mg/dl Total Bilirubin 1.8 H (0.2-1) mg/dl Direct Bilirubin 0.3 H (0-0.2) mg/dl AST 34 (15-37) U/L ALT 17 (12-78) U/L Alkaline Phosphatase 65 (45-117) U/L Total Protein 6.0 L D (6.4-8.2) gm/dl Albumin 3.0 L (3.4-5.0) gm/dl Urine Color Yellow Urine Appearance Clear (Clear) Urine pH 8.0 H (4.5-7.5) Ur Specific [place] 1.006 (1.000-1.030) Urine Protein Negative (Negative) Urine Glucose (UA) Negative (Negative) Urine Ketones Negative (Negative) Urine Blood Negative (Negative) Urine Nitrite Negative (Negative) Urine Bilirubin Negative (Negative) Urine Urobilinogen Negative (Negative) Ur Leukocyte Esterase 2+ H (Negative) Urine WBC (Auto) 10-30 H (0-5) /hpf Urine RBC (Auto) 0-4 (0-4) /hpf U Hyaline Cast (Auto) 1-5 (0-5) /lpf U Epithel Cells (Auto) >30 H (0-5) /lpf Urine Bacteria (Auto) Negative (Negative) Diagnostic Findings I personally reviewed the foot xray images and agree with the following report: Foot X-Ray 01/06/21 00:19 XR foot RT min 3V routine CLINICAL HISTORY: pain COMPARISON: None. DISCUSSION: The bones and joint spaces appear intact. There is no evidence of fracture, dislocation or bony disease. Evaluation is limited due to diffuse osteopenia. Small plantar calcaneal spur is seen. Diffuse soft tissue edema is noted. IMPRESSION: No acute fracture or dislocation. Osteopenia. Severe soft tissue edema. ACT 112: Negative or not required by law. The above report was generated using voice recognition software. It may contain grammatical, syntax or spelling errors. Electronically signed by: Julieta Patel DO 01/06/2021 12:04 PM PG Care Time/CCT Total # of Minutes Spent Total Time Spent with Patient: Total time spent is greater than 50% in coordination of care (as documented) at patient's floor/unit and/or counseling patient: Coding Level of Care Code 70074 Subseq Hosp Care Lvl 3 Diagnoses Fall W19.XXXA Encounter type: initial encounter Permanent atrial fibrillation I48.21 Memory impairment R41.3 Aortic stenosis I35.0 Cardiac valve disease etiology: etiology unspecified Hyperbilirubinemia E80.6 Facial contusion S00.83XA Acute hypokalemia E87.6 Hyponatremia E87.1 Lower extremity edema R60.0 Ambulatory dysfunction R26.2 Hypertension I10 Hypertension type: essential hypertension History of AAA (abdominal aortic aneurysm) repair Z98.890 Obesity E66.9 DVT prophylaxis Z29.9 (1) Aortic stenosis Cardiac valve disease etiology: etiology unspecified Qualified Code(s): I35.0 - Nonrheumatic aortic (valve) stenosis (2) Hypertension Hypertension type: essential hypertension Qualified Code(s): I10 - Essential (primary) hypertension (3) Fall Encounter type: initial encounter Qualified Code(s): W19.XXXA - Unspecified fall, initial encounter
--- NOTE | 2021-01-06 18:36 | Electrocardiogram Report ---
Test Reason : Blood Pressure : / mmHG Vent. Rate : 116 BPM Atrial Rate : 133 BPM P-R Int : 000 ms QRS Dur : 080 ms QT Int : 356 ms P-R-T Axes : 000 -07 016 degrees QTc Int : 494 ms Atrial fibrillation with rapid ventricular response Low voltage QRS Inferior infarct (cited on or before 05-JAN-2021) Abnormal ECG When compared with ECG of 05-JAN-2021 18:16, (unconfirmed) No significant change was found Confirmed by Ernie Tejada ([id number]) on 01/06/2021 6:36:16 PM Referred By: REFERRED SELF Confirmed By:Gil Tejada
--- NOTE | 2021-01-06 18:39 | Electrocardiogram Report ---
Test Reason : Blood Pressure : / mmHG Vent. Rate : 097 BPM Atrial Rate : 125 BPM P-R Int : 000 ms QRS Dur : 082 ms QT Int : 380 ms P-R-T Axes : 000 000 013 degrees QTc Int : 482 ms Atrial fibrillation Low voltage QRS Possible Inferior infarct (cited on or before 05-JAN-2021) Abnormal ECG When compared with ECG of 06-JAN-2021 04:19, (unconfirmed) No significant change was found Confirmed by Ernie Tejada ([id number]) on 01/06/2021 6:38:35 PM Referred By: REFERRED SELF Confirmed By:Gil Tejada
[2021-01-06] MEDS ORDERED: KETOCONAZOLE 2% CR 15 GM TUBE EXT SCH (21:00)
[2021-01-06] MEDS ORDERED: TRIAMCINOLONE ACET 0.1% CR 15 GM TUBE TOP SCH (21:00)
[2021-01-07] MEDS ORDERED: MICONAZOLE NITRATE POWDER 43 GM EXT PRN (04:47)
[2021-01-07 08:34] LABS: Albumin Level 3.3 gm/dl (3.4-5.0); BUN Creatinine Ratio 10.7 (10-20); Calcium 8.8 mg/dl (8.5-10.1); Creatinine Clr Calc Pharmacy 72.6 ml/min; Est GFR (African American) 90.7 ml/min; Est GFR (Non-African American) 78.2 ml/min; Magnesium 2.1 mg/dl (1.8-2.4); Potassium 3.4 mmol/L (3.5-5.1)
[2021-01-07 08:37] LABS: Bilirubin Direct 0.4 mg/dl (0-0.2); Bilirubin,Total 1.6 mg/dl (0.2-1); Total Protein 6.6 gm/dl (6.4-8.2)
[2021-01-07] MEDS: hydroCHLOROthiazide 25 MG TAB PO SCH (09:34)
[2021-01-07] MEDS: TIMOLOL MALEATE 0.25% OP SOLN 5 ML BTL OP SCH (09:34)
[2021-01-07] MEDS: CLOPIDOGREL BISULFATE 75 MG TAB PO SCH (09:34)
[2021-01-07] MEDS: dilTIAZem ER 120 MG CAPCR PO SCH (09:34)
[2021-01-07] MEDS: APIXABAN 5 MG TABLET PO SCH (11:25)
--- NOTE | 2021-01-07 11:42 | Electrocardiogram Report ---
Test Reason : Blood Pressure : / mmHG Vent. Rate : 099 BPM Atrial Rate : 089 BPM P-R Int : 000 ms QRS Dur : 078 ms QT Int : 378 ms P-R-T Axes : 000 005 033 degrees QTc Int : 485 ms Atrial fibrillation with premature ventricular or aberrantly conducted complexes Nonspecific ST abnormality Abnormal ECG When compared with ECG of 06-JAN-2021 06:03, No significant change was found Confirmed by Ernie Tejada ([id number] on 01/07/2021 11:42:27 AM Referred By: REFERRED SELF Confirmed By:Gil Tejada
--- NOTE | 2021-01-07 13:25 | Discharge Summary ---
Date of Service January 07, 2021 Admission HPI Per Admitting Provider Sulema Ledezma is a pleasant 85yo female with history of paroxysmal atrial fibrillation on Apixaban presenting after a fall at home. Patient lives alone, normally ambulates with a walker. She states she was walking across her home this evening when she fell forward, striking her face on the hard wood floor. She was unable to get up so she called 911. Patient states that she did not trip or lose consciousness. She did hit her face. She was walking barefoot across the floor, does not have throw rugs. She denies chest pain, palpitations, dizziness, numbness/tingling/weakness or incontinence preceding or following the fall. She does have some chronic pain in her right heel and thinks that this could have contributed to the fall. Presently with no complaints. Patient lives alone. She reports a decline in her memory for the last year. She has a daughter nearby that checks on her frequently. She gets Meals on Wheels and has in home help three days/week - personal care, housecleaning and shopping. Patient afebrile, HD stable, NAD. ER Course: Potassium 40meq Principal Diagnosis Fall, right facial contusion, mild dehydration, hypokalemia, generalized deconditioning/weakness, ambulatory dysfunction Discharge Exam Constitutional WD/WN, vitals as above + morbidly obese Eyes PERRL, conjunctivae normal, anicteric sclerae ENMT Ears: + hearing impairment Neck trachea midline, no thyromegaly Respiratory normal respiratory effort, lungs clear to auscultation Cardiovascular Rate/Rhythm: regular rate and + irregularly irregular Heart Sounds: + murmur (2/6 BISHOP at RUSB) Vessels: no JVD Extremities: + edema (chronic lymphedema bilat LEs ) Chest (Breasts) Chest: normal inspection of chest Gastrointestinal (Abdomen) normal bowel sounds, soft, nontender, no hepatosplenomegaly Musculoskeletal Extremities: no cyanosis and no clubbing Skin + ecchymosis (Small amount right cheek) Neurologic PERRL, EOMI, accommodation nl, no face palsy, no dysarthria moves all extremities and awake; no focal motor deficits Motor/Sensory: no tremor Psychiatric Orientation: alert, oriented to person, oriented to place and cooperative Speech: normal rate/rhythm/volume of speech Affect: euthymic affect Thought Process: goal directed thought process Cognition: recent memory grossly intact and remote memory grossly intact Estimated Intelligence: + above average estimated intelligence Discharge Data Allergies Allergy/AdvReac Type Severity Reaction Status Date / Time aspirin Allergy Severe TONGUE AND Verified 01/05/21 21:53 THROAT SWELLS tramadol Allergy Severe ANAPHYLAXIS Verified 07/28/19 21:18 monosodium glutamate Allergy Mild throat Verified 07/28/19 21:18 swell erythromycin base Allergy Unknown SWELLING Verified 01/05/21 21:53 THROAT AND RASH tetracycline Allergy Unknown SWELLING Verified 01/05/21 21:53 AND RASH Tetracyclines Allergy Swelling Verified 01/05/21 21:55 of Lip/Tongue/Throat cephalexin AdvReac Severe VOMITING Verified 01/05/21 22:09 omeprazole AdvReac Severe G I UPSET Verified 01/05/21 21:53 amoxicillin AdvReac Intermediate VOMIT Verified 01/05/21 21:53 clavulanic acid AdvReac Intermediate VOMIT Verified 01/05/21 21:53 metoprolol AdvReac Intermediate DISORIENTED Verified 01/05/21 22:09 alendronate sodium AdvReac Unknown very upset Verified 01/05/21 21:53 stomach esomeprazole AdvReac Unknown G I UPSET Verified 01/05/21 22:09 nystatin AdvReac Unknown GI UPSET Verified 01/05/21 22:09 montelukast AdvReac Nausea Verified 01/05/21 21:55 Aromatic Oils Allergy Unknown PERFUMES Uncoded 06/13/19 10:19 CAN'T BREATHE Ordered Studies 01/05/21 18:43 CT cervical spine wo con Stat CT facial bones wo con Stat CT head/brain wo con Stat Cervical Spine CT 01/05/21 18:43 CT OF THE CERVICAL SPINE WITHOUT CONTRAST CLINICAL HISTORY: fall eval for injury COMPARISON STUDY: Cervical spine CT July 13, 2019. TECHNIQUE: Helical axial images of the cervical spine were obtained without IV contrast. Sagittal and coronal reconstructions were viewed. Automated exposure control was utilized for the study. A dose lowering technique was utilized adhering to the principles of ALARA. FINDINGS: Alignment of the cervical spine is anatomic. Vertebral body heights are maintained. No acute cervical spine fracture or subluxation is present. There is no prevertebral edema. Facet joints are intact. Interlobular septal thickening is noted within visualized portions of the lung apices IMPRESSION: 1. No acute cervical spine fracture or subluxation. 2. Interstitial pulmonary edema within the lung apices. ACT 112: Negative or not required by law. Electronically signed by: David Brady M.D. 01/05/2021 8:[address] 01/05/21 18:[address] WITHOUT CONTRAST CLINICAL HISTORY: Fall. Evaluate for fracture. COMPARISON STUDY: Head CT July 13, 2019. TECHNIQUE: A maxillofacial CT was performed without IV contrast. Coronal and sagittal reformats were viewed. Automated exposure control was utilized for the study. A dose lowering technique was utilized adhering to the principles of ALARA. FINDINGS: Globes are intact. There is no retrobulbar hematoma. There is no acute facial fracture. Orbital floors are intact. No fractures are identified within visualized portions of the calvarium. There is no skull base fracture. No upper cervical spine fracture is identified. IMPRESSION: No acute facial fracture. ACT 112: Negative or not required by law. Electronically signed by: David Brady M.D. 01/05/2021 8:[address] 01/05/21 18:43 CT OF THE HEAD WITHOUT CONTRAST CLINICAL HISTORY: Fall. COMPARISON STUDY: Head CT July 13, 2019. TECHNIQUE: Helical axial images of the head were obtained without IV contrast. Automated exposure control was utilized for the study. A dose lowering technique was utilized adhering to the principles of ALARA. FINDINGS: No acute intracranial hemorrhage, midline shift or mass effect is present. The ventricular system is stable. White matter hypodensity suggests small vessel disease. The basal cisterns are patent. No extra-axial collections are present. There are no findings to suggest acute dural sinus thrombosis or acute territorial infarct. No significant calvarial abnormalities are present. Visualized portions of the sinuses and mastoid air cells are clear. IMPRESSION: 1. No acute intracranial findings. No change in appearance of the brain. 2. No calvarial fracture. ACT 112: Negative or not required by law. Electronically signed by: David Brady M.D. 01/05/2021 8:16 PM Pelvis X-Ray 01/05/21 18:43 XR pelvis 1-2V routine CLINICAL HISTORY: fall eval for injury COMPARISON: CTA of the abdomen and pelvis December 19, 2018. FINDINGS: Bifurcated aortoiliac stent graft is partially imaged. Alignment of the total bilateral hip arthroplasties is anatomic. There is no periprosthetic fracture or lucency. No acute fracture is identified on this exam. The sacroiliac joints and symphysis pubis are intact. IMPRESSION: 1. No acute fracture within the pelvis or hips. 2. Intact total bilateral hip arthroplasties. No periprosthetic fracture. ACT 112: Negative or not required by law. Electronically signed by: Dvaid Brady M.D. 01/05/2021 7:30 PM Shoulder X-Ray 01/05/21 18:43 XR shoulder RT min 2V routine CLINICAL HISTORY: fall eval for injury COMPARISON: Right shoulder radiographs March 14, 2018. FINDINGS: No acute fracture is identified on this exam. An old, healed proximal right humeral fracture is noted. Moderate degenerative changes of the right shoulder are present. Positioning on this exam was difficult. IMPRESSION: 1. No acute fracture or dislocation within the right shoulder. 2. Old, healed proximal right humeral fracture. 3. Right shoulder osteoarthritis. ACT 112: Negative or not required by law. Electronically signed by: David Brady M.D. 01/05/2021 7:32 PM Chest X-Ray 01/05/21 18:44 XR chest 1V portable CLINICAL HISTORY: fall COMPARISON STUDY: Chest radiograph July 13, 2019. FINDINGS: There is no pneumothorax or pleural effusion. Moderate cardiomegaly is unchanged. Bifurcated aortoiliac stent graft is partially imaged. There is no evidence for pulmonary edema. Mild left basilar opacity favors atelectasis. There is no lobar consolidation. IMPRESSION: No acute cardiopulmonary findings. No significant change in appearance of the chest. ACT 112: Negative or not required by law. Electronically signed by: David Brady M.D. 01/05/2021 7:36 PM Foot X-Ray 01/06/21 00:19 XR foot RT min 3V routine CLINICAL HISTORY: pain COMPARISON: None. DISCUSSION: The bones and joint spaces appear intact. There is no evidence of fracture, dislocation or bony disease. Evaluation is limited due to diffuse osteopenia. Small plantar calcaneal spur is seen. Diffuse soft tissue edema is noted. IMPRESSION: No acute fracture or dislocation. Osteopenia. Severe soft tissue edema. ACT 112: Negative or not required by law. The above report was generated using voice recognition software. It may contain grammatical, syntax or spelling errors. Electronically signed by: Julieta Patel DO 01/06/2021 12:04 PM Hospital Course (1) Fall: 85yo female presenting after fall from home. Patient does not believe that she tripped or lost consciousness, she did strike her face on the floor and is on Apixaban anticoagulation. Patient lives alone, typically ambulates with a walker, however, was not using the walker at the time of the fall. She also complains of some ongoing pain in her right heel which is chronic. CT head is unremarkable. No focal neurologic deficits noted on exam. No other injuries except right facial contusion Do not suspect syncope but does have a h/o mod-severe --> checked ECHO--> moderate , preserved EF-not likely to have caused her fall No events significant on tele monitoring--> afib with rates in 160s in EMS and was given IV diltiazem, now rates improved/controlled Orthostatics negative. Was not hypotensive on arrival Fall likely from significant deconditioning as daughter reports pt mostly lays in bed all day. Also with significant LE edema contributing to ambulatory dysfunction -Fall precautions should remain in place -PT/OT evaluation-both recommending rehab placement and patient is now agreeable to going to [facility] for acute rehab (2) Permanent atrial fibrillation: rapid on admission as above to 160s as per EMS and given IV diltiazem Daughter reports pt forgets to take medications every other day on average, may have missed diltiazem dose Now Rate controlled after IV dilt, po home dilt, and approx 1L NS given upon admission Anticoagulated on Apixaban -Continue Apixaban -Continue Diltiazem (3) Memory impairment: Patient states that she has had decline in her memory over the last year. She has in-home help with personal care, shopping and cleaning 3 days/week. Pt quite intelligent and does a good job of compensating for her mild-mod dementia, but does admit that she wants to get a watch that has the date on it as she forgets the date. Has short term memory issues but is aware of it -Delirium prevention strategies -Continue supportive care Follow-up with PCP (4) Aortic stenosis: Patient with moderate aortic stenosis per echo in 2019. Patient does not believe that she had a syncopal event as noted above ECHO here again with mod , no real change Daughter reports pt would not be candidate for surgery and have chosen to stop following this with outpt ECHOs (5) Hyperbilirubinemia: TBili mildly elevated at 1.8 on admission and now down to 1.6 No abd pain, other LFTs ok except minor elevation in AST Could be Gilbert's vs mild hepatic congestion from rapid afib? Not concerning Follow with LFTs in 3 to 5 days at rehab (6) Facial contusion: secondary to fall no fractures on facial CT mild tenderness tylenol prn pain (7) Acute hypokalemia: K+ low on admission and replaced, now only mildly low ok to continue HCTZ and add on daily potassium chloride 8 mEq Follow BMP in 3 to 5 days at the rehab (8) Hyponatremia: mild on admission, now normalized after receiving IVFs NS Have since discontinued IV fluids ok to continue HCTZ follow BMP in 3 to 5 days at rehab (9) Lower extremity edema: chronic, likely venous stasis, dependent edema 2/2 central obesity Cardiology notes report she has not wanted to wear compression stockings in past -continue HCTZ (10) Ambulatory dysfunction: uses walker at home, generally weak PT/OT evals here recommend rehab as above (11) Hypertension: Blood pressure stable/acceptable -Continue HCTZ 25mg po daily -Continue Diltiazem -Continue to monitor (12) History of AAA (abdominal aortic aneurysm) repair: h/o endovascular repair continue Plavix (13) Obesity: BMI 49.1 needs weight loss (14) DVT prophylaxis: Eliquis Dispo-stable for discharge to acute rehab Discussed care with daughter and PCP on the day of discharge Total Time Total Time Spent Total Time Spent (In Minutes): 35 minutes Total Time Includes: Examination of the Patient, Discharge Planning, Medication Reconciliation and Communication With Other Providers Discharge Plan Discharge Items Patient Disposition: Transfer Inpatient Rehab Fac Reason For Visit: FALL Discharge Diagnosis: Fall, ambulatory dysfunction, rapid atrial fibrillation Condition on Discharge: Fair Activity: As commented below Lifting: Gradually increase as tolerated Bathing: No limitations Exercise/Sports: Gradually increase as tolerated Weightbearing: Full weightbearing Non-emergency contact: Primary Care Provider Call non-emergency contact if: you have any medication questions and your symptoms worsen Follow-up/Referrals: John Escobar MD [Primary Care Provider] - (Follow-up within 2 weeks after discharge from rehab facility.) Diet: Heart Healthy Addtl Attending Provider Instructions: You were admitted to the hospital after having a fall which was likely due to deconditioning and lower extremity edema as well as some mild dehydration. You were also found to have rapid atrial fibrillation. This may be due to accidentally missing your medications. You had a thorough work-up for injuries and a cardiac work-up and all of this returned normal except for usual moderate aortic stenosis which is not worse from before. It was recommended that you go to a rehab facility to improve your deconditioning. Your potassium levels were a bit low and this was replaced with oral potassium chloride. Please continue taking potassium chloride 8 mEq by mouth once daily and recheck your basic metabolic panel on blood work in 3 to 5 days. It was a pleasure taking care of you! -Gloria Costa MD Pending Studies at Discharge: No Stand-Alone Forms: My [facility] Skilled Items Patient informed of condition?: Yes DNR: Yes Discharge Level of Care: Acute rehab Communicable Disease: No Discharge Prognosis: Improving Lines: None Urinary Catheter: No Medications and DC Order Prescriptions: New potassium chloride 8 mEq tablet extended release 8 meq PO DAILY Qty: 30 RF: 0 Continued Calcium Citrate Plus [id number] [id number]-dw-dmma-mg tablet 1 tab PO DAILY RF: 0 timolol 0.25 % drops 1 drp OPB DAILY Qty: 0 RF: 0 diltiazem HCl 120 mg capsule,ext.rel 24h degradable 120 mg PO DAILY Qty: 90 RF: 3 Eliquis 5 mg tablet 5 mg PO BID Qty: 180 RF: 1 clopidogrel [Plavix] 75 mg tablet 75 mg PO DAILY Qty: 90 RF: 3 triamcinolone acetonide 0.1 % cream 1 applic TOPICAL HS RF: 0 ketoconazole 2 % cream 1 applic TOPICAL HS RF: 0 hydrochlorothiazide 25 mg tablet 25 mg PO DAILY RF: 0 epinephrine 0.3 mg/0.3 mL Auto-Injector 0.3 mg IM Q3H PRN (Reason: . Allergic reaction) Qty: 0 RF: 0 Discharge Orders: Discharge Order (Routine); Ordered 01/07/21 Ordered By: Gloria Costa Admission Data Admit Date/Time: 01/05/21 21:51 Attending Provider: Gloria Costa Admit Provider: Vidhya Guerrero Primary Care Provider: John Escobar Other Providers: [facility],Home Healthcare ; [facility] Coding Level of Care Code D/C Day Management >30 mins Diagnoses Fall W19.XXXA Encounter type: initial encounter Permanent atrial fibrillation I48.21 Memory impairment R41.3 Aortic stenosis I35.0 Cardiac valve disease etiology: etiology unspecified Hyperbilirubinemia E80.6 Facial contusion S00.83XA Acute hypokalemia E87.6 Hyponatremia E87.1 Lower extremity edema R60.0 Ambulatory dysfunction R26.2 Hypertension I10 Hypertension type: essential hypertension History of AAA (abdominal aortic aneurysm) repair Z98.890 Obesity E66.9 DVT prophylaxis Z29.9
== END 2021-01-07 17:08 | DRG 309 ==
LOC: ED 18:05 → SUATTDRO 21:51 → 3N 21:51 → 2S 01-06 04:58 → 2W 01-06 14:49

== ENCOUNTER 2021-04-26 14:18 | Inpatient (IN) ==
[2021-04-26 18:14] LABS: Basophils # (auto) 0.03 K/uL (0-0.2); Basophils % (auto) 0.4 %; Eosinophils # (auto) 0.15 K/uL (0-0.5); Hematocrit (blood only) 41.1 % (37-47); Immature Granulocytes # (auto) 0.01 K/uL (0.00-0.02); Immature Granulocytes % (auto) 0.1 %; Lymphocytes # (auto) 1.27 K/uL (1.2-3.4); Lymphocytes % (auto) 16.6 %; Mean Corpuscular Hemoglobin 32.5 pg (25-34); Mean Corpuscular Hgb Conc 34.1 g/dL (32-36); Mean Corpuscular Volume 95.4 fL (80-100); Mean Platelet Volume 9.4 fL (7.4-10.4); Monocytes # (auto) 0.53 K/uL (0.11-0.59); Monocytes % (auto) 6.9 %; Neutrophils # (auto) 5.66 K/uL (1.4-6.5); Platelet Count 195 K/uL (130-400); RDW Standard Deviation 49.4 fL (36.4-46.3); Red Blood Count 4.31 M/uL (4.2-5.4); White Blood Count 7.65 K/uL (4.8-10.8)
[2021-04-26] MEDS ORDERED: SODIUM CHLORIDE 0.9% 1000ML 1,000 ML IV SCH (18:15)
[2021-04-26 18:24] LABS: Prothrombin Time 10.6 Seconds (9.0-12.0)
[2021-04-26 18:25] LABS: Appearance Urine Clear (Clear); Bilirubin Urine Negative (Negative); Blood Urine Negative (Negative); Color Urine Yellow; Glucose Urine UA Negative (Negative); Ketones Urine Negative (Negative); Leukocyte Esterase Urine Negative (Negative); Nitrite Urine Negative (Negative); Protein Urine Negative (Negative); Specific Gravity Urine 1.017 (1.000-1.030); Urobilinogen Urine Negative (Negative); pH Urine 6.5 (4.5-7.5)
[2021-04-26 18:33] LABS: Alanine Aminotransferase 20 U/L (12-78); Albumin Level 3.9 gm/dl (3.4-5.0); Aspartate Aminotransferase 19 U/L (15-37); Blood Urea Nitrogen 16 mg/dl (7-18); Calcium 9.7 mg/dl (8.5-10.1); Carbon Dioxide 29 mmol/L (21-32); Chloride 101 mmol/L (98-107); Est GFR (African American) 64.1 ml/min; Est GFR (Non-African American) 55.3 ml/min; Glucose 97 mg/dl (70-99); Magnesium 2.2 mg/dl (1.8-2.4); Potassium 3.7 mmol/L (3.5-5.1); Sodium 137 mmol/L (136-145)
--- NOTE | 2021-04-26 18:42 | XRay Report ---
XR chest 1V portable CLINICAL HISTORY: weakness COMPARISON STUDY: Chest radiograph January 05, 2021. FINDINGS: Cardiomegaly is unchanged. There is no pneumothorax or pleural effusion. Aortic stent graft is partially imaged. Linear bibasilar opacities favor atelectasis. There is pulmonary vascular conge stion without overt pulmonary edema. Old proximal right humeral deformity is noted. IMPRESSION: Cardiomegaly with pulmonary vascular congestion. ACT 112: Negative or not required by law. Electronically signed by: David Brady M.D. 04/26/2021 6:40 PM
[2021-04-26 18:44] LABS: Alkaline Phosphatase 85 U/L (45-117); Bilirubin,Total 1.4 mg/dl (0.2-1); Total Protein 7.9 gm/dl (6.4-8.2); Troponin I < 0.015 ng/ml (0-0.045)
--- NOTE | 2021-04-26 19:53 | CT Scan Report ---
CT OF THE HEAD WITHOUT CONTRAST CLINICAL HISTORY: Altered mental status. COMPARISON STUDY: Head CT January 05, 2021. CT DOSE: 1228.53 mGy.cm TECHNIQUE: Helical axial images of the head were obtained without IV contrast. Automated exposure con trol was utilized for the study. A dose lowering technique was utilized adhering to the principles o f ALARA. FINDINGS: No acute intracranial hemorrhage, midline shift or mass effect is present. The ventricular system is stable. White matter hypodensity suggests small vessel disease. Suspected small amount of v enous gas is incidentally noted anterior to the left maxillary sinus and within the infratemporal fos enma. The basal cisterns are patent. No extra-axial collections are present. There are no findings to suggest acute dural sinus thrombosis or acute territorial infarct. No significant calvarial abnormali ties are present. Visualized portions of the sinuses and mastoid air cells are clear. IMPRESSION: No acute intracranial findings. No change in appearance of the brain. ACT 112: Negative or not required by law. Electronically signed by: David Brady M.D. 04/26/2021 7:52 PM
[2021-04-26] MEDS ORDERED: dilTIAZem HCl 5 MG/ML 5 ML VIAL IV STA (19:57)
--- NOTE | 2021-04-26 20:44 | History & Physical Report ---
Date of Service April 26, 2021 Assessment & Plan (1) Memory impairment: Plan: Patient is an 86 year old female with PMHx Atrial fibrillation, HLD, HTN, PAD, Sleep Apnea, chronic venous stasis, who presented for concerns of chills at home, confusion, and warmth of her lower extremities. Confusion, ?Metabolic Encephalopathy vs Worsening Dementia -With reported worsening confusion today by daughter -Patient at this time Alert and oriented to person and place. Fairly eloquent during discussions. -At this time appears to be in a lucid point - per daughter it is typical that she can have points of lucidity and confusion -Lactic mildly elevated at 2.1, suspect dehydration -Given 1L NSS in ED -CT head negative for acute stroke or pathology -UA without obvious signs of infection -Chest CT with some pulmonary congestion, and slight crackles on lung exam - BNP ordered -Plan appears to be to have patient go to [facility] on - Will order for PT and OT evaluations during this stay HTN -Continue Diltiazem -Continue HCTZ PAD -Continue Plavix Atrial Fibrillation -Continue Eliquis DORA -CPAP qhs Dispo: Med/Surg telemetry for monitoring of worsening of confusion - likely downgrade to med/surg in AM if no acute changes on telemetry overnight FEN: HH low sodium diet DVT: Eliquis Code: DNR/DNI - discussed in length with daughter who notes that this is the accurate code status for the patient History of Present Illness Chief Complaint: Chills, confusion Primary Care Provider: John Tiwari Escobar Patient is an 86 year old female with PMHx Atrial fibrillation, HLD, HTN, PAD, Sleep Apnea, chronic venous stasis, who presented for concerns of chills at home, confusion, and warmth of her lower extremities. Patient herself notes that she is only here because "my daughter made me" and insists that she be able to return home. She states that she is in good health and takes care of herself and is without complaints at this time including NVD, SOB, chest pain, chest pressure, fever, or chills. She notes that she takes her medications as prescribed. Called patient's daughter who noted concerns of worsening confusion and chills of the patient earlier this afternoon. She states that the patient had been more confused into what was "real vs. a dream." She states the patient became more agitated and upset when asked about these thoughts in addition to having called her siblings to tell them that she was "about to leave the house" as though she were being kicked out. She also notes that the patient had been shaking at home despite her temperature being set to 76F and being under several blankets. She had called the patient's PCP's office who had recommend she bring her in for evaluation in regards to a possible UTI or other infection that may be contributing to the patients confusion and chills. The patient's daughter also notes concerns that she is unsure what medications that the patient has actually been taking as there are pills missing from different bottles and extras in others. She notes that the patient was supposed to be moving into [facility] here in the next 2 days as she is unsafe to live at home alone any longer. Allergies Allergy/AdvReac Type Severity Reaction Status Date / Time aspirin Allergy Severe TONGUE AND Verified 04/26/21 18:17 THROAT SWELLS tramadol Allergy Severe ANAPHYLAXIS Verified 04/26/21 18:17 monosodium glutamate Allergy Mild throat Verified 04/26/21 18:17 swell erythromycin base Allergy Unknown SWELLING Verified 04/26/21 18:17 THROAT AND RASH tetracycline Allergy Unknown SWELLING Verified 04/26/21 18:17 AND RASH Tetracyclines Allergy Swelling Verified 04/26/21 18:17 of Lip/Tongue/Throat cephalexin AdvReac Severe VOMITING Verified 04/26/21 18:17 omeprazole AdvReac Severe G I UPSET Verified 04/26/21 18:17 amoxicillin AdvReac Intermediate VOMIT Verified 04/26/21 18:17 clavulanic acid AdvReac Intermediate VOMIT Verified 04/26/21 18:17 metoprolol AdvReac Intermediate DISORIENTED Verified 04/26/21 18:17 alendronate sodium AdvReac Unknown very upset Verified 04/26/21 18:17 stomach esomeprazole AdvReac Unknown G I UPSET Verified 04/26/21 18:17 nystatin AdvReac Unknown GI UPSET Verified 04/26/21 18:17 montelukast AdvReac Nausea Verified 04/26/21 18:17 Aromatic Oils Allergy Unknown PERFUMES Uncoded 04/26/21 18:17 CAN'T BREATHE Home Medications Medication Instructions Recorded Confirmed Type diltiazem HCl 120 mg 120 mg PO DAILY #90 cap 06/03/20 04/26/21 Rx capsule,extended release 24 hr, controlled apixaban 5 mg tablet (Eliquis) 5 mg PO BID #180 tab 09/24/20 04/26/21 Rx epinephrine 0.3 mg/0.3 mL 0.3 mg IM Q3H PRN #0 box 01/07/21 04/26/21 Rx injection, auto-injector clopidogrel 75 mg tablet (Plavix) 75 mg PO DAILY #90 tab 01/31/21 04/26/21 Rx hydrochlorothiazide 12.5 mg capsule 12.5 mg PO Q2D 04/26/21 04/26/21 History hydrochlorothiazide 25 mg tablet 25 mg PO QAM 04/26/21 04/26/21 History Past Med/Surg History Medical History Atrial fibrillation 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 Hyperlipidemia Hypertension Idiopathic angioedema Lower extremity edema Obesity Osteoarthritis Paroxysmal atrial fibrillation Peripheral vascular disease Sleep apnea BIPAP FOR SLEEP APNEA Surgical History Abdominal mass LARGE POLYP REMOVED History of AAA (abdominal aortic aneurysm) repair History of arthroscopy RT LNEE TENDON REPAIR History of cataract surgery History of colonoscopy History of tooth extraction History of total hip arthroplasty LEFT AND RT History of total knee replacement LEFT Hx of lumpectomy Family History Sister Family history of diabetes mellitus Other Family hx of colon cancer Social History Smoking Status: Former smoker Second Hand Exposure: No; Do You Dip or Chew Tobacco: No; Hx Alcohol Use: No Hx Substance Use: No Preferred Language: Kyrgyz Communication Ability: Effective Rotary Operator Required: No Beliefs That Will Affect Care: None marital status: / Current Living Situation: Alone Other Information That Helps Us Care for You: No Feels Safe at Home: Yes Safety Concerns: Feels Safe At This Time Assistive Devices: Cane, Walker and Wheelchair Review of Systems Review of Systems: All systems reviewed & are unremarkable except as noted in Subjective Physical Exam Constitutional: WD/WN, vitals as above Eyes: PERRL, conjunctivae normal, anicteric sclerae ENMT: external ear and nose normal, oropharynx normal Ears: + hearing impairment right side of face with small area of ecchymosis over zygomatic arch with mild +TTP Neck: trachea midline, no thyromegaly Respiratory: normal respiratory effort, able to speak in complete sentences and + pursed lip breathing (occasional ) Auscultation: + crackles (slight crackles at bases b/l ) Does not appear in distress, but does seem to have slight difficulties when supine Cardiovascular: Rate/Rhythm: regular rate and + irregularly irregular Heart Sounds: + murmur (2/6 BISHOP) Vessels: no JVD Extremities: no edema (+1 b/l to the knees with venous stasis changes) Gastrointestinal (Abdomen): normal bowel sounds, soft, nontender, no hepatosplenomegaly Musculoskeletal: Head/Neck/Chest: normocephalic and head atraumatic Extremities: no cyanosis and no clubbing Skin: legs with chronic venous stasis changes, mild pink color, dry skin Neurologic: PERRL, EOMI, accommodation nl, no face palsy, no dysarthria CN's II-XI intact bilaterally, moves all extremities and awake; no focal motor deficits Motor/Sensory: no tremor Psychiatric: Orientation: alert, oriented to person, oriented to place and + guarded; + not oriented to time Speech: normal rate/rhythm/volume of speech Affect: euthymic affect and + irritable affect Results & Data Results & Data ([facility]) Vital Signs (Past 12 Hours) Vital Signs Temp Pulse Resp BP Pulse Ox 04/26/21 20:00 118 H 21 155/89 H 96 04/26/21 19:30 113 H 28 H 127/101 H 04/26/21 19:22 124 H 17 04/26/21 19:10 92 H 22 97 04/26/21 19:02 103 H 18 96 04/26/21 18:31 98 H 22 120/74 97 04/26/21 18:00 108 H 20 129/80 97 04/26/21 17:33 102 H 28 H 126/75 97 04/26/21 14:46 37 C 87 16 114/60 96 Laboratory Results Laboratory Results - last 24 hr 04/26/21 04/26/21 04/26/21 17:50 17:58 17:58 WBC 7.65 RBC 4.31 Hgb 14.0 Hct 41.1 MCV 95.4 MCH 32.5 MCHC 34.1 RDW Std Deviation 49.4 H RDW Coeff of Randell 14.0 Plt Count 195 MPV 9.4 Immature Gran % (Auto) 0.1 Neut % (Auto) 74.0 Lymph % (Auto) 16.6 Rush % (Auto) 6.9 Eos % (Auto) 2.0 Baso % (Auto) 0.4 Neut # (Auto) 5.66 Lymph # (Auto) 1.27 Rush # (Auto) 0.53 Eos # (Auto) 0.15 Baso # (Auto) 0.03 Immature Gran # (Auto) 0.01 PT 10.6 INR 1.0 Sodium Potassium Chloride Carbon Dioxide Anion Gap BUN Creatinine Est Cr Clr Drug Dosing Est GFR ( Amer) Est GFR (Non-Af Amer) BUN/Creatinine Ratio Glucose Lactate Calcium Magnesium Total Bilirubin AST ALT Alkaline Phosphatase Troponin I NT-Pro-B Natriuret Pep 1137 Total Protein Albumin Globulin Albumin/Globulin Ratio Procalcitonin TSH Urine Color Urine Appearance Urine pH Ur Specific [place] Urine Protein Urine Glucose (UA) Urine Ketones Urine Blood Urine Nitrite Urine Bilirubin Urine Urobilinogen Ur Leukocyte Esterase COVID-19 Eval Order SARS-CoV-2 (PCR) 04/26/21 04/26/21 04/26/21 17:58 17:58 18:10 WBC RBC Hgb Hct MCV MCH MCHC RDW Std Deviation RDW Coeff of Randell Plt Count MPV Immature Gran % (Auto) Neut % (Auto) Lymph % (Auto) Rush % (Auto) Eos % (Auto) Baso % (Auto) Neut # (Auto) Lymph # (Auto) Rush # (Auto) Eos # (Auto) Baso # (Auto) Immature Gran # (Auto) PT INR Sodium 137 Potassium 3.7 Chloride 101 Carbon Dioxide 29 Anion Gap 7.0 BUN 16 Creatinine 0.94 Est Cr Clr Drug Dosing Not Reportable Est GFR ( Amer) 64.1 Est GFR (Non-Af Amer) 55.3 BUN/Creatinine Ratio 17.0 Glucose 97 Lactate Calcium 9.7 Magnesium 2.2 Total Bilirubin 1.4 H AST 19 ALT 20 Alkaline Phosphatase 85 Troponin I < 0.015 NT-Pro-B Natriuret Pep Total Protein 7.9 Albumin 3.9 Globulin 4.0 Albumin/Globulin Ratio 1.0 Procalcitonin < 0.05 TSH 1.700 Urine Color Yellow Urine Appearance Clear Urine pH 6.5 Ur Specific [place] 1.017 Urine Protein Negative Urine Glucose (UA) Negative Urine Ketones Negative Urine Blood Negative Urine Nitrite Negative Urine Bilirubin Negative Urine Urobilinogen Negative Ur Leukocyte Esterase Negative COVID-19 Eval Order SARS-CoV-2 (PCR) 04/26/21 04/26/21 04/26/21 18:23 18:23 19:17 WBC RBC Hgb Hct MCV MCH MCHC RDW Std Deviation RDW Coeff of Randell Plt Count MPV Immature Gran % (Auto) Neut % (Auto) Lymph % (Auto) Rush % (Auto) Eos % (Auto) Baso % (Auto) Neut # (Auto) Lymph # (Auto) Rush # (Auto) Eos # (Auto) Baso # (Auto) Immature Gran # (Auto) PT INR Sodium Potassium Chloride Carbon Dioxide Anion Gap BUN Creatinine Est Cr Clr Drug Dosing Est GFR ( Amer) Est GFR (Non-Af Amer) BUN/Creatinine Ratio Glucose Lactate 2.1 H* Calcium Magnesium Total Bilirubin AST ALT Alkaline Phosphatase Troponin I NT-Pro-B Natriuret Pep Total Protein Albumin Globulin Albumin/Globulin Ratio Procalcitonin TSH Urine Color Urine Appearance Urine pH Ur Specific [place] Urine Protein Urine Glucose (UA) Urine Ketones Urine Blood Urine Nitrite Urine Bilirubin Urine Urobilinogen Ur Leukocyte Esterase COVID-19 Eval Order Covid19 at [facility] SARS-CoV-2 (PCR) NEGATIVE 04/26/21 21:16 WBC RBC Hgb Hct MCV MCH MCHC RDW Std Deviation RDW Coeff of Randell Plt Count MPV Immature Gran % (Auto) Neut % (Auto) Lymph % (Auto) Rush % (Auto) Eos % (Auto) Baso % (Auto) Neut # (Auto) Lymph # (Auto) Rush # (Auto) Eos # (Auto) Baso # (Auto) Immature Gran # (Auto) PT INR Sodium Potassium Chloride Carbon Dioxide Anion Gap BUN Creatinine Est Cr Clr Drug Dosing Est GFR ( Amer) Est GFR (Non-Af Amer) BUN/Creatinine Ratio Glucose Lactate 0.9 Calcium Magnesium Total Bilirubin AST ALT Alkaline Phosphatase Troponin I NT-Pro-B Natriuret Pep Total Protein Albumin Globulin Albumin/Globulin Ratio Procalcitonin TSH Urine Color Urine Appearance Urine pH Ur Specific [place] Urine Protein Urine Glucose (UA) Urine Ketones Urine Blood Urine Nitrite Urine Bilirubin Urine Urobilinogen Ur Leukocyte Esterase COVID-19 Eval Order SARS-CoV-2 (PCR) Diagnostic Findings Impressions Chest X-Ray 04/26/21 18:05 XR chest 1V portable CLINICAL HISTORY: weakness COMPARISON STUDY: Chest radiograph January 05, 2021. FINDINGS: Cardiomegaly is unchanged. There is no pneumothorax or pleural effusion. Aortic stent graft is partially imaged. Linear bibasilar opacities favor atelectasis. There is pulmonary vascular congestion without overt pulmonary edema. Old proximal right humeral deformity is noted. IMPRESSION: Cardiomegaly with pulmonary vascular congestion. ACT 112: Negative or not required by law. Electronically signed by: David Brady M.D. 04/26/2021 6:[address] 04/26/21 19:05 CT OF THE HEAD WITHOUT CONTRAST CLINICAL HISTORY: Altered mental status. COMPARISON STUDY: Head CT January 05, 2021. CT DOSE: 1228.53 mGy.cm TECHNIQUE: Helical axial images of the head were obtained without IV contrast. Automated exposure control was utilized for the study. A dose lowering technique was utilized adhering to the principles of ALARA. FINDINGS: No acute intracranial hemorrhage, midline shift or mass effect is present. The ventricular system is stable. White matter hypodensity suggests small vessel disease. Suspected small amount of venous gas is incidentally noted anterior to the left maxillary sinus and within the infratemporal fossae. The basal cisterns are patent. No extra-axial collections are present. There are no findings to suggest acute dural sinus thrombosis or acute territorial infarct. No significant calvarial abnormalities are present. Visualized portions of the sinuses and mastoid air cells are clear. IMPRESSION: No acute intracranial findings. No change in appearance of the brain. ACT 112: Negative or not required by law. Electronically signed by: David Brady M.D. 04/26/2021 7:52 PM Supervising Physician Co-Signing Physician Notes Patient seen and examined, chart reviewed, case discussed with Dr. Durand and I agree with his assessment and plan as as above. Briefly, patient presents at request of daughter for complaints of worsening confusion and chills, possible rigors On exam she is afebrile, HD stable, NAD. Upset at being in the hospital Skin - chronic venous stasis changes of bilateral LE, no active infection HEENT - PERRL, EOMI, MMM, Neck supple Heart - +S1/S2, irregularly irregular, 2/6 BISHOP across precordium Lungs - CTA Abd - BS present, soft, NT/ND Neuro - nonfocal Labs and images reviewed Assessment/Plan - ?confusion, ?chills/rigors -Follow cultures -Patient is already scheduled for admisison to [facility] on -Delirium prevention strategies -Remainder of plan as above Resident Activity Tracking Resident Involvement: Resident Care Provided Care Provided: Adult Hospital Medicine
[2021-04-26] MEDS ORDERED: ONDANSETRON INJ 2 MG/ML 2 ML VIAL IV PRN (23:43)
--- NOTE | 2021-04-27 00:31 | Emergency Department Note ---
History of Present Illness General Chief complaint: Infection Source: patient, family (Daughter at the bedside) and RN notes reviewed Mode of arrival: ambulatory Limitations: no limitations History of Present Illness Provider complaint: Hallucinations, lower extremity rash, department dementia Maximum Pain Intensity: 5 This patient is an 86-year-old female who presents to the emergency department with her daughter stating that she has been hallucinating today. Patient's daughter states she became scared and contacted her PCP. Patient's doctor felt this may be related to a urinary tract infection or wound infection. Patient does apparently live at home by herself but has an underlying diagnosis of dementia. She is scheduled to be admitted to [facility] in 2 days, but daughter states she is not able to be at home alone. Daughter denies that the patient has had any significant fevers, complaints of chest pain, vomiting or diarrhea. Daughter states the patient does have occasional urinary incontinence although the patient denies this. Daughter states the patient's behavior is difficult and threatening at times. Home Medications Medication Instructions Recorded Confirmed Type diltiazem HCl 120 mg 120 mg PO DAILY #90 cap 06/03/20 04/26/21 Rx capsule,extended release 24 hr, controlled apixaban 5 mg tablet (Eliquis) 5 mg PO BID #180 tab 09/24/20 04/26/21 Rx epinephrine 0.3 mg/0.3 mL 0.3 mg IM Q3H PRN #0 box 01/07/21 04/26/21 Rx injection, auto-injector clopidogrel 75 mg tablet (Plavix) 75 mg PO DAILY #90 tab 01/31/21 04/26/21 Rx hydrochlorothiazide 12.5 mg capsule 12.5 mg PO Q2D 04/26/21 04/26/21 History hydrochlorothiazide 25 mg tablet 25 mg PO QAM 04/26/21 04/26/21 History Allergies Allergy/AdvReac Type Severity Reaction Status Date / Time aspirin Allergy Severe TONGUE AND Verified 04/26/21 18:17 THROAT SWELLS tramadol Allergy Severe ANAPHYLAXIS Verified 04/26/21 18:17 monosodium glutamate Allergy Mild throat Verified 04/26/21 18:17 swell erythromycin base Allergy Unknown SWELLING Verified 04/26/21 18:17 THROAT AND RASH tetracycline Allergy Unknown SWELLING Verified 04/26/21 18:17 AND RASH Tetracyclines Allergy Swelling Verified 04/26/21 18:17 of Lip/Tongue/Throat cephalexin AdvReac Severe VOMITING Verified 04/26/21 18:17 omeprazole AdvReac Severe G I UPSET Verified 04/26/21 18:17 amoxicillin AdvReac Intermediate VOMIT Verified 04/26/21 18:17 clavulanic acid AdvReac Intermediate VOMIT Verified 04/26/21 18:17 metoprolol AdvReac Intermediate DISORIENTED Verified 04/26/21 18:17 alendronate sodium AdvReac Unknown very upset Verified 04/26/21 18:17 stomach esomeprazole AdvReac Unknown G I UPSET Verified 04/26/21 18:17 nystatin AdvReac Unknown GI UPSET Verified 04/26/21 18:17 montelukast AdvReac Nausea Verified 04/26/21 18:17 Aromatic Oils Allergy Unknown PERFUMES Uncoded 04/26/21 18:17 CAN'T BREATHE Past Med/Surg History Medical History Atrial fibrillation 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 Hyperlipidemia Hypertension Idiopathic angioedema Lower extremity edema Obesity Osteoarthritis Paroxysmal atrial fibrillation Peripheral vascular disease Sleep apnea BIPAP FOR SLEEP APNEA Surgical History Abdominal mass LARGE POLYP REMOVED History of AAA (abdominal aortic aneurysm) repair History of arthroscopy RT LNEE TENDON REPAIR History of cataract surgery History of colonoscopy History of tooth extraction History of total hip arthroplasty LEFT AND RT History of total knee replacement LEFT Hx of lumpectomy Family History Sister Family history of diabetes mellitus Other Family hx of colon cancer Social History Smoking Status: Former smoker Second Hand Exposure: No; Do You Dip or Chew Tobacco: No; Hx Alcohol Use: No Hx Substance Use: No Preferred Language: Zimbabwean Communication Ability: Effective 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: No Beliefs That Will Affect Care: None Current Living Situation: Alone Other Information That Helps Us Care for You: No Feels Safe at Home: Yes Safety Concerns: Feels Safe At This Time Assistive Devices: BiPap and Walker Physical Exam Vital Signs Vital Signs - 24 hr 04/26/21 14:46 04/26/21 17:33 04/26/21 18:00 Temperature 37 C Temperature Source Oral Pulse Rate 87 102 H 108 H Pulse Rate from SpO2 Sensor 107 H 106 H Respiratory Rate 16 28 H 20 Blood Pressure 114/60 126/75 129/80 Blood Pressure Mean 78 92 96 Pulse Oximetry 96 97 97 Oxygen Delivery Method Room Air Sepsis Recent Fever Within 48 Hours No Sepsis New/Unexplained Change in Mental Status No Sepsis Action Taken by Nursing No Action Required 04/26/21 18:31 04/26/21 19:02 04/26/21 19:10 Temperature Temperature Source Pulse Rate 98 H 103 H 92 H Pulse Rate from SpO2 Sensor 96 H 92 H 88 Respiratory Rate 22 18 22 Blood Pressure 120/74 Blood Pressure Mean 89 Pulse Oximetry 97 96 97 Oxygen Delivery Method Sepsis Recent Fever Within 48 Hours Sepsis New/Unexplained Change in Mental Status Sepsis Action Taken by Nursing 04/26/21 19:22 04/26/21 19:30 04/26/21 20:00 Temperature Temperature Source Pulse Rate 124 H 113 H 118 H Pulse Rate from SpO2 Sensor 127 H Respiratory Rate 17 28 H 21 Blood Pressure 127/101 H 155/89 H Blood Pressure Mean 109 111 Pulse Oximetry 96 Oxygen Delivery Method Sepsis Recent Fever Within 48 Hours Sepsis New/Unexplained Change in Mental Status Sepsis Action Taken by Nursing 04/26/21 20:30 04/26/21 21:00 Temperature Temperature Source Pulse Rate 103 H 124 H Pulse Rate from SpO2 Sensor 104 H Respiratory Rate 21 34 H Blood Pressure 138/66 101/75 Blood Pressure Mean 90 83 Pulse Oximetry 97 Oxygen Delivery Method Sepsis Recent Fever Within 48 Hours Sepsis New/Unexplained Change in Mental Status Sepsis Action Taken by Nursing Vital signs reviewed. General: Elderly, chronically ill-appearing 86-year-old female, obese but in no distress HEENT: No scleral icterus, no conjunctival injection PERRLA, neck supple. Moist mucous membranes Cardiovascular: Irregular and tachycardic, distant heart tones. Pulmonary: Clear to auscultation bilaterally, normal work of breathing. Abdomen: Soft, nontender, nondistended, positive bowel sounds. Musculoskeletal: Atraumatic, significant peripheral edema with chronic lymphedema. Lateral right ankle with venous stasis ulceration. Neurologic: Patient awake alert and oriented x 3, full strength in all 4 extremities. Cranial nerves 2 through 12 grossly intact. Skin: Warm, dry, multiple areas of yeast dermatitis to the abdominal and inguinal folds, breast folds. The perineal region has more circular areas of yeast appearing or fungal dermatitis also along the left medial thigh. Course Administered Medications Sodium Chloride (Nss 1000ml) 1,000 mls @ 125 mls/hr IV .Q8H MARLEY Stop: 04/27/21 02:14 Last Admin: 04/26/21 18:50 Dose: 125 mls/hr Documented by: [id number] Discontinued Medications Diltiazem HCl (Diltiazem Hcl 5 Mg/Ml 5 Ml Vial) 10 mg IV NOW STA Stop: 04/26/21 19:58 Last Admin: 04/26/21 20:12 Dose: 10 mg Documented by: [id number] Cosigned by: [id number] Medical Decision Making Differential Diagnosis Infection, dehydration, metabolic abnormality, hypo/hyperglycemia, electrolyte disturbance, anemia, hypoxia, cardiac sources, intracerebral event, toxicologic, neurologic, as well as other pathologies. Medical Records Attestation: I reviewed the patient's medical records. Home Medications Current Medication List: was personally reviewed by me Laboratory Data Attestation: I reviewed the patient's lab results. Result diagrams: 04/26/21 17:58 04/26/21 17:58 Lab Results 04/26/21 04/26/21 04/26/21 Range/Units 17:50 17:58 17:58 WBC 7.65 (4.8-10.8) K/uL RBC 4.31 (4.2-5.4) M/uL Hgb 14.0 (12.0-16.0) g/dL Hct 41.1 (37-47) % MCV 95.4 (80-100) fL MCH 32.5 (25-34) pg MCHC 34.1 (32-36) g/dL RDW Std Deviation 49.4 H (36.4-46.3) fL RDW Coeff of Randell 14.0 (11.5-14.5) % Plt Count 195 (130-400) K/uL MPV 9.4 (7.4-10.4) fL Immature Gran % (Auto) 0.1 % Neut % (Auto) 74.0 % Lymph % (Auto) 16.6 % Dunn % (Auto) 6.9 % Eos % (Auto) 2.0 % Baso % (Auto) 0.4 % Neut # (Auto) 5.66 (1.4-6.5) K/uL Lymph # (Auto) 1.27 (1.2-3.4) K/uL Dunn # (Auto) 0.53 (0.11-0.59) K/uL Eos # (Auto) 0.15 (0-0.5) K/uL Baso # (Auto) 0.03 (0-0.2) K/uL Immature Gran # (Auto) 0.01 (0.00-0.02) K/uL PT 10.6 (9.0-12.0) Seconds INR 1.0 (0.9-1.1) Sodium (136-145) mmol/L Potassium (3.5-5.1) mmol/L Chloride (98-107) mmol/L Carbon Dioxide (21-32) mmol/L Anion Gap (3-11) BUN (7-18) mg/dl Creatinine (0.6-1.2) mg/dl Est Cr Clr Drug Dosing Est GFR ( Amer) ml/min Est GFR (Non-Af Amer) ml/min BUN/Creatinine Ratio (10-20) Glucose (70-99) mg/dl Lactate (0.4-2.0) mmol/L Calcium (8.5-10.1) mg/dl Magnesium (1.8-2.4) mg/dl Total Bilirubin (0.2-1) mg/dl AST (15-37) U/L ALT (12-78) U/L Alkaline Phosphatase (45-117) U/L Troponin I (0-0.045) ng/ml NT-Pro-B Natriuret Pep 1137 (0-1800) pg/ml Total Protein (6.4-8.2) gm/dl Albumin (3.4-5.0) gm/dl Globulin (2.5-4.0) gm/dl Albumin/Globulin Ratio (0.9-2) Procalcitonin (0-0.5) ng/ml TSH (0.300-4.500) uIu/ml Urine Color Urine Appearance (Clear) Urine pH (4.5-7.5) Ur Specific [place] (1.000-1.030) Urine Protein (Negative) Urine Glucose (UA) (Negative) Urine Ketones (Negative) Urine Blood (Negative) Urine Nitrite (Negative) Urine Bilirubin (Negative) Urine Urobilinogen (Negative) Ur Leukocyte Esterase (Negative) COVID-19 Eval Order SARS-CoV-2 (PCR) (Negative) 04/26/21 04/26/21 04/26/21 Range/Units 17:58 17:58 18:10 WBC (4.8-10.8) K/uL RBC (4.2-5.4) M/uL Hgb (12.0-16.0) g/dL Hct (37-47) % MCV (80-100) fL MCH (25-34) pg MCHC (32-36) g/dL RDW Std Deviation (36.4-46.3) fL RDW Coeff of Randell (11.5-14.5) % Plt Count (130-400) K/uL MPV (7.4-10.4) fL Immature Gran % (Auto) % Neut % (Auto) % Lymph % (Auto) % Dunn % (Auto) % Eos % (Auto) % Baso % (Auto) % Neut # (Auto) (1.4-6.5) K/uL Lymph # (Auto) (1.2-3.4) K/uL Dunn # (Auto) (0.11-0.59) K/uL Eos # (Auto) (0-0.5) K/uL Baso # (Auto) (0-0.2) K/uL Immature Gran # (Auto) (0.00-0.02) K/uL PT (9.0-12.0) Seconds INR (0.9-1.1) Sodium 137 (136-145) mmol/L Potassium 3.7 (3.5-5.1) mmol/L Chloride 101 (98-107) mmol/L Carbon Dioxide 29 (21-32) mmol/L Anion Gap 7.0 (3-11) BUN 16 (7-18) mg/dl Creatinine 0.94 (0.6-1.2) mg/dl Est Cr Clr Drug Dosing Not Reportable Est GFR ( Amer) 64.1 ml/min Est GFR (Non-Af Amer) 55.3 ml/min BUN/Creatinine Ratio 17.0 (10-20) Glucose 97 (70-99) mg/dl Lactate (0.4-2.0) mmol/L Calcium 9.7 (8.5-10.1) mg/dl Magnesium 2.2 (1.8-2.4) mg/dl Total Bilirubin 1.4 H (0.2-1) mg/dl AST 19 (15-37) U/L ALT 20 (12-78) U/L Alkaline Phosphatase 85 (45-117) U/L Troponin I < 0.015 (0-0.045) ng/ml NT-Pro-B Natriuret Pep (0-1800) pg/ml Total Protein 7.9 (6.4-8.2) gm/dl Albumin 3.9 (3.4-5.0) gm/dl Globulin 4.0 (2.5-4.0) gm/dl Albumin/Globulin Ratio 1.0 (0.9-2) Procalcitonin < 0.05 (0-0.5) ng/ml TSH 1.700 (0.300-4.500) uIu/ml Urine Color Yellow Urine Appearance Clear (Clear) Urine pH 6.5 (4.5-7.5) Ur Specific [place] 1.017 (1.000-1.030) Urine Protein Negative (Negative) Urine Glucose (UA) Negative (Negative) Urine Ketones Negative (Negative) Urine Blood Negative (Negative) Urine Nitrite Negative (Negative) Urine Bilirubin Negative (Negative) Urine Urobilinogen Negative (Negative) Ur Leukocyte Esterase Negative (Negative) COVID-19 Eval Order SARS-CoV-2 (PCR) (Negative) 04/26/21 04/26/21 04/26/21 Range/Units 18:23 18:23 19:17 WBC (4.8-10.8) K/uL RBC (4.2-5.4) M/uL Hgb (12.0-16.0) g/dL Hct (37-47) % MCV (80-100) fL MCH (25-34) pg MCHC (32-36) g/dL RDW Std Deviation (36.4-46.3) fL RDW Coeff of Randell (11.5-14.5) % Plt Count (130-400) K/uL MPV (7.4-10.4) fL Immature Gran % (Auto) % Neut % (Auto) % Lymph % (Auto) % Dunn % (Auto) % Eos % (Auto) % Baso % (Auto) % Neut # (Auto) (1.4-6.5) K/uL Lymph # (Auto) (1.2-3.4) K/uL Dunn # (Auto) (0.11-0.59) K/uL Eos # (Auto) (0-0.5) K/uL Baso # (Auto) (0-0.2) K/uL Immature Gran # (Auto) (0.00-0.02) K/uL PT (9.0-12.0) Seconds INR (0.9-1.1) Sodium (136-145) mmol/L Potassium (3.5-5.1) mmol/L Chloride (98-107) mmol/L Carbon Dioxide (21-32) mmol/L Anion Gap (3-11) BUN (7-18) mg/dl Creatinine (0.6-1.2) mg/dl Est Cr Clr Drug Dosing Est GFR ( Amer) ml/min Est GFR (Non-Af Amer) ml/min BUN/Creatinine Ratio (10-20) Glucose (70-99) mg/dl Lactate 2.1 H* (0.4-2.0) mmol/L Calcium (8.5-10.1) mg/dl Magnesium (1.8-2.4) mg/dl Total Bilirubin (0.2-1) mg/dl AST (15-37) U/L ALT (12-78) U/L Alkaline Phosphatase (45-117) U/L Troponin I (0-0.045) ng/ml NT-Pro-B Natriuret Pep (0-1800) pg/ml Total Protein (6.4-8.2) gm/dl Albumin (3.4-5.0) gm/dl Globulin (2.5-4.0) gm/dl Albumin/Globulin Ratio (0.9-2) Procalcitonin (0-0.5) ng/ml TSH (0.300-4.500) uIu/ml Urine Color Urine Appearance (Clear) Urine pH (4.5-7.5) Ur Specific [place] (1.000-1.030) Urine Protein (Negative) Urine Glucose (UA) (Negative) Urine Ketones (Negative) Urine Blood (Negative) Urine Nitrite (Negative) Urine Bilirubin (Negative) Urine Urobilinogen (Negative) Ur Leukocyte Esterase (Negative) COVID-19 Eval Order Covid19 at [facility] SARS-CoV-2 (PCR) NEGATIVE (Negative) Imaging Data Radiologist's Impression: Chest X-Ray 04/26/21 18:05 XR chest 1V portable CLINICAL HISTORY: weakness COMPARISON STUDY: Chest radiograph January 05, 2021. FINDINGS: Cardiomegaly is unchanged. There is no pneumothorax or pleural effusion. Aortic stent graft is partially imaged. Linear bibasilar opacities favor atelectasis. There is pulmonary vascular congestion without overt pulmonary edema. Old proximal right humeral deformity is noted. IMPRESSION: Cardiomegaly with pulmonary vascular congestion. ACT 112: Negative or not required by law. Electronically signed by: David Brady M.D. 04/26/2021 6:[address] 04/26/21 19:05 CT OF THE HEAD WITHOUT CONTRAST CLINICAL HISTORY: Altered mental status. COMPARISON STUDY: Head CT January 05, 2021. CT DOSE: 1228.53 mGy.cm TECHNIQUE: Helical axial images of the head were obtained without IV contrast. Automated exposure control was utilized for the study. A dose lowering technique was utilized adhering to the principles of ALARA. FINDINGS: No acute intracranial hemorrhage, midline shift or mass effect is present. The ventricular system is stable. White matter hypodensity suggests small vessel disease. Suspected small amount of venous gas is incidentally noted anterior to the left maxillary sinus and within the infratemporal fossae. The basal cisterns are patent. No extra-axial collections are present. There are no findings to suggest acute dural sinus thrombosis or acute territorial infarct. No significant calvarial abnormalities are present. Visualized portions of the sinuses and mastoid air cells are clear. IMPRESSION: No acute intracranial findings. No change in appearance of the brain. ACT 112: Negative or not required by law. Electronically signed by: David Brady M.D. 04/26/2021 7:52 PM ECG Data Attestation: I personally reviewed and interpreted this ECG as follows: Indication: + weakness Rate (beats per minute): 99 Rhythm: + atrial fibrillation ECG Ballard: + Normal ECG ST segments: + Normal ST segments ECG Findings: + Q waves (Inferior) and + Other (low voltage); no PACs or no PVCs Comparison ECG Date: from (01/07/21) Change: no significant change Blood Pressure Blood Pressure Findings: Normal blood pressure Blood Pressure Disposition: did not require urgent referral MDM Narrative This patient was evaluated and appeared to be in no significant distress. IV access was obtained and laboratory work was drawn. An order for cardiac monitoring was placed and the patient is noted to be a rate controlled atrial fibrillation at 98 bpm. Patient's laboratory work is fairly reassuring. Troponin is normal. UA was obtained by straight catheter nursing staff and is negative for acute infectious process. Head CT was performed and reveals no evidence of acute intracranial abnormality. Covid swab is negative. Patient did become progressively more agitated throughout the evening. Patient's heart rate did climb to a max of 124 bpm in atrial fibrillation. Patient was given Cardizem 10 mg IV. She did receive IV hydration. Patient's case was discussed with the hospitalist service who will evaluate the patient for admission and further management. Patient's daughter is aware of the plan and agrees. Impression & Plan Agitation due to dementia, Lymphedema, Venous stasis ulcer, Atrial fibrillation with RVR Discharge Plan Visit Data Chief Complaint: Infection ED Provider: Erica Powell Discharge Problem: Agitation due to dementia, Lymphedema, Venous stasis ulcer, Atrial fibrillation with RVR Patient Disposition: Admitted As Inpatient Discharge Instructions Interventions: ED Discharge Assessment Last Done: 04/26/21 23:01 Discharge Problem: Venous stasis ulcer Qualifiers: Venous stasis ulcer site: ankle Varicose vein presence: without varicose veins Laterality: right Non-pressure ulcer stage: limited to breakdown of skin Qualified Code(s): I87.2 - Venous insufficiency (chronic) (peripheral)
[2021-04-27] MEDS: APIXABAN 5 MG TABLET PO SCH ×3 (02:18→20:08)
[2021-04-27] MEDS: ACETAMINOPHEN 325 MG TAB PO PRN ×2 (05:30→20:07)
[2021-04-27 07:30] LABS: Basophils # (auto) 0.01 K/uL (0-0.2); Basophils % (auto) 0.2 %; Eosinophils # (auto) 0.15 K/uL (0-0.5); Eosinophils % (auto) 2.3 %; Hematocrit (blood only) 36.2 % (37-47); Hemoglobin 12.1 g/dL (12.0-16.0); Immature Granulocytes # (auto) 0.01 K/uL (0.00-0.02); Immature Granulocytes % (auto) 0.2 %; Lymphocytes # (auto) 1.27 K/uL (1.2-3.4); Lymphocytes % (auto) 19.4 %; Mean Corpuscular Hemoglobin 31.7 pg (25-34); Mean Corpuscular Hgb Conc 33.4 g/dL (32-36); Mean Corpuscular Volume 94.8 fL (80-100); Mean Platelet Volume 9.4 fL (7.4-10.4); Monocytes # (auto) 0.56 K/uL (0.11-0.59); Monocytes % (auto) 8.6 %; Neutrophils # (auto) 4.54 K/uL (1.4-6.5); Neutrophils % (auto) 69.3 %; Platelet Count 175 K/uL (130-400); RDW Coefficient of Variation 14.1 % (11.5-14.5); Red Blood Count 3.82 M/uL (4.2-5.4); White Blood Count 6.54 K/uL (4.8-10.8)
[2021-04-27 08:16] LABS: Albumin Level 3.1 gm/dl (3.4-5.0); BUN Creatinine Ratio 15.8 (10-20); Calcium 8.6 mg/dl (8.5-10.1); Creatinine Clr Calc Pharmacy 59.6 ml/min; Est GFR (African American) 74.5 ml/min; Est GFR (Non-African American) 64.3 ml/min; Potassium 3.6 mmol/L (3.5-5.1)
[2021-04-27 08:21] LABS: Bilirubin,Total 1.7 mg/dl (0.2-1); Globulin 3.2 gm/dl (2.5-4.0); Total Protein 6.3 gm/dl (6.4-8.2)
[2021-04-27] MEDS: hydroCHLOROthiazide 25 MG TAB PO SCH ×2 (09:14→09:15)
[2021-04-27] MEDS: dilTIAZem ER 120 MG CAPCR PO SCH (09:14)
[2021-04-27] MEDS: CLOPIDOGREL BISULFATE 75 MG TAB PO SCH (09:15)
[2021-04-27] MEDS: NYSTATIN CR 15 GM TUBE EXT SCH (16:03)
--- NOTE | 2021-04-27 17:34 | Hospitalist Progress Note ---
Date of Service April 27, 2021 Assessment & Plan (1) Memory impairment: Plan: Patient is an 86 year old female who presented for concerns of chills and an acute alteration in her baseline mental status. Altered Mental Status - Head CT neg, structural causes ruled out - As for metabolic etiologies: - CBC normal. Procal not elevated. UA unremarkable. Chest CT without evidence of consolidation. Infectious cause seems unlikley. - CMP normal. TSH was normal. Ammonia not elevated. - no recent medication changes (although daughter does report apparent inequities in her home medication bottles; although patient is not on any sedati ng agent) - suspect acute change was represent of progression of chronic, underlying dementia - seems to be resolved/returned to baseline Elevated Lactate - 2.1 on admission --> normalized with IVF HTN -Continue Diltiazem -Continue HCTZ PAD -Continue Plavix Atrial Fibrillation -Continue Eliquis DORA -CPAP qhs Chronic Venous Stasis - wound care nurse consulted Dispo: Med/Surg FEN: HH low sodium diet DVT: Eliquis Code: DNR/DNI - discussed in length with daughter who notes that this is the accurate code status for the patient ; awaiting placement at [facility] for acute rehab Admission and Anticipated Discharge Date Admission Date: April 26, 2021 Supervising Physician Co-Signing Physician Notes I also saw the patient with the resident physician and confirmed ramos portions of the history and physical examination. Pleasant 86-year-old female presented to the emergency department at the recommendation of her primary care physician yesterday to questionable worsening of her baseline mental status along with reports of chills. She has a noted history of atrial fibrillation, hypertension, chronic venous stasis, and dementia. Per the daughter, the patient was having increased confusion yesterday. She had some increased agitation as well. She was actually pending placement to [facility] tomorrow. Emergency department work-up was fairly nonrevealing. There are no significant metabolic abnormalities and a CT of the brain was negative, chest x-ray did not show infiltrate, and urinalysis was unremarkable. Upon our mid afternoon exam, she is awake; conversational. She has no complaints. Exam 133/71, 69, 18, 36.4, 92% on room air LE venous stasis changes appear chronic. Heart irregularly irregular Lungs clear with non labored respirations Assessment and Plan I agree with the assessment plan as noted in the resident documentation. Confusion, mental status change No signs of infection or metabolic derangement. Review of her medications, she does not appear to be on medications which would potentially cause mental status change as a side effect. I suspect this may be progression of her underlying dementia. That being said, she is on no dementia specific medications. We will need to review outpatient chart to see if any have been tried before. Memantine can sometimes be helpful with behavioral disturbances associated with dementia. Other option would be outpatient appointment with geriatric psychiatry. Else per resident documentation Subjective Mrs. Ledezma reports she is doing well - she feels as though she has returned to her baseline. She is amenable to doing rehab. Review of Systems Review of Systems: All systems reviewed & are unremarkable except as noted in HPI & below Physical Exam Constitutional: WD/WN, vitals as above + obese and cooperative; no acute distress Eyes: + anicteric sclerae ENMT: external ear and nose normal, oropharynx normal Neck: normal visual inspection and trachea midline Respiratory: normal respiratory effort; no cough Cardiovascular: RRR, no murmur, no edema Heart Sounds: normal S1 and normal S2 Extremities: + pedal edema Musculoskeletal: Head/Neck/Chest: normocephalic and head atraumatic Skin: B/L lower extremity edema with brawny dermatitis with superficial blisters; open area on right ankle Neurologic: moves all extremities Psychiatric: A+Ox3, euthymic affect Results & Data Results & Data ([facility]) Vital Signs (Past 12 Hours) Vital Signs Temp Pulse Resp BP Pulse Ox 04/27/21 15:33 36.4 C L 69 18 133/71 92 04/27/21 11:12 36.4 C L 92 H 20 112/69 90 04/27/21 07:00 36.8 C 74 20 107/69 92 Resident Activity Tracking Resident Involvement: Resident Care Provided Care Provided: Adult Hospital Medicine
--- NOTE | 2021-04-27 18:51 | Electrocardiogram Report ---
Test Reason : Blood Pressure : / mmHG Vent. Rate : 099 BPM Atrial Rate : 078 BPM P-R Int : 000 ms QRS Dur : 074 ms QT Int : 366 ms P-R-T Axes : 000 002 011 degrees QTc Int : 469 ms Atrial fibrillation with premature ventricular or aberrantly conducted complexes Low voltage QRS possible Inferior infarct , age undetermined Abnormal ECG When compared with ECG of 07-JAN-2021 05:39, Inferior infarct is now Present Confirmed by Ernie Tejada ([id number]) on 04/27/2021 6:51:16 PM Referred By: REFERRED SELF Confirmed By:Gil Tejada
[2021-04-27] MEDS ORDERED: DICLOFENAC SOD 1% GEL 100 GM TUBE EXT PRN (23:48)
--- NOTE | 2021-04-28 00:22 | Billing Data ---
Date of Service April 26, 2021 Coding Level of Care Code 40110 Initial Inpt Care Lvl 2
[2021-04-28] MEDS: CLOPIDOGREL BISULFATE 75 MG TAB PO SCH (07:58)
[2021-04-28] MEDS: APIXABAN 5 MG TABLET PO SCH ×2 (07:58→21:04)
[2021-04-28] MEDS: dilTIAZem ER 120 MG CAPCR PO SCH (07:59)
[2021-04-28] MEDS: hydroCHLOROthiazide 25 MG TAB PO SCH (07:59)
[2021-04-28] MEDS: NYSTATIN CR 15 GM TUBE EXT SCH (08:00)
--- NOTE | 2021-04-28 09:54 | Hospitalist Progress Note ---
Date of Service April 28, 2021 Assessment & Plan (1) Memory impairment: Plan: Patient is an 86 year old female who presented for concerns of chills and an acute alteration in her baseline mental status. Altered Mental Status -- in setting of known dementia - Strongly suspect transient (now resolved) AMS was secondary to ongoing cognitive impairment / dementia - Head CT neg, structural causes ruled out - As for metabolic etiologies: - CBC normal. Procal not elevated. UA unremarkable. Chest CT without evidence of consolidation. Infectious cause seems unlikley. - CMP normal. TSH was normal. Ammonia not elevated. - no recent medication changes (although daughter does report apparent inequities in her home medication bottles; although patient is not on any sedating agent) - seems to be resolved/returned to baseline - can consider further discussion of donepezil / memantine as outpatient - awaiting placement HTN -Continue Diltiazem -Continue HCTZ PAD -Continue Plavix Atrial Fibrillation -Continue Eliquis DORA -CPAP qhs Chronic Venous Stasis - wound care nurse consulted Elevated Lactate - resolved - secondary to dehydration - 2.1 on admission --> normalized with IVF Dispo: Med/Surg FEN: HH low sodium diet DVT: Eliquis Code: DNR/DNI - discussed in length with daughter who notes that this is the accurate code status for the patient ; awaiting placement at [facility] for acute rehab Admission and Anticipated Discharge Date Admission Date: April 26, 2021 Supervising Physician Co-Signing Physician Notes I also saw the patient with the resident physician and confirmed ramos portions of the history and physical examination. Pleasant 86-year-old female presented to the emergency department at the recommendation of her primary care physician yesterday to questionable worsening of her baseline mental status along with reports of chills. She has a noted history of atrial fibrillation, hypertension, chronic venous stasis, and dementia. This morning, the patient is awake and alert. She is in very good mood. She has no complaints over her chronic complaints (lower extremity pain, joint pain). She is currently realization that she can no longer live on her own so she is fairly content with her pending placement. Exam 121/73, 64, 18, 36.7, 91% on room air LE venous stasis changes appear chronic. Heart irregularly irregular consistent with her known history of atrial fibrillation Lungs clear with non labored respirations Assessment and Plan I agree with the assessment plan as noted in the resident documentation. Confusion, mental status change No evidence of metabolic derangement or infection; suggest transient mental status change was secondary to ongoing cognitive impairment/dementia. Wound care for her chronic venous stasis, ulceration Pending placement. Other diagnoses as noted in the resident documentation Subjective No acute events overnight. Reports feeling well this morning. Denies any chest pain, palpitations, shortness of breath. No nausea or vomiting. Appetite is good. Eager to leave the hospital when able. Spirits are good. Review of Systems Review of Systems: As per HPI Physical Exam Physical Exam: General: Well-appearing 86-year-old woman who is lying back in her hospital bed, relaxed, upon my arrival. She is fully alert and oriented throughout our discussion. No acute distress. HEENT: NCAT. Eyes - Sclera are white, anicteric, and without injection. Mouth - MMM with no tonsillar edema or exudates. Cardiac: Normal rate, irregular rhythm; S1 and S2 present with no murmurs, rubs, or gallops. Pulmonary: Good respiratory effort with symmetric expansion of the chest. No use of accessory muscles. Lungs were clear to auscultation bilaterally with no crackles or wheezes. Abdominal: Normoactive bowel sounds. Abdomen was soft, nondistended, and non-tender to palpation. Extremities: Upper and lower extremities are warm and well perfused. Venous stasis appreciated within both lower extremities. There is a fresh bandage over the right lower extremity. 1+ pitting edema. Psych: Well-developed, well-nourished, appropriately dressed for occasion. Behavior is cooperative and appropriate. Affect is WNL. Insight is appropriate. Results & Data Results & Data ([facility]) Vital Signs (Past 12 Hours) Vital Signs Temp Pulse Resp BP Pulse Ox 04/28/21 07:19 36.6 C 72 18 132/72 96 04/27/21 23:00 36.7 C 79 20 128/65 93 Resident Activity Tracking Resident Involvement: Resident Care Provided Care Provided: Adult [facility]
[2021-04-28] MEDS: ACETAMINOPHEN 325 MG TAB PO PRN (21:04)
[2021-04-29] MEDS: dilTIAZem ER 120 MG CAPCR PO SCH (08:31)
[2021-04-29] MEDS: CLOPIDOGREL BISULFATE 75 MG TAB PO SCH (08:31)
[2021-04-29] MEDS: hydroCHLOROthiazide 25 MG TAB PO SCH ×2 (08:31)
[2021-04-29] MEDS: APIXABAN 5 MG TABLET PO SCH (08:31)
[2021-04-29] MEDS: NYSTATIN CR 15 GM TUBE EXT SCH (08:32)
--- NOTE | 2021-04-29 09:40 | Discharge Summary ---
Date of Service April 29, 2021 Admission HPI Per Admitting Provider Patient is an 86 year old female with PMHx Atrial fibrillation, HLD, HTN, PAD, Sleep Apnea, chronic venous stasis, who presented for concerns of chills at home, confusion, and warmth of her lower extremities. Patient herself notes that she is only here because "my daughter made me" and insists that she be able to return home. She states that she is in good health and takes care of herself and is without complaints at this time including NVD, SOB, chest pain, chest pressure, fever, or chills. She notes that she takes her medications as prescribed. Called patient's daughter who noted concerns of worsening confusion and chills of the patient earlier this afternoon. She states that the patient had been more confused into what was "real vs. a dream." She states the patient became more agitated and upset when asked about these thoughts in addition to having called her siblings to tell them that she was "about to leave the house" as though she were being kicked out. She also notes that the patient had been shaking at home despite her temperature being set to 76F and being under several blankets. She had called the patient's PCP's office who had recommend she bring her in for evaluation in regards to a possible UTI or other infection that may be contributing to the patients confusion and chills. The patient's daughter also notes concerns that she is unsure what medications that the patient has actually been taking as there are pills missing from different bottles and extras in others. She notes that the patient was supposed to be moving into [facility] here in the next 2 days as she is unsafe to live at home alone any longer. Admission Exam Per Admitting Provider Constitutional: WD/WN, vitals as above Eyes: PERRL, conjunctivae normal, anicteric sclerae ENMT: external ear and nose normal, oropharynx normal Ears: + hearing impairment right side of face with small area of ecchymosis over zygomatic arch with mild +TTP Neck: trachea midline, no thyromegaly Respiratory: normal respiratory effort, able to speak in complete sentences and + pursed lip breathing (occasional ) Auscultation: + crackles (slight crackles at bases b/l ) Does not appear in distress, but does seem to have slight difficulties when supine Cardiovascular: Rate/Rhythm: regular rate and + irregularly irregular Heart Sounds: + murmur (2/6 BISHOP) Vessels: no JVD Extremities: no edema (+1 b/l to the knees with venous stasis changes) Gastrointestinal (Abdomen): normal bowel sounds, soft, nontender, no hepatosplenomegaly Musculoskeletal: Head/Neck/Chest: normocephalic and head atraumatic Extremities: no cyanosis and no clubbing Skin: legs with chronic venous stasis changes, mild pink color, dry skin Neurologic: PERRL, EOMI, accommodation nl, no face palsy, no dysarthria CN's II-XI intact bilaterally, moves all extremities and awake; no focal motor deficits Motor/Sensory: no tremor Psychiatric: Orientation: alert, oriented to person, oriented to place and + guarded; + not oriented to time Speech: normal rate/rhythm/volume of speech Affect: euthymic affect and + irritable affect Principal Diagnosis delirium in dementia patient Discharge Exam Constitutional WD/WN, vitals as above Respiratory normal respiratory effort, lungs clear to auscultation Cardiovascular RRR, no murmur, no edema Gastrointestinal (Abdomen) normal bowel sounds, soft, nontender, no hepatosplenomegaly Skin chronic venous stasis changes and lymphedema noted to bilateral LE Psychiatric A+Ox3, euthymic affect Discharge Data Allergies Allergy/AdvReac Type Severity Reaction Status Date / Time aspirin Allergy Severe TONGUE AND Verified 04/26/21 18:17 THROAT SWELLS tramadol Allergy Severe ANAPHYLAXIS Verified 04/26/21 18:17 monosodium glutamate Allergy Mild throat Verified 04/26/21 18:17 swell erythromycin base Allergy Unknown SWELLING Verified 04/26/21 18:17 THROAT AND RASH tetracycline Allergy Unknown SWELLING Verified 04/26/21 18:17 AND RASH Tetracyclines Allergy Swelling Verified 04/26/21 18:17 of Lip/Tongue/Throat cephalexin AdvReac Severe VOMITING Verified 04/26/21 18:17 omeprazole AdvReac Severe G I UPSET Verified 04/26/21 18:17 amoxicillin AdvReac Intermediate VOMIT Verified 04/26/21 18:17 clavulanic acid AdvReac Intermediate VOMIT Verified 04/26/21 18:17 metoprolol AdvReac Intermediate DISORIENTED Verified 04/26/21 18:17 alendronate sodium AdvReac Unknown very upset Verified 04/26/21 18:17 stomach esomeprazole AdvReac Unknown G I UPSET Verified 04/26/21 18:17 nystatin AdvReac Unknown GI UPSET Verified 04/26/21 18:17 montelukast AdvReac Nausea Verified 04/26/21 18:17 Aromatic Oils Allergy Unknown PERFUMES Uncoded 04/26/21 18:17 CAN'T BREATHE Consultations 04/26/21 20:13 ED Decision to Admit Stat Ordered Studies 04/26/21 19:05 CT head/brain wo con Stat Hospital Course (1) Memory impairment: Patient is an 86 year old female who was admitted for workup of altered mental status. Altered Mental Status -- in setting of known dementia, resolved - Strongly suspect transient (now resolved) AMS was delirium in the setting cognitive impairment / dementia. - Head CT without evidence of structural cause. - No evidence of metabolic derangement that would cause AMS: - CBC normal. Procalcitonin not elevated. UA unremarkable. Chest CT without evidence of consolidation. Infectious cause unlikely. - CMP normal. TSH was normal. Ammonia not elevated. - No recent medication changes. - Overall has resolved/returned to baseline. - Can consider further discussion of donepezil / memantine as outpatient. - Continue delirium precautions on discharge, such as early and frequent mobility during daytime hours, frequent orientation, sleep management, good oral hydration. HTN: - Continue Diltiazem and HCTZ. PAD: - Continue Plavix. Atrial Fibrillation: - Continue Eliquis. DORA: - CPAP qHS. Chronic Venous Stasis: - Wound care nurse consulted; patient and caregivers provided information for wound care clinic. Elevated Lactate - resolved - 2.1 on admission --> normalized with IVF. - Secondary to dehydration. Diet: Heart Healthy, low sodium diet Code Status: DNR/DNI - discussed in length with daughter this admission, who notes that this is the accurate code status for the patient Total Time Total Time Spent Total Time Spent (In Minutes): see attending attestation Discharge Plan Discharge Items Patient Disposition: Transfer [facility] Reason For Visit: ELEVATED LACTATE, PULMONARY EDEMA Discharge Diagnosis: altered mental status Activity: Per Instructions section Non-emergency contact: Primary Care Provider Call non-emergency contact if: you have any medication questions and your symptoms worsen Follow-up/Referrals: John Escobar MD [Primary Care Provider] - Diet: Heart Healthy and Low Sodium (2gm) Addtl Attending Provider Instructions: Patient is an 86 year old female who was admitted for workup of altered mental status. Altered Mental Status -- in setting of known dementia, resolved - Strongly suspect transient (now resolved) AMS was delirium in the setting cognitive impairment / dementia. - Head CT without evidence of structural cause. - No evidence of metabolic derangement that would cause AMS: - CBC normal. Procal not elevated. UA unremarkable. Chest CT without evidence of consolidation. Infectious cause unlikely. - CMP normal. TSH was normal. Ammonia not elevated. - No recent medication changes. - Overall has resolved/returned to baseline. - Can consider further discussion of donepezil / memantine as outpatient. - Continue delirium precautions on discharge, such as early and frequent mobility during daytime hours, frequent orientation, sleep management. HTN: - Continue Diltiazem and HCTZ. PAD: - Continue Plavix. Atrial Fibrillation: - Continue Eliquis. DORA: - CPAP qHS. Chronic Venous Stasis: - Wound care nurse consulted; patient and caregivers provided information for wound care clinic. Elevated Lactate - resolved - 2.1 on admission --> normalized with IVF. - Secondary to dehydration. Diet: Heart Healthy, low sodium diet Code Status: DNR/DNI - discussed in length with daughter this admission, who notes that this is the accurate code status for the patient Pending Studies at Discharge: No Stand-Alone Forms: [facility] [employer], Smoking Cessation Medications and DC Order Prescriptions: Continued diltiazem HCl 120 mg capsule,ext.rel 24h degradable 120 mg PO DAILY Qty: 90 RF: 3 Eliquis 5 mg tablet 5 mg PO BID Qty: 180 RF: 1 clopidogrel [Plavix] 75 mg tablet 75 mg PO DAILY Qty: 90 RF: 3 epinephrine 0.3 mg/0.3 mL Auto-Injector 0.3 mg IM Q3H PRN (Reason: . Allergic reaction) Qty: 0 RF: 0 hydrochlorothiazide 12.5 mg capsule 12.5 mg PO Q2D RF: 0 hydrochlorothiazide 25 mg tablet 25 mg PO QAM RF: 0 Discharge Orders: Discharge Order (Routine); Ordered 04/29/21 Ordered By: Alysha Vance Admission Data Admit Date/Time: 04/26/21 21:11 Attending Provider: Arnulfo Mo Admit Provider: Johnson Durand Primary Care Provider: John Escobar Other Providers: Bhanu Lewis at [place] ; Vidhya Guerrero Other Interventions: Discharge Summary Assessment (RN) Last Done: 04/29/21 10:12 Supervising Physician Co-Signing Physician Notes Patient seen and examined independently of PGY-3 Dr. Vance. Agree with history, exam findings, assessment and plan of care as outlined. In brief, Ms Ledezma is an 86 year old female with baseline cognitive impairment, HTN, PAD, and afib admitted with altered mental status that resolved quickly. Likely this was related to her underlying cognitive impairment. Metabolic and infectious work up was unremarkable. She was previously living independently and was about to move to [facility] in the assisted living. Will be transferred today to [facility] for short term care. Other chronic issues were stable and home medications continued. I personally spent 25 minutes discharge planning for this patient.
[2021-04-29] MEDS ORDERED: LIDOCAINE 5% 1 PATCH TD SCH (10:30)
== END 2021-04-29 11:15 | DRG 884 ==
LOC: ED 14:18 → SUATTDRO 21:11 → 2W 21:11